=== PATIENT | male | born 1975 | race Hispanic/Latino ===

== ENCOUNTER 2020-04-30 20:20 | Emergency (ER) | payer BC ==
[~2020-04-30] VITALS: Ht 167.6 cm; Wt 72.6 kg
--- NOTE | 2020-04-30 20:44 | Emergency Department Note ---
History of Present Illnes History of Present Illness Chief Complaint: Genitourinary History of Present Illness This is a 44 year old male presents to ED with intermittent hematuria/right lower back x1 week; pt reports hematuria tonight x30 minutes following sexual intercourse with spouse; pt also reports burning with urination last week, denies any at this time. Historian: Patient Arrival Mode: Car Onset (how long ago): day(s) (7) Location: RIGHT BACK Quality: OCCASIONAL PAIN, BLOOD IN URINE Radiation: Reports non-radiation Severity: mild Onset quality: sudden Duration (how long): day(s) (7) Timing of current episode: intermittent Progression: waxing and waning Chronicity: recurrent Context: Denies recent illness, Denies recent surgery, Denies trauma/injury Relieving factors: none Exacerbating factors: none Associated symptoms: Reports denies other symptoms Past Medical/Family History Physician Review I have reviewed the patient's past medical and family history. Any updates have been documented here. Past Medical History Recent Fever: No Clinical Suspicion of Infectio: No New/Unexplained Change in Ment: No Past Medical History: Kidney Stones Other Medical History: ACID REFLUX Other Surgery: lithotripsy Social History Smoking Cessation: Current every day smoker Counseling Performed: No Alcohol Use: Occasional Any Illegal Drug Use: No Family History Family history of heart diseas: No Other Last Tetanus: Up to date Any Pre-Existing Lines (PICC,: No Review of Systems Review of Systems Constitutional: Reports no symptoms EENTM: Reports no symptoms Cardiovascular: Reports no symptoms Respiratory: Reports no symptoms Gastrointestinal: Reports no symptoms Genitourinary: Reports as per HPI Musculoskeletal: Reports no symptoms Integumentary: Reports no symptoms Neurological: Reports no symptoms Psychological: Reports no symptoms Endocrine: Reports no symptoms Hematological/Lymphatic: Reports no symptoms Physical Exam Related Data Allergies: Coded Allergies: No Known Allergies (Unverified , 06/13/16) Triage Vital Signs Vital Signs Date Time Temp Pulse Resp B/P (MAP) Pulse Ox O2 Delivery O2 Flow Rate FiO2 04/30/20 20:27 97.9 82 16 136/94 98 Room Air Vital signs reviewed: Yes Physical Exam CONSTITUTIONAL Constitutional: Present well-developed, Present well-nourished; Absent distressed HENT HENT: Present normocephalic, Present atraumatic, Present oropharynx clear/moist, Present nose normal HENT L/R: Present left ext ear normal, Present right ext ear normal EYES Eyes: Reports PERRL, Reports conjunctivae normal NECK Neck: Present ROM normal PULMONARY Pulmonary: Present effort normal, Present breath sounds normal CARDIOVASCULAR Cardiovascular: Present regular rhythm, Present heart sounds normal, Present capillary refill normal, Present normal rate GASTROINTESTINAL Abdominal: Present soft, Present nontender, Present bowel sounds normal, Present right CVA tenderness (MILD RIGHT); Absent tender, Absent guarding, Absent mass, Absent rebound GENITOURINARY Genitourinary: Present exam deferred SKIN Skin: Present warm, Present dry MUSCULOSKELETAL Musculoskeletal: Present ROM normal NEUROLOGICAL Neurological: Present alert, Present oriented x 3, Present no gross motor or sensory deficits PSYCHOLOGICAL Psychological: Present mood/affect normal, Present judgement normal Results Laboratory Laboratory Laboratory Tests Test 04/30/20 20:30 White Blood Count 5.81 x10e3/uL (4.8-10.8) Red Blood Count 4.54 x10e6/uL (4.3-5.7) Hemoglobin 13.6 g/dL (14.0-18.0) Hematocrit 40.5 % (38.2-49.6) Mean Corpuscular Volume 89.2 fL (81-99) Mean Corpuscular Hemoglobin 30.0 pg (28-32) Mean Corpuscular Hemoglobin Concent 33.6 g/dL (31-35) Red Cell Distribution Width 12.7 % (11.7-14.4) Platelet Count 210 x10e3/uL (140-360) Neutrophils (%) (Auto) 57.8 % (38.7-80.0) Lymphocytes (%) (Auto) 29.3 % (18.0-39.1) Monocytes (%) (Auto) 6.4 % (4.4-11.3) Eosinophils (%) (Auto) 5.3 % (0.0-6.0) Basophils (%) (Auto) 0.5 % (0.0-1.0) Neutrophils # (Auto) 3.4 (2.1-6.9) Lymphocytes # (Auto) 1.7 (1.0-3.2) Monocytes # (Auto) 0.4 (0.2-0.8) Eosinophils # (Auto) 0.3 (0.0-0.4) Basophils # (Auto) 0.0 (0.0-0.1) Absolute Immature Granulocyte (auto 0.04 x10e3/uL (0-0.1) Prothrombin Time 11.6 seconds (11.9-14.5) Prothromb Time International Ratio 0.81 Activated Partial Thromboplast Time 32.6 seconds (23.8-35.5) Urine Color Straw (YELLOW) Urine Clarity Cloudy (CLEAR) Urine pH 5.5 (5 - 7) Urine Specific [place] 1.015 (1.010-1.025) Urine Protein 2+ (NEGATIVE) Urine Glucose (UA) Negative (NEGATIVE) Urine Ketones Negative (NEGATIVE) Urine Blood 4+ (NEGATIVE) Urine Nitrite Negative (NEGATIVE) Urine Bilirubin Negative (NEGATIVE) Urine Urobilinogen 0.2 mg/dL (0.2 - 1) Urine Leukocyte Esterase Negative (NEGATIVE) Urine RBC >50 /HPF (0-5) Urine WBC 11-20 /HPF (0-5) Urine Epithelial Cells Few /LPF (NONE) Urine Bacteria Moderate /HPF (NONE) Sodium Level 136 mmol/L (136-145) Potassium Level 4.0 mmol/L (3.5-5.1) Chloride Level 105 mmol/L (98-107) Carbon Dioxide Level 18 mmol/L (22-29) Anion Gap 17.0 mmol/L (8-16) Blood Urea Nitrogen 16 mg/dL (7-26) Creatinine 0.89 mg/dL (0.72-1.25) Estimat Glomerular Filtration Rate > 60 ML/MIN (60-) BUN/Creatinine Ratio 18 (6-25) Glucose Level 101 mg/dL (74-118) Calcium Level 8.6 mg/dL (8.4-10.2) Total Bilirubin 0.2 mg/dL (0.2-1.2) Aspartate Amino Transf (AST/SGOT) 27 IU/L (5-34) Alanine Aminotransferase (ALT/SGPT) 27 IU/L (0-55) Alkaline Phosphatase 78 IU/L (40-150) Creatine Kinase 331 IU/L (30-200) Total Protein 7.0 g/dL (6.5-8.1) Albumin 4.6 g/dL (3.5-5.0) Globulin 2.4 g/dL (2.3-3.5) Albumin/Globulin Ratio 1.9 (0.8-2.0) Lab results reviewed: Yes Imaging Imaging results reviewed: Yes Impressions Procedure: [id number] CT/CT ABDOMEN/PELVIS WO Exam Date: 04/30/20 Exam Time: 2119 REPORT STATUS: Signed EXAM: CT Abdomen and Pelvis WITHOUT contrast INDICATION: ^HEMATURIA ^[id number] ^2119 ^Y COMPARISON: None available. TECHNIQUE: Abdomen and pelvis were scanned utilizing a multidetector helical scanner from the lung base to the pubic symphysis without administration of IV contrast. Absence of intravenous contrast decreases sensitivity for detection of focal lesions and vascular pathology. Coronal and sagittal reformations were obtained. Routine protocol was performed. IV CONTRAST: None ORAL CONTRAST: None COMPLICATIONS: None RADIATION DOSE: Total DLP: 304.99 mGy*cm Estimated effective dose: (DLP x 0.015 x size factor) mSv CTDIvol has been reviewed. It is below the limits set by the Radiation Protocol Committee (RPC). FINDINGS: LINES and TUBES: None. LOWER THORAX: Unremarkable HEPATOBILIARY: Unenhanced liver is unremarkable. No biliary ductal dilation. GALLBLADDER: Contracted. No radio-opaque stones or sludge. No wall thickening. SPLEEN: No splenomegaly. PANCREAS: No focal masses or ductal dilatation. ADRENALS: No adrenal nodules KIDNEYS/URETERS: 6 mm left ureteropelvic junction calculus without or with minimal left hydronephrosis. No right renal stones. No right hydronephrosis. Limited for evaluation of renal parenchyma without intravenous contrast. 5 mm left inferior pole calculus. GI TRACT: No abnormal distention, wall thickening, or evidence of bowel obstruction. Appendix is normal. PELVIC ORGANS/BLADDER: Unremarkable. LYMPH NODES: No lymphadenopathy. VESSELS: Unremarkable. PERITONEUM / RETROPERITONEUM: No free air or fluid. BONES: Unremarkable. SOFT TISSUES: Bilateral fat-containing hernia, right greater than left. IMPRESSION: 6 mm left ureteropelvic junction calculus without or with minimal left hydronephrosis. Additional subcentimeter left renal inferior pole nonobstructing calculus. Signed by: Dr. Yang Perry MD on 04/30/2020 9:50 PM Dictated By: YANG PERRY MD 49 Transcribed By: EUSEBIA on 04/30/202149 COPY TO: TREY DIANA MD~ Assessment & Plan Medical Decision Making MDM PT WITH INTERMITTENT RIGHT BACK PAIN AND HEMATURIA FOR 7 DAYS, H/O KIDNEY STONES CBC, BMP, UA, CT ABD/PELVIS ORDERED TO EVAL FOR UTI, HEMATURIA, KIDNEY STONE, ELECTROLYTE ABNORMALITY pt with uti and 6 mm stone in left upj without significant hydronephrosis, i offered pt admission with urology consult and he states he has a urologist and would prefer to be discharged and follow up with his own urologist discharged with prescriptions for omnicef 300 mg po bid for 10 days #20, Assessment & Plan Final Impression: (1) UTI (urinary tract infection) (2) Ureterolithiasis Depart Disposition: HOME, SELF-CARE Last Vital Signs Date Time Temp Pulse Resp B/P (MAP) Pulse Ox O2 Delivery O2 Flow Rate FiO2 04/30/20 20:27 97.9 82 16 136/94 98 Room Air TREY DIANA MD Apr 30, 2020 20:44
[2020-04-30 20:45] LABS: BASOPHILS % 0.5 % (0.0-1.0); EOSINOPHILS # (AUTO) 0.3 (0.0-0.4); EOSINOPHILS % 5.3 % (0.0-6.0); HEMATOCRIT 40.5 % (38.2-49.6); HEMOGLOBIN 13.6 g/dL (14.0-18.0); LYMPHOCYTES # (AUTO) 1.7 (1.0-3.2); LYMPHOCYTES % 29.3 % (18.0-39.1); MEAN CORPUSCULAR HGB CONC 33.6 g/dL (31-35); MEAN CORPUSCULAR VOLUME 89.2 fL (81-99); MONOCYTES # (AUTO) 0.4 (0.2-0.8); MONOCYTES % 6.4 % (4.4-11.3); NEUTROPHILS # (AUTO) 3.4 (2.1-6.9); NEUTROPHILS % 57.8 % (38.7-80.0); PLATELET COUNT 210 x10e3/uL (140-360); RED BLOOD COUNT 4.54 x10e6/uL (4.3-5.7); RED CELL DISTRIBUTION WIDTH 12.7 % (11.7-14.4)
[2020-04-30 20:49] LABS: CLARITY,URINE CLOUDY (CLEAR); COLOR,URINE STRAW (YELLOW)
[2020-04-30 20:50] LABS: BILIRUBIN,URINE NEGATIVE (NEGATIVE); KETONES,URINE NEGATIVE (NEGATIVE); LEUKOCYTE ESTERASE ,URINE NEGATIVE (NEGATIVE); NITRITE,URINE NEGATIVE (NEGATIVE); PROTEIN,URINE DIPSTICK 2+ (NEGATIVE); URINE UROBILINOGEN 0.2 mg/dL (0.2 - 1)
[2020-04-30 20:54] LABS: INR 0.81; PARTIAL THROMBOPLASTIN TIME 32.6 seconds (23.8-35.5); PROTHROMBIN TIME 11.6 seconds (11.9-14.5)
[2020-04-30 20:55] LABS: BACTERIA,URINE MODERATE /HPF; EPITHELIAL CELLS,URINE FEW /LPF; RBC,URINE >50 /HPF (0-5)
[2020-04-30 21:03] LABS: ALANINE AMINOTRANSFERASE 27 IU/L (0-55); ALBUMIN 4.6 g/dL (3.5-5.0); ALBUMIN/GLOBULIN RATIO 1.9 (0.8-2.0); ALKALINE PHOSPHATASE 78 IU/L (40-150); BLOOD UREA NITROGEN 16 mg/dL (7-26); BUN/CREATININE RATIO 18 (6-25); CALCIUM 8.6 mg/dL (8.4-10.2); CARBON DIOXIDE 18 mmol/L (22-29); CHLORIDE 105 mmol/L (98-107); CREATININE, SERUM 0.89 mg/dL (0.72-1.25); EST GLOMERULAR FILTRATION RATE > 60 ML/MIN (60-); GLUCOSE 101 mg/dL (74-118); SODIUM 136 mmol/L (136-145)
--- NOTE | 2020-04-30 21:53 | Diagnostic Imaging Report ---
EXAM: CT Abdomen and Pelvis WITHOUT contrast INDICATION: ^HEMATURIA ^[id number] ^2119 ^Y COMPARISON: None available. TECHNIQUE: Abdomen and pelvis were scanned utilizing a multidetector helical scanner from the lung base to the pubic symphysis without administration of IV contrast. Absence of intravenous contrast decreases sensitivity for detection of focal lesions and vascular pathology. Coronal and sagittal reformations were obtained. Routine protocol was performed. IV CONTRAST: None ORAL CONTRAST: None COMPLICATIONS: None RADIATION DOSE: Total DLP: 304.99 mGy*cm Estimated effective dose: (DLP x 0.015 x size factor) mSv CTDIvol has been reviewed. It is below the limits set by the Radiation Protocol Committee (RPC). FINDINGS: LINES and TUBES: None. LOWER THORAX: Unremarkable HEPATOBILIARY: Unenhanced liver is unremarkable. No biliary ductal dilation. GALLBLADDER: Contracted. No radio-opaque stones or sludge. No wall thickening. SPLEEN: No splenomegaly. PANCREAS: No focal masses or ductal dilatation. ADRENALS: No adrenal nodules KIDNEYS/URETERS: 6 mm left ureteropelvic junction calculus without or with minimal left hydronephrosis. No right renal stones. No right hydronephrosis. Limited for evaluation of renal parenchyma without intravenous contrast. 5 mm left inferior pole calculus. GI TRACT: No abnormal distention, wall thickening, or evidence of bowel obstruction. Appendix is normal. PELVIC ORGANS/BLADDER: Unremarkable. LYMPH NODES: No lymphadenopathy. VESSELS: Unremarkable. PERITONEUM / RETROPERITONEUM: No free air or fluid. BONES: Unremarkable. SOFT TISSUES: Bilateral fat-containing hernia, right greater than left. IMPRESSION: 6 mm left ureteropelvic junction calculus without or with minimal left hydronephrosis. Additional subcentimeter left renal inferior pole nonobstructing calculus. Signed by: Dr. Yang Perry MD on 04/30/2020 9:50 PM
--- NOTE | 2020-04-30 22:02 | NUR ---
ED MD AT BEDSIDE EDUCATING PT ON POC AND INTENT TO ADMIT FOR PROPER CARE, BUT PT STATES WOULD RATHER F/U WITH UROLOGIST, PT EDUCATED AND ADVISED OF RISKS/BENEFITS, SO PT WILL BE D/C AT THIS TIME, ADVISED TO RETURN TO ED FOR ANY ACUTE CHANGES.
[2020-04-30 22:13] VITALS: BP 115/73
--- OUTSIDE RECORDS SUMMARY | 2020-04-30 22:15 | XMS REPORT | Continuity of Care Document ---
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 Role Phone [facility] Information Exchange Unavailable Un available Problems Problem Status Onset Date Classification Date Reported Comments Source UNK Active 0 03/03/2017 [facility] STAGHORN CALCULUS Active 11/14/2016 [facility] Discharge Diagnosis: Renal colic 11/28/2014 11/30/2014 [facility] KIDNEY STONES Active 11/28/2014 [facility] PAIN/KIDNEY STONE Active 11/24/2014 [facility] Discharge Diagnosis: Ureterolithiasis 11/24/2014 11/27/2014 [facility] Hyperuricemia (disorder) Active 08/03/2014 Problem 11/25/2019 Data migrated from GE Lin[employer] on 01/21. [facility] Liver function tests abnormal (finding) Active 08/03/2014 Problem 11/25/2019 Data migrated from [employer] Centricity on 01/21/15. [facility] Pancytopenia (disorder) Active 08/03/2014 Problem 11/25/2019 Data migrated from [employer] on 01/21. [facility] Discharge Diagnosis: UTI (lower urinary tract infection) 06/23/2014 06/26/2014 [facility] Discharge Diagnosis: Kidney stone 06/23/2014 06/26/2014 [facility] Lower urinary tract infectious disease (disorder) Resolved 06/23/2014 Problem 11/25/2019 [facility] ABDOMINAL PAIN Active 06/23/2014 [facility] Acute cystitis (disorder) Reso lved 11/02/2013 Problem 11/25/2019 Data migrated from [employer] on 03/11. Data migrated from [employer] on 03/10/15. [facility] Backache (finding) Resolved 11/02/2013 Problem 11/25/2019 Data migrated from [employer] on 03/11. Data migrated from [employer] on 03/10/15. [facility] Kidney stone (disorder) Active 11/02/2013 Problem 11/25/2019 Data migrated from [employer] on 01/21. [facility] Epididymitis (disorder) Resolv ed 04/29/2013 Problem 11/25/2019 Data migrated from [employer] on 03/11. Data migrated from [employer] on 03/10/15. [facility] Fever (finding) Resolved 04/29/2013 Problem 11/25/2019 Data migrated from [employer] on 03/10. [facility] Gastroesophageal reflux disease (disorder) Active 04/29/2013 Problem 11/25/2019 Data migrated from [employer] on 01/21/15. [facility] History of - gastrointestinal disease (c ontext-dependent category) Resolved 04/29/2013 Problem 11/25/2019 Data migrated from [employer] on 03/11/15. Data migrated from [employer] on 03/10/15. [facility] LEUKOPENIA, RHABDOMYOLYSIS, MYAGLIAS Active 04/04/2013 [facility] ALLERGIC REACTION Active 04/04/2013 [facility] Constipation (disorder) Active Problem 11/25/2019 [facility] Decreased testosterone level (finding) Active Problem 09/2019 [facility] Eruption of skin (disorder) Ac tive Problem 09/2019 [facility] Follow-up status (finding) Act ramiro Problem 09/2019 [facility] Impaired fasting glycaemia (disorder) Active Problem 09/2019 [facility] Iron deficiency anemia (disorder) Active Problem 09/2019 [facility] Mixed hyperlipidemia (disorder) Active Problem 09/2019 [facility] Oral lesion (finding) Active Problem 11/25/2019 [facility] Impotence of organic origin (disorder) Active Problem 09/2019 [facility] Sore throat symptom (finding) Active Problem 09/2019 [facility] Decreased vitamin D (finding) Active Problem 09/2019 [facility] Patient encounter status (finding) Active Problem 09/2019 [facility] Screening status (finding) Act ramiro Problem 09/2019 [facility] Staghorn calculus (disorder) A ctive Problem 09/2019 [facility] Streptococcal sore throat (disorder) Active Problem 09/2019 [facility] Urine finding (finding) Active Problem 11/25/2019 [facility] Visual impairment (disorder) A ctive Problem 09/2019 [facility] DECREASED WBC COUNT NEC Active [facility] RHABDOMYOLYSIS Active [facility] CALCULUS OF KIDNEY Active [facility] Medications Medication Details Route Status Patient Instructions Ordering Provider Order Date Source ibuprofen 800 mg oral tablet 8 00 mg = 1 tab, PO, Q8H, PRN Pain, Take with food, X 10 day, # 30 tab, 0 Refill(s), Pharmacy: [id number] No Longer Active 09/30/2018 [facility] amoxicillin 500 mg oral capsule 500 mg = 1 cap, PO, TID, X 7 day, # 21 cap, 0 Refill(s), Pharmacy: [id number] No Longer Active 09/30/2018 [facility] potassium citrate 15 MEQ Extended Releas e Tablet [Urocit-K] 15 mEq = 1 tab, PO, TID, # 270 tab, 3 Re fill(s), Pharmacy: [id number] Active 09/22/2018 [facility] potassium citrate PO, Daily, 0 Refill(s) Active 09/22/2018 [facility] naproxen 500 mg oral enteric coated elijah yed-release tablet 500 mg = 1 tab, PO, BID, X 10 day, # 20 tab, 0 Refill(s), Pharmacy: [facility] No Longer Active 10/10/2017 [facility] tadalafil 5 MG Oral Tablet [Cialis] 5 mg = 1 tab, PO, Daily, PRN for erectile dysfunction, X 30 day, # 30 tab, 1 Refill(s), Pharmacy: [id number] No Longer Active 03/04/2017 [facility] ketOROLAC 15 mg/mL injectable solution 4 days. No Longer Active 12/06/2016 [facility] Acetaminophen 325 MG / Hydrocodone Jojo trate 5 MG Oral Tablet [[place]lede 5/325] Notes: (Same as: [place] 325/5) Do not ex ceed 4gm/day of acetaminophen. No Longer Activ e 12/05/2016 [facility] Dilaudid 0.5 mg, 0.5 mL, Route : IVP, Drug form: INJ, Q4H, Dosing Weight 77.636, kg, PRN Pain Score 7-10, Start date: 12/05/16 15:50:00 CDT, Duration: 30 day, Stop date: 01/04/17 15:49:00 CDT No Longer Active 12/05/2016 [facility] senna 8.6 mg oral tablet 1 tab , Route: PO, Drug Form: TAB, Dosing Weight 77.636, kg, Daily, Start date: 12/05/16 9:00:00 CDT, Duration: 30 day, Stop date: 01/03/17 9:00:00 CDT No Longer Active 12/05/2016 [facility] Docusate Sodium 100 MG Oral Capsule 100 mg = 1 cap, PO, BID, # 40 cap, 0 Refill(s) Active 12/05/2016 [facility] ciprofloxacin 500 mg oral tablet 500 mg = 1 tab, PO, [id number], # 12 tab, 0 Refill(s) No Longer Active 12/05/2016 [facility] Acetaminophen 325 MG / Hydrocodone Jojo trate 5 MG Oral Tablet [[place] 5/325] 1 tab, PO, Q4H, PRN Pain Score 4-6, # 30 tab, 0 Refill(s), given to patient Active 12/05/2016 [facility] tamsulosin 0.4 mg oral capsule 0.4 mg = 1 cap, PO, Q24H, # 40 cap, 0 Refill(s) Active 12/05/2016 [facility] Fleet Enema 12 years, Pediatr ic Dosing No Longer Active 12/05/2016 [facility] Dulcolax Laxative Notes: (Same As: Dulcolax, Bisco-Lax) No Longer Active 12/05/2016 [facility] Docusate Sodium 100 MG Oral Capsule [Colace] 100 mg, 1 cap, Route: PO, BID, Dosing Weight 77.636, kg, Start date: 12/04/16 17:00:00 CDT, Duration: 30 day, Stop date: 01/03/17 9:00:00 CDT Inactive 12/04/2016 [facility] docosanol 100 MG/ML Topical Cream [Abreva] Notes: Same as Abreva No Longer Active 12/04/2016 [facility] Flomax Notes: (Same As: Flomax ) "Do Not Crush" No Longer Active 12/04/2016 [facility] Miralax Notes: Dissolve in 8 o z of water or juice. (Same as: Miralax) Inactive 12/04/2016 [facility] Acetaminophen 325 MG / Hydrocodone Jojo trate 5 MG Oral Tablet [[place] 5/325] Notes: (Same as: [place] 325/5) Do not ex ceed 4gm/day of acetaminophen. No Longer Activ e 12/04/2016 [facility] Orabase Gel-B 20% mucous membrane gel Notes: (Same As: Maximum Strength PM Orajel ) N o Longer Active 12/04/2016 [facility] Tylenol Notes: Do not exceed 4 gm/day. (Same as: Tylenol) No Longer Active 12/03/2016 [facility] Ketorolac 4 days. Inactive 12/03/2016 [facility] tramadol hydrochloride 50 MG Oral Tablet Notes: Not to exceed 400mg/day. (Same As: Ultram) No Longer Active 12/03/2016 [facility] sennosides, RETIREMENT Notes: (Same a s: Senokot) No Longer Active 12/03/2016 [facility] Cipro Notes: May interfere w/e nteral feedings - Take 1 hr before or 2 hrs after antacids, dairy pdt & minerals. On empty stomach. No Longer Active 12/03/2016 [facility] Docusate Notes: (Same as: Cola ce) (Do Not Crush) No Longer Active 12/02/2016 [facility] Acetaminophen 10 MG/ML Injectable Solution Notes: Infuse over 15 minutes Do not exceed 4gm/day of acetaminophen MEDICATION WASTE Product Size: 1000 mg Product Wasted: ___ mg No Longer Active 12/02/2016 [facility] Ondansetron 4 mg, Route: IVP, ONCE, Dosing Weight 72.727, kg, PRN Nausea & Vomiting, Start date: 12/02/16 13:47:00 CDT Inactive 12/02/2016 [facility] Promethazine 6.25 mg, Route: I VPB, ONCE, Dosing Weight 72.727, kg, PRN Nausea & Vomiting, Start date: 12/02/16 13:47:00 CDT Inactive 12/02/2016 [facility] Meperidine 12.5 mg, Route: IVP , Q30Min, Dosing Weight 72.727, kg, PRN Other -See Comment, For shivering, Start date: 12/02/16 13:47:00 CDT, Duration: 2 doses or times, Stop date: Limited # of times Inactive 12/02/2016 [facility] Naloxone 0.4 mg, Route: IVP, Q 2MIN, Dosing Weight 72.727, kg, PRN Narcotic Reversal, Start date: 12/02/16 13:47:00 CDT, Duration: 8 doses or times, Stop date: Limited # of times Inactive 12/02/2016 [facility] Flumazenil 0.2 mg, Route: IVP, PRN, Dosing Weight 72.727, kg, PRN Benzodiazepine Reversal, Initial dose, Start date: 12/02/16 13:47:00 CDT, Duration: 30 day, Stop date: 01/01/17 13:46:00 CDT Inactive 12/02/2016 [facility] Labetalol 10 mg, Route: IVP, Q 5Min, Dosing Weight 72.727, kg, PRN Elevated BP, Start date: 12/02/16 13:47:00 CDT, Duration: 5 doses or times, Stop date: Limited # of times Inactive 12/02/2016 [facility] Hydralazine 10 mg, Route: IVP, Q20Min, Dosing Weight 72.727, kg, PRN Elevated BP, Start date: 12/02/16 13:47:00 CDT, Duration: 2 doses or times, Stop date: Limited # of times Inactive 12/02/2016 [facility] Fentanyl 25 microgram, Route: IVP, Q5Min, Dosing Weight 72.727, kg, PRN Pain Score 4-6, Priority: Routine, Start date: 12/02/16 13:47:00 CDT, Duration: 4 doses or times, Stop date: Limited # of times Inactive 12/02/2016 [facility] Oxycodone 2.5 mg, Route: PO, D rug form: LIQ, Q4H, Dosing Weight 72.727, kg, PRN Pain Score 4-6, Start date: 12/02/16 13:47:00 CDT, Duration: 30 day, Stop date: 01/01/17 13:46:00 CDT Inactive 12/02/2016 [facility] Hydromorphone 0.5 mg, Route: I [employer], Q5Min, Dosing Weight 72.727, kg, PRN Pain Score 7-10, Start date: 12/02/16 13:47:00 CDT, Duration: 4 doses or times, Stop date: Limited # of times Inactive 12/02/2016 [facility] Dilaudid 0.5 mg, 0.5 mL, Route : IVP, Drug form: INJ, Q4H, Dosing Weight 72.727, kg, PRN Pain Score 7-10, Start date: 12/02/16 13:33:00 CDT, Duration: 30 day, Stop date: 01/01/17 13:32:00 CDT No Longer Active 12/02/2016 [facility] tramadol hydrochloride 50 MG Oral Tablet Notes: Not to exceed 400mg/day. (Same As: Ultram) No Longer Active 12/02/2016 [facility] D5NS 1,000 mL 1,000 mL, Rate: 75 ml/hr, Infuse over: 13.3 hr, Route: IV, Dosing Weight 72.727 kg, Total Volume: 1,000, Start date: 12/02/16 13:33:00 CDT, Duration: 30 day, Stop date: 01/01/17 13:32:00 CDT Inactive 12/02/2016 [facility] Hydralazine Notes: (Same as: A presoline) Push over 5 minutes No Longer Active 12/02/2016 [facility] Ondansetron Notes: (Same as: Daisy cruz) MEDICATION WASTE Product Size: 4 mg Product Wasted: ___ mg No Longer Active 12/02/2016 [facility] ondansetron (ANES) Route: IV, Drug form: INJ, ONCE, Stop date: 12/02/16 13:27:00 CDT Inactive 12/02/2016 [facility] famotidine (ANES) Route: IV, D rug form: INJ, ONCE, Stop date: 12/02/16 12:27:00 CDT Inactive 12/02/2016 [facility] lidocaine (ANES) Route: IV, Dr ug form: INJ, ONCE, Stop date: 12/02/16 12:22:00 CDT Inactive 12/02/2016 [facility] propofol (ANES) Route: IV, Rell g form: INJ, ONCE, Stop date: 12/02/16 12:22:00 CDT Inactive 12/02/2016 [facility] rocuronium (ANES) Route: IV, D rug form: INJ, ONCE, Stop date: 12/02/16 12:22:00 CDT Inactive 12/02/2016 [facility] ciprofloxacin (ANES) Route: IV , Drug form: INJ, ONCE, Stop date: 12/02/16 11:57:00 CDT Inactive 12/02/2016 [facility] midazolam (ANES) Route: IV, Dr ug form: SOLN, ONCE, Stop date: 12/02/16 11:57:00 CDT Inactive 12/02/2016 [facility] fentaNYL (ANES) Route: IV, Rell g form: INJ, ONCE, Stop date: 12/02/16 11:57:00 CDT Inactive 12/02/2016 [facility] LR 1000 mL INJ (ANES) Route: I V, Total Volume: 1,000, Start date: 12/02/16 11:07:00 CDT, Stop date: 12/02/16 12:07:00 CDT Inactive 12/02/2016 [facility] gentamicin (ANES) (ANES) Route : IV, Drug form: INJ, Start date: 12/02/16 11:07:00 CDT, Stop date: 12/02/16 12:07:00 CDT Inactive 12/02/2016 [facility] Calcium Chloride 0.0014 MEQ/ML / Potassi um Chloride 0.004 MEQ/ML / Sodium Chloride 0.103 MEQ/ML / Sodium Lactate 0.028 MEQ/ML Injectable Solution 1,000 mL, Rate: 25 ml/hr, Infuse over: 4 0 hr, Route: IV, Dosing Weight 72.727 kg, Total Volume: 1,000, Start date: 12/02/16 9:42:00 CDT, Duration: 30 day, Stop date: 01/01/17 9:41:00 CDT Inactive 12/02/2016 [facility] diclofenac sodium 25 mg oral enteric [place], delayed-release tablet 25 mg = 1 tab, PO, QID, PRN Pain Score 1 -5, # 20 tab, 0 Refill(s) Active 11/29/2014 [facility] Acetaminophen 325 MG / Hydrocodone Jojo trate 10 MG Oral Tablet 1 tab, PO, Q4H, PRN Pain, # 12 tab, 0 Refill(s) Active 11/29/2014 [facility] ketOROLAC 30 mg/mL injectable solution 30 mg, Route: IVP, Drug form: INJ, ONCE, Dosing Weight 75, kg, Priority: STAT, Start date: 11/28/14 20:37:00, Stop date: 11/28/14 20:37:00 Inactive 11/29/2014 [facility] Dilaudid 1 mg, Route: IVP, ONC E, Dosing Weight 75, kg, Priority: STAT, Start date: 11/28/14 18:32:00, Stop date: 11/28/14 18:32:00 Inactive 11/28/2014 [facility] normal saline 0.9% IV 1,000 mL 1,000 mL, Rate: 1,000 ml/hr, Infuse over: 1 hr, Route: IV, Dosing Weight 75 kg, Total Volume: 1,000, Start date: 11/28/14 18:14:00, Duration: 30 day, Stop date: 12/28/14 18:13:00 No Longer Active 11/28/2014 [facility] Saline Flush 0.9% Notes: (Same as: BD Posiflush) No Longer Active 11/28/2014 [facility] Ondansetron 4 mg, Route: IVP, ONCE, Dosing Weight 75, kg, Priority: STAT, Start date: 11/28/14 18:05:00, Stop date: 11/28/14 18:05:00 Inactive 11/28/2014 [facility] Morphine 4 mg, Route: IVP, ONC E, Dosing Weight 75, kg, Priority: STAT, Start date: 11/28/14 18:05:00, Stop date: 11/28/14 18:05:00 Inactive 11/28/2014 [facility] Tamsulosin hydrochloride 0.4 MG Oral Capsule [Flomax] 0.4 mg = 1 cap, PO, Daily, # 14 cap, 0 Refill(s) Active 11/25/2014 [facility] promethazine 25 mg oral tablet 25 mg, PO, Q4H, PRN Nausea, # 15 tab, 0 Refill(s) Active 11/25/2014 [facility] Acetaminophen 325 MG / Hydrocodone Jojo trate 7.5 MG Oral Tablet [[place] 7.5/325] 1 tab, PO, Q6H, PRN for pain, # 20 tab, 0 Refill(s) Active 11/25/2014 [facility] Morphine 4 mg, Route: IVP, Rell g form: INJ, ONCE, Dosing Weight 72.727, kg, Priority: STAT, Start date: 11/24/14 23:11:00, Stop date: 11/24/14 23:11:00 Inactive 11/25/2014 [facility] Sodium Chloride 0.154 MEQ/ML Injectable Solution 1,000 mL, 1,000 ml/hr, Infuse Over: 1 Hour, Route: IV, ONCE, Priority: STAT, Dosing Weight 72.727 kg, Start date: 11/24/14 21:51:00, Duration: 1 doses or times, Stop date: 11/24/14 21:51:00 Inactive 11/25/2014 [facility] Phenergan 12.5 mg, Route: IVPB , ONCE, Dosing Weight 72.727, kg, Priority: STAT, Start date: 11/24/14 21:34:00, Stop date: 11/24/14 21:34:00 Inactive 11/25/2014 [facility] Dilaudid 1 mg, Route: IVP, ONC E, Dosing Weight 72.727, kg, Priority: STAT, Start date: 11/24/14 20:34:00, Stop date: 11/24/14 20:34:00 Inactive 11/25/2014 [facility] Morphine 4 mg, Route: IVP, ONC E, Dosing Weight 72.727, kg, Priority: STAT, Start date: 11/24/14 20:18:00, Stop date: 11/24/14 20:18:00 Inactive 11/25/2014 [facility] Ondansetron 4 mg, Route: IVP, ONCE, Dosing Weight 72.727, kg, Priority: STAT, Start date: 11/24/14 20:18:00, Stop date: 11/24/14 20:18:00 Inactive 11/25/2014 [facility] Sodium Chloride 0.154 MEQ/ML Injectable Solution 1,000 mL, Infuse Over: 1 hr, Route: IV, ONCE, Priority: STAT, Dosing Weight 72.727 kg, Start date: 11/24/14 20:18:00, Duration: 1 doses or times, Stop date: 11/24/14 20:18:00 Inactive 11/25/2014 [facility] Saline Flush 0.9% Notes: (Same as: BD Posiflush) No Longer Active 11/25/2014 [facility] Ondansetron 4 MG Oral Tablet [Zofran] 4 mg = 1 tab, PO, BID, # 10 tab, 0 Refill(s) Active 06/23/2014 [facility] Acetaminophen 325 MG / tramadol hydrochl oride 37.5 MG Oral Tablet [Ultracet] 1 tab, PO, Q4H, for pain, # 60 tab, 0 Re fill(s) Active 06/23/2014 [facility] Sulfamethoxazole 800 MG / Trimethoprim 1 60 MG Oral Tablet [Bactrim] 1 tab, PO, BID, # 20 tab, 0 Refill(s) Active 06/23/2014 [facility] Ketorolac 30 mg, Route: IVP, O NCE, Dosing Weight 75, kg, Priority: STAT, Start date: 06/23/14 9:27:00, Stop date: 06/23/14 9:27:00 Inactive 06/23/2014 [facility] Ondansetron 4 mg, Route: IVP, ONCE, Dosing Weight 75, kg, Priority: STAT, Start date: 06/23/14 9:27:00, Stop date: 06/23/14 9:27:00 Inactive 06/23/2014 [facility] Sodium Chloride 0.154 MEQ/ML Injectable Solution 1,000 mL, Infuse Over: 1 hr, Route: IV, ONCE, Priority: STAT, Dosing Weight 75 kg, Start date: 06/23/14 9:27:00, Duration: 1 doses or times, Stop date: 06/23/14 9:27:00 Inactive 06/23/2014 [facility] Saline Flush 0.9% 10 mL, Route : IVP, Drug Form: INJ, Dosing Weight 75, kg, PRN, PRN Line Flush, Start date: 06/23/14 9:27:00, Duration: 30 day, Stop date: 07/23/14 8:26:00 Inactive 06/23/2014 [facility] Nexium 40 mg oral delayed release capsule 40 mg, 1 cap, PO, Daily, 30 cap, Substitution Allowed PO Active [facility] 04/08/2013 [facility] tramadol 50 mg oral tablet 50 mg, 1 tab, PO, Q6H, PRN, 40 tab, Pain, Substitution Allowed, TAB PO Active 04/08/2013 [facility] Levaquin 500 mg oral tablet 50 0 mg, 1 tab, PO, Q24H, 14 tab, Substitution Allowed PO Active 04/08/2013 [facility] Protonix 40 mg, 1 tab, Route: PO, Drug form: ECTAB, Before Dinner, Start date: 04/07/13 16:30:00, Duration: 30 day, Stop date: 05/06/13 16:30:00 PO No Longer Active 04/07/2013 [facility] potassium chloride 40 mEq, 2 t ab, Route: PO, Drug form: ERTAB, Q4H, Dosing Weight 76.42, kg, Priority: NOW, Start date: 04/07/13 12:32:00, Duration: 2 doses or times, Stop date: 04/07/13 17:00:00 PO No Longer Active 04/07/2013 [facility] nystatin-triamcinolone topical cream 1 appl, Route: TOP, BID, Drug form: CRM, Start date: 04/07/13 9:00:00, Duration: 30 day, Stop date: 05/06/13 17:00:00 TOP No Longer Active [place] 04/07/2013 [facility] phenol topical 1.4% spray 1 sp ray, Route: MUCOUS MEM, Q3H, Drug form: SPRY, PRN Sore Throat, Start date: 04/06/13 8:01:00, Duration: 30 day, Stop date: 05/06/13 8:00:00 MUCOUS MEM No Longer Active 04/06/2013 [facility] Cepacol Dual Relief Sore Throat [place] 5% topical spra y Route: TOP, Dosing Weight 76.42, kg, Q3H, PRN Pain Score 1-3, Start date: 04/06/13 7:30:00, Duration: 30 day, Stop date: 05/06/13 7:29:00 TOP No Longer Active 04/06/2013 [facility] Invanz + Sodium Chloride 0.9% IV 100 mL 1 gm, Route: IVPB, [id number], Dosing Weight 76.42, kg, Start date: 04/05/13 20:00:00, Duration: 30 day, Stop date: 05/04/13 20:00:00 IVPB No Longer Active [place] 04/06/2013 [facility] Zithromax + Sodium Chloride 0.9% IV 250 mL 500 mg, Route: IVPB, Daily, Dosing Weight 76.42, kg, Start date: 04/05/13 18:00:00, Duration: 30 day, Stop date: 05/04/13 18:00:00 IVPB No Longer Active [place] 04/05/2013 [facility] Benadryl 25 mg, 1 tab, Route: PO, Drug form: TAB, Q4H, Dosing Weight 76.42, kg, PRN as needed for itching, Start date: 04/05/13 11:03:00, Duration: 30 day, Stop date: 05/05/13 11:02:00 PO No Longer Active [place] 04/05/2013 [facility] potassium chloride 40 mEq, 2 t ab, Route: PO, Drug form: ERTAB, Q4H, Dosing Weight 76.42, kg, Priority: NOW, Start date: 04/05/13 7:50:00, Duration: 2 doses or times, Stop date: 04/05/13 8:00:00 PO No Longer Active [facility] 04/05/2013 [facility] Tylenol 650 mg, 2 tab, Route: PO, Drug form: TAB, Q6H, Dosing Weight 76.42, kg, PRN Pain/Fever, Start date: 04/05/13 5:19:00, Duration: 30 day, Stop date: 05/05/13 5:18:00, PRN for Fever and pain. PO No Longer Active 04/05/2013 [facility] Tylenol 650 mg, 20.3 mL, Route : PO, Drug form: LIQ, Q6H, Dosing Weight 76.42, kg, PRN Pain/Fever, Start date: 04/05/13 5:00:00, Duration: 30 day, Stop date: 05/05/13 4:59:00, PRN for Fever and pain. PO No Longer Active 03/25 [facility] NS 1,000 mL 1,000 mL, Rate: 12 5 ml/hr, Infuse over: 8 hr, Route: IV, Dosing Weight 76.42 kg, Total Volume: 1,000, Start date: 04/05/13 4:59:00, Duration: 30 day, Stop date: 05/05/13 4:58:00 IV No Longer Active [place] 04/05/2013 [facility] ondansetron 4 mg, 2 mL, Route: IVP, Drug form: INJ, Q8H, Dosing Weight 76.364, kg, PRN Nausea & Vomiting, Start date: 04/04/13 21:19:00, Duration: 30 day, Stop date: 05/04/13 21:18:00 IVP No Longer Active [place] 04/05/2013 [facility] morphine Sulfate 2 mg, 1 mL, R oute: IVP, Drug form: INJ, Q3H, Dosing Weight 76.364, kg, PRN Pain Score 4-6, Start date: 04/04/13 21:19:00, Duration: 30 day, Stop date: 05/04/13 21:18:00 IVP No Longer Active [place] 04/05/2013 [facility] Sodium Chloride 0.9% (Bolus) IV 1,000 mL 1,000 mL, Rate: 1,000 ml/hr, Infuse over: 1 hr, Route: IV, Dosing Weight 76.364 kg, Total Volume: 1,000, Priority: STAT, Start date: 04/04/13 20:03:00, Duration: 1 doses or times, Stop date: 04/04/13 21:02:00, Bolus DoseBolus Dose IV No Longer Active [facility] 04/05/2013 [facility] [place] 10/325 oral tablet 1 tab , Route: PO, Drug Form: TAB, Dosing Weight 76.364, kg, ONCE, Start date: 04/04/13 18:05:00, Stop date: 04/04/13 18:05:00 PO No Longer Active [facility] 04/04/2013 [facility] Sodium Chloride 0.9% (Bolus) IV 1,000 mL 1,000 mL, Rate: 1,000 ml/hr, Infuse over: 1 hr, Route: IV, Dosing Weight 76.364 kg, Total Volume: 1,000, Priority: STAT, Start date: 04/04/13 18:04:00, Duration: 1 doses or times, Stop date: 04/04/13 19:03:00, Bolus DoseBolus Dose IV No Longer Active [facility] 04/04/2013 [facility] Allergies, Adverse Reactions, Alerts Substance Category Reaction Severity Reaction type Status Date Reported Comments Source No Known Medication Allergies Assertion Drug aller [facility] Immunizations No Data Provided for This Section Results Order Name Results Value Reference Range Date Interpretation Comments Source ELECTROLYTES AGAP 13.5 10.0 - 20.0 12/05/2016 [facility] ELECTROLYTES eGFR 114 12/05/2016 Result Comment: The eGFR is calculated using the CKD-EPI formula. In most young, healthy individuals the eGFR will be >90 mL/min/1.73m2. The eGFR declines with age. An eGFR of 60-89 may be normal in some populations, particularly the elderly, for whom the CKD-EPI formula has not been extensively validated. Use of the eGFR is not recommended in the following populations:

Individuals with unstable creatinine concentrations, including patients and those with serious co-morbid conditions.

Patients with extremes in muscle mass or diet.

The data above are obtained from the National Kidney Disease Education Program (NKDEP) which additionally recommends that when the eGFR is used in patients with extremes of body mass index for purposes of drug dosing, the eGFR should be multiplied by the estimated BMI. [facility] ELECTROLYTES Calcium Lvl 8.5 8.5 - 10.5 12/05/2016 [facility] ELECTROLYTES CO2 27 24 - 32 12/05/2016 [facility] ELECTROLYTES Chloride Lvl 103 95 - 109 12/05/2016 [facility] ELECTROLYTES Creatinine Lvl 0.7 5 0.50 - 1.40 12/05/2016 [facility] ELECTROLYTES BUN 8 7 - 22 12/05/2016 [facility] ELECTROLYTES Glucose Lvl 99 70 - 99 12/05/2016 [facility] ELECTROLYTES Potassium Lvl 3.5 3.5 - 5.1 12/05/2016 [facility] ELECTROLYTES Sodium Lvl 140 135 - 145 12/05/2016 [facility] HEMATOLOGY RBC 3.83 4.70 - 6.10 12/05/2016 [facility] HEMATOLOGY Hgb 11.3 14.0 - 18.0 12/05/2016 [facility] WBC 5.4 3.7 - 10.4 12/05/2016 [facility] RDW 12.9 11.5 - 14.5 12/05/2016 [facility] MCH 29.5 27.0 - 31.0 12/05/2016 [facility] MCHC 34.2 32.0 - 36.0 12/05/2016 [facility] Hct 33.0 42.0 - 54.0 12/05/2016 [facility] MCV 86.3 80.0 - 94.0 12/05/2016 [facility] Platelet 165 133 - 450 12/05/2016 [facility] MPV 9.2 7.4 - 10.4 12/05/2016 [facility] Monocytes # 0.4 0.0 - 0.8 12/05/2016 [facility] HEMATOLOGY Basophils 0.4 0.0 - 1.0 12/05/2016 [facility] Segs-Bands # 3.4 1.5 - 8.1 12/05/2016 [facility] Lymphocytes # 1.3 1.0 - 5.5 12/05/2016 [facility] Eosinophils # 0.2 0.0 - 0.5 12/05/2016 [facility] Segs 63.3 45.0 - 75.0 12/05/2016 [facility] Monocytes 8.1 2.0 - 12.0 12/05/2016 [facility] Eosinophils 4.0 0.0 - 4.0 12/05/2016 [facility] Lymphocytes 24.2 20.0 - 40.0 12/05/2016 [facility] CHEM PANEL eGFR 108 12/04/2016 Result Comment: The eGFR is calculated using the CKD-EPI formula. In most young, healthy individuals the eGFR will be >90 mL/min/1.73m2. The eGFR declines with age. An eGFR of 60-89 may be normal in some populations, particularly the elderly, for whom the CKD-EPI formula has not been extensively validated. Use of the eGFR is not recommended in the following populations:

Individuals with unstable creatinine concentrations, including patients and those with serious co-morbid conditions.

Patients with extremes in muscle mass or diet.

The data above are obtained from the National Kidney Disease Education Program (NKDEP) which additionally recommends that when the eGFR is used in patients with extremes of body mass index for purposes of drug dosing, the eGFR should be multiplied by the estimated BMI. [facility] CHEM PANEL Calcium Lvl 8.0 8.5 - 10.5 12/04/2016 [facility] CHEM PANEL Glucose Lvl 103 70 - 99 12/04/2016 [facility] CHEM PANEL BUN 10 7 - 22 12/04/2016 [facility] CHEM PANEL Chloride Lvl 99 95 - 109 12/04/2016 [facility] CHEM PANEL CO2 29 24 - 32 12/04/2016 [facility] CHEM PANEL Creatinine Lvl 0.86 0.50 - 1.40 12/04/2016 [facility] CHEM PANEL Sodium Lvl 138 135 - 145 12/04/2016 [facility] CHEM PANEL Potassium Lvl 3.8 3.5 - 5.1 12/04/2016 [facility] CHEM PANEL AGAP 13.8 10.0 - 20.0 12/04/2016 [facility] HEMATOLOGY MPV 9.2 7.4 - 10.4 12/04/2016 [facility] HEMATOLOGY Platelet 158 133 - 450 12/04/2016 [facility] HEMATOLOGY RDW 13.0 11.5 - 14.5 12/04/2016 [facility] HEMATOLOGY MCH 29.7 27.0 - 31.0 12/04/2016 [facility] MCHC 34.7 32.0 - 36.0 12/04/2016 [facility] HEMATOLOGY Hct 34.2 42.0 - 54.0 12/04/2016 [facility] HEMATOLOGY MCV 85.6 80.0 - 94.0 12/04/2016 [facility] HEMATOLOGY Hgb 11.9 14.0 - 18.0 12/04/2016 [facility] HEMATOLOGY WBC 6.5 3.7 - 10.4 12/04/2016 [facility] HEMATOLOGY RBC 4.00 4.70 - 6.10 12/04/2016 [facility] HEMATOLOGY Segs-Bands # 4.6 1.5 - 8.1 12/04/2016 [facility] HEMATOLOGY Eosinophils 3.5 0.0 - 4.0 12/04/2016 [facility] HEMATOLOGY Lymphocytes # 1.2 1.0 - 5.5 12/04/2016 [facility] HEMATOLOGY Basophils 0.3 0.0 - 1.0 12/04/2016 [facility] HEMATOLOGY Monocytes 7.4 2.0 - 12.0 12/04/2016 [facility] HEMATOLOGY Lymphocytes 18.9 20.0 - 40.0 12/04/2016 [facility] HEMATOLOGY Segs 69.9 45.0 - 75.0 12/04/2016 [facility] HEMATOLOGY Eosinophils # 0.2 0.0 - 0.5 12/04/2016 [facility] HEMATOLOGY Monocytes # 0.5 0.0 - 0.8 12/04/2016 [facility] CHEM PANEL eGFR 112 12/03/2016 Result Comment: The eGFR is calculated using the CKD-EPI formula. In most young, healthy individuals the eGFR will be >90 mL/min/1.73m2. The eGFR declines with age. An eGFR of 60-89 may be normal in some populations, particularly the elderly, for whom the CKD-EPI formula has not been extensively validated. Use of the eGFR is not recommended in the following populations:

Individuals with unstable creatinine concentrations, including patients and those with serious co-morbid conditions.

Patients with extremes in muscle mass or diet.

The data above are obtained from the National Kidney Disease Education Program (NKDEP) which additionally recommends that when the eGFR is used in patients with extremes of body mass index for purposes of drug dosing, the eGFR should be multiplied by the estimated BMI. [facility] CHEM PANEL Calcium Lvl 8.3 8.5 - 10.5 12/03/2016 [facility] CHEM PANEL Glucose Lvl 83 70 - 99 12/03/2016 [facility] CHEM PANEL BUN 10 7 - 22 12/03/2016 [facility] CHEM PANEL Sodium Lvl 141 135 - 145 12/03/2016 [facility] CHEM PANEL Creatinine Lvl 0.79 0.50 - 1.40 12/03/2016 [facility] CHEM PANEL Chloride Lvl 104 95 - 109 12/03/2016 [facility] CHEM PANEL Potassium Lvl 3.7 3.5 - 5.1 12/03/2016 [facility] CHEM PANEL AGAP 15.7 10.0 - 20.0 12/03/2016 [facility] CHEM PANEL CO2 25 24 - 32 12/03/2016 [facility] HEMATOLOGY Platelet 189 133 - 450 12/03/2016 [facility] HEMATOLOGY RDW 12.8 11.5 - 14.5 12/03/2016 [facility] HEMATOLOGY MPV 9.2 7.4 - 10.4 12/03/2016 [facility] HEMATOLOGY MCV 86.2 80.0 - 94.0 12/03/2016 [facility] MCH 29.3 27.0 - 31.0 12/03/2016 [facility] MCHC 34.0 32.0 - 36.0 12/03/2016 [facility] WBC 7.6 3.7 - 10.4 12/03/2016 [facility] Hct 37.4 42.0 - 54.0 12/03/2016 [facility] HEMATOLOGY Hgb 12.7 14.0 - 18.0 12/03/2016 [facility] HEMATOLOGY RBC 4.34 4.70 - 6.10 12/03/2016 [facility] HEMATOLOGY Eosinophils 2.1 0.0 - 4.0 12/03/2016 [facility] HEMATOLOGY Monocytes 6.1 2.0 - 12.0 12/03/2016 [facility] HEMATOLOGY Basophils 0.1 0.0 - 1.0 12/03/2016 [facility] HEMATOLOGY Monocytes # 0.5 0.0 - 0.8 12/03/2016 [facility] HEMATOLOGY Eosinophils # 0.2 0.0 - 0.5 12/03/2016 [facility] HEMATOLOGY Segs 72.0 45.0 - 75.0 12/03/2016 [facility] HEMATOLOGY Lymphocytes 19.7 20.0 - 40.0 12/03/2016 [facility] HEMATOLOGY Lymphocytes # 1.5 1.0 - 5.5 12/03/2016 [facility] HEMATOLOGY Segs-Bands # 5.5 1.5 - 8.1 12/03/2016 [facility] HEMATOLOGY PTT 37.1 22.9 - 35.8 11/25/2016 [facility] HEMATOLOGY PT 13.2 12.0 - 14.7 11/25/2016 [facility] HEMATOLOGY INR 0.98 0.85 - 1.17 11/25/2016 [facility] URINE AND STOOL UA Color Colorless 11/25/2016 [facility] URINE AND STOOL UA Urobilinogen <=1.0 mg/dL 0.1 - 1.0 11/25/2016 [facility] URINE AND STOOL UA Ketones Negative mg/dL Negative mg/dL 11/25/2016 [facility] st URINE AND STOOL UA Glucose Negative mg/dL Negative mg/dL 11/25/2016 [facility] st URINE AND STOOL UA pH 6.0 5.0 - 8.0 11/25/2016 [facility] URINE AND STOOL UA Turbidity Clear (11/25/16 4:07 PM) Clear 11/25/2016 [facility] URINE AND STOOL UA Spec Grav 1.002 <=1.030 11/25/2016 [facility] URINE AND STOOL UA Bili Negative *NA* (11/25/16 4:07 PM) Negative 11/25/2016 [facility] URINE AND STOOL UA Sq Epi Occasional /LPF Few /LPF 11/25/2016 [facility] URINE AND STOOL UA Protein Negative mg/dL Negative mg/dL 11/25/[address] [facility] [address] URINE AND STOOL UA Nitrite Negative (11/25/16 4:07 PM) Negative 11/25/2016 [facility] URINE AND STOOL UA Blood Large *ABN* (11/25/16 4:07 PM) Negative 11/25/2016 [facility] URINE AND STOOL UA Bacteria Occasional /HPF None Seen /HPF 11/25/2016 [facility] URINE AND STOOL UA RBC 2 0 - 2 11/25/2016 [facility] URINE AND STOOL UA WBC 2 0 - 5 11/25/2016 [facility] URINE AND STOOL UA Leuk Est Trace *ABN* (11/25/16 4:07 PM) Negative 11/25/2016 [facility] URINE AND STOOL UA RBC 2 0 - 2 11/29/2014 [facility] URINE AND STOOL UA Urobilinogen <=1.0 mg/dL 0.1 - 1.0 11/29/2014 [facility] URINE AND STOOL UA Color Ltyellow 11/29/2014 [facility] URINE AND STOOL UA pH 6.0 5.0 - 8.0 11/29/2014 [facility] URINE AND STOOL UA Spec Grav 1.016 <=1.030 11/29/2014 [facility] URINE AND STOOL UA Turbidity Clear (11/28/14 7:01 PM) Clear 11/29/2014 [facility] URINE AND STOOL UA Glucose Negative mg/dL Negative mg/dL 11/29/2014 [facility] URINE AND STOOL UA Protein Negative mg/dL Negative mg/dL 11/29/2014 [facility] URINE AND STOOL UA Leuk Est Negative (11/28/14 7:01 PM) Negative 11/29/2014 [facility] URINE AND STOOL UA Sq Epi Occasional /LPF Few /LPF 11/29/2014 [facility] URINE AND STOOL UA WBC 1 0 - 5 11/29/2014 [facility] URINE AND STOOL UA Bili Negative *NA* (11/28/14 7:01 PM) Negative 11/29/2014 [facility] URINE AND STOOL UA Ketones Negative mg/dL Negative mg/dL 11/29/2014 [facility] URINE AND STOOL UA Nitrite Negative (11/28/14 7:01 PM) Negative 11/29/2014 [facility] URINE AND STOOL UA Blood Negative (11/28/14 7:01 PM) Negative 11/29/2014 [facility] CHEM PANEL Amylase Lvl 31 25 - 115 11/28/2014 [facility] CHEM PANEL Lipase Lvl 76 73 - 393 11/28/2014 [facility] ELECTROLYTES Chloride Lvl 103 95 - 109 11/28/2014 [facility] ELECTROLYTES Potassium Lvl 3.6 3.5 - 5.1 11/28/2014 [facility] ELECTROLYTES Sodium Lvl 138 135 - 145 11/28/2014 [facility] ELECTROLYTES eGFR 69 11/28/2014 <sup>1</sup>Result Comment: The eGFR is calculated using the CKD-EPI formula. In most young, healthy individuals the eGFR will be >90 mL/min/1.73m2. The eGFR declines with age. An eGFR of 60-89 may be normal in some populations, particularly the elderly, for whom the CKD-EPI formula has not been extensively validated. Use of the eGFR is not recommended in the following populations:& lt;br/>
Individuals with unstable creatinine concentrations, including patients and those with serious co-morbid conditions.

Patients with extremes in muscle mass or diet.

The data above are obtained from the National Kidney Disease Education Program (NKDEP) which additionally recommends that when the eGFR is used in patients with extremes of body mass index for purposes of drug dosing, the eGFR should be multiplied by the estimated BMI. [facility] ELECTROLYTES CO2 25 24 - 32 11/28/2014 [facility] ELECTROLYTES Creatinine Lvl 1.3 0.5 - 1.4 11/28/2014 [facility] ELECTROLYTES Bili Total 0.3 0.2 - 1.3 11/28/2014 [facility] ELECTROLYTES ALT 248 0 - 65 11/28/2014 [facility] ELECTROLYTES Alk Phos 153 39 - 136 11/28/2014 [facility] ELECTROLYTES AST 117 0 - 37 11/28/2014 [facility] ELECTROLYTES Total Protein 7.7 6.4 - 8.4 11/28/2014 [facility] ELECTROLYTES Calcium Lvl 8.9 8.5 - 10.5 11/28/2014 [facility] ELECTROLYTES BUN 19 7 - 22 11/28/2014 [facility] ELECTROLYTES Glucose Lvl 99 70 - 99 11/28/2014 <sup>2</sup>Interpretive Data: Adult ref erence range values reflect the clinical guidelines
of the [place] [employer]. [facility] ELECTROLYTES Albumin Lvl 3.8 3.5 - 5.0 11/28/2014 [facility] ELECTROLYTES Globulin 3.9 2.0 - 4.0 11/28/2014 [facility] ELECTROLYTES A/G Ratio 1.0 0.7 - 1.6 11/28/2014 [facility] ELECTROLYTES B/C Ratio 15 6 - 25 11/28/2014 [facility] ELECTROLYTES AGAP 13.6 10.0 - 20.0 11/28/2014 [facility] HEMATOLOGY MPV 8.6 7.4 - 10.4 11/28/2014 [facility] RDW 13.2 11.5 - 14.5 11/28/2014 [facility] Platelet 236 133 - 450 11/28/2014 [facility] MCHC 33.6 32.0 - 36.0 11/28/2014 [facility] MCH 29.9 27.0 - 31.0 11/28/2014 [facility] Hct 37.7 42.0 - 54.0 11/28/2014 [facility] MCV 89.0 80.0 - 94.0 11/28/2014 [facility] Hgb 12.7 14.0 - 18.0 11/28/2014 [facility] RBC 4.24 4.70 - 6.10 11/28/2014 [facility] WBC 7.8 3.7 - 10.4 11/28/2014 [facility] Eosinophils # 0.2 0.0 - 0.5 11/28/2014 [facility] HEMATOLOGY Lymphocytes # 1.2 1.0 - 5.5 11/28/2014 [facility] Segs-Bands # 5.9 1.5 - 8.1 11/28/2014 [facility] Basophils 0.3 0.0 - 1.0 11/28/2014 [facility] Eosinophils 2.5 0.0 - 4.0 11/28/2014 [facility] Monocytes # 0.6 0.0 - 0.8 11/28/2014 [facility] Monocytes 7.3 2.0 - 12.0 11/28/2014 [facility] Lymphocytes 15.0 20.0 - 40.0 11/28/2014 [facility] Segs 74.9 45.0 - 75.0 11/28/2014 [facility] URINE AND STOOL UA Mucus Few /LPF None Seen /LPF 11/25/2014 [facility] URINE AND STOOL UA Uric Ac Megan Few /HPF None Seen /HPF 11/25/[address] [facility] URINE AND STOOL UA Urobilinogen <=1.0 mg/dL 0.1 - 1.0 11/25/2014 [facility] URINE AND STOOL UA Sq Epi None Seen 11/25/2014 [facility] URINE AND STOOL UA Nitrite Negative (11/24/14 10:46 PM) Negative 11/25/2014 [facility] URINE AND STOOL UA Blood Large *ABN* (11/24/14 10:46 PM) Negative 11/25/2014 [facility] URINE AND STOOL UA Bili Negative *NA* (11/24/14 10:46 PM) Negative 11/25/2014 [facility] URINE AND STOOL UA Glucose Negative mg/dL Negative mg/dL 11/25/[address] [facility] URINE AND STOOL UA Protein Negative mg/dL Negative mg/dL 11/25/[address] [facility] URINE AND STOOL UA Bacteria Occasional /HPF None Seen /HPF 11/25/[address] [facility] URINE AND STOOL UA Ketones Negative mg/dL Negative mg/dL 11/25/[address] [facility] URINE AND STOOL UA WBC 1 0 - 5 11/25/2014 [facility] URINE AND STOOL UA Leuk Est Negative (11/24/14 10:46 PM) Negative 11/25/2014 [facility] URINE AND STOOL UA RBC 142 0 - 2 11/25/2014 [facility] URINE AND STOOL UA pH 5.0 5.0 - 8.0 11/25/2014 [facility] URINE AND STOOL UA Spec Grav 1.020 <=1.030 11/25/2014 [facility] URINE AND STOOL UA Turbidity Marked *ABN* (11/24/14 10:46 PM) Clear 11/25/2014 [facility] URINE AND STOOL UA Color Yellow *NA* (11/24/14 10:46 PM) Yellow 11/25/2014 [facility] CHEM PANEL Lipase Lvl 131 73 - 393 11/25/2014 [facility] CHEM PANEL Amylase Lvl 41 25 - 115 11/25/2014 [facility] CHEM PANEL B/C Ratio 18 6 - 25 11/25/2014 [facility] CHEM PANEL Globulin 3.9 2.0 - 4.0 11/25/2014 [facility] CHEM PANEL A/G Ratio 1.0 0.7 - 1.6 11/25/2014 [facility] CHEM PANEL AGAP 10.7 10.0 - 20.0 11/25/2014 [facility] CHEM PANEL Chloride Lvl 104 95 - 109 11/25/2014 [facility] CHEM PANEL Potassium Lvl 3.7 3.5 - 5.1 11/25/2014 [facility] CHEM PANEL Sodium Lvl 137 135 - 145 11/25/2014 [facility] CHEM PANEL eGFR 76 11/25/2014 <sup>1</sup>Result Comment: The eGFR is calculated using the CKD-EPI formula. In most young, healthy individuals the eGFR will be >90 mL/min/1.73m2. The eGFR declines with age. An eGFR of 60-89 may be normal in some populations, particularly the elderly, for whom the CKD-EPI formula has not been extensively validated. Use of the eGFR is not recommended in the following populations:& lt;br/>
Individuals with unstable creatinine concentrations, including patients and those with serious co-morbid conditions.

Patients with extremes in muscle mass or diet.

The data above are obtained from the National Kidney Disease Education Program (NKDEP) which additionally recommends that when the eGFR is used in patients with extremes of body mass index for purposes of drug dosing, the eGFR should be multiplied by the estimated BMI. [facility] CHEM PANEL Bili Total 0.4 0.2 - 1.3 11/25/2014 [facility] CHEM PANEL Alk Phos 118 39 - 136 11/25/2014 [facility] CHEM PANEL ALT 121 0 - 65 11/25/2014 [facility] CHEM PANEL AST 179 0 - 37 11/25/2014 [facility] CHEM PANEL Total Protein 7.8 6.4 - 8.4 11/25/2014 [facility] CHEM PANEL Creatinine Lvl 1.2 0.5 - 1.4 11/25/2014 [facility] CHEM PANEL Calcium Lvl 8.2 8.5 - 10.5 11/25/2014 [facility] CHEM PANEL BUN 22 7 - 22 11/25/2014 [facility] CHEM PANEL CO2 26 24 - 32 11/25/2014 [facility] CHEM PANEL Albumin Lvl 3.9 3.5 - 5.0 11/25/2014 [facility] CHEM PANEL Glucose Lvl 116 70 - 99 11/25/2014 <sup>2</sup>Interpretive Data: Adult ref erence range values reflect the clinical guidelines
of the [place] [employer]. [facility] HEMATOLOGY Eosinophils # 0.2 0.0 - 0.5 11/25/2014 [facility] HEMATOLOGY Segs-Bands # 3.9 1.5 - 8.1 11/25/2014 [facility] HEMATOLOGY Lymphocytes # 1.9 1.0 - 5.5 11/25/2014 [facility] Monocytes # 0.4 0.0 - 0.8 11/25/2014 [facility] Lymphocytes 29.2 20.0 - 40.0 11/25/2014 [facility] HEMATOLOGY Basophils 0.3 0.0 - 1.0 11/25/2014 [facility] Monocytes 6.2 2.0 - 12.0 11/25/2014 [facility] HEMATOLOGY Eosinophils 2.8 0.0 - 4.0 11/25/2014 [facility] Segs 61.5 45.0 - 75.0 11/25/2014 [facility] RDW 13.2 11.5 - 14.5 11/25/2014 [facility] Platelet 212 133 - 450 11/25/2014 [facility] MPV 8.8 7.4 - 10.4 11/25/2014 [facility] MCHC 34.2 32.0 - 36.0 11/25/2014 [facility] Hct 40.1 42.0 - 54.0 11/25/2014 [facility] WBC 6.4 3.7 - 10.4 11/25/2014 [facility] RBC 4.53 4.70 - 6.10 11/25/2014 [facility] Hgb 13.7 14.0 - 18.0 11/25/2014 [facility] MCV 88.4 80.0 - 94.0 11/25/2014 [facility] MCH 30.2 27.0 - 31.0 11/25/2014 [facility] CHEM PANEL eGFR 108 06/23/2014 <sup>1</sup>Result Comment: The eGFR is calculated using the CKD-EPI formula. In most young, healthy individuals the eGFR will be >90 mL/min/1.73m2. The eGFR declines with age. An eGFR of 60-89 may be normal in some populations, particularly the elderly, for whom the CKD-EPI formula has not been extensively validated. Use of the eGFR is not recommended in the following populations:& lt;br/>
Individuals with unstable creatinine concentrations, including patients and those with serious co-morbid conditions.

Patients with extremes in muscle mass or diet.

The data above are obtained from the National Kidney Disease Education Program (NKDEP) which additionally recommends that when the eGFR is used in patients with extremes of body mass index for purposes of drug dosing, the eGFR should be multiplied by the estimated BMI. [facility] CHEM PANEL Glucose Lvl 113 70 - 99 06/23/2014 <sup>2</sup>Interpretive Data: Adult ref erence range values reflect the clinical guidelines
of the [place] [employer]. [facility] CHEM PANEL Potassium Lvl 4.0 3.5 - 5.1 06/23/2014 [facility] CHEM PANEL Sodium Lvl 141 135 - 145 06/23/2014 [facility] CHEM PANEL BUN 13 7 - 22 06/23/2014 [facility] CHEM PANEL Creatinine Lvl 0.9 0.5 - 1.4 06/23/2014 [facility] CHEM PANEL Chloride Lvl 107 95 - 109 06/23/2014 [facility] CHEM PANEL CO2 25 24 - 32 06/23/2014 [facility] CHEM PANEL Calcium Lvl 8.4 8.5 - 10.5 06/23/2014 [facility] CHEM PANEL AGAP 13.0 10.0 - 20.0 06/23/2014 [facility] HEMATOLOGY Segs 59.5 45.0 - 75.0 06/23/2014 [facility] HEMATOLOGY Basophils 0.6 0.0 - 1.0 06/23/2014 [facility] HEMATOLOGY Eosinophils 5.8 0.0 - 4.0 06/23/2014 [facility] HEMATOLOGY Monocytes 5.2 2.0 - 12.0 06/23/2014 [facility] HEMATOLOGY Eosinophils # 0.4 0.0 - 0.5 06/23/2014 [facility] HEMATOLOGY Monocytes # 0.3 0.0 - 0.8 06/23/2014 [facility] HEMATOLOGY Lymphocytes 28.9 20.0 - 40.0 06/23/2014 [facility] HEMATOLOGY Lymphocytes # 1.9 1.0 - 5.5 06/23/2014 [facility] HEMATOLOGY Segs-Bands # 3.9 1.5 - 8.1 06/23/2014 [facility] HEMATOLOGY MCHC 33.6 32.0 - 36.0 06/23/2014 [facility] HEMATOLOGY Platelet 200 133 - 450 06/23/2014 [facility] HEMATOLOGY RDW 13.4 11.5 - 14.5 06/23/2014 [facility] HEMATOLOGY MPV 8.5 7.4 - 10.4 06/23/2014 [facility] MCH 29.6 27.0 - 31.0 06/23/2014 [facility] HEMATOLOGY MCV 88.2 80.0 - 94.0 06/23/2014 [facility] HEMATOLOGY Hct 42.0 42.0 - 54.0 06/23/2014 [facility] HEMATOLOGY Hgb 14.1 14.0 - 18.0 06/23/2014 [facility] HEMATOLOGY RBC 4.76 4.70 - 6.10 06/23/2014 [facility] HEMATOLOGY WBC 6.5 3.7 - 10.4 06/23/2014 [facility] URINE AND STOOL UA Urobilinogen <=1.0 mg/dL 0.1 - 1.0 06/23/2014 [facility] URINE AND STOOL UA Color Ltyellow 06/23/2014 [facility] URINE AND STOOL UA Mucus Few /LPF None Seen /LPF 06/23/2014 [facility] URINE AND STOOL UA Bacteria Occasional /HPF None Seen /HPF 06/23/2014 [facility] URINE AND STOOL UA Sq Epi Occasional /LPF Few /LPF 06/23/2014 [facility] URINE AND STOOL UA RBC 16 0 - 2 06/23/2014 [facility] URINE AND STOOL UA WBC 8 0 - 5 06/23/2014 [facility] URINE AND STOOL UA Nitrite Negative (06/23/14 8:56 AM) Negative 06/23/2014 [facility] URINE AND STOOL UA Leuk Est Negative (06/23/14 8:56 AM) Negative 06/23/2014 [facility] URINE AND STOOL UA Glucose Negative mg/dL Negative mg/dL 06/23/2014 [facility] URINE AND STOOL UA pH 5.0 5.0 - 8.0 06/23/2014 [facility] URINE AND STOOL UA Protein Negative mg/dL Negative mg/dL 06/23/2014 [facility] URINE AND STOOL UA Blood Moderate *ABN* (06/23/14 8:56 AM) Negative 06/23/2014 [facility] URINE AND STOOL UA Bili Negative *NA* (06/23/14 8:56 AM) Negative 06/23/2014 [facility] URINE AND STOOL UA Ketones Negative mg/dL Negative mg/dL 06/23/2014 [facility] URINE AND STOOL UA Spec Grav 1.019 <=1.030 06/23/2014 [facility] URINE AND STOOL UA Turbidity Marked *ABN* (06/23/14 8:56 AM) Clear 06/23/2014 [facility] CHEMISTRY Total CK 72 12 - 191 04/08/2013 Normal [facility] CHEMISTRY Chloride Lvl 108 95 - 109 04/08/2013 Normal [facility] CHEMISTRY Potassium Lvl 4.2 3.5 - 5.1 04/08/2013 Normal [facility] CHEMISTRY Sodium Lvl 142 135 - 145 04/08/2013 Normal [facility] CHEMISTRY eGFR 121 04/08/2013 NA <sup>6</sup>Result Comment: The eGFR is calculated using the CKD-EPI formula. In most young, healthy individuals the eGFR will be >90 mL/min/1.73m2. The eGFR declines with age. An eGFR of 60-89 may be normal in some populations, particularly the elderly, for whom the CKD-EPI formula has not been extensively validated. Use of the eGFR is not recommended in the following populations:& lt;br/>
Individuals with unstable creatinine concentrations, including patients and those with serious co-morbid conditions.

Patients with extremes in muscle mass or diet.

The data above are obtained from the National Kidney Disease Education Program (NKDEP) which additionally recommends that when the eGFR is used in patients with extremes of body mass index for purposes of drug dosing, the eGFR should be multiplied by the estimated BMI. [facility] CHEMISTRY Bili Total 0.8 0.2 - 1.3 04/08/2013 Normal [facility] CHEMISTRY AST 82 0 - 37 04/08/2013 [facility] CHEMISTRY Glucose Lvl 104 70 - 99 04/08/2013 HI <sup>9</sup>Interpretive Data: Adult ref erence range values reflect the clinical guidelines
of the [place] [employer]. [facility] CHEMISTRY Creatinine Lvl 0.7 0.5 - 1.4 04/08/2013 Normal [facility] CHEMISTRY CO2 22 24 - 32 04/08/2013 LOW [facility] CHEMISTRY BUN 7 7 - 22 04/08/2013 Normal [facility] CHEMISTRY Calcium Lvl 7.9 8.5 - 10.5 04/08/2013 LOW [facility] CHEMISTRY Total Protein 6.2 6.4 - 8.4 04/08/2013 LOW [facility] CHEMISTRY Albumin Lvl 2.8 3.5 - 5.0 04/08/2013 LOW [facility] CHEMISTRY ALT 102 0 - 65 04/08/2013 [facility] CHEMISTRY Alk Phos 262 39 - 136 04/08/2013 [facility] CHEMISTRY A/G Ratio 0.8 0.7 - 1.6 04/08/2013 Normal [facility] CHEMISTRY AGAP 16.2 10.0 - 20.0 04/08/2013 Normal [facility] CHEMISTRY Globulin 3.4 2.0 - 4.0 04/08/2013 Normal [facility] CHEMISTRY B/C Ratio 10 6 - 25 04/08/2013 Normal [facility] HEMATOLOGY Basophils 0.2 0.0 - 1.0 04/08/2013 Normal [facility] HEMATOLOGY Segs-Bands # 3.9 1.5 - 8.1 04/08/2013 Normal [facility] HEMATOLOGY Monocytes 6.3 2.0 - 12.0 04/08/2013 Normal [facility] HEMATOLOGY Eosinophils 3.0 0.0 - 4.0 04/08/2013 Normal [facility] HEMATOLOGY Lymphocytes 27.9 20.0 - 40.0 04/08/2013 Normal [facility] HEMATOLOGY Lymphocytes # 1.7 1.0 - 5.5 04/08/2013 Normal [facility] HEMATOLOGY Segs 62.6 45.0 - 75.0 04/08/2013 Normal [facility] HEMATOLOGY Basophils # 0.0 0.0 - 0.2 04/08/2013 Normal [facility] HEMATOLOGY Monocytes # 0.4 0.0 - 0.8 04/08/2013 Normal [facility] HEMATOLOGY Eosinophils # 0.2 0.0 - 0.5 04/08/2013 Normal [facility] HEMATOLOGY Hgb 9.7 14.0 - 18.0 04/08/2013 LOW [facility] HEMATOLOGY Hct 29.3 42.0 - 54.0 04/08/2013 LOW [facility] HEMATOLOGY MPV 8.1 7.4 - 10.4 04/08/2013 Normal [facility] HEMATOLOGY Platelet 272 133 - 450 04/08/2013 Normal [facility] HEMATOLOGY WBC 6.2 3.7 - 10.4 04/08/2013 Normal [facility] HEMATOLOGY RBC 3.32 4.70 - 6.10 04/08/2013 LOW [facility] HEMATOLOGY MCV 88.2 80.0 - 94.0 04/08/2013 Normal [facility] HEMATOLOGY MCH 29.2 27.0 - 31.0 04/08/2013 Normal [facility] HEMATOLOGY RDW 13.6 11.5 - 14.5 04/08/2013 Normal [facility] HEMATOLOGY MCHC 33.1 32.0 - 36.0 04/08/2013 Normal [facility] STOOL TESTS Occult Bld Stl Nega tive (04/07/2013 20:45:00) Negati ve 04/08/2013 Normal [facility] CHEMISTRY LDH 426 98 - 192 04/07/2013 HI [facility] CHEMISTRY Sodium Lvl 141 135 - 145 04/07/2013 Normal [facility] CHEMISTRY Potassium Lvl 3.5 3.5 - 5.1 04/07/2013 Normal [facility] CHEMISTRY Chloride Lvl 108 95 - 109 04/07/2013 Normal [facility] CHEMISTRY eGFR 114 04/07/2013 NA <sup>7</sup>Result Comment: The eGFR is calculated using the CKD-EPI formula. In most young, healthy individuals the eGFR will be >90 mL/min/1.73m2. The eGFR declines with age. An eGFR of 60-89 may be normal in some populations, particularly the elderly, for whom the CKD-EPI formula has not been extensively validated. Use of the eGFR is not recommended in the following populations:& lt;br/>
Individuals with unstable creatinine concentrations, including patients and those with serious co-morbid conditions.

Patients with extremes in muscle mass or diet.

The data above are obtained from the National Kidney Disease Education Program (NKDEP) which additionally recommends that when the eGFR is used in patients with extremes of body mass index for purposes of drug dosing, the eGFR should be multiplied by the estimated BMI. [facility] CHEMISTRY Calcium Lvl 7.7 8.5 - 10.5 04/07/2013 LOW [facility] CHEMISTRY CO2 23 24 - 32 04/07/2013 LOW [facility] CHEMISTRY BUN 9 7 - 22 04/07/2013 Normal [facility] CHEMISTRY Glucose Lvl 108 70 - 99 04/07/2013 HI <sup>10</sup>Interpretive Data: Adult re ference range values reflect the clinical guidelines
of the [place] [employer]. [facility] CHEMISTRY Creatinine Lvl 0.8 0.5 - 1.4 04/07/2013 Normal [facility] CHEMISTRY AGAP 13.5 10.0 - 20.0 04/07/2013 Normal [facility] HEMATOLOGY Platelet 196 133 - 450 04/07/2013 Normal [facility] HEMATOLOGY MCV 86.9 80.0 - 94.0 04/07/2013 Normal [facility] HEMATOLOGY MCHC 33.6 32.0 - 36.0 04/07/2013 Normal [facility] HEMATOLOGY RDW 13.8 11.5 - 14.5 04/07/2013 Normal [facility] HEMATOLOGY MCH 29.2 27.0 - 31.0 04/07/2013 Normal [facility] HEMATOLOGY Hgb 9.3 14.0 - 18.0 04/07/2013 LOW [facility] HEMATOLOGY Hct 27.5 42.0 - 54.0 04/07/2013 LOW [facility] HEMATOLOGY RBC 3.17 4.70 - 6.10 04/07/2013 LOW [facility] WBC 4.4 3.7 - 10.4 04/07/2013 Normal [facility] HEMATOLOGY MPV 8.1 7.4 - 10.4 04/07/2013 Normal [facility] HEMATOLOGY Eosinophils # 0.1 0.0 - 0.5 04/07/2013 Normal [facility] HEMATOLOGY Basophils # 0.0 0.0 - 0.2 04/07/2013 Normal [facility] HEMATOLOGY Lymphocytes # 1.2 1.0 - 5.5 04/07/2013 Normal [facility] HEMATOLOGY Eosinophils 2.0 0.0 - 4.0 04/07/2013 Normal [facility] Basophils 0.3 0.0 - 1.0 04/07/2013 Normal [facility] Monocytes # 0.3 0.0 - 0.8 04/07/2013 Normal [facility] Monocytes 6.8 2.0 - 12.0 04/07/2013 Normal [facility] Segs-Bands # 2.8 1.5 - 8.1 04/07/2013 Normal [facility] Lymphocytes 27.6 20.0 - 40.0 04/07/2013 Normal [facility] Segs 63.3 45.0 - 75.0 04/07/2013 Normal [facility] Microbiology Culture: Anaerobic 04/06/2013 [facility] Microbiology Culture: AFB w/Smear 04/06/2013 [facility] Microbiology Culture: Fungal w/Smear 04/06/2013 [facility] Microbiology Culture: CMV (Early Ant igen) 04/06/2013 [facility] CHEMISTRY TSH 1.410 0.360 - 3.740 04/06/2013 Normal [facility] CHEMISTRY eGFR 121 04/06/2013 NA <sup>8</sup>Result Comment: The eGFR is calculated using the CKD-EPI formula. In most young, healthy individuals the eGFR will be >90 mL/min/1.73m2. The eGFR declines with age. An eGFR of 60-89 may be normal in some populations, particularly the elderly, for whom the CKD-EPI formula has not been extensively validated. Use of the eGFR is not recommended in the following populations:& lt;br/>
Individuals with unstable creatinine concentrations, including patients and those with serious co-morbid conditions.

Patients with extremes in muscle mass or diet.

The data above are obtained from the National Kidney Disease Education Program (NKDEP) which additionally recommends that when the eGFR is used in patients with extremes of body mass index for purposes of drug dosing, the eGFR should be multiplied by the estimated BMI. [facility] CHEMISTRY Creatinine Lvl 0.7 0.5 - 1.4 04/06/2013 Normal [facility] CHEMISTRY BUN 7 7 - 22 04/06/2013 Normal [facility] CHEMISTRY Glucose Lvl 109 70 - 99 04/06/2013 HI <sup>11</sup>Interpretive Data: Adult re ference range values reflect the clinical guidelines
of the [place] [employer]. [facility] CHEMISTRY AGAP 15.4 10.0 - 20.0 04/06/2013 Normal [facility] CHEMISTRY CO2 22 24 - 32 04/06/2013 LOW [facility] CHEMISTRY Calcium Lvl 7.6 8.5 - 10.5 04/06/2013 LOW [facility] CHEMISTRY Potassium Lvl 3.4 3.5 - 5.1 04/06/2013 LOW [facility] CHEMISTRY Sodium Lvl 141 135 - 145 04/06/2013 Normal [facility] CHEMISTRY Chloride Lvl 107 95 - 109 04/06/2013 Normal [facility] HEMATOLOGY Bands 30.0 0.0 - 11.0 04/06/2013 HI [facility] HEMATOLOGY Monocytes 5.0 2.0 - 12.0 04/06/2013 Normal [facility] HEMATOLOGY Atypical Lymphs 0.0 <=0.0 04/06/2013 Normal [facility] HEMATOLOGY Lymphocytes 22.0 20.0 - 40.0 04/06/2013 Normal [facility] HEMATOLOGY Segs 43.0 45.0 - 75.0 04/06/2013 LOW [facility] HEMATOLOGY Monocytes # 0.2 0.0 - 0.8 04/06/2013 Normal [facility] HEMATOLOGY Segs-Bands # 2.2 1.5 - 8.1 04/06/2013 Normal [facility] HEMATOLOGY Lymphocytes # 0.7 1.0 - 5.5 04/06/2013 LOW [facility] HEMATOLOGY RBC Morph Raquel l (04/06/2013 06:48:00) 04/06/2013 Normal [facility] HEMATOLOGY Plt Morph Raquel l (04/06/2013 06:48:00) 04/06/2013 Normal [facility] HEMATOLOGY MPV 9.1 7.4 - 10.4 04/06/2013 Normal [facility] HEMATOLOGY MCHC 33.9 32.0 - 36.0 04/06/2013 Normal [facility] HEMATOLOGY MCH 29.4 27.0 - 31.0 04/06/2013 Normal [facility] HEMATOLOGY WBC 3.0 3.7 - 10.4 04/06/2013 LOW [facility] HEMATOLOGY RDW 13.5 11.5 - 14.5 04/06/2013 Normal [facility] HEMATOLOGY Platelet 147 133 - 450 04/06/2013 Normal [facility] MCV 86.8 80.0 - 94.0 04/06/2013 Normal [facility] RBC 3.40 4.70 - 6.10 04/06/2013 LOW [facility] Hgb 10.0 14.0 - 18.0 04/06/2013 LOW [facility] Hct 29.5 42.0 - 54.0 04/06/2013 LOW [facility] IMMUNOLOGY EULALIA Negat ramiro (04/06/2013 06:48:00) Negati ve 04/06/2013 Normal [facility] RPR Non R eactive (04/06/2013 06:48:00) Non Re active 04/06/2013 Normal [facility] Toxoplasma IgM 0.210 <=0.800 04/06/2013 Normal <sup>17</sup>Interpretive Data: <0.9 IV ---------Negative
0.9 - 0.99 IV -----Equivocal
>1.0 IV ---------Positive [facility] HIV 1/2 Ab Negat ramiro *NA* (04/06/2013 06:48:00) Negati ve 04/06/2013 NA [facility] CMV IgM 0.2 04/06/2013 NA <sup>13</sup>Interpretive Data: Reference Ranges:
Non-reactive: <0.9 S/CO Ratio
Indeterminate: 0.9 - 1.0 S/CO Ratio
Reactive: >=1.1 S/CO Ratio [facility] EBV VCA IgM <0.2 <=0.8 04/06/2013 Normal <sup>15</sup>Interpretive Data: Antibody Index (AI) Results Interpretation
-------
0.0-0.8 Negative No detectable IgM Antibody.
0.9-1.0 Equivocal Repeat testing suggested in
10-14 days.
>=1.10 Positive Significant level of detectable
IgM Antibody, indicative of
current or recent infection. [facility] EBV NA IgG 0.5 <=0.8 04/06/2013 Normal <sup>16</sup>Interpretive Data: Antibody Index (AI) Results Interpretation
-------
0.0-0.8 Negative No detectable IgG Antibody.
0.9-1.0 Equivocal Repeat testing suggested in
10-14 days.
>=1.10 Positive Indicates presence of detectable
IgG Antibody. [facility] EBV VCA IgG >8.0 <=0.8 04/06/2013 HI <sup>14</sup>Interpretive Data: Antibody Index (AI) Results Interpretation
-------
0.0-0.8 Negative No detectable IgG Antibody.
0.9-1.0 Equivocal Repeat testing suggested in
10-14 days.
>=1.10 Positive Indicates presence of detectable
IgG Antibody. [facility] MISC - SEROLOGY Mycoplasma IgM 43 04/06/2013 NA <sup>2</sup>Result Comment: REFERENCE RA NGE: <770 U/mL

Interpretive criteria:
<770 U/mL Negative
770- 950 U/mL Low positive
>950 U/mL Positive
Test Performed at:
[facility]
[address]
[place] [id number] Virgie Zacarias MD [facility] MICRO MISC - SEROLOGY Mycoplasma IgG < or = 0.90 04/06/2013 NA <sup>1</sup>Result Comment: REFERENCE RA NGE: <=0.90

Interpretive criteria:
<=0.90 Negative
0.91-1.09 Equivocal
>=1.10 Positive

A positive result indicates that the patient has
antibody to Mycoplasma. It does not differentiate
between an active or past infection. The clinical
diagnosis must be interpreted in conjunction with
the clinical signs and symptoms of the patient.
Test Performed at:
[facility]
[address]
[place] [id number] Virgie GRIGSBY [facility] VIRAL - SEROLOGY W Nile Ab IgM 0.08 0.00 - 0.89 04/06/2013 Normal <sup>5</sup>Interpretive Data: IV Value Results Interpretation
---------
<0.90 Negative IgM Antibodies to [place] Virus were
not detected.
0.90-1.10 Equivocal Questionable presence of IgM
antibodies to [place] Virus.
Repeat testing suggested in 10-14 days.
>1.10 Positive Presence of IgM antibodies to [place] Virus detected; suggestive of
current or recent infection with [place]
Nile Virus.
<br/& gt;Note: Performance of this assay has not been established for
specimens other than serum.

According to the building custodial supervisor, this assay may cross- react with
antibodies to other flaviviruses and to enterovirus antibodies in
children. All positive IgM results will be reported to [facility] Epidemiology and further testing may be performed as determined by [facility]." [facility]CRO [facility] U Legion Ag Negative 3 (04/06/2013 05:00:56) Negati ve 04/06/2013 Normal <sup>3</sup>Interpretive Data: This kit tests for Legionella pneumophila Serogroup 1 Antigen. [facility] REFERENCE LAB RESULTS [facility] REPORT 04/06/2013 NA <sup>4</sup>Result Comment:

TEST NAME RESULT FLAG UNITS REF RANGE
========= ====== ==== ===== =========

Dengue Fever IgG 0.11
Dengue Fever IgM 0.53
Interpretation
ANTIBODY NOT DETECTED
REFERENCE RANGE: IgG <0.90
IgM <0.90

These assays detect both IgG and IgM class
antibodies against all four Dengue fever virus
types. Except for very early IgM responses, the
immune response to Dengue fever is not type
specific. Therefore, type specific reactions are
not reported. As with most serological assays,
paired testing of acute and convalescent samples
is preferred. This is especially important when
the acute phase sample is taken within the first
six days following onset. In most patients, Dengue
antibodies are detectable after the sixth day
following the onset of symptoms. Crossreactivity
with other flaviviruses is known to occur. The
extent and degree of crossreaction varies.

This test was developed and its performance
characteristics have been determined by [employer] [facility]. Performance characteristics refer to
the analytical performance of the test.

Test Performed at:
[employer]
[address] [place] [address] Virgie Zacarias MD [facility] CHEMISTRY [id number] 4.1 1.0 - 2.3 04/05/2013 [facility] CHEMISTRY LDH 460 98 - 192 04/05/2013 [facility] CHEMISTRY Uric Acid 4.3 3.8 - 8.0 04/05/2013 Normal [facility] HEMATOLOGY INR 0.99 0.85 - 1.17 04/05/2013 Normal <sup>12</sup>Interpretive Data: RECOMMEN DED RANGES FOR PROTIME INR:
2.0-3.0 for most medical and surgical thromboembolic states.
2.5-3.5 for artificial heart valves and recurrent embolism.

INR SHOULD BE USED ONLY FOR PATIENTS ON STABLE ANTICOAGULANT THERAPY. [facility] HEMATOLOGY PT 13.3 12.0 - 14.7 04/05/2013 Normal [facility] CHEMISTRY Total CK 521 12 - 191 04/05/2013 [facility] CHEMISTRY A/G Ratio 0.8 0.7 - 1.6 04/05/2013 Normal [facility] CHEMISTRY Globulin 3.5 2.0 - 4.0 04/05/2013 Normal [facility] CHEMISTRY B/C Ratio 14 6 - 25 04/05/2013 Normal [facility] CHEMISTRY AST 132 0 - 37 04/05/2013 [facility] CHEMISTRY Bili Total 1.5 0.2 - 1.3 04/05/2013 [facility] CHEMISTRY Alk Phos 219 39 - 136 04/05/2013 [facility] CHEMISTRY ALT 123 0 - 65 04/05/2013 [facility] CHEMISTRY Albumin Lvl 2.9 3.5 - 5.0 04/05/2013 LOW [facility] CHEMISTRY Total Protein 6.4 6.4 - 8.4 04/05/2013 Normal [facility] HEMATOLOGY Bands 55.0 0.0 - 11.0 04/05/2013 [facility] HEMATOLOGY Polychrom Sligh t (04/05/2013 05:30:00) None S een 04/05/2013 Normal [facility] HEMATOLOGY Tot Cell Ct 100 04/05/2013 NA [facility] HEMATOLOGY Plt Morph Raquel l (04/05/2013 05:30:00) 04/05/2013 Normal [facility] HEMATOLOGY Anisocyte 1+ *ABN* (04/05/2013 05:30:00) None S een 04/05/2013 ABN [facility] Atypical Lymphs 1.0 <=0.0 04/05/2013 HI [facility] HEMATOLOGY Metamyelocytes 2.0 0.0 - 1.0 04/05/2013 HI [facility] Eosinophils 1.0 0.0 - 4.0 04/05/2013 Normal [facility] Eosinophils # 0.0 0.0 - 0.5 04/05/2013 Normal [facility] Hep C Ab Negat ramiro *NA* (04/05/2013 05:30:00) Negati ve 04/05/2013 NA [facility] Hep B Core Ab Negat ramiro *NA* (04/05/2013 05:30:00) Negati ve 04/05/2013 NA [facility] Hep Bs Ab <1.0 <=7.4 04/05/2013 Normal <sup>19</sup>Interpretive Data: <=7.4 mI U/mL--------Negative for Anti- HBs. Not immune to HBV infection.

7.5-12.4 mIU/mL--Borderline for Anti- HBs and immune status
should be further assessed by considering other factors such
as clinical status follow-up testing, associated risk factors,
and the use of additional diagnostic information.

>12.4 mIU/mL-------Positive for Anti-HBs. Immune to HBV infection [facility] Hep Bs Ag Negat ramiro *NA* (04/05/2013 05:30:00) Negati ve 04/05/2013 NA [facility] Hep A Tot Negat ramiro *NA* (04/05/2013 05:30:00) Negati ve 04/05/2013 NA [facility] Hep A IgM Negat ramiro *NA* (04/05/2013 05:30:00) Negati ve 04/05/2013 [facility] Vir Ld-HIV1 RNA not d etected 04/05/2013 NA <sup>18</sup>Interpretive Data: Referenc e Interval:
Less than 20 (1.3 log) HIV-1 RNA copies/mL

Analytic Quantification Range:
20-10,000,000 copies/mL (1.3 - 7.0 log)

No target HIV-1 RNA detected will be reported as "Not detected." A negative result does not rule out the possibility of the presence of the HIV-1 virus. The specimen may contain HIV-1 below the detectable limits of the assay.

HIV-1 RNA detected below 20 copies/mL will be resulted as "HIV-1 RNA detected, less than 20 HIV-1 RNA copies/mL".

HIV-1 RNA Quantitative assay is performed using the FDA cleared [employer] AmpliPrep instrument and the [employer] TaqMan HIV-1 Real-time PCR System version 2.0 to detect all major subtypes of HIV-1 group M and HIV-1 group O. The assay detects the gag region and the Long Terminal Repeat (LTR) region of the HIV-1 virus. The assay is intended for use as an aid in the management of HIV-infected individuals undergoing anti-viral therapy and results are not intended to be used as the individual means for clinical diagnosis or patient management.

Performance characteristics have been verified by [facility]. The laboratory is authorized under the Clinical Laboratory Improvement Amendments of 1988 (CLIA- 88) to perform high complexity testing. [facility] IMMUNOLOGY Log10 HIV1 <1.3 04/05/2013 NA [facility] Microbiology Culture: Blood 04/05/2013 [facility] CHEMISTRY Lactic Acid Lvl 1.7 0.5 - 2.2 04/05/2013 Normal [facility] CHEMISTRY Alk Phos 248 39 - 136 04/04/2013 [facility] CHEMISTRY ALT 147 0 - 65 04/04/2013 [facility] CHEMISTRY Albumin Lvl 3.7 3.5 - 5.0 04/04/2013 Normal [facility] CHEMISTRY AST 145 0 - 37 04/04/2013 [facility] CHEMISTRY Total Protein 7.4 6.4 - 8.4 04/04/2013 Normal [facility] CHEMISTRY Bili Total 1.6 0.2 - 1.3 04/04/2013 [facility] CHEMISTRY A/G Ratio 1.0 0.7 - 1.6 04/04/2013 Normal [facility] CHEMISTRY Globulin 3.7 2.0 - 4.0 04/04/2013 Normal [facility] CHEMISTRY B/C Ratio 14 6 - 25 04/04/2013 Normal [facility] CHEMISTRY Total CK 799 12 - 191 04/04/2013 [facility] HEMATOLOGY Bands 12.0 0.0 - 11.0 04/04/2013 [facility] HEMATOLOGY Plt Morph Raquel l (04/04/2013 18:05:00) 04/04/2013 Normal [facility] HEMATOLOGY RBC Morph Raquel l (04/04/2013 18:05:00) 04/04/2013 Normal [facility] HEMATOLOGY Atypical Lymphs 0.0 <=0.0 04/04/2013 Normal [facility] URINALYSIS UA Color [place] 04/04/2013 NA [facility] URINALYSIS UA Sq Epi None Seen 04/04/2013 NA [facility] URINALYSIS UA Nitrite Negat ramiro (04/04/2013 18:05:00) Negati ve 04/04/2013 Normal [facility] URINALYSIS UA Blood Negat ramiro (04/04/2013 18:05:00) Negati ve 04/04/2013 Normal [facility] URINALYSIS UA Urobilinogen 4.0 0.1 - 1.0 04/04/2013 [facility] URINALYSIS UA RBC 2 0 - 2 04/04/2013 Normal [facility] URINALYSIS UA Leuk Est Negat ramiro (04/04/2013 18:05:00) Negati ve 04/04/2013 Normal [facility] URINALYSIS UA WBC 1 0 - 5 04/04/2013 Normal [facility] URINALYSIS UA Glucose Negat ramiro mg/dL *NA* (04/04/2013 18:05:00) Negati ve 04/04/2013 [facility] URINALYSIS UA Protein Negat ramiro mg/dL (04/04/2013 18:05:00) Negati ve 04/04/2013 Normal [facility] URINALYSIS UA pH 5.0 5.0 - 8.0 04/04/2013 Normal [facility] URINALYSIS UA Ketones Negat ramiro mg/dL *NA* (04/04/2013 18:05:00) Negati ve 04/04/2013 [facility] URINALYSIS UA Bili Negat ramiro *NA* (04/04/2013 18:05:00) Negati ve 04/04/2013 NA [facility] URINALYSIS UA Spec Grav 1.015 <=1.030 04/04/2013 Normal [facility] URINALYSIS UA Turbidity Clear (04/04/2013 18:05:00) Clear 04/04/2013 Normal [facility] Microbiology Culture: Blood 04/04/2013 [facility] Pathology Reports No Data Provided for This Section Diagnostic Reports Report Value Date Source Abdomen 1 v for Placement DX P atient Name: MIGUEL LAWTON : 1975; Age: 41 years y/o Male MR: [id number] Study: Abdomen 1 v for Placement DX 12/05/2016 12:34 PM CDT Ordering Physician: MD Rekha Marquez MD Clinical Indication: Stent placement, urinary; Comparison: 12/02/2016 1 view abdomen There is right ureteral stent in place. Right nephrostomy catheter also present. No pathologic calcifications are demonstrated radiographically. Bowel gas pattern normal. SL: [id number] 12/05/2016 [facility] Chest 1view DX EXAM: Chest 1vi ew DX DATE: 12/02/2016 1:35 PM CDT INDICATION: Tube/Catheter Placement COMPARISON: 04/04/2013. IMPRESSION: Stable cardiac silhouette and mediastinum. No focal consolidation, significant pleural effusion or pneumothorax. SL: [id number] 12/02/2016 [facility] Nephrostomy tract dilation VR RIGHT PERCUTANEOUS NEPHROSTOMY AND TRACT DILATATION: HISTORY: Right renal staghorn calculus. Access for percutaneous nephrolithotripsy was planned. PROCEDURE: The procedures were done the Operating Room under general anesthesia using C-arm fluoroscopy and sterile surgical technique. The right collecting system was opacified via the retrograde ureteral catheter placed earlier by Dr. Marquez. Access into a lower pole calyx was then done using a 21-gauge trocar needle. A 0.018 guidewire was then placed and manipulated out of the calyx, however the stiff component of the wire buckled and perforated the calyx of the infundibulum, resulting in some extravasation. The lower pole calyx became obscured and could not be successfully reentered. Access was then done into a middle calyx calyx in the same infundibular group with the 21-gauge trocar needle following which a 0.018 wire was successfully placed into the renal pelvis followed by an AccuStick sheath. A coaxial 4-Vincentian Cobra catheter and Glidewire were then manipulated into the right ureter and subsequently into the bladder. An Amplatz wire was then placed, following which the catheter and AccuStick sheath were removed and a 10-Vincentian sheath placed into the ureter. A 2nd Amplatz wire was then placed into the bladder. The tract was then dilated with a 10 mm angioplasty balloon, following which a 30-Vincentian Amplatz sheath was placed into the right collecting system. There were no immediate complications from the access procedure. The fluoroscopic time was 15.1 minutes. Nephroscopy, lithotripsy and removal of the stone was then done through the sheath by Dr. Marquez followed by ureteral stenting and nephrostomy placement.. See Dr. Marquez's operative note for comments. FARHAD [id number] 12/02/2016 [facility] Abdomen AP DX Addendum: The st udy was reviewed at the request of Dr. Marquez. The patient is planned for percutaneous nephrolithotripsy of a right renal staghorn calculus seen on an outside CT, which is not available at this time. There is a faint branched opacity overlying the right kidney, with each limb measuring at least 3 cm in length, consistent with a staghorn calculus. This was discussed with Dr. Marquez preoperatively. Retrograde ureteral catheter placement will be done prior to the PCNL. [id number] . Patient Name: MIGUEL LAWTON : 1975; Age: 41 years Male MR: [id number] Study: Abdomen AP DX Order Time: 12/02/2016 5:00 AM CDT Clinical Indication: Kidney Stones COMPARISON: 11/28/2014 FINDINGS: 2 views of the abdomen are submitted for evaluation. There is a nonobstructing bowel gas pattern. There are 2-3 small bowel loops in the right mid abdomen that are mildly distended and demonstrates some mild thickening. No pathologic calcifications. No organomegaly. The visualized osseous structures are unremarkable. IMPRESSION: 1. No pathologic calcifications to sugge st renal stones. 2. Nonobstructing bowel gas pattern. The re are a few loops of small bowel that are mildly distended and thickened in the right mid abdomen. This may represent enteritis or may be secondary to a localized inflammatory process. FARHAD: [id number] 12/02/2016 [facility] Renal Stone CT Examination: Re nal stone protocol CT scan. HISTORY: Abdominal pain, acute TECHNIQUE: Multiple axial CT images of the abdomen and pelvis were obtained without the administration of intravenous contrast using the renal stone protocol. Multiplanar reformatted images were performed. COMPARISON: CT of abdomen and pelvis from 11/24/2014 DLP: 673.35 FINDINGS: The lung bases are clear bilaterally. Mild right perinephric stranding is seen. Moderate right hydronephrosis is also noted. There is a 2 mm stone of the right ureteropelvic junction. No left renal or ureteral stones are present. The bladder and prostate gland are unremarkable. The liver, gallbladder, pancreas, spleen, and adrenal glands are within normal limits imposed by the lack of intravenous contrast. The visualized hollow viscera and appendix are unremarkable. No intraperitoneal free air, free fluid, or pathologic adenopathy is seen. Small fat-containing right inguinal hernia is seen. No acute bony abnormality is seen. IMPRESSION: 1. 2 mm stone in the right ureteropelvic junction, resulting in moderate right hydronephrosis. SL: 16 11/28/2014 [facility] Renal Stone CT CT RENAL STONE PROTOCOL: HISTORY: Abdominal pain, acute COMPARISON: 06/23/2014 TECHNIQUE: Multiple contiguous [address] images were obtained from a level just above the kidneys through the pelvis ABDOMEN: The lung bases are clear. The liver and spleen are unremarkable. The pancreas adrenal glands and gallbladder are within normal limits. Use the kidneys reveal some small calcifications in the lower pole the right kidney. No nephrolithiasis is noted on the left. The right renal collecting system is prominent. There is a calculus measuring approximately 4 mm in diameter at the ureteropelvic junction on the right producing obstruction. No other calcifications noted. The bowel is normal in course and caliber. The appendix is within normal limits for ABDOMEN IMPRESSION: A 4 mm calculus at the right UPJ producing obstruction. PELVIS: The bladder contour is smooth. There is no unusual calcification the pelvis. The bowel is normal in course and caliber. The visualized osseous structures are unremarkable. PELVIS IMPRESSION: Negative CT pelvis. SL: 12 11/24/2014 [facility] Abdomen/Pelvis wo IV contrast CT CT Abdomen without Contrast, CT Pelvis without Contrast: TECHNIQUE: Contiguous transaxial images of the abdomen and pelvis were performed from the lung bases to the superior pubic rami without IV or oral contrast. COMPARISON: No priors CLINICAL HX: Right flank pain CT ABDOMEN: Lower Chest: The lung bases are clear. GI Tract: The appendix demonstrates normal morphology. There is no evidence for free fluid or free air in the abdomen. Tract: Faint linear calcification is noted in the region of lower pole calyx of right kidney. Mild dilation of right renal pelvis but no significant right ureteric dilation. No definite radiopaque calculus is visualized in either ureter. Abdominal Viscera: Discounting the limitation of lack of IV contrast, no gross abnormality is visualized in the liver, spleen, pancreas, both adrenals and the gall bladder. Vasculature: The aorta demonstrates normal morphology. Bone and Soft tissues: No significant bony abnormality is noted. CT PELVIS: The bladder, seminal vesicles and the prostate gland demonstrate normal morphology. No free fluid is present in the pelvis. IMPRESSION: Mild dilation of right renal pelvis without any significant dilation of right ureter. No obstructing radiopaque calculus is visualized in either ureter. Faint linear calcification in the region of lower pole calyx of right kidney. No other significant abnormality is noted on the noncontrast CT of the abdomen and pelvis. SL:13 06/23/2014 [facility] Bone Marrow Biopsy or Trocar (VR) Fluoro time - .5 minutes. HISTORY: Leukopenia. Bone marrow aspirate, core bone biopsy. Intravenous conscious sedation provided. The patient received 4 mg of Versed and 200 mcg of fentanyl. Total physician-patient [id number] sedation monitoring was 22 minutes. 11-gauge needle was advanced until left posterior iliac crest. 9 cc of marrow aspirated. 11-gauge core bone biopsy. Total fluoroscopy time 0.5 minutes. Procedure well tolerated clinically. SL: 13 04/06/2013 [facility] Scrotum testicle US HISTORY: P ain and swelling. Right testicle 4.3 x 2.7 x 3.1 cm and left testicle 3.6 x 2.1 x 3.7 cm. There is no testicular mass. Changes of testicular microlithiasis are noted however. No evidence for testicular torsion. Vascular flow is noted within intratesticular arteries and veins on spectral Doppler imaging bilaterally. Right epididymal head is enlarged at 1.2 cm and demonstrates increased vascularity on color flow imaging. Correlate clinically for underlying epididymitis. No abscess or other pathologic fluid however. Left epididymal head appears normal, measuring 1 cm, without obvious hyperemia on color flow imaging. There is small right varicocele and moderate left varicocele. Trace bilateral hydrocele noted. No other pathologic fluid collection. IMPRESSION: Prominence of the right epididymal head with regional hyperemia. Consider underlying epididymitis. No abscess collection is noted. No testicular mass lesion is otherwise noted. Testicular microlithiasis. This may be associated with increased risk for development of testicular neoplasm. Recommend routine surveillance per urologic recommendations. Small right, moderate left varicocele. SL: 04/06/2013 [facility] Abdomen complete US HISTORY: A bdominal pain. Normal gallbladder. Common bile duct 3 mm. Echogenic liver suggesting fatty or fibrofatty infiltration. Pancreas obscured. Right kidney 12 x 4.4 x 5.7 cm and left kidney 12.7 x 6.8 x 5.1 cm. No hydronephrosis. Spleen is enlarged at 15 cm. Abdominal aorta is obscured. IVC visualized is normal. No ascites seen. IMPRESSION: Echogenic liver suggesting fatty or fibrofatty infiltration. No focal hepatic lesion is demonstrated. Normal gallbladder. No bile duct dilatation. Nonspecific splenomegaly. SL: 04/05/2013 [facility] Consultation Notes No Data Provided for This Section Discharge Summaries No Data Provided for This Section History and Physicals No Data Provided for This Section Vital Signs Vital Sign Value Date Comments Source BMI Calculated 27.51 09/30/2018 [facility] Weight 75 0 09/30/2018 [facility] Height 165.1 cm 09/30/2018 [facility] Heart Rate 76 09/30/2018 [facility] Respitory Rate 16 09/30/2018 [facility] Systolic (mm Hg) 107 09/30/2018 [facility] Diastolic (mm Hg) 67 09/30/2018 [facility] Temperature Oral (F) 97.1 F 09/30/2018 [facility] Height 167.64 cm 09/22/2018 [facility] Weight 74.602 09/22/2018 [facility] BMI Calculated 26.55 09/22/2018 [facility] Height 165.1 cm 05/28/2018 [facility] Weight 72.386 05/28/2018 [facility] BMI Calculated 26.56 05/28/2018 [facility] Systolic (mm Hg) 114 05/28/2018 [facility] Diastolic (mm Hg) 69 05/28/2018 [facility] Temperature Oral (F) 98.1 F 05/28/2018 [facility] Heart Rate 57 05/28/2018 [facility] Respitory Rate 14 05/28/2018 [facility] BMI Calculated 27.7 10/10/2017 [facility] Weight 75.511 10/10/2017 [facility] Height 165.1 cm 10/10/2017 [facility] Systolic (mm Hg) 122 10/10/2017 [facility] Diastolic (mm Hg) 74 10/10/2017 [facility] Respitory Rate 14 10/10/2017 [facility] Heart Rate 81 10/10/2017 [facility] Temperature Oral (F) 98.6 F 10/10/2017 [facility] Respitory Rate 16 05/05/2017 [facility] Systolic (mm Hg) 123 05/05/2017 [facility] Diastolic (mm Hg) 83 05/05/2017 [facility] Height 167.64 cm 05/02/2017 [facility] BMI Calculated 26.69 05/02/2017 [facility] Weight 75 0 05/02/2017 [facility] Weight 75 0 04/02/2017 [facility] Height 167.64 cm 04/02/2017 [facility] BMI Calculated 26.69 04/02/2017 [facility] Systolic (mm Hg) 134 12/06/2016 [facility] Diastolic (mm Hg) 79 12/06/2016 [facility] Temperature Oral (F) 98.3 F 12/06/2016 [facility] Heart Rate 63 12/06/2016 [facility] Temperature Oral (F) 98.1 F 12/06/2016 [facility] Systolic (mm Hg) 95 12/06/2016 [facility] Diastolic (mm Hg) 56 12/06/2016 [facility] Heart Rate 78 12/06/2016 [facility] Temperature Oral (F) 98.1 F 12/06/2016 [facility] Heart Rate 64 12/06/2016 [facility] Systolic (mm Hg) 111 12/06/2016 [facility] Diastolic (mm Hg) 67 12/06/2016 [facility] Respitory Rate 16 12/05/2016 [facility] Respitory Rate 16 12/05/2016 [facility] Respitory Rate 16 12/05/2016 [facility] Weight 77.636 12/02/2016 [facility] BMI Calculated 27.63 12/02/2016 [facility] Height 167.64 cm 12/02/2016 [facility] Height 167.64 cm 11/25/2016 [facility] BMI Calculated 25.88 11/25/2016 [facility] Weight 72.727 11/25/2016 [facility] Systolic (mm Hg) 118 11/29/2014 [facility] Diastolic (mm Hg) 76 11/29/2014 [facility] Respitory Rate 18 11/29/2014 [facility] Heart Rate 59 11/29/2014 [facility] Systolic (mm Hg) 129 11/28/2014 [facility] Diastolic (mm Hg) 81 11/28/2014 [facility] Respitory Rate 18 11/28/2014 [facility] Heart Rate 82 11/28/2014 [facility] Temperature Oral (F) 98.2 F 11/28/2014 [facility] Systolic (mm Hg) 125 11/28/2014 [facility] Diastolic (mm Hg) 86 11/28/2014 [facility] Weight 75 0 11/28/2014 [facility] Temperature Oral (F) 97.9 F 11/28/2014 [facility] BMI Calculated 26.69 11/28/2014 [facility] Height 167.64 cm 11/28/2014 [facility] Heart Rate 63 11/28/2014 [facility] Respitory Rate 18 11/28/2014 [facility] Temperature Oral (F) 98.2 F 11/25/2014 [facility] Systolic (mm Hg) 126 11/25/2014 [facility] Diastolic (mm Hg) 81 11/25/2014 [facility] Respitory Rate 16 11/25/2014 [facility] Heart Rate 74 11/25/2014 [facility] Temperature Oral (F) 98.3 F 11/25/2014 [facility] Heart Rate 78 11/25/2014 [facility] Systolic (mm Hg) 123 11/25/2014 [facility] Diastolic (mm Hg) 78 11/25/2014 [facility] Respitory Rate 16 11/25/2014 [facility] BMI Calculated 25.88 11/25/2014 [facility] Height 167.64 cm 11/25/2014 [facility] Weight 72.727 11/25/2014 [facility] Temperature Oral (F) 98.5 F 11/25/2014 [facility] Heart Rate 78 11/25/2014 [facility] Systolic (mm Hg) 130 11/25/2014 [facility] Diastolic (mm Hg) 84 11/25/2014 [facility] Respitory Rate 24 11/25/2014 [facility] Systolic (mm Hg) 121 06/23/2014 [facility] Diastolic (mm Hg) 73 06/23/2014 [facility] Respitory Rate 16 06/23/2014 [facility] Heart Rate 59 06/23/2014 [facility] Temperature Oral (F) 98.1 F 06/23/2014 [facility] Weight 75 1 [facility] Height 172.72 cm 06/23/2014 [facility] BMI Calculated 25.14 06/23/2014 [facility] Diastolic (mm Hg) 75 06/23/2014 [facility] Heart Rate 56 06/23/2014 [facility] Respitory Rate 18 06/23/2014 [facility] Temperature Oral (F) 98.8 F 06/23/2014 [facility] Systolic (mm Hg) 114 06/23/2014 [facility] Systolic (mm Hg) 113 04/08/2013 [facility] Respitory Rate 18 04/08/2013 [facility] Diastolic (mm Hg) 70 04/08/2013 [facility] Heart Rate 92 04/08/2013 [facility] Temperature Oral (F) 97.5 F 04/08/2013 [facility] Diastolic (mm Hg) 70 04/08/2013 [facility] Heart Rate 84 04/08/2013 [facility] Respitory Rate 20 04/08/2013 [facility] Systolic (mm Hg) 112 04/08/2013 [facility] Temperature Oral (F) 98.9 F 04/08/2013 [facility] Diastolic (mm Hg) 62 04/08/2013 [facility] Respitory Rate 20 04/08/2013 [facility] Systolic (mm Hg) 110 04/08/2013 [facility] Heart Rate 83 04/08/2013 [facility] Temperature Oral (F) 98.5 F 04/08/2013 [facility] Height 167.64 cm 04/05/2013 [facility] Weight 76.42 04/05/2013 [facility] Weight 76.364 04/04/2013 [facility] Height 167.64 cm 04/04/2013 [facility] Encounters Location Location Details Encounter Type Encounter Number Reason For Visit Attending Provider ADM Date DC Date Status Source [facility] Inpatient [id number] LEUKOPENIA, RHABD OMYOLYSIS, MYAGLIAS LA RENAE 04/04/2013 04/08/2013 Active [facility] [id number] Joseluis Pike 06/23/2014 06/23/2014 [facility] [id number] Dl Galvan 11/25/2014 11/25/2014 [facility] [id number] Galileo Montanez 11/28/2014 11/29/2014 [facility] Outpatient [id number] ASHLEIGH PATRICIA 11/23/2015 Active [facility] Outpatient [id number] ASHLEIGH PATRICIA 11/27/2015 Active [facility] Outpatient [id number] SAMANTA GILMAN 09/09/2016 Active [facility] Outpatient [id number] SAMANTA GILMAN 09/20/2016 Active [facility] Inpatient [id number] Rekha Marquez 12/04/2016 12/06/2016 [facility] [id number] SAMANTA GILMAN 12/09/[address] [facility] [id number] ZHMARI BELEM 12/19/[address] [facility] [id number] SAMANTA GILMAN 12/19/[address] [facility] Out[facility] [id number] SAMANTA GILMAN 01/16/2017 Active [facility] Outpatient [id number] SAMANTA GILMAN 01/24/[address] [facility] [id number] SAMANTA GILMAN 01/27/[address] [facility] [id number] SAMANTA GILMAN 01/27/2017 Active [facility] Outpatient [id number] Dutch Vazquez 05/05/2017 05/05/2017 [facility] Outpatient [id number] SAMANTA GILMAN 07/24/2017 Active [facility] Ambulatory Pre-Reg [id number] Samanta Motley 07/24/2017 07/24/2017 [facility] Outpatient [id number] SAMANTA GILMAN 10/10/2017 Active [facility] Outpatient [id number] Samanta Gilman Motley 09/2510/11/2017 [facility] Outpatient [id number] SAMANTA GILMAN 05/28/2018 Active [facility] Outpatient [id number] Samanta Gilman Mot[place] 11/201705/29/2018 [facility] Outpatient [id number] REKHA MARQUEZ 09/22/2018 Active [facility] Ambulatory Pre-Reg [id number] Rekha Marquez 09/22/2018 09/23/2018 [facility] Outpatient [id number] SAMANTA GILMAN 09/30/2018 Active [facility] Outpatient [id number] Samanta Gilman Motley 01/201910/01/2018 [facility] Outpatient [id number] SAMANTA GILMAN 12/28/2018 Active [facility] Ambulatory Pre-Reg [id number] Samanta Motley 12/28/2018 12/28/2018 [facility] Outpatient [id number] [facility] 11/23/2019 [id number] [facility]2019 Active [facility] Outpatient [id number] Rekha [facility] 11/23/2019 11/24/2019 Medical [facility] Ambulatory Pre-Reg [id number] Rekha [facility] 11/23/2019 11/23/2019 [facility] Procedures No Data Provided for This Section Assessment and Plan Assessment and Plan Date Source Extracted from:Title: Urology Author: Andi Jurado MD Date: 12/04/16 Impression and Plan The patient was seen and examined by me with the resident/WEEKEND RECEPTIONIST/PA and I agree with the History/Exam documented. POD#2 s/p Right PCNL 1) re-attempt capping PCN, if unable to tolerate pain, uncap the nephrostomy and connect to drainage and will go home with PCN to gravity in that case 2) HLIV 3) Ambulate and OOB 4) orabase for canker kelle Jurado MD 12/06/2016 [facility] Plan of Care No Data Provided for This Section Social History Social History Date Source Social History TypeResponse Alcohol Current, Frequency: 1-2 times per week. Employment/School Status: Employed. 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 Substance Abuse Use: None. Smoking Status Current every day smoker; Type: Cigars; Ready to change: No; Concerns about tobacco use in household: No; Exposure to Tobacco Smoke self; Cigarette Smoking Last 365 Days Yes; Reg Smoking Cessation Counseling Yes; Tobacco use per day: 2; entered on: 09/30/18 05/28/2018 [facility] Social History TypeResponse Substance Abuse Use: None. Alcohol Current, Frequency: 1-2 times per week. Smoking Status Former smoker; Type: Cigars; Tobacco use per day: 5; Ready to change: No; Concerns about tobacco use in household: No; Exposure to Tobacco Smoke None; Cigarette Smoking Last 365 Days Yes; Reg Smoking Cessation Counseling No 11/25/2016 [facility] Family History No Data Provided for This Section Advance Directives No Data Provided for This Section Functional Status No Data Provided for This Section
--- OUTSIDE RECORDS SUMMARY | 2020-04-30 22:16 | XMS REPORT | Continuity of Care Document ---
Author Author [facility] t Organization [facility] Address [address] [place] [address] Phone Unavailable Care Team Providers Care Land Economist Name Role Phone Fantasma DIANA Attphys Unavailable Ahsan Aleman Attphys Ree Cooper Attphys [phone] Gerardo Vazquez Attphys Kirill Montanez Attphys Dl Galvan Attphys Edy Pike Attphys [phone] Ahsan Aleman Admphys Payers Payer Name Policy Type Policy Number Effective Date Expiration Date S ource Problems Condition Name Condition Details Condition Category Status Onset Date Resolution Date Last Treatment Date Treating Clinician Comments Source DEEJAYK DEEJAYK Active 03/03/2017 [facility] Active 2017-03-03 00:00:00 2017-05-05 07:49:00 Hector Rodriguez STAGHORN CALCULUS STAG HORN CALCULUS Active 11/14/2016 [facility] Active 2016-11-14 00:00:00 2016-12-05 11:17:00 Silver Rodriguez KIDNEY STONES KIDN EY STONES Active 11/28/2014 [facility] Diagnosis Active 2014-11-28 00:00:00 2014-11-28 18:22:00 Silver Rodriguez PAIN/KIDNEY STONE PAIN /KIDNEY STONE Active 11/24/2014 [facility] Active 2014-11-24 19:00:00 2014-11-24 22:16:00 [facility] Hyperuricemia (disorder) Hype ruricemia (disorder) Active 08/03/2014 Problem 11/25/2019 [facility] 01/21/15. [facility] Problem Active 2014-08-03 00:00:00 2019-11-25 23:38:22 [facility] Liver function tests abnormal (finding) Liver function tests abnormal (finding) Active 08/03/2014 Problem 11/25/2019 [facility] 01/[facility]. [facility] Problem Activ e 2014-08-03 00:00:00 2019-11-25 23:38:22 [facility] Pancytopenia (disorder) Panc ytopenia (disorder) Active 08/03/2014 Problem 11/25/2019 [facility] 01/[facility]. [facility] Problem Active 2014-08-03 00:00:00 2019-11-25 23:38:22 [facility] ABDOMINAL PAIN ABDO JEANNE PAIN Active 06/23/2014 [facility] Active 2014-06-23 00:00:00 2014-06-23 09:33:00 [facility] Kidney stone (disorder) Kidn ey stone (disorder) Active 11/02/2013 Problem 11/25/2019 [facility] 01/21/15. [facility] Problem Active 2013-11-02 00:00:00 2019-11-25 23:38:22 [facility] Gastroesophageal reflux disease (disorder) Gastroesophageal reflux disease (disorder) Active 04/29/2013 Problem 11/25/2019 [facility] 01/[facility]/15. [facility] Problem Active 2013-04-29 00:00:00 2019-11-25 23:38:22 [facility] LEUKOPENIA, RHABDOMYOLYSIS, MYAGLIAS LEUKOPENIA, RHABDOMYOLYSIS, MYAGLIAS Active 04/04/2013 [facility] tive 2013-04-04 00:00:00 2013-04-19 13:28:00 M emorierwin Rodriguez ALLERGIC REACTION ROSANNE RGIC REACTION Active 04/04/2013 [facility] Active 2013-04-04 00:00:00 2013-04-04 19:48:00 Silver Rodriguez Constipation (disorder) Cons tipation (disorder) Active Problem 11/25/2019 [facility] Problem Active 2019-11-25 23:38:22 Silver Rodriguez Decreased testosterone level (finding) Decreased testosterone level (finding) Active Problem 11/25/2019 [facility] Problem Active 2019-11-25 23:38:22 Matt adam Rodriguez Eruption of skin (disorder) Er uption of skin (disorder) Active Problem 11/25/2019 [facility] Problem Active 2019-11-25 23:38:22 Silver Rodriguez Follow-up status (finding) Fol low-up status (finding) Active Problem 11/25/2019 [facility] Problem Active 2019-11-25 23:38:22 Silver Rodriguez Impaired fasting glycaemia (disorder) Impaired fasting glycaemia (disorder) Active Problem 11/25/2019 [facility] Problem Active 2019-11-25 23:38:22 Silver Rodriguez Iron deficiency anemia (disorder) Iron deficiency anemia (disorder) Active Problem 11/25/2019 [facility] Problem Active 2019-11-25 23:38:22 Silver Rodriguez Mixed hyperlipidemia (disorder) Mixed hyperlipidemia (disorder) Active Problem 11/25/2019 [facility] Problem Active 2019-11-25 23:38:22 Silver Rodriguez Oral lesion (finding) Oral lesion (finding) Active Problem 11/25/2019 [facility] Problem Active 2019-11-25 23:38:22 Silver Rodriguez 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) Active Problem 11/25/2019 [facility] Problem Active 2019-11-25 23:38:22 Silver Rodriguez Sore throat symptom (finding) Sore throat symptom (finding) Active Problem 11/25/2019 [facility] Problem Active 2019-11-25 23:38:22 Silver Rodriguez Decreased vitamin D (finding) Decreased vitamin D (finding) Active Problem 11/25/2019 [facility] Problem Active 2019-11-25 23:38:22 Silver Rodriguez Patient encounter status (finding) Patient encounter status (finding) Active Problem 11/25/2019 [facility] Problem Active 2019-11-25 23:38:22 [facility] Michael Screening status (finding) Scr eening status (finding) Active Problem 11/25/2019 [facility] Problem Active 2019-11-25 23:38:22 Silver Rodriguez Staghorn calculus (disorder) S taghorn calculus (disorder) Active Problem 11/25/2019 [facility] Problem Active 2019-11-25 23:38:22 Silver Rodriguez Streptococcal sore throat (disorder) Streptococcal sore throat (disorder) Active Problem 11/25/2019 [facility] Problem Active 2019-11-25 23:38:22 [facility] Michael Urine finding (finding) Urin e finding (finding) Active Problem 11/25/2019 [facility] Problem Active 2019-11-25 23: 38:22 Silver Rodriguez Visual impairment (disorder) V isual impairment (disorder) Active Problem 11/25/2019 [facility] Group Problem Active 2019-11-25 23:38:22 Sliver Rodriguez DECREASED WBC COUNT NEC DECR EASED WBC COUNT NEC Active [facility] Active 2013-04-19 13:28:00 [facility] Michael RHABDOMYOLYSIS RHAB DOMYOLYSIS Active [facility] Active 2013-04-19 13:28:00 [facility] Michael CALCULUS OF KIDNEY CALC ULUS OF KIDNEY Active [facility] Active 2016-12-05 11:17:00 [facility] Discharge Diagnosis: Renal colic Discharge Diagnosis: Renal colic 11/28/2014 11/30/2014 [facility] 20 07-12-05 05:00:00 2014-11-30 20:54:56 2014-11-30 20:54:56 [facility] Discharge Diagnosis: Ureterolithiasis Discharge Diagnosis: Ureterolithiasis 11/24/2014 11/27/2014 [facility] Problem 2014-11-24 05:00:00 2014-11-27 18:29:44 2014-11-27 18:29:44 [facility] Discharge Diagnosis: UTI (lower urinary tract infectio n) Discharge Diagnosis: UTI (lower urinary tract infection) 06/23/2014 06/26/2014 [facility] Problem 2014-06-23 05:00:00 2014-06-26 00:40:41 2014-06 00:40:41 [facility] Discharge Diagnosis: Kidney stone Discharge Diagnosis: Kidney stone 06/23/2014 06/26/2014 [facility] Problem 2 05:00:00 2014-06-26 00:40:41 2014-06-26 00:40:41 Silver Rodriguez History of Past Illness Condition Name Condition Details Condition Category Status Onset Date Resolution Date Last Treatment Date Treating Clinician Comments Source Lower urinary tract infectious disease (disorder) Lower urinary tract infectious disease (disorder) Resolved 06/23/2014 Problem 11/25/2019 [facility] Problem Resolved 2014-06-23 00:00:0 0 2019-11-25 23:38:22 2019-11-25 23:38:22 Silver treadwell Acute cystitis (disorder) Acut e cystitis (disorder) Resolved 11/02/2013 Problem 11/25/2019 Data migrated from [facility] on 03/11/15.Data migrated from [employer] [facility] on 03/10/15. [facility] Problem Resolved 2013-11-02 00:00:00 2019-11-25 23:38:22 2019-11-25 23:38:22 Silver Rodriguez Backache (finding) Back ache (finding) Resolved 11/02/2013 Problem 11/25/2019 [facility] 03/11/15.[facility] on 03/10/15. [facility] Problem R esolved 2013-11-02 00:00:00 2019-11-25 23:38:22 2019-11-25 23:38:22 Silver Rodriguez Epididymitis (disorder) Epid idymitis (disorder) Resolved 04/29/2013 Problem 11/25/2019 [facility] on 03/11/15.[facility] 03/10/15. [facility] Problem Resolved 2013-04-29 00:00:00 2019-11-25 23:38:22 2019-11-25 23:38:22 [facility] Michael Fever (finding) Feve r (finding) Resolved 04/29/2013 Problem 11/25/2019 [facility] 03/10/15. [facility] Problem Resolved 2013-04-29 00:00:00 2019-11-25 23:38:22 2019-11-25 23:38:22 Silver Rodriguez History of - gastrointestinal disease (context-depende nt category) History of - gastrointestinal disease (context-dependent category) Resolved 04/29/2013 Problem 11/25/2019 Data migrated from [employer] on 03/11/15.Data migrated from [employer] on 03/10/15. [facility] Problem Resolved 2013-04-29 00:00:00 2019-11-25 23:38:22 2019-11-25 23:38:22 [facility] Allergies, Adverse Reactions, Alerts Allergy Name Allergy Type Status Severity Reaction(s) Onset Date Inacti ve Date Treating Clinician Comments Source No Known Allergies DA Active U 2019-06-10 00:00:00 [facility] No Known Allergies DA Active U 2016-11-06 00:00:00 [facility] No Known Medication Allergies No Known Medication Allergies Active [facility] Social History Social Habit Start Date Stop Date Quantity Comments Source Social History 2016-11-25 20:44:15 2016-11-25 20:44:15 [facility] Medications Ordered Medication Name Filled Medication Name Start Date Stop Da te Current Medication? Ordering Clinician Indication Dosage Frequency Signature (SIG) Comments Components Source ibuprofen 800 mg oral tablet 2018-09-30 14:54:00 No 800 mg = 1 tab, PO, Q8H, PRN Pain, Take with food, X 10 day, # 30 tab, 0 Refill(s), Pharmacy: [address] amoxicillin 500 mg oral capsule 2018-09-30 14:54:00 No 500 mg = 1 cap, PO, TID, X 7 day, # 21 cap, 0 Refill(s), Pharmacy: [address] potassium citrate 15 MEQ Extended Release Tablet [Urocit-K] 2018-09-22 23:07:00 Yes 15 mEq = 1 tab, PO, TID, # 270 tab, 3 Refill(s), Pharmacy: [address] potassium citrate 2018-09-22 23:00:00 Yes PO, Daily, 0 Refill(s) [facility] naproxen 500 mg oral enteric coated delayed-release tablet 2017-10-10 15:44:00 No 500 mg = 1 tab, PO, BID, X 10 day, # 20 tab, 0 Refill(s), Pharmacy: [address] tadalafil 5 MG Oral Tablet [Cialis] 2017-03-04 15:04:00 No 5 mg = 1 tab, PO, Daily, PRN for erectile dysfunction, X 30 day, # 30 tab, 1 Refill(s), Pharmacy: [facility] [id number] ketOROLAC 15 mg/mL injectable solution 2016-12-06 02:00:00 No 4 days. Silver Rodriguez Acetaminophen 325 MG / Hydrocodone Bitartrate 5 MG Oral Tabl et [[place] 5/325] 2016-12-05 20:51:00 No Notes: (Same as: [place] 325/5) Do not exceed 4gm/day of acetaminophen. Silver Garcia nn Dilaudid 2016-12-05 20:50:00 No 0.5 mg, 0.5 mL, Route: IVP, Drug form: INJ, Q4H, Dosing Weight 77.636, kg, PRN Pain Score 7-10, Start date: 12/05/16 15:50:00 CDT, Duration: 30 day, Stop date: 01/04/17 15:49:00 CDT [facility] Michael senna 8.6 mg oral tablet 2016-12-05 14:00:00 No 1 tab, Route: PO, Drug Form: TAB, Dosing Weight 77.636, kg, Daily, Start date: 12/05/16 9:00:00 CDT, Duration: 30 day, Stop date: 01/03/17 9:00:00 CDT Silver Rodriguez Docusate Sodium 100 MG Oral Capsule 2016-12-05 11:19:00 Yes 100 mg = 1 cap, PO, BID, # 40 cap, 0 Refill(s) [facility] Michael ciprofloxacin 500 mg oral tablet 2016-12-05 11:19:00 No 500 mg = 1 tab, PO, EECL31V, # 12 tab, 0 Refill(s) Silver Rodriguez Acetaminophen 325 MG / Hydrocodone Bitartrate 5 MG Oral Tabl et [[place] 5/325] 2016-12-05 11:19:00 Yes 1 tab, PO, Q4H, PRN Pain Score 4-6, # 30 tab, 0 Refill(s), given to patient Silver ramirezshahab tamsulosin 0.4 mg oral capsule 2016-12-05 11:19:00 Yes 0.4 mg = 1 cap, PO, Q24H, # 40 cap, 0 Refill(s) [facility] Michael Fleet Enema 2016-12-05 02:24:00 No 12 year s, Pediatric Dosing Silver Reynaann Dulcolax Laxative 2016-12-05 02:24:00 No Notes: (Same As: Dulcolax, Bisco-Lax) Silver Rodriguez Docusate Sodium 100 MG Oral Capsule [Colace] 2016-12-04 22:00:00 No 100 mg, 1 cap, Route: PO, BID, Dosing Weight 77.636, kg, Start date: 12/04/16 17:00:00 CDT, Duration: 30 day, Stop date: 01/03/17 9:00:00 CDT Silver Rodriguez docosanol 100 MG/ML Topical Cream [Abreva] 2016-12-04 19:00:00 No Notes: Same as Abreva Silver Rodriguez Flomax 2016-12-04 18:00:00 No Notes: (Same As: Flomax) "Do Not Crush" Silver Rodriguez Miralax 2016-12-04 17:09:00 No Notes: Dissolve in 8 oz of water or juice. (Same as: Miralax) Silver spaulding Acetaminophen 325 MG / Hydrocodone Bitartrate 5 MG Oral Tabl et [[place] 5/325] 2016-12-04 17:09:00 No Notes: (Same as: [place] 325/5) Do not exceed 4gm/day of acetaminophen. [facility] Orabase Gel-B 20% mucous membrane gel 2016-12-04 14:00:00 N o Notes: (Same As: Maximum Strength PM Orajel ) Hector emorierwin Rodriguez Tylenol 2016-12-03 17:00:00 No Notes: Do not exceed 4 gm/day. (Same as: Tylenol) [facility] Ketorolac 2016-12-03 17:00:00 No 4 days. [facility] tramadol hydrochloride 50 MG Oral Tablet 2016-12-03 17:00:00 No Notes: Not to exceed 400mg/day. (Same As: Ultram) Silver Rodriguez sennosides, SHELTER 2016-12-03 14:00:00 No Notes: (Same as: Senokot) Silver Rodriguez Cipro 2016-12-03 04:00:00 No Notes: May interfere w/enteral feedings - Take 1 hr before or 2 hrs after antacids, dairy pdt & minerals. On empty stomach. Silver Rodriguez Docusate 2016-12-02 22:00:00 No Notes: (Same as: Colace) (Do Not Crush) Silver Rodriguez Acetaminophen 10 MG/ML Injectable Solution 2016-12-02 21:00:00 No Notes: Infuse over 15 minutes Do not exceed 4gm/day of acetaminophen MEDICATION WASTE Product Size: 1000 mg Product Wasted: ___ mg [facility] Ondansetron 2016-12-02 18:47:00 No 4 mg, Route: IVP, ONCE, Dosing Weight 72.727, kg, PRN Nausea & Vomiting, Start date: 12/02/16 13:47:00 CDT [facility] Michael Promethazine 2016-12-02 18:47:00 No 6.25 mg, Route: IVPB, ONCE, Dosing Weight 72.727, kg, PRN Nausea & Vomiting, Start date: 12/02/16 13:47:00 CDT [facility] Meperidine 2016-12-02 18:47:00 No 12.5 mg, Route: IVP, Q30Min, Dosing Weight 72.727, kg, PRN Other -See Comment, For shivering, Start date: 12/02/16 13:47:00 CDT, Duration: 2 doses or times, Stop date: Limited # of times [facility] Naloxone 2016-12-02 18:47:00 No 0.4 mg, Route: IVP, Q2MIN, Dosing Weight 72.727, kg, PRN Narcotic Reversal, Start date: 12/02/16 13:47:00 CDT, Duration: 8 doses or times, Stop date: Limited # of times [facility] Flumazenil 2016-12-02 18:47:00 No 0.2 mg, Route: IVP, PRN, Dosing Weight 72.727, kg, PRN Benzodiazepine Reversal, Initial dose, Start date: 12/02/16 13:47:00 CDT, Duration: 30 day, Stop date: 01/01/17 13:46:00 CDT [facility] Labetalol 2016-12-02 18:47:00 No 10 mg, Route: IVP, Q5Min, Dosing Weight 72.727, kg, PRN Elevated BP, Start date: 12/02/16 13:47:00 CDT, Duration: 5 doses or times, Stop date: Limited # of times [facility] Hydralazine 2016-12-02 18:47:00 No 10 mg, Route: IVP, Q20Min, Dosing Weight 72.727, kg, PRN Elevated BP, Start date: 12/02/16 13:47:00 CDT, Duration: 2 doses or times, Stop date: Limited # of times [facility] Fentanyl 2016-12-02 18:47:00 No 25 microgram, Route: IVP, Q5Min, Dosing Weight 72.727, kg, PRN Pain Score 4-6, Priority: Routine, Start date: 12/02/16 13:47:00 CDT, Duration: 4 doses or times, Stop date: Limited # of times [facility] Oxycodone 2016-12-02 18:47:00 No 2.5 mg, Route: PO, Drug form: LIQ, Q4H, Dosing Weight 72.727, kg, PRN Pain Score 4-6, Start date: 12/02/16 13:47:00 CDT, Duration: 30 day, Stop date: 01/01/17 13:46:00 CDT [facility] Hydromorphone 2016-12-02 18:47:00 No 0.5 mg, Route: IVP, Q5Min, Dosing Weight 72.727, kg, PRN Pain Score 7-10, Start date: 12/02/16 13:47:00 CDT, Duration: 4 doses or times, Stop date: Limited # of times [facility] Dilaudid 2016-12-02 18:33:00 No 0.5 mg, 0.5 mL, Route: IVP, Drug form: INJ, Q4H, Dosing Weight 72.727, kg, PRN Pain Score 7-10, Start date: 12/02/16 13:33:00 CDT, Duration: 30 day, Stop date: 01/01/17 13:32:00 CDT [facility] tramadol hydrochloride 50 MG Oral Tablet 2016-12-02 18:33:00 No Notes: Not to exceed 400mg/day. (Same As: Ultram) Silver Rodriguez D5NS 1,000 mL 2016-12-02 18:33:00 No 1,000 mL, Rate: 75 ml/hr, Infuse over: 13.3 hr, Route: IV, Dosing Weight 72.727 kg, Total Volume: 1,000, Start date: 12/02/16 13:33:00 CDT, Duration: 30 day, Stop date: 01/01/17 13:32:00 CDT Silver Rodriguez Hydralazine 2016-12-02 18:33:00 No Notes: (Same as: Apresoline) Push over 5 minutes Silver Rodriguez Ondansetron 2016-12-02 18:33:00 No Notes: (Same as: Zofran) MEDICATION WASTE Product Size: 4 mg Product Wasted: ___ mg Silver Rodriguez ondansetron (JOSE CS) 2016-12-02 18:27:00 No Route: IV, Drug form: INJ, ONCE, Stop date: 12/02/16 13:27:00 CDT edwardrierwin Rodriguez famotidine (JOSE CS) 2016-12-02 17:27:00 No Route: IV, Drug form: INJ, ONCE, Stop date: 12/02/16 12:27:[facility] lidocaine (ANES) 2016-12-02 17:22:00 No Route: IV, Drug form: INJ, ONCE, Stop date: 12/02/16 12:22:00 [facility] propofol (ANES) 2016-12-02 17:22:00 No Route: IV, Drug form: INJ, ONCE, Stop date: 12/02/16 12:22:00 [facility] rocuronium (ANES) 2016-12-02 17:22:00 No Route: IV, Drug form: INJ, ONCE, Stop date: 12/02/16 12:22:00 [facility] [place] ciprofloxacin (ANES) 2016-12-02 16:57:00 No Route: IV, Drug form: INJ, ONCE, Stop date: 12/02/16 11:57:00 CDT [facility] Michael midazolam (JOSE CS) 2016-12-02 16:57:00 No Route: IV, Drug form: SOLN, ONCE, Stop date: 12/02/16 11:57:00 CDT Hector Rodriguez fentaNYL (ANES) 2016-12-02 16:57:00 No Route: IV, Drug form: INJ, ONCE, Stop date: 12/02/16 11:57:00 CDT Hector Rodriguez LR 1000 mL INJ (ANES) 2016-12-02 16:07:00 No Route: IV, Total Volume: 1,000, Start date: 12/02/16 11:07:00 CDT, Stop date: 12/02/16 12:07:00 CDT Silver Rodriguez gentamicin (ANES) (ANES) 2016-12-02 16:07:00 No Route: IV, Drug form: INJ, Start date: 12/02/16 11:07:00 CDT, Stop date: 12/02/16 12:07:00 CDT [facility] Calcium Chloride 0.0014 MEQ/ML / Potassi um Chloride 0.004 MEQ/ML / Sodium Chloride 0.103 MEQ/ML / Sodium Lactate 0.028 MEQ/ML Injectable Solution 2016-12-02 14:42:00 No 1,000 mL, Rate: 25 ml/hr, Infuse over: 40 hr, Route: IV, Dosing Weight 72.727 kg, Total Volume: 1,000, Start date: 12/02/16 9:42:00 CDT, Duration: 30 day, Stop date: 01/01/17 9:41:00 CDT [facility] diclofenac sodium 25 mg oral enteric coated, delayed-release tablet 2014-11-29 03:08:00 Yes 25 mg = 1 tab, PO, QID, PRN Pain Score 1-5, # 20 tab, 0 Refill(s) [facility] Acetaminophen 325 MG / Hydrocodone Bitartrate 10 MG Oral Tab let 2014-11-29 03:08:00 Yes 1 tab, PO, Q4H, PRN Pain, # 1 2 tab, 0 Refill(s) [facility] ketOROLAC 30 mg/mL injectable solution 2014-11-29 01:37:00 No 30 mg, Route: IVP, Drug form: INJ, ONCE, Dosing Weight 75, kg, Priority: STAT, Start date: 11/28/14 20:37:00, Stop date: 11/28/14 20:37:00 [facility] Dilaudid 2014-11-28 23:32:00 No 1 mg, Route: IVP, ONCE, Dosing Weight 75, kg, Priority: STAT, Start date: 11/28/14 18:32:00, Stop date: 11/28/14 18:32:00 [facility] normal saline 0.9% IV 1,000 mL 2014-11-28 23:14:00 No 1,000 mL, Rate: 1,000 ml/hr, Infuse over: 1 hr, Route: IV, Dosing Weight 75 kg, Total Volume: 1,000, Start date: 11/28/14 18:14:00, Duration: 30 day, Stop date: 12/28/14 18:13:00 [facility] Saline Flush 0.9% 2014-11-28 23:05:00 No Notes: (Same as: BD Posiflush) [facility] Ondansetron 2014-11-28 23:05:00 No 4 mg, Route: IVP, ONCE, Dosing Weight 75, kg, Priority: STAT, Start date: 11/28/14 18:05:00, Stop date: 11/28/14 18:05:00 [facility] Morphine 2014-11-28 23:05:00 No 4 mg, Route: IVP, ONCE, Dosing Weight 75, kg, Priority: STAT, Start date: 11/28/14 18:05:00, Stop date: 11/28/14 18:05:00 [facility] Tamsulosin hydrochloride 0.4 MG Oral Capsule [Flomax] 2014-11-25 04:39:00 Yes 0.4 mg = 1 cap, PO, Daily, # 14 cap, 0 R efill(s) [facility] promethazine 25 mg oral tablet 2014-11-25 04:39:00 Yes 25 mg, PO, Q4H, PRN Nausea, # 15 tab, 0 Refill(s) Hector barney [place] Acetaminophen 325 MG / Hydrocodone Jojo trate 7.5 MG Oral Tablet [[place] 7.5/325] 2014-11-25 04:39:00 Yes 1 tab, PO, Q6H, PRN for pain, # 20 tab, 0 Refill(s) [facility] Morphine 2014-11-25 04:11:00 No 4 mg, Route: IVP, Drug form: INJ, ONCE, Dosing Weight 72.727, kg, Priority: STAT, Start date: 11/24/14 23:11:00, Stop date: 11/24/14 23:11:00 [facility] Sodium Chloride 0.154 MEQ/ML Injectable Solution 2014-11-25 02:5 1:00 No 1,000 mL, 1,000 ml/hr, Infus e Over: 1 Hour, Route: IV, ONCE, Priority: STAT, Dosing Weight 72.727 kg, Start date: 11/24/14 21:51:00, Duration: 1 doses or times, Stop date: 11/24/14 21:51:00 Matt medina [place] Phenergan 2014-11-25 02:34:00 No 12.5 mg, Route: IVPB, ONCE, Dosing Weight 72.727, kg, Priority: STAT, Start date: 11/24/14 21:34:00, Stop date: 11/24/14 21:34:00 [facility] Dilaudid 2014-11-25 01:34:00 No 1 mg, Route: IVP, ONCE, Dosing Weight 72.727, kg, Priority: STAT, Start date: 11/24/14 20:34:00, Stop date: 11/24/14 20:34:00 [facility] Morphine 2014-11-25 01:18:00 No 4 mg, Route: IVP, ONCE, Dosing Weight 72.727, kg, Priority: STAT, Start date: 11/24/14 20:18:00, Stop date: 11/24/14 20:18:00 [facility] Ondansetron 2014-11-25 01:18:00 No 4 mg, Route: IVP, ONCE, Dosing Weight 72.727, kg, Priority: STAT, Start date: 11/24/14 20:18:00, Stop date: 11/24/14 20:18:00 [facility] Sodium Chloride 0.154 MEQ/ML Injectable Solution 2014-11-25 01:1 8:00 No 1,000 mL, Infuse Over: 1 hr, Route: IV, ONCE, Priority: STAT, Dosing Weight 72.727 kg, Start date: 11/24/14 20:18:00, Duration: 1 doses or times, Stop date: 11/24/14 20:18:00 [facility] Saline Flush 0.9% 2014-11-25 01:18:00 No Notes: (Same as: BD Posiflush) [facility] Ondansetron 4 MG Oral Tablet [Zofran] 2014-06-23 15:38:00 Y es 4 mg = 1 tab, PO, BID, # 10 tab, 0 Refill(s) Hector Rodriguez Acetaminophen 325 MG / tramadol hydrochloride 37.5 MG Oral T ablet [Ultracet] 2014-06-23 15:38:00 Yes 1 tab, PO, Q4H, for pain, # 60 tab, 0 Refill(s) [facility] Michael Sulfamethoxazole 800 MG / Trimethoprim 160 MG Oral Tablet [B actrim] 2014-06-23 15:37:00 Yes 1 tab, PO, BID, # 20 tab, 0 Refill(s) [facility] Ketorolac 2014-06-23 14:27:00 No 30 mg, Route: IVP, ONCE, Dosing Weight 75, kg, Priority: STAT, Start date: 06/23/14 9:27:00, Stop date: 06/23/14 9:27:00 [facility] Ondansetron 2014-06-23 14:27:00 No 4 mg, Route: IVP, ONCE, Dosing Weight 75, kg, Priority: STAT, Start date: 06/23/14 9:27:00, Stop date: 06/23/14 9:27:00 [facility] Sodium Chloride 0.154 MEQ/ML Injectable Solution 2014-06-23 14:2 7:00 No 1,000 mL, Infuse Over: 1 hr, Route: IV, ONCE, Priority: STAT, Dosing Weight 75 kg, Start date: 06/23/14 9:27:00, Duration: 1 doses or times, Stop date: 06/23/14 9:27:00 [facility] Saline Flush 0.9% 2014-06-23 14:27:00 No 10 mL, Route: IVP, Drug Form: INJ, Dosing Weight 75, kg, PRN, PRN Line Flush, Start date: 06/23/14 9:27:00, Duration: 30 day, Stop date: 07/23/14 8:26:00 Silver Rodriguez Nexium 40 mg oral delayed release capsule 2013-04-08 16:28 :46 Yes Moris Rodríguez Carrington 40 mg, 1 cap, PO, Daily, 30 cap, Substit ution Allowed Silver Rodriguez tramadol 50 mg oral tablet 2013-04-08 16:28:21 Yes Brett Rodríguez Carrington 50 mg, 1 tab, PO, Q6H, PRN, 40 tab, Pain, Substitution Allowed, TAB [facility] Michael Levaquin 500 mg oral tablet 2013-04-08 16:27:56 Yes Shravan Rodríguez Carrington 500 mg, 1 tab, PO, Q24H, 14 tab, Substitution Allowed Silver Reynaann Protonix 2013-04-07 21:30:00 No Moris Freedtt 40 mg, 1 tab, Route: PO, Drug form: ECTAB, Before Dinner, Start date: 04/07/13 16:30:00, Duration: 30 day, Stop date: 05/06/13 16:30:00 Deena Rodriguez potassium chloride 2013-04-07 17:32:00 No Moris Freed tt 40 mEq, 2 tab, Route: PO, Drug form: ERTAB, Q4H, Dosing Weight 76.42, kg, Priority: NOW, Start date: 04/07/13 12:32:00, Duration: 2 doses or times, Stop date: 04/07/13 17:00:00 Silver Rodriguez nystatin-triamcinolone topical cream 2013-04-07 14:00:00 No Jayson Jonesb 1 appl, Route: TOP, BID, Rell g form: CRM, Start date: 04/07/13 9:00:00, Duration: 30 day, Stop date: 05/06/13 17:00:00 Silver Rodriguez phenol topical 1.4% spray 2013-04-06 13:01:00 No Moris Shultz 1 spray, Route: MUCOUS MEM, Q3H, Drug form: SPRY, PRN Sore Throat, Start date: 04/06/13 8:01:00, Duration: 30 day, Stop date: 05/06/13 8:00:00 Silver Rodriguez Cepacol Dual Relief Sore Throat [place] 5% topical spray 2013-04-06 12:30:00 No Moris D Carrington Route: TOP, Dosing Weight 76.42, kg, Q3H, PRN Pain Score 1-3, Start date: 04/06/13 7:30:00, Duration: 30 day, Stop date: 05/06/13 7:29:00 [facility] Invanz + Sodium Chloride 0.9% IV 100 mL 2013-04-06 01:00:00 No Zaher Shebib 1 gm, Route: IVPB, A BXQ24H, Dosing Weight 76.42, kg, Start date: 04/05/13 20:00:00, Duration: 30 day, Stop date: 05/04/13 20:00:00 [facility] Zithromax + Sodium Chloride 0.9% IV 250 mL 2013-04-05 23:0 0:00 No Zaher Shebib 500 mg, Route: I VPB, Daily, Dosing Weight 76.42, kg, Start date: 04/05/13 18:00:00, Duration: 30 day, Stop date: 05/04/13 18:00:00 [facility] Benadryl 2013-04-05 16:03:00 No Moris Shultz 25 mg, 1 tab, Route: PO, Drug form: TAB, Q4H, Dosing Weight 76.42, kg, PRN as needed for itching, Start date: 04/05/13 11:03:00, Duration: 30 day, Stop date: 05/05/13 11:02:00 [facility] potassium chloride 2013-04-05 12:50:00 No Moris Freed tt 40 mEq, 2 tab, Route: PO, Drug form: ERTAB, Q4H, Dosing Weight 76.42, kg, Priority: NOW, Start date: 04/05/13 7:50:00, Duration: 2 doses or times, Stop date: 04/05/13 8:00:00 [facility] Tylenol 2013-04-05 10:19:00 No Moris Rodríguez Carrington 650 mg, 2 tab, Route: PO, Drug form: TAB, Q6H, Dosing Weight 76.42, kg, PRN Pain/Fever, Start date: 04/05/13 5:19:00, Duration: 30 day, Stop date: 05/05/13 5:18:00, PRN for Fever and pain. [facility] Tylenol 2013-04-05 10:00:00 No Moris Shultz 650 mg, 20.3 mL, Route: PO, Drug form: LIQ, Q6H, Dosing Weight 76.42, kg, PRN Pain/Fever, Start date: 04/05/13 5:00:00, Duration: 30 day, Stop date: 05/05/13 4:59:00, PRN for Fever and pain. [facility] Michael NS 1,000 mL 2013-04-05 09:59:00 No Moris Anne Carrington 1,000 mL, Rate: 125 ml/hr, Infuse over: 8 hr, Route: IV, Dosing Weight 76.42 kg, Total Volume: 1,000, Start date: 04/05/13 4:59:00, Duration: 30 day, Stop date: 05/05/13 4:58:00 Silver Rodriguez ondansetron 2013-04-05 02:19:00 No Moris Shultz 4 mg, 2 mL, Route: IVP, Drug form: INJ, Q8H, Dosing Weight 76.364, kg, PRN Nausea & Vomiting, Start date: 04/04/13 21:19:00, Duration: 30 day, Stop date: 05/04/13 21:18:00 [facility] morphine Sulfate 2013-04-05 02:19:00 No Moris Shultz 2 mg, 1 mL, Route: IVP, Drug form: INJ, Q3H, Dosing Weight 76.364, kg, PRN Pain Score 4-6, Start date: 04/04/13 21:19:00, Duration: 30 day, Stop date: 05/04/13 21:18:00 [facility] Michael Sodium Chloride 0.9% (Bolus) IV 1,000 mL 2013-04-05 01:03: 00 No Safi Butros Madain 1,000 mL, Rate: 1,000 ml/hr, Infuse over: 1 hr, Route: IV, Dosing Weight 76.364 kg, Total Volume: 1,000, Priority: STAT, Start date: 04/04/13 20:03:00, Duration: 1 doses or times, Stop date: 04/04/13 21:02:00, Bolus DoseBolus Dose [facility] [place] 10/325 oral tablet 2013-04-04 23:05:00 No Safi Bu tros Madain 1 tab, Route: PO, Drug Form: TAB, Dosing Weight 76.364, kg, ONCE, Start date: 04/04/13 18:05:00, Stop date: 04/04/13 18:05:00 [facility] Sodium Chloride 0.9% (Bolus) IV 1,000 mL 2013-04-04 23:04: 00 No Safi Butros Madain 1,000 mL, Rate: 1,000 ml/hr, Infuse over: 1 hr, Route: IV, Dosing Weight 76.364 kg, Total Volume: 1,000, Priority: STAT, Start date: 04/04/13 18:04:00, Duration: 1 doses or times, Stop date: 04/04/13 19:03:00, Bolus DoseBolus Dose [facility] Vital Signs Vital Name Observation Time Observation Value Comments Source BMI Calculated 2018-09-30 14:22:00 [facility] Weight 2018-09-30 14:22:00 [facility] Height 2018-09-30 14:22:00 165.1 cm [facility] [place] Heart Rate 2018-09-30 14:22:00 [facility] [place] Respitory Rate 2018-09-30 14:22:00 [facility] Systolic (mm Hg) 2018-09-30 14:22:00 [facility] [place] Diastolic (mm Hg) 2018-09-30 14:22:00 [facility] [place] Temperature Oral (F) 2018-09-30 14:22:00 97.1 F [facility] Height 2018-09-22 22:57:00 167.64 cm [facility] [place] Weight 2018-09-22 22:57:00 [facility] [place] BMI Calculated 2018-09-22 22:57:00 [facility] Height 2018-05-28 13:03:00 165.1 cm [facility] [place] Weight 2018-05-28 13:03:00 [facility] BMI Calculated 2018-05-28 13:03:00 [facility] Systolic (mm Hg) 2018-05-28 13:03:00 [facility] [place] Diastolic (mm Hg) 2018-05-28 13:03:00 [facility] Temperature Oral (F) 2018-05-28 13:03:00 98.1 F [facility] Heart Rate 2018-05-28 13:03:00 [facility] [place] Respitory Rate 2018-05-28 13:03:00 [facility] BMI Calculated 2017-10-10 15:05:00 [facility] [place] Weight 2017-10-10 15:05:00 [facility] Height 2017-10-10 15:05:00 165.1 cm [facility] [place] Systolic (mm Hg) 2017-10-10 15:05:00 Matt [facility] Michael Diastolic (mm Hg) 2017-10-10 15:05:00 [facility] Respitory Rate 2017-10-10 15:05:00 [facility] [place] Heart Rate 2017-10-10 15:05:00 [facility] Temperature Oral (F) 2017-10-10 15:05:00 98.6 F [facility] Respitory Rate 2017-05-05 13:09:00 [facility] [place] Systolic (mm Hg) 2017-05-05 13:09:00 Matt [facility] Diastolic (mm Hg) 2017-05-05 13:09:00 [facility] [place] Height 2017-05-02 16:17:00 167.64 cm [facility] [place] BMI Calculated 2017-05-02 16:17:00 [facility] [place] Weight 2017-05-02 16:17:00 [facility] Weight 2017-04-02 14:18:00 [facility] [place] Height 2017-04-02 14:18:00 167.64 cm [facility] [place] BMI Calculated 2017-04-02 14:18:00 [facility] Systolic (mm Hg) 2016-12-06 13:10:00 [facility] [place] Diastolic (mm Hg) 2016-12-06 13:10:00 [facility] Temperature Oral (F) 2016-12-06 13:10:00 98.3 F [facility] [place] Heart Rate 2016-12-06 13:10:00 [facility] Temperature Oral (F) 2016-12-06 09:00:00 98.1 F [facility] Systolic (mm Hg) 2016-12-06 09:00:00 [facility] [place] Diastolic (mm Hg) 2016-12-06 09:00:00 [facility] Heart Rate 2016-12-06 09:00:00 [facility] [place] Temperature Oral (F) 2016-12-06 05:00:00 98.1 F [facility] [place] Heart Rate 2016-12-06 05:00:00 [facility] Systolic (mm Hg) 2016-12-06 05:00:00 Matt rial Michael Diastolic (mm Hg) 2016-12-06 05:00:00 [facility] Respitory Rate 2016-12-05 20:29:00 [facility] Respitory Rate 2016-12-05 16:40:00 [facility] Respitory Rate 2016-12-05 13:06:00 [facility] [place] Weight 2016-12-02 22:22:00 [facility] BMI Calculated 2016-12-02 22:22:00 [facility] Height 2016-12-02 22:22:00 167.64 cm [facility] Height 2016-11-25 20:33:00 167.64 cm [facility] BMI Calculated 2016-11-25 20:33:00 [facility] [place] Weight 2016-11-25 20:33:00 [facility] Systolic (mm Hg) 2014-11-29 03:46:00 Matt rial [facility] Diastolic (mm Hg) 2014-11-29 03:46:00 [facility] Respitory Rate 2014-11-29 03:46:00 [facility] Heart Rate 2014-11-29 03:46:00 [facility] Systolic (mm Hg) 2014-11-28 23:31:00 Matt [facility] Diastolic (mm Hg) 2014-11-28 23:31:00 [facility] [place] Respitory Rate 2014-11-28 23:31:00 [facility] [place] Heart Rate 2014-11-28 23:31:00 [facility] [place] Temperature Oral (F) 2014-11-28 23:31:00 98.2 F [facility] [place] Systolic (mm Hg) 2014-11-28 20:30:00 [facility] [place] Diastolic (mm Hg) 2014-11-28 20:30:00 [facility] Weight 2014-11-28 20:30:00 [facility] Temperature Oral (F) 2014-11-28 20:30:00 97.9 F [facility] [place] BMI Calculated 2014-11-28 20:30:00 [facility] Height 2014-11-28 20:30:00 167.64 cm [facility] Heart Rate 2014-11-28 20:30:00 [facility] [place] Respitory Rate 2014-11-28 20:30:00 [facility] Temperature Oral (F) 2014-11-25 05:16:00 98.2 F [facility] Systolic (mm Hg) 2014-11-25 05:16:00 [facility] [place] Diastolic (mm Hg) 2014-11-25 05:16:00 [facility] Respitory Rate 2014-11-25 05:16:00 [facility] Heart Rate 2014-11-25 05:16:00 [facility] [place] Temperature Oral (F) 2014-11-25 04:14:00 98.3 F [facility] Heart Rate 2014-11-25 04:14:00 [facility] Systolic (mm Hg) 2014-11-25 04:14:00 Matt [facility] Diastolic (mm Hg) 2014-11-25 04:14:00 [facility] Respitory Rate 2014-11-25 04:14:00 [facility] BMI Calculated 2014-11-25 00:54:00 [facility] [place] Height 2014-11-25 00:54:00 167.64 cm [facility] Weight 2014-11-25 00:54:00 [facility] Temperature Oral (F) 2014-11-25 00:54:00 98.5 F [facility] [place] Heart Rate 2014-11-25 00:54:00 [facility] [place] Systolic (mm Hg) 2014-11-25 00:54:00 [facility] [place] Diastolic (mm Hg) 2014-11-25 00:54:00 [facility] [place] Respitory Rate 2014-11-25 00:54:00 [facility] Systolic (mm Hg) 2014-06-23 16:00:00 [facility] [place] Diastolic (mm Hg) 2014-06-23 16:00:00 [facility] Respitory Rate 2014-06-23 16:00:00 [facility] [place] Heart Rate 2014-06-23 16:00:00 [facility] Temperature Oral (F) 2014-06-23 16:00:00 98.1 F [facility] Weight 2014-06-23 13:40:00 [facility] [place] Height 2014-06-23 13:40:00 172.72 cm [facility] BMI Calculated 2014-06-23 13:40:00 [facility] Diastolic (mm Hg) 2014-06-23 13:40:00 [facility] Heart Rate 2014-06-23 13:40:00 [facility] [place] Respitory Rate 2014-06-23 13:40:00 [facility] [place] Temperature Oral (F) 2014-06-23 13:40:00 98.8 F [facility] [place] Systolic (mm Hg) 2014-06-23 13:40:00 [facility] [place] Systolic (mm Hg) 2013-04-08 13:00:00 [facility] [place] Respitory Rate 2013-04-08 13:00:00 [facility] [place] Diastolic (mm Hg) 2013-04-08 13:00:00 [facility] Heart Rate 2013-04-08 13:00:00 [facility] Temperature Oral (F) 2013-04-08 13:00:00 97.5 F [facility] Diastolic (mm Hg) 2013-04-08 09:18:00 [facility] Heart Rate 2013-04-08 09:18:00 [facility] Respitory Rate 2013-04-08 09:18:00 [facility] Systolic (mm Hg) 2013-04-08 09:18:00 [facility] [place] Temperature Oral (F) 2013-04-08 09:18:00 98.9 F [facility] Diastolic (mm Hg) 2013-04-08 05:42:00 [facility] Respitory Rate 2013-04-08 05:42:00 [facility] Systolic (mm Hg) 2013-04-08 05:42:00 Matt [facility] Heart Rate 2013-04-08 05:42:00 [facility] Temperature Oral (F) 2013-04-08 05:42:00 98.5 F [facility] Height 2013-04-05 02:34:00 167.64 cm [facility] [place] Weight 2013-04-05 02:34:00 [facility] Weight 2013-04-04 22:07:00 [facility] Height 2013-04-04 22:07:00 167.64 cm [facility] Procedures This patient has no known procedures. Encounters Start Date/Time End Date/Time Encounter Type Admission Type [facility] Care Department Encounter ID Source 2019-11-23 16:15:00 2019-11-23 23:59:59 [facility] [id number] 2019-11-23 16:30:00 2019-11-23 16:30:00 Outpatient [facility] [id number] 2018-12-28 15:45:00 2018-12-28 15:45:00 Outpatient R Samanta Marin [facility] [id number] 2018-09-30 08:15:00 2018-09-30 23:59:59 Outpatient R Samanta Marin [facility] [id number] 2018-09-30 08:15:00 2018-09-30 23:59:59 Outpatient R Samanta Marin [facility] [id number] 2018-09-22 15:40:00 2018-09-22 23:59:59 Outpatient [facility] [id number] 2018-05-28 08:00:00 2018-05-28 23:59:59 Outpatient R Samanta Marinessa [facility] [id number] 2017-10-10 08:45:00 2017-10-10 23:59:59 Outpatient R Samanta Marinessa [facility] [id number] 2017-07-24 15:30:00 2017-07-24 15:30:00 Outpatient R Samanta Marinessa [facility] [id number] 2017-05-05 07:49:00 2017-05-05 09:35:00 Outpatient Dutch Vazquez [facility] [id number] 2016-12-04 12:07:00 2016-12-06 10:20:00 Outpatient Abel Aleman [facility] [id number] 2014-11-28 15:20:00 2014-11-28 22:49:00 Outpatient Galileo ElyIE [place] [id number] 2014-11-24 19:46:00 2014-11-25 00:18:00 Outpatient Roe Galvan [facility] [id number] 2014-06-23 08:37:00 2014-06-23 16:30:00 Outpatient Joseluis Rosado [facility] [id number] Results Test Description Test Time Test Comments Results Result Comments Source CT ABDOMEN/PELVIS WO 2020-04-30 21:40:00 [facility] [address] [address] Patient Name: MIGUEL LAWTON MR #: [id number] : 1975 Age/Sex: 44/M Req #: [id number] Adm Physician: Ordered by: TREY DIANA MD Report #: [id number] Location: ER Room/Bed: Procedure: [id number] CT/CT ABDOMEN/PELVIS WO Exam Date: 04/30/20 Exam Time: 2119 REPORT STATUS: Signed EXAM: CT Abdomen and Pelvis WITHOUT contrast INDICATION: HEMATURIA 20200430 COMPARISON: None available. TECHNIQUE: Abdomen and pelvis were scanned utilizing a multidetector helical scanner from the lung base to the pubic symp hysis without administration of IV contrast. Absence of intravenous contrast decreases sensitivity for detection of focal lesions and vascular pathology. Coronal and sagittal reformations were obtained. Routine protocol was performed. IV CONTRAST: None ORAL CONTRAST: None COMPLICATIONS: None RADIATION DOSE: Total DLP: 304.99 mGy*cm Estimated effective dose: (DLP x 0.015 x size factor) mSv CTDIvol has been reviewed. It is below the limits set by the Radiation Protocol Committee (RPC). FINDINGS: LINES and TUBES: None. LOWER THORAX: Unremarkable HEPATOBILIARY: Unenhanced liver is unremarkable. No biliary ductal dilation. GALLBLADDER: Contracted. No radio-opaque stones or sludge. No wall thickening. SPLEEN: No splenomegaly. PANCREAS: No focal masses or ductal dilatation. ADRENALS: No adrenal nodules KIDNEYS/URETERS: 6 mm left ureteropelvic junction calculus without or with m inimal left hydronephrosis. No right renal stones. No right hydronephrosis. Limited for evaluation of renal parenchyma without intravenous contrast. 5 mm left inferior pole calculus. GI TRACT: No abnormal distention, wall thickening, or evidence of bowel obstruction. Appendix is normal. PELVIC ORGANS/BLADDER: Unremarkable. LYMPH NODES: No lymphadenopathy. VESSELS: Unremarkable. PERITONEUM / RETROPERITONEUM: No free air or fluid. BONES: Unremarkable. SOFT TISSUES: Bilateral fat-containing hernia, right greater than left. IMPRESSION: 6 mm left ureteropelvic junction calculus without or with minimal left hydronephrosis. Additional subcentimeter left renal inferior pole nonobstructing calculus. Signed by: Dr. Yang Medina MD on 04/30/2020 9:50 PM Dictated By: YANG MEDINA MD 49 Transcribed By: EUSEBIA on 04/30/202149 COPY TO: TREY DIANA ELECTROLYTES 2016-12-05 10:51:00 13.5 [facility] ELECTROLYTES 2016-12-05 10:51:00 114 [facility] ELECTROLYTES 2016-12-05 10:51:00 8.5 [facility] [place] ELECTROLYTES 2016-12-05 10:51:00 27 [facility] [place] ELECTROLYTES 2016-12-05 10:51:00 103 [facility] [place] ELECTROLYTES 2016-12-05 10:51:00 0.75 [facility] [place] ELECTROLYTES 2016-12-05 10:51:00 8 [facility] [place] ELECTROLYTES 2016-12-05 10:51:00 99 [facility] ELECTROLYTES 2016-12-05 10:51:00 3.5 [facility] ELECTROLYTES 2016-12-05 10:51:00 140 [facility] HEMATOLOGY 2016-12-05 10:51:00 3.83 [facility] HEMATOLOGY 2016-12-05 10:51:00 11.3 [facility] HEMATOLOGY 2016-12-05 10:51:00 5.4 [facility] HEMATOLOGY 2016-12-05 10:51:00 12.9 [facility] [place] HEMATOLOGY 2016-12-05 10:51:00 Test Item MCH (test code = MCH) 29.5 pg 27.0-31.0 [facility] YycejsrCAIMDCGBEX6586-90-95 10:51:0034.2[facility] 2016-12-05 10:51:0033.0[facility] QoknmkuHNLEQFGGJR9104-39-63 10:51:0086.3[facility] IlqdsmzUPMEETXBUE6829-37-00 10:51:78748Dqmvizxm HcldvheKLITVIIUKB0600-31-56 10:51:009.2[facility] LibvltwQWOFJNTDBG6447-79-94 10:51:000.4[facility] JLYJYKMJCT0755-65-92 10:51:000.4[facility] OvhegnpCJOXFVGUVA4963-44-55 10:51:003.4 [facility] QznizjkIAQRDQOAPZ0642-16-58 10:51:001.3[facility]ann[facility]OLOGY 2016-12-05 10:51:000.2[facility] EmhvzozKYBQJDMOTD5644-26-11 10:51:0063.3[facility] BnvrdwkZMZNQSFPOX5756-24-94 10:51:008.1[facility] MdrvzsbHQGUFNSQHX9097-69-34 10:51:004.0[facility] WrmzutjUVJEMVVRFG2209-18-09 10:51:0024.2[facility] HermannCHEM MXYEM4405-79-67 10:30:70476Kjuscmmh HermannCHEM VJECC8626-10-15 10:30:008.0 [facility]annCHEM ZAKGU2552-80-48 10:30:66334Ifcilvqo HermannCHEM PANEL 2016-12-04 10:30:0010[facility] HermannCHEM ICILM7608-09-23 10:30:0099[facility] HermannCHEM APAXO1880-87-09 10:30:0029[facility] HermannCHEM EYNYW4063-43-07 10:30:000.86[facility] HermannCHEM KMZAO4577-62-53 10:30:37636Aefsvmzd HermannCHEM FIWKQ2615-33-09 10:30:003.8[facility] HermannCHEM ZRELZ7685-92-95 10:30:0013.8 [facility] ElmotdoYHAAFXUIEN0825-36-81 10:30:009.2[facility]annHEMATOLOGY 2016-12-04 10:30:77677Qkeuzmnd PdlicllTHNMSIFFCI1930-97-96 10:30:0013.0[facility] SwdclqjKOEICRTXNB0341-44-90 10:30:00* Test Item Value Reference Range Interpretation Comments MCH (test code = MCH) 29.7 pg 27.0-31.0 [facility] GfxurwyTXGWUDFXPT9309-47-92 10:30:0034.7[facility]annHEMATOLOGY 2016-12-04 10:30:0034.2[facility] OwfowzwBTAULKLBEW3562-50-34 10:30:0085.6[facility] TezqebvUKMZFBJXSZ4354-16-39 10:30:0011.9[facility] MzmouekSDCLWELQKE2581-76-52 10:30:006.5[facility] YltxfyvKKGAYEMSOC9349-05-21 10:30:004.00[facility] HWAPNNVAPV4496-54-12 10:30:004.6[facility] YoalnudOUEGYOMRJO7664-20-54 10:30:003.5 [facility] QbsktidJQRNBULXYK4362-67-07 10:30:001.2[facility]annHEMATOLOGY 2016-12-04 10:30:000.3[facility] IapvnxtAWROXLBAGH4343-83-19 10:30:007.4[facility] QtutqffSZFKTFCGCO2612-32-30 10:30:0018.9[facility] JugdkoxAPMVCQOLEI8118-11-83 10:30:0069.9[facility] MpljrzpXGTFLILQIZ4771-07-41 10:30:000.2[facility] [place] CBHHTUTYIX7604-39-90 10:30:000.5[facility] HermannCHEM VDTRJ2629-60-00 10:05:21555 [facility]annCHEM VHGWH1503-88-59 10:05:008.3[facility] HermannCHEM PANEL 2016-12-03 10:05:0083[facility] HermannCHEM BUFWT2562-29-06 10:05:0010[facility] HermannCHEM QWDDW4783-87-11 10:05:66024Mamezrnx HermannCHEM BVWBQ0551-41-60 10:05:000.79[facility]annCHEM VPMOS1638-47-87 10:05:26580Mgbkqmgl HermannCHEM BUMYW9149-40-38 10:05:003.7[facility]annCHEM YPMPD1539-54-12 10:05:0015.7 [facility]annCHEM IFNSP9539-58-36 10:05:0025[facility]annHEMATOLOGY 2016-12-03 10:05:97326Iidcmtga KnegoiuFVOWULWLPQ1956-64-62 10:05:0012.8[facility] KvckfibDPWHJZMSYN8828-67-64 10:05:009.2[facility] AbgvgkkSGYTLKQJQP7897-64-06 10:05:0086.2[facility] EyyozbdCBTONVCHRN4824-26-17 10:05:00* Test Item Value Reference Range Interpretation Comments MCH (test code = MCH) 29.3 pg 27.0-31.0 [facility] RdwcepkLGMIMHWKXO1295-81-11 10:05:0034.0[facility]annHEMATOLOGY 2016-12-03 10:05:007.6[facility] JnqsvjmFXERTYYKIJ9981-09-92 10:05:0037.4[facility] ErasoavFEVEHJRBHJ4353-68-55 10:05:0012.7[facility] AmmhwhyZKHPTODAYM2497-75-97 10:05:004.34[facility] EwlidopFHCHXJLRVT3100-39-69 10:05:002.1[facility] [place] XGHAGYEZGI6009-73-07 10:05:006.1[facility] IvtevldYLMSFFUALQ7351-70-28 10:05:000.1 [facility] DnmdhdyRYCFZPHRJG7520-09-20 10:05:000.5[facility] HermannHEMATOLOGY 2016-12-03 10:05:000.2[facility] BzlxrsdCGCAIQZBZV7282-73-42 10:05:0072.0[facility] ZuemdyxWGDNRUQZQC6443-83-49 10:05:0019.7[facility] MvkzzzqLEKXGVQJEP6252-81-56 10:05:001.5[facility] PefohdbSZBETUIQBE8509-82-46 10:05:005.5[facility] NHCLTCOGGW9313-32-14 21:07:00* Test Item Value Reference Range Interpretation Comments PTT (test code = PTT) 37.1 s 22.9-35.8 [facility] DznykgtRMNUINBVHT0556-10-18 21:07:00* Test Item Value Reference Range Interpretation Comments PT (test code = PT) 13.2 s 12.0-14.7 [facility] AbrirxePXXLPGXFUG3321-05-52 21:07:000.98[facility]annURINE AND STOOL 2016-11-25 21:07:006.0[facility]ann[facility] AND NAXGM1977-68-14 21:07:00Clear (11/25/16 4:07 PM)[facility] GYCTL7593-99-01 21:07:001.002[facility] VLAEB7711-79-41 21:07:00Negative *NA*(11/25/16 4:07 PM)[facility] ALTAX0378-78-49 21:07:00Negative (11/25/16 4:07 PM)[facility] TWIJJ7887-18-24 21:07:00Large *ABN*(11/25/16 4:07 PM)[facility] ENNDD1705-35-35 21:07:002[facility] 2016-11-25 21:07:002[facility] OAPAM2788-50-40 21:07:00Trace *ABN*(11/25/16 4:07 PM)[facility] JYQIL1835-31-94 00:01:002[facility] QRPEE0656-81-51 00:01:006.0[facility] 2014-11-29 00:01:001.016[facility] YQGOC7027-87-83 00:01:00Clear (11/28/14 7:01 PM)[facility] YMZEI6960-31-33 00:01:00Negative (11/28/14 7:01 PM)[facility] VKMMF0488-20-43 00:01:001[facility] NUTLD8897-21-39 00:01:00Negative *NA*(11/28/14 7:01 PM)[facility] IUPYC0785-63-50 00:01:00Negative (11/28/14 7:01 PM)[facility] BJCNM8239-05-52 00:01:00Negative (11/28/14 7:01 PM)[facility] HVEFK2470-65-39 23:25:0031[facility]annCHE[facility] TDHZR9492-43-95 23:25:0076[facility] LrzvqoeTMPTIURZTGXG1529-47-61 23:25:86813Vexvwuug Michael LDBJJXWVWQJB5525-29-96 23:25:003.6[facility] MhygqbyDALIQDVESYUS2050-45-26 23:25:36237Buyoouhh JthygvvDZXCSOXAIZZN6172-83-88 23:25:0069[facility] XWJSULUCQTXD2278-18-36 23:25:0025[facility] LnzdlcqRGWVZIYRVTBF5636-94-64 23:25:00 1.3[facility] KgdsummQAYKIKEXPLVJ1169-66-28 23:25:000.3[facility] IOLQWXWREQDL2633-19-40 23:25:24612Sphvjdfl SnfanwnJOIFDCPSJECD4442-61-64 23:25:48033Lxnosrou TugmhgxENQQFZIWCZWC5677-43-71 23:25:21103Ucxmztnj [place] GNHPKRADIHBB0021-52-61 23:25:007.7[facility] PoqyadeQLMXZSJZXUVU4679-32-56 23:25:008.9[facility] NzsmhuiENZMGIOVCPNF4233-06-32 23:25:0019[facility] [place] HXFENOHPROYS0934-25-47 23:25:0099[facility] IflsguoLUQSLDCVIFSR6230-85-34 23:25:00 3.8[facility] ObzfepoLJFKKHDCAVXU0661-84-90 23:25:003.9[facility] [place] ERZNVLWDKCUJ3899-38-97 23:25:001.0[facility] UlhfvsxIAVDWQVMYRSS2889-66-25 23:25:0015[facility] CwzeqypFTRDPSCQQTLM3650-06-87 23:25:0013.6[facility] [place] AVQZRJCHBH6823-25-25 23:25:008.6[facility] WzemwmjVAPAGMETOL7722-73-17 23:25:00 13.2[facility] RdrafooVPSQGNUAZB6698-62-87 23:25:85389Cphlanbu HermannHEMATOLOGY 2014-11-28 23:25:0033.6[facility] OssyaigOHNGFBWRZH8325-32-21 23:25:00* Test Item Value Reference Range Interpretation Comments MCH (test code = MCH) 29.9 pg 27.0-31.0 [facility] OyagjldLVAXBRJXXU2729-67-39 23:25:0037.7[facility] HermannHEMATOLOGY 2014-11-28 23:25:0089.0[facility] AjabutoPNASEVQFTL9734-47-77 23:25:0012.7[facility] LhcnomcGJCGMOLXVX2509-23-67 23:25:004.24[facility] RiywhzhSQFIVPLBUK3969-28-84 23:25:007.8[facility] SukhefnGKGEBDDULL7168-50-51 23:25:000.2[facility] [place] MRSCDNPRWU8011-89-99 23:25:001.2[facility] KkmqxxfHUTLHYWEGV2860-61-19 23:25:005.9 [facility] XraxyflTLHARITZRO4413-63-68 23:25:000.3[facility] HermannHEMATOLOGY 2014-11-28 23:25:002.5[facility] ZejuamcGAMSRAJMHC2635-30-49 23:25:000.6[facility] HogsgtgOVXSECYRXE8156-19-81 23:25:007.3[facility] ChemmdfMNQCFPFUQF0589-29-47 23:25:0015.0[facility] BkyemgkHTGOAEVMMW6653-64-71 23:25:0074.9[facility] URINE AND XQZTX2093-69-42 03:46:00Negative (11/24/14 10:46 PM)[facility] URINE AND BZQSY1016-07-69 03:46:00Large *ABN*(11/24/14 10:46 PM)[facility] URINE AND VUWEL5115-19-01 03:46:00Negative *NA*(11/24/14 10:46 PM)[facility] URINE AND NADGZ9963-15-25 03:46:001[facility]ann[facility] AND GGJFK6510-80-73 03:46:00Negative (11/24/14 10:46 PM)[facility] AND FQKGW1627-82-20 03:46:50425Sfzmepxh [facility]annURINE AND PWMPW3868-54-71 03:46:005.0[facility] URINE AND NGXOE1327-45-96 03:46:001.020[facility] AND FVAIO9213-60-45 03:46:00Marked *ABN*(11/24/14 10:46 PM)[facility] MAGYU7528-38-09 03:46:00Yellow *NA*(11/24/14 10:46 PM)[facility] HermannCHEM SEVRF3231-53-93 01:21:55774Otwdkkzo HermannCHEM WUSBX6026-36-09 01:21:0041[facility] HermannCHEM ISLMV1290-91-79 01:21:0018[facility] HermannCHEM KLKTV4409-44-00 01:21:003.9 [facility]annCHEM ZXBFF3359-36-78 01:21:001.0[facility] HermannCHEM PANEL 2014-11-25 01:21:0010.7[facility] HermannCHEM NTCIS6061-62-59 01:21:44878Wdjthqph HermannCHEM RXLVI2648-69-07 01:21:003.7[facility] HermannCHEM KSOGW7738-47-41 01:21:00632Kpvdjewn HermannCHEM QVRYF7468-88-41 01:21:0076[facility]annCHEM YIDJJ1683-28-01 01:21:000.4[facility]annCHEM XINQF2268-20-84 01:21:29119 [facility]annCHEM VMEAX7562-72-44 01:21:92924Dkwpwjhf HermannCHEM PANEL 2014-11-25 01:21:13072Amstzkte HermannCHEM OVAVT5846-55-54 01:21:007.8[facility] HermannCHEM GPPUD6528-58-03 01:21:001.2[facility]annCHEM HBKWJ7342-76-67 01:21:008.2[facility] HermannCHEM FOMFK3008-04-46 01:21:0022[facility] HermannCHEM RPYIC7147-29-50 01:21:0026[facility] HermannCHEM HJRDS4702-21-39 01:21:003.9 [facility]annCHEM BTKPX9607-68-74 01:21:75414Bqlvvvjz HermannHEMATOLOGY 2014-11-25 01:21:000.2[facility] TnjmlrjORWUPBCGKV9138-95-07 01:21:003.9[facility] VqqvbudTVBHLCZXSL8737-87-74 01:21:001.9[facility] WvlxgzzLZSSGYSTWR3429-86-91 01:21:000.4[facility] SgzawdjWULEKLSWAA2281-43-26 01:21:0029.2[facility] CJSCJHOAIE4080-23-28 01:21:000.3[facility] ToofirmTQTEGPYKMN3866-53-30 01:21:006.2 [facility] KcuryujZQUCBQXMUD0606-64-86 01:21:002.8[facility] HermannHEMATOLOGY 2014-11-25 01:21:0061.5[facility] MvoqatcNPUXWYELSV2752-40-52 01:21:0013.2[facility] YccftmfMKQIRCFOJK9768-52-99 01:21:64831Pferqvbg TwtjetfBMPZDLNGKX0939-23-83 01:21:008.8[facility] UphtgskTHXEZWFHTD1409-44-21 01:21:0034.2[facility] CODBOEGIET7732-58-60 01:21:0040.1[facility] LjqivnlVOFHMQIVVI8683-96-39 01:21:00 6.4[facility] AjddejbFRUNPDRIEM8431-99-31 01:21:004.53[facility]annHEMATOLOGY 2014-11-25 01:21:0013.7[facility] UtfxkfcKUHOFFZZKV5316-21-78 01:21:0088.4[facility] IepvfbkZQVOLQKGEC5503-93-49 01:21:00* Test Item Value Reference Range Interpretation Comments MCH (test code = MCH) 30.2 pg 27.0-31.0 [facility] HermannCHEM EIULG0606-13-18 14:43:20346Vuegheqt HermannCHEM PANEL 2014-06-23 14:43:79050Wxvpivde HermannCHEM YYTWA2414-56-03 14:43:004.0[facility] HermannCHEM XHLHT8575-88-46 14:43:15449Ngggpnpw HermannCHEM YPKAI5651-60-78 14:43:0013[facility] HermannCHEM AYGRP9176-92-78 14:43:000.9[facility] HermannCHEM UHRUB6920-35-51 14:43:25427Fabnwqei HermannCHEM LZMLY1476-59-47 14:43:0025 [facility]annCHEM DINVK3245-47-21 14:43:008.4[facility] HermannCHEM PANEL 2014-06-23 14:43:0013.0[facility] DgfwslsGTAKNWWVKA0761-21-31 14:43:0059.5[facility] NkgvkusGKBXOBBWUI7511-22-37 14:43:000.6[facility] WstmjxjGORHICHCIZ8172-37-85 14:43:005.8[facility] SpedcwgANKSEWYISI3935-61-59 14:43:005.2[facility] LTJEUWYXVU4095-72-35 14:43:000.4[facility] BowmylzZIXDJMWLGE8162-25-34 14:43:000.3 [facility] KobhfjqPYGLGFJDFT5285-42-42 14:43:0028.9[facility] HermannHEMATOLOGY 2014-06-23 14:43:001.9[facility] FrrvfkbYAJXKNBBKR3687-59-96 14:43:003.9[facility] SuiiwbpLKFUPGFVUA7651-68-50 14:43:0033.6[facility] KskcpndLKCLWYLSUG4337-93-00 14:43:15759Wjehsior UwwoptySQONIMBSUK1701-70-44 14:43:0013.4[facility] BKECJVIMJJ2993-77-24 14:43:008.5[facility] WskdpqqQWPQELLBMK8086-21-58 14:43:00* Test Item Value Reference Range Interpretation Comments MCH (test code = MCH) 29.6 pg 27.0-31.0 [facility] JcnchcxVVBNXOFFIY4106-61-86 14:43:0088.2[facility] HermannHEMATOLOGY 2014-06-23 14:43:0042.0[facility] HcmegsaFARDZQTNGZ0577-69-77 14:43:0014.1[facility] VjpnkzzCVSMWOFPQQ1318-63-52 14:43:004.76[facility] ZvteqyxEFSRRBTOLB3293-92-16 14:43:006.5[facility]annURINE AND ATSEW4202-76-61 13:56:0016[facility]INE AND BCHOL0704-94-13 13:56:008[facility]UR[facility] AND TCZOG3980-56-36 13:56:00Negative (06/23/14 8:56 AM)[facility] WNTHD6156-84-47 13:56:00Negative (06/23/14 8:56 AM)[facility] NCOZM3570-15-13 13:56:005.0[facility] AND AJPGQ0613-22-21 13:56:00Moderate *ABN*(06/23/14 8:56 AM)[facility] TYQLX3568-95-17 13:56:00 Negative *NA*(06/23/14 8:56 AM)[facility] PCSTV1324-11-84 13:56:001.019[facility]UR[facility] AND XVWFV7505-18-03 13:56:00Marked *ABN*(06/23/14 8:56 AM)[facility] ZittrqpLJNFFARBP0906-19-23 11:14:0072[facility] YubvufoQJJQQOBVD0810-46-67 11:14:49877Irevaqkd FawuoysSSAVTVLEU7701-88-42 11:14:004.2[facility] DoxmqqhWSYTQQKKD8932-61-71 11:14:54938Rwhosbrf [place] KNQQOGWYF6014-15-82 11:14:41034Htvcyyfk QussqquLSMJJGLSD8434-21-05 11:14:000.8 [facility] HtbdnusJYBBGLPRA4564-85-52 11:14:0082[facility] HermannCHEMISTRY 2013-04-08 11:14:53364Ozipiqdc WntwwobWOBEUFHEO3705-07-48 11:14:000.7[facility] VrfvixyQAQNDVQUR5855-62-68 11:14:0022[facility] SzcejdlSMYIUTXGY3691-27-26 11:14:007[facility] NhhdfogEXJWNGZDK6783-93-34 11:14:007.9[facility] [place] IYRSYSZSR8123-87-93 11:14:006.2[facility] LuxeduyJXNQGWITH5693-87-13 11:14:002.8 [facility] YjknmpxEEQKQDSOG1400-27-69 11:14:60881Zcclahgz HermannCHEMISTRY 2013-04-08 11:14:87334Ohlgfpbc EqcfyqtDJYHSZJPT2945-92-81 11:14:000.8[facility] AhoxfqeMSEIEPGTX8863-47-74 11:14:0016.2[facility] BhfthnmRHVPWYPDX5570-39-49 11:14:003.4[facility] TnkfnkoPLLAYNMVL2679-29-68 11:14:0010[facility] RMGEUKCSTQ9485-34-97 11:14:000.2[facility] QzoezazRSUQUEKOTH8690-71-54 11:14:003.9 [facility] UowtueiQZDZOUISLI7641-75-07 11:14:006.3[facility] HermannHEMATOLOGY 2013-04-08 11:14:003.0[facility] MqdrbziBODQRWFJNK7519-88-48 11:14:0027.9[facility] KwalltiCWMEHZMCZC9258-31-31 11:14:001.7[facility] LcilnxnIKIYZTJPRK8884-77-68 11:14:0062.6[facility] GbbanapXRJBWSZWYP7416-94-38 11:14:000.0[facility] [place] NYJOSCPKAO2907-29-11 11:14:000.4[facility] AsltmuvVQCGSKROCK6715-21-51 11:14:000.2 [facility] SfgfvecQUOOJCWLFR8673-59-92 11:14:009.7[facility] HermannHEMATOLOGY 2013-04-08 11:14:0029.3[facility] MuidlkoMGEAJMKQAG6699-63-12 11:14:008.1[facility] YwmaofxMEAWSXBEPJ4274-27-60 11:14:94257Dhkirijc TjdccedFUZPJXFDKW0083-83-77 11:14:006.2[facility] UlwjedfPYVQTYBCFB0731-30-10 11:14:003.32[facility] SZUZFWCHGG4777-17-58 11:14:0088.2[facility] JjzmbnaXEKYDIIIWH3445-97-24 11:14:00* Test Item Value Reference Range Interpretation Comments MCH (test code = MCH) 29.2 pg 27.0-31.0 N [facility] NfdeitvBBUNZSSPCN3795-67-22 11:14:0013.6[facility] HermannHEMATOLOGY 2013-04-08 11:14:0033.1[facility] HermannSTOOL HDLQA7124-89-57 01:45:00Negative (04/07/2013 20:45:00) [facility] LetlsslQAWFBGVVF6294-21-76 10:18:13353Mmsaqfku LuwjzxiYYCAGIROU5520-87-58 10:18:21208Nrfjnzea NussypmMPPPPMVST1754-44-80 10:18:003.5[facility] HxsndevYBOXZGZAP8226-44-82 10:18:06740Itxbihxv [place] GPPIDGUVS5552-19-13 10:18:01367Stcbacxe PawyjgtWPKKTGZCG5294-00-21 10:18:007.7 [facility] QsaqcrnSEUCSILEF5276-62-95 10:18:0023[facility] HermannCHEMISTRY 2013-04-07 10:18:009[facility] HnjdjviNHNAQZTCL4351-60-59 10:18:38647Hmxszqgb QvhpapyVQTUTRAMZ9459-22-29 10:18:000.8[facility] HfsdymdHHDRKXPQK5066-31-94 10:18:0013.5[facility] FdzbcooAILWZNBMMR7741-60-67 10:18:67889Jcmgaaox [place] EJJWASODWT9121-80-68 10:18:0086.9[facility] UktokjsVWWSZACMYU4486-55-11 10:18:00 33.6[facility] HwzccphRIPNKIEGXO3432-83-19 10:18:0013.8[facility] HermannHEMATOLOGY 2013-04-07 10:18:00* Test Item Value Reference Range Interpretation Comments MCH (test code = MCH) 29.2 pg 27.0-31.0 N [facility] IrfspeyFCLAQRKBPP3926-68-58 10:18:009.3[facility] HermannHEMATOLOGY 2013-04-07 10:18:0027.5[facility] XwtywbfXISRKWHRAB2636-19-83 10:18:003.17[facility] KrlyanbHYQPOTBJUB1532-97-43 10:18:004.4[facility] LhkzyadSNHSOWGGLK8513-93-71 10:18:008.1[facility] XosbqpgLNCDEZHLUH9640-77-34 10:18:000.1[facility] DARRWDTVGZ2083-48-75 10:18:000.0[facility] YquvilwRQHFPPRGHW2531-19-99 10:18:001.2 [facility] DupwkqfDBZFDTHWHM4521-85-46 10:18:002.0[facility] HermannHEMATOLOGY 2013-04-07 10:18:000.3[facility] EvokhhtRGIAPQVQZT5132-81-99 10:18:000.3[facility] LqziosjDSEABUOHKR9745-97-46 10:18:006.8[facility] IyridqbFGWBFAEMTL2597-96-61 10:18:002.8[facility] BcrziunVIFMREZMBS0477-00-47 10:18:0027.6[facility] HSEUAYTLTG8158-57-74 10:18:0063.3[facility] OseycwvBWLNEVLFJ0999-80-59 11:48:00 1.410[facility] SnhialrDZOPIPXLA8362-35-45 11:48:16039Aqfhcowb HermannCHEMISTRY 2013-04-06 11:48:000.7[facility] EzhlmrxCEVTLAIHN3901-46-70 11:48:007[facility] UrphhsvHRAXYWYOH7065-58-86 11:48:70368Rtmbzyrj GsodakzOUPKHJUPX0200-05-92 11:48:0015.4[facility] QqmqzxoOELOOTUAR0063-48-23 11:48:0022[facility] HFKYQWCUK4882-18-33 11:48:007.6[facility] OvvbhgaHTUJETHJC9711-71-32 11:48:003.4 [facility] MdwymffORYARKPYS6760-54-81 11:48:45546Dlhmsfaw HermannCHEMISTRY 2013-04-06 11:48:06335Qzoyzrof YyjdklyKPYDQWCYWJ1401-23-55 11:48:0030.0[facility] XfyyyfnZLSMCWVGDU0403-41-91 11:48:005.0[facility] CspjcduSPBORGKVNA9825-36-60 11:48:000.0[facility] MlkfzupDAFDKHOURW9907-53-87 11:48:0022.0[facility] [place] CFNWCPLJZA5091-59-92 11:48:0043.0[facility] VrucfbkALGEWQWZYX8957-40-60 11:48:00 0.2[facility] UsbzoxeTHFIQNQPXP9607-84-22 11:48:002.2[facility]annHEMATOLOGY 2013-04-06 11:48:000.7[facility] WubabzbHBYRWVGLWU2914-09-90 11:48:00Normal (04/06/2013 06:48:00) [facility] CielgmoORWLJFGLII9216-05-42 11:48:00Normal (04/06/2013 06:48:00) [facility] KlrwkypFAVYTFNDBL3329-50-29 11:48:009.1[facility] PswsbctDMPDHDXWJI7337-58-67 11:48:0033.9[facility] RpwvoswEOHIPAXBQZ6299-96-88 11:48:00* Test Item Value Reference Range Interpretation Comments MCH (test code = MCH) 29.4 pg 27.0-31.0 N [facility] ReqspoxGJQBLUZVGJ0178-83-48 11:48:003.0[facility] HermannHEMATOLOGY 2013-04-06 11:48:0013.5[facility] FbaduzoBAHPTRYXAH6476-28-13 11:48:79946Kgqbbniq KmsgfegPALNXANLXO0630-53-49 11:48:0086.8[facility] YqlqfjuZAUMEUEAQB4355-38-31 11:48:003.40[facility] CqmoppaNPXZTWWFGK2232-41-65 11:48:0010.0[facility] KCDTKQJFQT7734-02-37 11:48:0029.5[facility] MiupmjiOSRTCPMUEC5961-22-08 11:48:00 Negative (04/06/2013 06:48:00) [facility] GavgbkwGAJXMMCGTT3941-76-41 11:48:00Non Reactive (04/06/2013 06:48:00) [facility] WnvoejgQPKRRCFIYF2258-81-56 11:48:00 0.210[facility] OhnkrwcPCLUJVJVEI5672-49-45 11:48:00Negative *NA*(04/06/2013 06:48:00) [facility] PqcopfnTQEWBRPWKN2450-29-94 11:48:000.2[facility] IAWIARVOAH6041-53-75 11:48:00<0.2[facility] JcxfwvsPZXCGTXTLR5959-41-01 11:48:00 0.5[facility] EixbkwhBQFLTMJCIP3353-22-20 11:48:00>8.0[facility] HermannMICRO MISC - UUYXZLEE0409-02-99 11:48:0043[facility] HermannVIRAL - TMCPPEYN7472-44-85 11:48:000.08[facility] HermannMICRO MISC - ICDKCVFO2695-21-66 10:00:56Negative 3(04/06/2013 05:00:56) [facility] YqbopwmGMMDSIJBV2174-64-07 23:02:004.1[facility] JmehtpuVFDCJADHC3220-14-42 23:02:12864Orpivonc VjtuvltEUMWQPGVP9533-66-84 23:02:004.3[facility] IyhssjxAVPFDFZOZL5745-34-58 23:02:000.99[facility] FDJZCIBJZT2572-91-10 23:02:00* Test Item Value Reference Range Interpretation Comments PT (test code = PT) 13.3 s 12.0-14.7 N [facility] ZsdpkcmOXGQUXXQJ4440-83-34 10:30:68261Okxowqla HermannCHEMISTRY 2013-04-05 10:30:000.8[facility] MfjoareEFCWSZMRW3368-97-64 10:30:003.5[facility] SbeidsgPQKPMEJXI3616-39-40 10:30:0014[facility] EqjxzmkHDGSLXWKQ7830-93-68 10:30:00143Tmlisirq PxwqzmmPLYWYEEVT6952-06-07 10:30:001.5[facility] SWZYQHZTJ1397-40-83 10:30:28169Stpggafw YufaqvpEOKKKGIIF1997-06-75 10:30:31268 [facility] ZlmfdlgVVMVWLYCD8444-73-46 10:30:002.9[facility] HermannCHEMISTRY 2013-04-05 10:30:006.4[facility] BepwamfIWEDLOVDNX0926-85-40 10:30:0055.0[facility] KtgpuqcXOKOAOXFWU7935-81-63 10:30:00Slight (04/05/2013 05:30:00) [facility] SjcqnzcHFXCMJOYCO5669-95-16 10:30:00* Test Item Value Reference Range Interpretation Comments Tot Cell Ct (test code = Tot Cell Ct) 100 1 [facility] PytlrwnFZAXVPGSPH5489-39-83 10:30:00Normal (04/05/2013 05:30:00) [facility] CvyapyvJELMHWWOHF0681-86-05 10:30:001+ *ABN*(04/05/2013 05:30:00) [facility] CocrkmvROFHCGXNPP7073-84-71 10:30:001.0[facility] HermannHEMATOLOGY 2013-04-05 10:30:002.0[facility] TpcmekmBFLAEXAJUW9336-42-48 10:30:001.0[facility] UovwpnlRHRWIDRJGX0499-43-37 10:30:000.0[facility] TkkvaaiBNUOKWSCCN5775-91-29 10:30:00Negative *NA*(04/05/2013 05:30:00) [facility] DjwbcxzHJUQCQPUJX3332-83-20 10:30:00Negative *NA*(04/05/2013 05:30:00) [facility] HermannIMMUNOLOGY 2013-04-05 10:30:00<1.0[facility] FmloomfXDVJBFCZLD5151-00-32 10:30:00Negative *NA*(04/05/2013 05:30:00) [facility] LakkfhbSEDFLTEYWD6062-02-11 10:30:00Negative *NA*(04/05/2013 05:30:00) [facility] ScwdpygDQCMTFQFJH6146-90-96 10:30:00 Negative *NA*(04/05/2013 05:30:00) [facility] RidxbmsMQNWBVQJVL8866-80-11 10:30:00<1.3[facility] JuwqmoyBYFHVADDJ4296-95-95 02:20:001.7[facility] FDQXMXTGB9120-47-60 23:05:97294Ixidfwbo TbukaccZAXBMVTTJ3231-54-67 23:05:19409 [facility] TlbkmnqBNUESTVUA6178-55-59 23:05:003.7[facility] HermannCHEMISTRY 2013-04-04 23:05:18027Cebnbdoq ZhjovkxDLSJHKGRS7884-93-94 23:05:007.4[facility] WeulfboEQRVMOWSS8425-86-89 23:05:001.6[facility] SefxtvsCTCEYIWGD6603-85-86 23:05:001.0[facility] EesgffqWUBAFIMQU9621-28-63 23:05:003.7[facility] KYNJKWZOG6854-70-55 23:05:0014[facility] OvnuvdbWCOURNSSN1490-59-98 23:05:36374 [facility] ZpyxjqiQVQQRBGNPR3675-44-82 23:05:0012.0[facility] HermannHEMATOLOGY 2013-04-04 23:05:00Normal (04/04/2013 18:05:00) [facility]annHEMATOLOGY 2013-04-04 23:05:00Normal (04/04/2013 18:05:00) [facility]annHEMATOLOGY 2013-04-04 23:05:000.0[facility] MicxtxcSQTGKWZGFC0403-27-16 23:05:00Negative (04/04/2013 18:05:00) [facility] LwnaajsMGHKBTCUKP5809-53-04 23:05:00Negative (04/04/2013 18:05:00) [facility] AlczozoRGSFUBPIWJ6359-23-08 23:05:004.0[facility] BpyufxkMAXRTNSNPD0070-62-34 23:05:002[facility] QkvbojnYWWVRVTZNP1481-99-10 23:05:00Negative (04/04/2013 18:05:00) [facility] MelemnmIHKICWIOLU0952-03-07 23:05:001[facility] TvvxspyVTJKXGLAOC3386-55-14 23:05:00Negative mg/dL *NA*(04/04/2013 18:05:00) [facility] BwvonmsNDHOIEHHLP0322-78-29 23:05:00Negative mg/dL (04/04/2013 18:05:00) [facility] NrierixWBHNHHDMPU7081-31-48 23:05:005.0 [facility] OozouqhOIRJGLGHII7270-05-65 23:05:00Negative mg/dL *NA*(04/04/2013 18:05:00) [facility] XnqamzbQKBNZBVQFF0387-90-62 23:05:00Negative *NA*(04/04/2013 18:05:00) [facility] XkgknmeKQSNWKMDXU0918-73-33 23:05:001.015[facility] [place] ZKRLLPICLA5882-73-17 23:05:00Clear (04/04/2013 18:05:00) [facility]
== END 2020-04-30 22:20 | disposition home or self-care (01) ==
LOC: ER 20:24
DX: N39.0 Urinary tract infection, site not specified (principal); R31.9 Hematuria, unspecified; N20.2 Calculus of kidney with calculus of ureter; M54.5 Low back pain; K21.9 Gastro-esophageal reflux disease without esophagitis; F17.210 Nicotine dependence, cigarettes, uncomplicated
CPT/HCPCS: 36415; 74176; 80053; 81001; 82550; 85025; 85610; 85730; 99284

== ENCOUNTER 2020-05-05 08:29 | Emergency (ER) | payer BC ==
[~2020-05-05] VITALS: Ht 167.6 cm; Wt 72.6 kg
--- OUTSIDE RECORDS SUMMARY | 2020-05-05 09:16 | XMS REPORT | Continuity of Care Document ---
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 Role Phone [employer] Unavailable Un available Problems Problem Status Onset Date Classification Date Reported Comments Source UNK Active 0 03/03/2017 [facility] STAGHORN CALCULUS Active 11/14/2016 [facility] Discharge Diagnosis: Renal colic 11/28/2014 11/30/2014 [facility] KIDNEY STONES Active 11/28/2014 [facility] PAIN/KIDNEY STONE Active 11/24/2014 [facility] Discharge Diagnosis: Ureterolithiasis 11/24/2014 11/27/2014 [facility] Hyperuricemia (disorder) Active 08/03/2014 Problem 11/25/2019 Data migrated from [employer] on 01/21. [facility] Liver function tests abnormal (finding) Active 08/03/2014 Problem 11/25/2019 Data migrated from [employer] on 01/21/15. [facility] Pancytopenia (disorder) Active 08/03/2014 Problem 11/25/2019 Data migrated from [employer] on 01/21. [facility] Discharge Diagnosis: UTI (lower urinary tract infection) 06/23/2014 06/26/2014 [facility] Discharge Diagnosis: Kidney stone 06/23/2014 06/26/2014 [facility] Lower urinary tract infectious disease (disorder) Resolved 06/23/2014 Problem 11/25/2019 [facility] ABDOMINAL PAIN Active 06/23/2014 [facility] Acute cystitis (disorder) Reso lved 11/02/2013 Problem 11/25/2019 Data migrated from [employer] on 03/11. Data migrated from [employer] on 03/10/15. [facility] Backache (finding) Resolved 11/02/2013 Problem 11/25/2019 Data migrated from [employer] on 03/11. Data migrated from [employer] on 03/10/15. [facility] Kidney stone (disorder) Active 11/02/2013 Problem 11/25/2019 Data migrated from [employer] on 01/21. [facility] Epididymitis (disorder) Resolv ed 04/29/2013 Problem 11/25/2019 Data migrated from [employer] on 03/11. Data migrated from [employer] on 03/10/15. [facility] Fever (finding) Resolved 04/29/2013 Problem 11/25/2019 Data migrated from [employer] on 03/10. [facility] Gastroesophageal reflux disease (disorder) Active 04/29/2013 Problem 11/25/2019 Data migrated from [employer] on 01/21/15. [facility] History of - gastrointestinal disease (c ontext-dependent category) Resolved 04/29/2013 Problem 11/25/2019 Data migrated from [employer] on 03/11/15. Data migrated from [employer] on 03/10/15. [facility] LEUKOPENIA, RHABDOMYOLYSIS, MYAGLIAS Active 04/04/2013 [facility] ALLERGIC REACTION Active 04/04/2013 [facility] Constipation (disorder) Active Problem 11/25/2019 [facility] Group, [...] calculus (disorder) A ctive Problem 09/2019 [facility] Streptococcal sore throat (disorder) Active Problem 09/2019 [facility] Urine finding (finding) Active Problem 11/25/2019 [facility] Visual impairment (disorder) A ctive Problem 09/2019 [facility] DECREASED WBC COUNT NEC Active [facility] RHABDOMYOLYSIS Active [facility] CALCULUS OF KIDNEY Active [facility] Medications Medication Details Route Status Patient Instructions Ordering Provider Order Date Source ibuprofen 800 mg oral tablet 8 00 mg = 1 tab, PO, Q8H, PRN Pain, Take with food, X 10 day, # 30 tab, 0 Refill(s), Pharmacy: [id number] No Longer Active 09/30/2018 [facility] amoxicillin 500 mg oral capsule 500 mg = 1 cap, PO, TID, X 7 day, # 21 cap, 0 Refill(s), Pharmacy: [id number] No Longer Active 09/30/2018 [facility] potassium citrate 15 MEQ Extended Releas e Tablet [Urocit-K] 15 mEq = 1 tab, PO, TID, # 270 tab, 3 Re fill(s), Pharmacy: [id number] Active 09/22/2018 [facility] potassium citrate PO, Daily, 0 Refill(s) Active 09/22/2018 [facility] naproxen 500 mg oral enteric coated elijah yed-release tablet 500 mg = 1 tab, PO, BID, X 10 day, # 20 tab, 0 Refill(s), Pharmacy: [id number] No Longer Active 10/10/2017 [facility] tadalafil 5 MG Oral Tablet [Cialis] 5 mg = 1 tab, PO, Daily, PRN for erectile dysfunction, X 30 day, # 30 tab, 1 Refill(s), Pharmacy: [id number] No Longer Active 03/04/2017 [facility] ketOROLAC 15 mg/mL injectable solution 4 days. No Longer Active 12/06/2016 [facility] Acetaminophen 325 MG / Hydrocodone Jojo trate 5 MG Oral Tablet [[place] 5/325] Notes: (Same as: [place] 325/5) Do not ex ceed 4gm/day of acetaminophen. No Longer Activ e 12/05/2016 [facility] Dilaudid 0.5 mg, 0.5 mL, Route : IVP, Drug form: INJ, Q4H, Dosing Weight 77.636, kg, PRN Pain Score 7-10, Start date: 12/05/16 15:50:00 CDT, Duration: 30 day, Stop date: 01/04/17 15:49:00 CDT No Longer Active 12/05/2016 [facility] senna 8.6 mg oral tablet 1 tab , Route: PO, Drug Form: TAB, Dosing Weight 77.636, kg, Daily, Start date: 12/05/16 9:00:00 CDT, Duration: 30 day, Stop date: 01/03/17 9:00:00 CDT No Longer Active 12/05/2016 [facility] Docusate Sodium 100 MG Oral Capsule 100 mg = 1 cap, PO, BID, # 40 cap, 0 Refill(s) Active 12/05/2016 [facility] ciprofloxacin 500 mg oral tablet 500 mg = 1 tab, PO, [id number], # 12 tab, 0 Refill(s) No Longer Active 12/05/2016 [facility] Acetaminophen 325 MG / Hydrocodone Jojo trate 5 MG Oral Tablet [[place] 5/325] 1 tab, PO, Q4H, PRN Pain Score 4-6, # 30 tab, 0 Refill(s), given to patient Active 12/05/2016 [facility] tamsulosin 0.4 mg oral capsule 0.4 mg = 1 cap, PO, Q24H, # 40 cap, 0 Refill(s) Active 12/05/2016 [facility] Fleet Enema 12 years, Pediatr ic Dosing No Longer Active 12/05/2016 [facility] Dulcolax Laxative Notes: (Same As: Dulcolax, Bisco-Lax) No Longer Active 12/05/2016 [facility] Docusate Sodium 100 MG Oral Capsule [Colace] 100 mg, 1 cap, Route: PO, BID, Dosing Weight 77.636, kg, Start date: 12/04/16 17:00:00 CDT, Duration: 30 day, Stop date: 01/03/17 9:00:00 CDT Inactive 12/04/2016 [facility] docosanol 100 MG/ML Topical Cream [Abreva] Notes: Same as Abreva No Longer Active 12/04/2016 [facility] Flomax Notes: (Same As: Flomax ) "Do Not Crush" No Longer Active 12/04/2016 [facility] Miralax Notes: Dissolve in 8 o z of water or juice. (Same as: Miralax) Inactive 12/04/2016 [facility] Acetaminophen 325 MG / Hydrocodone Jojo trate 5 MG Oral Tablet [[place] 5/325] Notes: (Same as: [place] 325/5) Do not ex ceed 4gm/day of acetaminophen. No Longer Activ e 12/04/2016 [facility] Orabase Gel-B 20% mucous membrane gel Notes: (Same As: Maximum Strength PM Orajel ) N o Longer Active 12/04/2016 [facility] Tylenol Notes: Do not exceed 4 gm/day. (Same as: Tylenol) No Longer Active 12/03/2016 [facility] Ketorolac 4 days. Inactive 12/03/2016 [facility] tramadol hydrochloride 50 MG Oral Tablet Notes: Not to exceed 400mg/day. (Same As: Ultram) No Longer Active 12/03/2016 [facility] sennosides, LONG-TERM Notes: (Same a s: Senokot) No Longer Active 12/03/2016 [facility] Cipro Notes: May interfere w/e nteral feedings - Take 1 hr before or 2 hrs after antacids, dairy pdt & minerals. On empty stomach. No Longer Active 12/03/2016 [facility] Docusate Notes: (Same as: Cola ce) (Do Not Crush) No Longer Active 12/02/2016 [facility] Acetaminophen 10 MG/ML Injectable Solution Notes: Infuse over 15 minutes Do not exceed 4gm/day of acetaminophen MEDICATION WASTE Product Size: 1000 mg Product Wasted: ___ mg No Longer Active 12/02/2016 [facility] Ondansetron 4 mg, Route: IVP, ONCE, Dosing Weight 72.727, kg, PRN Nausea & Vomiting, Start date: 12/02/16 13:47:00 CDT Inactive 12/02/2016 [facility] Promethazine 6.25 mg, Route: I VPB, ONCE, Dosing Weight 72.727, kg, PRN Nausea & Vomiting, Start date: 12/02/16 13:47:00 CDT Inactive 12/02/2016 [facility] Meperidine 12.5 mg, Route: IVP , Q30Min, Dosing Weight 72.727, kg, PRN Other -See Comment, For shivering, Start date: 12/02/16 13:47:00 CDT, Duration: 2 doses or times, Stop date: Limited # of times Inactive 12/02/2016 [facility] Naloxone 0.4 mg, Route: IVP, Q 2MIN, Dosing Weight 72.727, kg, PRN Narcotic Reversal, Start date: 12/02/16 13:47:00 CDT, Duration: 8 doses or times, Stop date: Limited # of times Inactive 12/02/2016 [facility] Flumazenil 0.2 mg, Route: IVP, PRN, Dosing Weight 72.727, kg, PRN Benzodiazepine Reversal, Initial dose, Start date: 12/02/16 13:47:00 CDT, Duration: 30 day, Stop date: 01/01/17 13:46:00 CDT Inactive 12/02/2016 [facility] Labetalol 10 mg, Route: IVP, Q 5Min, Dosing Weight 72.727, kg, PRN Elevated BP, Start date: 12/02/16 13:47:00 CDT, Duration: 5 doses or times, Stop date: Limited # of times Inactive 12/02/2016 [facility] Hydralazine 10 mg, Route: IVP, Q20Min, Dosing Weight 72.727, kg, PRN Elevated BP, Start date: 12/02/16 13:47:00 CDT, Duration: 2 doses or times, Stop date: Limited # of times Inactive 12/02/2016 [facility] Fentanyl 25 microgram, Route: IVP, Q5Min, Dosing Weight 72.727, kg, PRN Pain Score 4-6, Priority: Routine, Start date: 12/02/16 13:47:00 CDT, Duration: 4 doses or times, Stop date: Limited # of times Inactive 12/02/2016 [facility] Oxycodone 2.5 mg, Route: PO, D rug form: LIQ, Q4H, Dosing Weight 72.727, kg, PRN Pain Score 4-6, Start date: 12/02/16 13:47:00 CDT, Duration: 30 day, Stop date: 01/01/17 13:46:00 CDT Inactive 12/02/2016 [facility] Hydromorphone 0.5 mg, Route: I FIBERLINE SUPERVISOR, Q5Min, Dosing Weight 72.727, kg, PRN Pain Score 7-10, Start date: 12/02/16 13:47:00 CDT, Duration: 4 doses or times, Stop date: Limited # of times Inactive 12/02/2016 [facility] Dilaudid 0.5 mg, 0.5 mL, Route : IVP, Drug form: INJ, Q4H, Dosing Weight 72.727, kg, PRN Pain Score 7-10, Start date: 12/02/16 13:33:00 CDT, Duration: 30 day, Stop date: 01/01/17 13:32:00 CDT No Longer Active 12/02/2016 [facility] tramadol hydrochloride 50 MG Oral Tablet Notes: Not to exceed 400mg/day. (Same As: Ultram) No Longer Active 12/02/2016 [facility] D5NS 1,000 mL 1,000 mL, Rate: 75 ml/hr, Infuse over: 13.3 hr, Route: IV, Dosing Weight 72.727 kg, Total Volume: 1,000, Start date: 12/02/16 13:33:00 CDT, Duration: 30 day, Stop date: 01/01/17 13:32:00 CDT Inactive 12/02/2016 [facility] Hydralazine Notes: (Same as: A presoline) Push over 5 minutes No Longer Active 12/02/2016 [facility] Ondansetron Notes: (Same as: Daisy cruz) MEDICATION WASTE Product Size: 4 mg Product Wasted: ___ mg No Longer Active 12/02/2016 [facility] ondansetron (ANES) Route: IV, Drug form: INJ, ONCE, Stop date: 12/02/16 13:27:00 CDT Inactive 12/02/2016 [facility] famotidine (ANES) Route: IV, D rug form: INJ, ONCE, Stop date: 12/02/16 12:27:00 CDT Inactive 12/02/2016 [facility] lidocaine (ANES) Route: IV, Dr ug form: INJ, ONCE, Stop date: 12/02/16 12:22:00 CDT Inactive 12/02/2016 [facility] propofol (ANES) Route: IV, Rell g form: INJ, ONCE, Stop date: 12/02/16 12:22:00 CDT Inactive 12/02/2016 [facility] rocuronium (ANES) Route: IV, D rug form: INJ, ONCE, Stop date: 12/02/16 12:22:00 CDT Inactive 12/02/2016 [facility] ciprofloxacin (ANES) Route: IV , Drug form: INJ, ONCE, Stop date: 12/02/16 11:57:00 CDT Inactive 12/02/2016 [facility] midazolam (ANES) Route: IV, Dr ug form: SOLN, ONCE, Stop date: 12/02/16 11:57:00 CDT Inactive 12/02/2016 [facility] fentaNYL (ANES) Route: IV, Rell g form: INJ, ONCE, Stop date: 12/02/16 11:57:00 CDT Inactive 12/02/2016 [facility] LR 1000 mL INJ (ANES) Route: I V, Total Volume: 1,000, Start date: 12/02/16 11:07:00 CDT, Stop date: 12/02/16 12:07:00 CDT Inactive 12/02/2016 [facility] gentamicin (ANES) (ANES) Route : IV, Drug form: INJ, Start date: 12/02/16 11:07:00 CDT, Stop date: 12/02/16 12:07:00 CDT Inactive 12/02/2016 [facility] Calcium Chloride 0.0014 MEQ/ML / Potassi um Chloride 0.004 MEQ/ML / Sodium Chloride 0.103 MEQ/ML / Sodium Lactate 0.028 MEQ/ML Injectable Solution 1,000 mL, Rate: 25 ml/hr, Infuse over: 4 0 hr, Route: IV, Dosing Weight 72.727 kg, Total Volume: 1,000, Start date: 12/02/16 9:42:00 CDT, Duration: 30 day, Stop date: 01/01/17 9:41:00 CDT Inactive 12/02/2016 [facility] diclofenac sodium 25 mg oral enteric coa [place], delayed-release tablet 25 mg = 1 tab, PO, QID, PRN Pain Score 1 -5, # 20 tab, 0 Refill(s) Active 11/29/2014 [facility] Acetaminophen 325 MG / Hydrocodone Jojo trate 10 MG Oral Tablet 1 tab, PO, Q4H, PRN Pain, # 12 tab, 0 Refill(s) Active 11/29/2014 [facility] ketOROLAC 30 mg/mL injectable solution 30 mg, Route: IVP, Drug form: INJ, ONCE, Dosing Weight 75, kg, Priority: STAT, Start date: 11/28/14 20:37:00, Stop date: 11/28/14 20:37:00 Inactive 11/29/2014 [facility] Dilaudid 1 mg, Route: IVP, ONC E, Dosing Weight 75, kg, Priority: STAT, Start date: 11/28/14 18:32:00, Stop date: 11/28/14 18:32:00 Inactive 11/28/2014 [facility] normal saline 0.9% IV 1,000 mL 1,000 mL, Rate: 1,000 ml/hr, Infuse over: 1 hr, Route: IV, Dosing Weight 75 kg, Total Volume: 1,000, Start date: 11/28/14 18:14:00, Duration: 30 day, Stop date: 12/28/14 18:13:00 No Longer Active 11/28/2014 [facility] Saline Flush 0.9% Notes: (Same as: BD Posiflush) No Longer Active 11/28/2014 [facility] Ondansetron 4 mg, Route: IVP, ONCE, Dosing Weight 75, kg, Priority: STAT, Start date: 11/28/14 18:05:00, Stop date: 11/28/14 18:05:00 Inactive 11/28/2014 [facility] Morphine 4 mg, Route: IVP, ONC E, Dosing Weight 75, kg, Priority: STAT, Start date: 11/28/14 18:05:00, Stop date: 11/28/14 18:05:00 Inactive 11/28/2014 [facility] Tamsulosin hydrochloride 0.4 MG Oral Capsule [Flomax] 0.4 mg = 1 cap, PO, Daily, # 14 cap, 0 Refill(s) Active 11/25/2014 [facility] promethazine 25 mg oral tablet 25 mg, PO, Q4H, PRN Nausea, # 15 tab, 0 Refill(s) Active 11/25/2014 [facility] Acetaminophen 325 MG / Hydrocodone Jojo trate 7.5 MG Oral Tablet [[place] 7.5/325] 1 tab, PO, Q6H, PRN for pain, # 20 tab, 0 Refill(s) Active 11/25/2014 [facility] Morphine 4 mg, Route: IVP, Rell g form: INJ, ONCE, Dosing Weight 72.727, kg, Priority: STAT, Start date: 11/24/14 23:11:00, Stop date: 11/24/14 23:11:00 Inactive 11/25/2014 [facility] Sodium Chloride 0.154 MEQ/ML Injectable Solution 1,000 mL, 1,000 ml/hr, Infuse Over: 1 Hour, Route: IV, ONCE, Priority: STAT, Dosing Weight 72.727 kg, Start date: 11/24/14 21:51:00, Duration: 1 doses or times, Stop date: 11/24/14 21:51:00 Inactive 11/25/2014 [facility] Phenergan 12.5 mg, Route: IVPB , ONCE, Dosing Weight 72.727, kg, Priority: STAT, Start date: 11/24/14 21:34:00, Stop date: 11/24/14 21:34:00 Inactive 11/25/2014 [facility] Dilaudid 1 mg, Route: IVP, ONC E, Dosing Weight 72.727, kg, Priority: STAT, Start date: 11/24/14 20:34:00, Stop date: 11/24/14 20:34:00 Inactive 11/25/2014 [facility] Morphine 4 mg, Route: IVP, ONC E, Dosing Weight 72.727, kg, Priority: STAT, Start date: 11/24/14 20:18:00, Stop date: 11/24/14 20:18:00 Inactive 11/25/2014 [facility] Ondansetron 4 mg, Route: IVP, ONCE, Dosing Weight 72.727, kg, Priority: STAT, Start date: 11/24/14 20:18:00, Stop date: 11/24/14 20:18:00 Inactive 11/25/2014 [facility] Sodium Chloride 0.154 MEQ/ML Injectable Solution 1,000 mL, Infuse Over: 1 hr, Route: IV, ONCE, Priority: STAT, Dosing Weight 72.727 kg, Start date: 11/24/14 20:18:00, Duration: 1 doses or times, Stop date: 11/24/14 20:18:00 Inactive 11/25/2014 [facility] Saline Flush 0.9% Notes: (Same as: BD Posiflush) No Longer Active 11/25/2014 [facility] Ondansetron 4 MG Oral Tablet [Zofran] 4 mg = 1 tab, PO, BID, # 10 tab, 0 Refill(s) Active 06/23/2014 [facility] Acetaminophen 325 MG / tramadol hydrochl oride 37.5 MG Oral Tablet [Ultracet] 1 tab, PO, Q4H, for pain, # 60 tab, 0 Re fill(s) Active 06/23/2014 [facility] Sulfamethoxazole 800 MG / Trimethoprim 1 60 MG Oral Tablet [Bactrim] 1 tab, PO, BID, # 20 tab, 0 Refill(s) Active 06/23/2014 [facility] Ketorolac 30 mg, Route: IVP, O NCE, Dosing Weight 75, kg, Priority: STAT, Start date: 06/23/14 9:27:00, Stop date: 06/23/14 9:27:00 Inactive 06/23/2014 [facility] Ondansetron 4 mg, Route: IVP, ONCE, Dosing Weight 75, kg, Priority: STAT, Start date: 06/23/14 9:27:00, Stop date: 06/23/14 9:27:00 Inactive 06/23/2014 [facility] Sodium Chloride 0.154 MEQ/ML Injectable Solution 1,000 mL, Infuse Over: 1 hr, Route: IV, ONCE, Priority: STAT, Dosing Weight 75 kg, Start date: 06/23/14 9:27:00, Duration: 1 doses or times, Stop date: 06/23/14 9:27:00 Inactive 06/23/2014 [facility] Saline Flush 0.9% 10 mL, Route : IVP, Drug Form: INJ, Dosing Weight 75, kg, PRN, PRN Line Flush, Start date: 06/23/14 9:27:00, Duration: 30 day, Stop date: 07/23/14 8:26:00 Inactive 06/23/2014 [facility] Nexium 40 mg oral delayed release capsule 40 mg, 1 cap, PO, Daily, 30 cap, Substitution Allowed PO Active [place] 04/08/2013 [facility] tramadol 50 mg oral tablet 50 mg, 1 tab, PO, Q6H, PRN, 40 tab, Pain, Substitution Allowed, TAB PO Active 04/08/2013 [facility] Levaquin 500 mg oral tablet 50 0 mg, 1 tab, PO, Q24H, 14 tab, Substitution Allowed PO Active 04/08/2013 [facility] Protonix 40 mg, 1 tab, Route: PO, Drug form: ECTAB, Before Dinner, Start date: 04/07/13 16:30:00, Duration: 30 day, Stop date: 05/06/13 16:30:00 PO No Longer Active 04/07/2013 [facility] potassium chloride 40 mEq, 2 t ab, Route: PO, Drug form: ERTAB, Q4H, Dosing Weight 76.42, kg, Priority: NOW, Start date: 04/07/13 12:32:00, Duration: 2 doses or times, Stop date: 04/07/13 17:00:00 PO No Longer Active 04/07/2013 [facility] nystatin-triamcinolone topical cream 1 appl, Route: TOP, BID, Drug form: CRM, Start date: 04/07/13 9:00:00, Duration: 30 day, Stop date: 05/06/13 17:00:00 TOP No Longer Active [place] 04/07/2013 [facility] phenol topical 1.4% spray 1 sp ray, Route: MUCOUS MEM, Q3H, Drug form: SPRY, PRN Sore Throat, Start date: 04/06/13 8:01:00, Duration: 30 day, Stop date: 05/06/13 8:00:00 MUCOUS MEM No Longer Active 04/06/2013 [facility] Cepacol Dual Relief Sore Throat [place] 5% topical spra y Route: TOP, Dosing Weight 76.42, kg, Q3H, PRN Pain Score 1-3, Start date: 04/06/13 7:30:00, Duration: 30 day, Stop date: 05/06/13 7:29:00 TOP No Longer Active 04/06/2013 [facility] Invanz + Sodium Chloride 0.9% IV 100 mL 1 gm, Route: IVPB, [id number], Dosing Weight 76.42, kg, Start date: 04/05/13 20:00:00, Duration: 30 day, Stop date: 05/04/13 20:00:00 IVPB No Longer Active [place] 04/06/2013 [facility] Zithromax + Sodium Chloride 0.9% IV 250 mL 500 mg, Route: IVPB, Daily, Dosing Weight 76.42, kg, Start date: 04/05/13 18:00:00, Duration: 30 day, Stop date: 05/04/13 18:00:00 IVPB No Longer Active [place] 04/05/2013 [facility] Benadryl 25 mg, 1 tab, Route: PO, Drug form: TAB, Q4H, Dosing Weight 76.42, kg, PRN as needed for itching, Start date: 04/05/13 11:03:00, Duration: 30 day, Stop date: 05/05/13 11:02:00 PO No Longer Active [place] 04/05/2013 [facility] potassium chloride 40 mEq, 2 t ab, Route: PO, Drug form: ERTAB, Q4H, Dosing Weight 76.42, kg, Priority: NOW, Start date: 04/05/13 7:50:00, Duration: 2 doses or times, Stop date: 04/05/13 8:00:00 PO No Longer Active Renae 04/05/2013 [facility] Tylenol 650 mg, 2 tab, Route: PO, Drug form: TAB, Q6H, Dosing Weight 76.42, kg, PRN Pain/Fever, Start date: 04/05/13 5:19:00, Duration: 30 day, Stop date: 05/05/13 5:18:00, PRN for Fever and pain. PO No Longer Active 04/05/2013 [facility] Tylenol 650 mg, 20.3 mL, Route : PO, Drug form: LIQ, Q6H, Dosing Weight 76.42, kg, PRN Pain/Fever, Start date: 04/05/13 5:00:00, Duration: 30 day, Stop date: 05/05/13 4:59:00, PRN for Fever and pain. PO No Longer Active 03/25 [facility] NS 1,000 mL 1,000 mL, Rate: 12 5 ml/hr, Infuse over: 8 hr, Route: IV, Dosing Weight 76.42 kg, Total Volume: 1,000, Start date: 04/05/13 4:59:00, Duration: 30 day, Stop date: 05/05/13 4:58:00 IV No Longer Active [place] 04/05/2013 [facility] ondansetron 4 mg, 2 mL, Route: IVP, Drug form: INJ, Q8H, Dosing Weight 76.364, kg, PRN Nausea & Vomiting, Start date: 04/04/13 21:19:00, Duration: 30 day, Stop date: 05/04/13 21:18:00 IVP No Longer Active [place] 04/05/2013 [facility] morphine Sulfate 2 mg, 1 mL, R oute: IVP, Drug form: INJ, Q3H, Dosing Weight 76.364, kg, PRN Pain Score 4-6, Start date: 04/04/13 21:19:00, Duration: 30 day, Stop date: 05/04/13 21:18:00 IVP No Longer Active [place] 04/05/2013 [facility] Sodium Chloride 0.9% (Bolus) IV 1,000 mL 1,000 mL, Rate: 1,000 ml/hr, Infuse over: 1 hr, Route: IV, Dosing Weight 76.364 kg, Total Volume: 1,000, Priority: STAT, Start date: 04/04/13 20:03:00, Duration: 1 doses or times, Stop date: 04/04/13 21:02:00, Bolus DoseBolus Dose IV No Longer Active [facility] 04/05/2013 [facility] [place] 10/325 oral tablet 1 tab , Route: PO, Drug Form: TAB, Dosing Weight 76.364, kg, ONCE, Start date: 04/04/13 18:05:00, Stop date: 04/04/13 18:05:00 PO No Longer Active [facility] 04/04/2013 [facility] Sodium Chloride 0.9% (Bolus) IV 1,000 mL 1,000 mL, Rate: 1,000 ml/hr, Infuse over: 1 hr, Route: IV, Dosing Weight 76.364 kg, Total Volume: 1,000, Priority: STAT, Start date: 04/04/13 18:04:00, Duration: 1 doses or times, Stop date: 04/04/13 19:03:00, Bolus DoseBolus Dose IV No Longer Active [facility] 04/04/2013 [facility] Allergies, Adverse Reactions, Alerts Substance Category Reaction Severity Reaction type Status Date Reported Comments Source No Known Medication Allergies Assertion [facility] Immunizations No Data Provided for This Section Results Order Name Results Value Reference Range Date Interpretation Comments Source ELECTROLYTES AGAP 13.5 10.0 - 20.0 12/05/2016 [facility] ELECTROLYTES eGFR 114 12/05/2016 Result Comment: The [...] should be multiplied by the estimated BMI. [facility] ELECTROLYTES Calcium Lvl 8.5 8.5 - 10.5 12/05/2016 [facility] ELECTROLYTES CO2 27 24 - 32 12/05/2016 [facility] ELECTROLYTES Chloride Lvl 103 95 - 109 12/05/2016 [facility] ELECTROLYTES Creatinine Lvl 0.7 5 0.50 - 1.40 12/05/2016 [facility] ELECTROLYTES BUN 8 7 - 22 12/05/2016 [facility] ELECTROLYTES Glucose Lvl 99 70 - 99 12/05/2016 [facility] ELECTROLYTES Potassium Lvl 3.5 3.5 - 5.1 12/05/2016 [facility] ELECTROLYTES Sodium Lvl 140 135 - 145 12/05/2016 [facility] HEMATOLOGY RBC 3.83 4.70 - 6.10 12/05/2016 [facility] HEMATOLOGY Hgb 11.3 14.0 - 18.0 12/05/2016 [facility] WBC 5.4 3.7 - 10.4 12/05/2016 [facility] RDW 12.9 11.5 - 14.5 12/05/2016 [facility] MCH 29.5 27.0 - 31.0 12/05/2016 [facility] MCHC 34.2 32.0 - 36.0 12/05/2016 [facility] Hct 33.0 42.0 - 54.0 12/05/2016 [facility] MCV 86.3 80.0 - 94.0 12/05/2016 [facility] Platelet 165 133 - 450 12/05/2016 [facility] MPV 9.2 7.4 - 10.4 12/05/2016 [facility] Monocytes # 0.4 0.0 - 0.8 12/05/2016 [facility] HEMATOLOGY Basophils 0.4 0.0 - 1.0 12/05/2016 [facility] Segs-Bands # 3.4 1.5 - 8.1 12/05/2016 [facility] Lymphocytes # 1.3 1.0 - 5.5 12/05/2016 [facility] Eosinophils # 0.2 0.0 - 0.5 12/05/2016 [facility] Segs 63.3 45.0 - 75.0 12/05/2016 [facility] Monocytes 8.1 2.0 - 12.0 12/05/2016 [facility] Eosinophils 4.0 0.0 - 4.0 12/05/2016 [facility] Lymphocytes 24.2 20.0 - 40.0 12/05/2016 [facility] CHEM PANEL eGFR 108 12/04/2016 Result Comment: [...] should be multiplied by the estimated BMI. [facility] CHEM PANEL Calcium Lvl 8.0 8.5 - 10.5 12/04/2016 [facility] CHEM PANEL Glucose Lvl 103 70 - 99 12/04/2016 [facility] CHEM PANEL BUN 10 7 - 22 12/04/2016 [facility] CHEM PANEL Chloride Lvl 99 95 - 109 12/04/2016 [facility] CHEM PANEL CO2 29 24 - 32 12/04/2016 [facility] CHEM PANEL Creatinine Lvl 0.86 0.50 - 1.40 12/04/2016 [facility] CHEM PANEL Sodium Lvl 138 135 - 145 12/04/2016 [facility] CHEM PANEL Potassium Lvl 3.8 3.5 - 5.1 12/04/2016 [facility] CHEM PANEL AGAP 13.8 10.0 - 20.0 12/04/2016 [facility] HEMATOLOGY MPV 9.2 7.4 - 10.4 12/04/2016 [facility] HEMATOLOGY Platelet 158 133 - 450 12/04/2016 [facility] HEMATOLOGY RDW 13.0 11.5 - 14.5 12/04/2016 [facility] HEMATOLOGY MCH 29.7 27.0 - 31.0 12/04/2016 [facility] MCHC 34.7 32.0 - 36.0 12/04/2016 [facility] HEMATOLOGY Hct 34.2 42.0 - 54.0 12/04/2016 [facility] HEMATOLOGY MCV 85.6 80.0 - 94.0 12/04/2016 [facility] HEMATOLOGY Hgb 11.9 14.0 - 18.0 12/04/2016 [facility] HEMATOLOGY WBC 6.5 3.7 - 10.4 12/04/2016 [facility] HEMATOLOGY RBC 4.00 4.70 - 6.10 12/04/2016 [facility] HEMATOLOGY Segs-Bands # 4.6 1.5 - 8.1 12/04/2016 [facility] HEMATOLOGY Eosinophils 3.5 0.0 - 4.0 12/04/2016 [facility] HEMATOLOGY Lymphocytes # 1.2 1.0 - 5.5 12/04/2016 [facility] HEMATOLOGY Basophils 0.3 0.0 - 1.0 12/04/2016 [facility] HEMATOLOGY Monocytes 7.4 2.0 - 12.0 12/04/2016 [facility] HEMATOLOGY Lymphocytes 18.9 20.0 - 40.0 12/04/2016 [facility] HEMATOLOGY Segs 69.9 45.0 - 75.0 12/04/2016 [facility] HEMATOLOGY Eosinophils # 0.2 0.0 - 0.5 12/04/2016 [facility] HEMATOLOGY Monocytes # 0.5 0.0 - 0.8 12/04/2016 [facility] CHEM PANEL eGFR 112 12/03/2016 Result Comment: [...] should be multiplied by the estimated BMI. [facility] CHEM PANEL Calcium Lvl 8.3 8.5 - 10.5 12/03/2016 [facility] CHEM PANEL Glucose Lvl 83 70 - 99 12/03/2016 [facility] CHEM PANEL BUN 10 7 - 22 12/03/2016 [facility] CHEM PANEL Sodium Lvl 141 135 - 145 12/03/2016 [facility] CHEM PANEL Creatinine Lvl 0.79 0.50 - 1.40 12/03/2016 [facility] CHEM PANEL Chloride Lvl 104 95 - 109 12/03/2016 [facility] CHEM PANEL Potassium Lvl 3.7 3.5 - 5.1 12/03/2016 [facility] CHEM PANEL AGAP 15.7 10.0 - 20.0 12/03/2016 [facility] CHEM PANEL CO2 25 24 - 32 12/03/2016 [facility] HEMATOLOGY Platelet 189 133 - 450 12/03/2016 [facility] HEMATOLOGY RDW 12.8 11.5 - 14.5 12/03/2016 [facility] HEMATOLOGY MPV 9.2 7.4 - 10.4 12/03/2016 [facility] HEMATOLOGY MCV 86.2 80.0 - 94.0 12/03/2016 [facility] MCH 29.3 27.0 - 31.0 12/03/2016 [facility] MCHC 34.0 32.0 - 36.0 12/03/2016 [facility] WBC 7.6 3.7 - 10.4 12/03/2016 [facility] Hct 37.4 42.0 - 54.0 12/03/2016 [facility] HEMATOLOGY Hgb 12.7 14.0 - 18.0 12/03/2016 [facility] HEMATOLOGY RBC 4.34 4.70 - 6.10 12/03/2016 [facility] HEMATOLOGY Eosinophils 2.1 0.0 - 4.0 12/03/2016 [facility] HEMATOLOGY Monocytes 6.1 2.0 - 12.0 12/03/2016 [facility] HEMATOLOGY Basophils 0.1 0.0 - 1.0 12/03/2016 [facility] HEMATOLOGY Monocytes # 0.5 0.0 - 0.8 12/03/2016 [facility] HEMATOLOGY Eosinophils # 0.2 0.0 - 0.5 12/03/2016 [facility] HEMATOLOGY Segs 72.0 45.0 - 75.0 12/03/2016 [facility] HEMATOLOGY Lymphocytes 19.7 20.0 - 40.0 12/03/2016 [facility] HEMATOLOGY Lymphocytes # 1.5 1.0 - 5.5 12/03/2016 [facility] HEMATOLOGY Segs-Bands # 5.5 1.5 - 8.1 12/03/2016 [facility] HEMATOLOGY PTT 37.1 22.9 - 35.8 11/25/2016 [facility] HEMATOLOGY PT 13.2 12.0 - 14.7 11/25/2016 [facility] HEMATOLOGY INR 0.98 0.85 - 1.17 11/25/2016 [facility] URINE AND STOOL UA Color Colorless 11/25/2016 [facility] URINE AND STOOL UA Urobilinogen <=1.0 mg/dL 0.1 - 1.0 11/25/2016 [facility] URINE AND STOOL UA Ketones Negative mg/dL Negative mg/dL 11/25/2016 [facility] [address] URINE AND STOOL UA Glucose Negative mg/dL Negative mg/dL 11/25/[address] [facility] [address] URINE AND STOOL UA pH 6.0 5.0 - 8.0 11/25/2016 [facility] URINE AND STOOL UA Turbidity Clear (11/25/16 4:07 PM) Clear 11/25/2016 [facility] URINE AND STOOL UA Spec Grav 1.002 <=1.030 11/25/2016 [facility] URINE AND STOOL UA Bili Negative *NA* (11/25/16 4:07 PM) Negative 11/25/2016 [facility] URINE AND STOOL UA Sq Epi Occasional /LPF Few /LPF 11/25/2016 [facility] URINE AND STOOL UA Protein Negative mg/dL Negative mg/dL 11/25/[address] [facility] [address] [address] URINE AND STOOL UA Nitrite Negative (11/25/16 4:07 PM) Negative 11/25/2016 [facility] URINE AND STOOL UA Blood Large *ABN* (11/25/16 4:07 PM) Negative 11/25/2016 [facility] URINE AND STOOL UA Bacteria Occasional /HPF None Seen /HPF 11/25/2016 [facility] URINE AND STOOL UA RBC 2 0 - 2 11/25/2016 [facility] URINE AND STOOL UA WBC 2 0 - 5 11/25/2016 [facility] URINE AND STOOL UA Leuk Est Trace *ABN* (11/25/16 4:07 PM) Negative 11/25/2016 [facility] URINE AND STOOL UA RBC 2 0 - 2 11/29/2014 [facility] URINE AND STOOL UA Urobilinogen <=1.0 mg/dL 0.1 - 1.0 11/29/2014 [facility] URINE AND STOOL UA Color Ltyellow 11/29/2014 [facility] URINE AND STOOL UA pH 6.0 5.0 - 8.0 11/29/2014 [facility] URINE AND STOOL UA Spec Grav 1.016 <=1.030 11/29/2014 [facility] URINE AND STOOL UA Turbidity Clear (11/28/14 7:01 PM) Clear 11/29/2014 [facility] URINE AND STOOL UA Glucose Negative mg/dL Negative mg/dL 11/29/2014 [facility] URINE AND STOOL UA Protein Negative mg/dL Negative mg/dL 11/29/2014 [facility] URINE AND STOOL UA Leuk Est Negative (11/28/14 7:01 PM) Negative 11/29/2014 [facility] URINE AND STOOL UA Sq Epi Occasional /LPF Few /LPF 11/29/2014 [facility] URINE AND STOOL UA WBC 1 0 - 5 11/29/2014 [facility] URINE AND STOOL UA Bili Negative *NA* (11/28/14 7:01 PM) Negative 11/29/2014 [facility] URINE AND STOOL UA Ketones Negative mg/dL Negative mg/dL 11/29/2014 [facility] URINE AND STOOL UA Nitrite Negative (11/28/14 7:01 PM) Negative 11/29/2014 [facility] URINE AND STOOL UA Blood Negative (11/28/14 7:01 PM) Negative 11/29/2014 [facility] CHEM PANEL Amylase Lvl 31 25 - 115 11/28/2014 [facility] CHEM PANEL Lipase Lvl 76 73 - 393 11/28/2014 [facility] ELECTROLYTES Chloride Lvl 103 95 - 109 11/28/2014 [facility] ELECTROLYTES Potassium Lvl 3.6 3.5 - 5.1 11/28/2014 [facility] ELECTROLYTES Sodium Lvl 138 135 - 145 11/28/2014 [facility] ELECTROLYTES eGFR 69 11/28/2014 <sup>1</sup>Result Comment: The [...] should be multiplied by the estimated BMI. [facility] ELECTROLYTES CO2 25 24 - 32 11/28/2014 [facility] ELECTROLYTES Creatinine Lvl 1.3 0.5 - 1.4 11/28/2014 [facility] ELECTROLYTES Bili Total 0.3 0.2 - 1.3 11/28/2014 [facility] ELECTROLYTES ALT 248 0 - 65 11/28/2014 [facility] ELECTROLYTES Alk Phos 153 39 - 136 11/28/2014 [facility] ELECTROLYTES AST 117 0 - 37 11/28/2014 [facility] ELECTROLYTES Total Protein 7.7 6.4 - 8.4 11/28/2014 [facility] ELECTROLYTES Calcium Lvl 8.9 8.5 - 10.5 11/28/2014 [facility] ELECTROLYTES BUN 19 7 - 22 11/28/2014 [facility] ELECTROLYTES Glucose Lvl 99 70 - 99 11/28/2014 <sup>2</sup>Interpretive Data: Adult ref erence range values reflect the clinical guidelines
of the [place] [employer]. [facility] ELECTROLYTES Albumin Lvl 3.8 3.5 - 5.0 11/28/2014 [facility] ELECTROLYTES Globulin 3.9 2.0 - 4.0 11/28/2014 [facility] ELECTROLYTES A/G Ratio 1.0 0.7 - 1.6 11/28/2014 [facility] ELECTROLYTES B/C Ratio 15 6 - 25 11/28/2014 [facility] ELECTROLYTES AGAP 13.6 10.0 - 20.0 11/28/2014 [facility] HEMATOLOGY MPV 8.6 7.4 - 10.4 11/28/2014 [facility] RDW 13.2 11.5 - 14.5 11/28/2014 [facility] Platelet 236 133 - 450 11/28/2014 [facility] MCHC 33.6 32.0 - 36.0 11/28/2014 [facility] MCH 29.9 27.0 - 31.0 11/28/2014 [facility] Hct 37.7 42.0 - 54.0 11/28/2014 [facility] MCV 89.0 80.0 - 94.0 11/28/2014 [facility] Hgb 12.7 14.0 - 18.0 11/28/2014 [facility] RBC 4.24 4.70 - 6.10 11/28/2014 [facility] WBC 7.8 3.7 - 10.4 11/28/2014 [facility] Eosinophils # 0.2 0.0 - 0.5 11/28/2014 [facility] HEMATOLOGY Lymphocytes # 1.2 1.0 - 5.5 11/28/2014 [facility] Segs-Bands # 5.9 1.5 - 8.1 11/28/2014 [facility] Basophils 0.3 0.0 - 1.0 11/28/2014 [facility] Eosinophils 2.5 0.0 - 4.0 11/28/2014 [facility] Monocytes # 0.6 0.0 - 0.8 11/28/2014 [facility] Monocytes 7.3 2.0 - 12.0 11/28/2014 [facility] Lymphocytes 15.0 20.0 - 40.0 11/28/2014 [facility] Segs 74.9 45.0 - 75.0 11/28/2014 [facility] URINE AND STOOL UA Mucus Few /LPF None Seen /LPF 11/25/2014 [facility] URINE AND STOOL UA Uric Ac Megan Few /HPF None Seen /HPF 11/25/[address] [facility] [address] URINE AND STOOL UA Urobilinogen <=1.0 mg/dL 0.1 - 1.0 11/25/[address] [facility] [address] URINE AND STOOL UA Sq Epi None Seen 11/25/2014 [facility] URINE AND STOOL UA Nitrite Negative (11/24/14 10:46 PM) Negative 11/25/2014 [facility] URINE AND STOOL UA Blood Large *ABN* (11/24/14 10:46 PM) Negative 11/25/2014 [facility] URINE AND STOOL UA Bili Negative *NA* (11/24/14 10:46 PM) Negative 11/25/2014 [facility] URINE AND STOOL UA Glucose Negative mg/dL Negative mg/dL 11/25/[address] [facility] URINE AND STOOL UA Protein Negative mg/dL Negative mg/dL 11/25/[address] [facility] [address] URINE AND STOOL UA Bacteria Occasional /HPF None Seen /HPF 11/25/[address] [facility] [address] URINE AND STOOL UA Ketones Negative mg/dL Negative mg/dL 11/25/[address] [facility] [address] URINE AND STOOL UA WBC 1 0 - 5 11/25/2014 [facility] URINE AND STOOL UA Leuk Est Negative (11/24/14 10:46 PM) Negative 11/25/2014 [facility] URINE AND STOOL UA RBC 142 0 - 2 11/25/2014 [facility] URINE AND STOOL UA pH 5.0 5.0 - 8.0 11/25/2014 [facility] URINE AND STOOL UA Spec Grav 1.020 <=1.030 11/25/2014 [facility] URINE AND STOOL UA Turbidity Marked *ABN* (11/24/14 10:46 PM) Clear 11/25/2014 [facility] URINE AND STOOL UA Color Yellow *NA* (11/24/14 10:46 PM) Yellow 11/25/2014 [facility] CHEM PANEL Lipase Lvl 131 73 - 393 11/25/2014 [facility] CHEM PANEL Amylase Lvl 41 25 - 115 11/25/2014 [facility] CHEM PANEL B/C Ratio 18 6 - 25 11/25/2014 [facility] CHEM PANEL Globulin 3.9 2.0 - 4.0 11/25/2014 [facility] CHEM PANEL A/G Ratio 1.0 0.7 - 1.6 11/25/2014 [facility] CHEM PANEL AGAP 10.7 10.0 - 20.0 11/25/2014 [facility] CHEM PANEL Chloride Lvl 104 95 - 109 11/25/2014 [facility] CHEM PANEL Potassium Lvl 3.7 3.5 - 5.1 11/25/2014 [facility] CHEM PANEL Sodium Lvl 137 135 - 145 11/25/2014 [facility] CHEM PANEL eGFR 76 11/25/2014 <sup>1</sup>Result Comment: [...] should be multiplied by the estimated BMI. [facility] CHEM PANEL Bili Total 0.4 0.2 - 1.3 11/25/2014 [facility] CHEM PANEL Alk Phos 118 39 - 136 11/25/2014 [facility] CHEM PANEL ALT 121 0 - 65 11/25/2014 [facility] CHEM PANEL AST 179 0 - 37 11/25/2014 [facility] CHEM PANEL Total Protein 7.8 6.4 - 8.4 11/25/2014 [facility] CHEM PANEL Creatinine Lvl 1.2 0.5 - 1.4 11/25/2014 [facility] CHEM PANEL Calcium Lvl 8.2 8.5 - 10.5 11/25/2014 [facility] CHEM PANEL BUN 22 7 - 22 11/25/2014 [facility] CHEM PANEL CO2 26 24 - 32 11/25/2014 [facility] CHEM PANEL Albumin Lvl 3.9 3.5 - 5.0 11/25/2014 [facility] CHEM PANEL Glucose Lvl 116 70 - 99 11/25/2014 <sup>2</sup>Interpretive Data: Adult ref erence range values reflect the clinical guidelines
of the [place] [employer]. [facility] HEMATOLOGY Eosinophils # 0.2 0.0 - 0.5 11/25/2014 [facility] HEMATOLOGY Segs-Bands # 3.9 1.5 - 8.1 11/25/2014 [facility] HEMATOLOGY Lymphocytes # 1.9 1.0 - 5.5 11/25/2014 [facility] Monocytes # 0.4 0.0 - 0.8 11/25/2014 [facility] Lymphocytes 29.2 20.0 - 40.0 11/25/2014 [facility] HEMATOLOGY Basophils 0.3 0.0 - 1.0 11/25/2014 [facility] Monocytes 6.2 2.0 - 12.0 11/25/2014 [facility] HEMATOLOGY Eosinophils 2.8 0.0 - 4.0 11/25/2014 [facility] Segs 61.5 45.0 - 75.0 11/25/2014 [facility] RDW 13.2 11.5 - 14.5 11/25/2014 [facility] Platelet 212 133 - 450 11/25/2014 [facility] MPV 8.8 7.4 - 10.4 11/25/2014 [facility] MCHC 34.2 32.0 - 36.0 11/25/2014 [facility] Hct 40.1 42.0 - 54.0 11/25/2014 [facility] WBC 6.4 3.7 - 10.4 11/25/2014 [facility] RBC 4.53 4.70 - 6.10 11/25/2014 [facility] Hgb 13.7 14.0 - 18.0 11/25/2014 [facility] MCV 88.4 80.0 - 94.0 11/25/2014 [facility] MCH 30.2 27.0 - 31.0 11/25/2014 [facility] CHEM PANEL eGFR 108 06/23/2014 <sup>1</sup>Result Comment: [...] should be multiplied by the estimated BMI. [facility] CHEM PANEL Glucose Lvl 113 70 - 99 06/23/2014 <sup>2</sup>Interpretive Data: Adult ref erence range values reflect the clinical guidelines
of the [place] [employer]. [facility] CHEM PANEL Potassium Lvl 4.0 3.5 - 5.1 06/23/2014 [facility] CHEM PANEL Sodium Lvl 141 135 - 145 06/23/2014 [facility] CHEM PANEL BUN 13 7 - 22 06/23/2014 [facility] CHEM PANEL Creatinine Lvl 0.9 0.5 - 1.4 06/23/2014 [facility] CHEM PANEL Chloride Lvl 107 95 - 109 06/23/2014 [facility] CHEM PANEL CO2 25 24 - 32 06/23/2014 [facility] CHEM PANEL Calcium Lvl 8.4 8.5 - 10.5 06/23/2014 [facility] CHEM PANEL AGAP 13.0 10.0 - 20.0 06/23/2014 [facility] HEMATOLOGY Segs 59.5 45.0 - 75.0 06/23/2014 [facility] HEMATOLOGY Basophils 0.6 0.0 - 1.0 06/23/2014 [facility] HEMATOLOGY Eosinophils 5.8 0.0 - 4.0 06/23/2014 [facility] HEMATOLOGY Monocytes 5.2 2.0 - 12.0 06/23/2014 [facility] HEMATOLOGY Eosinophils # 0.4 0.0 - 0.5 06/23/2014 [facility] HEMATOLOGY Monocytes # 0.3 0.0 - 0.8 06/23/2014 [facility] HEMATOLOGY Lymphocytes 28.9 20.0 - 40.0 06/23/2014 [facility] HEMATOLOGY Lymphocytes # 1.9 1.0 - 5.5 06/23/2014 [facility] HEMATOLOGY Segs-Bands # 3.9 1.5 - 8.1 06/23/2014 [facility] HEMATOLOGY MCHC 33.6 32.0 - 36.0 06/23/2014 [facility] HEMATOLOGY Platelet 200 133 - 450 06/23/2014 [facility] HEMATOLOGY RDW 13.4 11.5 - 14.5 06/23/2014 [facility] HEMATOLOGY MPV 8.5 7.4 - 10.4 06/23/2014 [facility] MCH 29.6 27.0 - 31.0 06/23/2014 [facility] HEMATOLOGY MCV 88.2 80.0 - 94.0 06/23/2014 [facility] HEMATOLOGY Hct 42.0 42.0 - 54.0 06/23/2014 [facility] HEMATOLOGY Hgb 14.1 14.0 - 18.0 06/23/2014 [facility] HEMATOLOGY RBC 4.76 4.70 - 6.10 06/23/2014 [facility] HEMATOLOGY WBC 6.5 3.7 - 10.4 06/23/2014 [facility] URINE AND STOOL UA Urobilinogen <=1.0 mg/dL 0.1 - 1.0 06/23/2014 [facility] URINE AND STOOL UA Color Ltyellow 06/23/2014 [facility] URINE AND STOOL UA Mucus Few /LPF None Seen /LPF 06/23/2014 [facility] URINE AND STOOL UA Bacteria Occasional /HPF None Seen /HPF 06/23/2014 [facility] URINE AND STOOL UA Sq Epi Occasional /LPF Few /LPF 06/23/2014 [facility] URINE AND STOOL UA RBC 16 0 - 2 06/23/2014 [facility] URINE AND STOOL UA WBC 8 0 - 5 06/23/2014 [facility] URINE AND STOOL UA Nitrite Negative (06/23/14 8:56 AM) Negative 06/23/2014 [facility] URINE AND STOOL UA Leuk Est Negative (06/23/14 8:56 AM) Negative 06/23/2014 [facility] [facility] URINE AND STOOL UA Glucose Negative mg/dL Negative mg/dL 06/23/2014 [facility] URINE AND STOOL UA pH 5.0 5.0 - 8.0 06/23/2014 [facility] URINE AND STOOL UA Protein Negative mg/dL Negative mg/dL 06/23/2014 [facility] URINE AND STOOL UA Blood Moderate *ABN* (06/23/14 8:56 AM) Negative 06/23/2014 [facility] URINE AND STOOL UA Bili Negative *NA* (06/23/14 8:56 AM) Negative 06/23/2014 [facility] URINE AND STOOL UA Ketones Negative mg/dL Negative mg/dL 06/23/2014 [facility] URINE AND STOOL UA Spec Grav 1.019 <=1.030 06/23/2014 [facility] URINE AND STOOL UA Turbidity Marked *ABN* (06/23/14 8:56 AM) Clear 06/23/2014 [facility] CHEMISTRY Total CK 72 12 - 191 04/08/2013 Normal [facility] CHEMISTRY Chloride Lvl 108 95 - 109 04/08/2013 Normal [facility] CHEMISTRY Potassium Lvl 4.2 3.5 - 5.1 04/08/2013 Normal [facility] CHEMISTRY Sodium Lvl 142 135 - 145 04/08/2013 Normal [facility] CHEMISTRY eGFR 121 04/08/2013 NA <sup>6</sup>Result Comment: [...] should be multiplied by the estimated BMI. [facility] CHEMISTRY Bili Total 0.8 0.2 - 1.3 04/08/2013 Normal [facility] CHEMISTRY AST 82 0 - 37 04/08/2013 [facility] CHEMISTRY Glucose Lvl 104 70 - 99 04/08/2013 [place] <sup>9</sup>Interpretive Data: Adult ref erence range values reflect the clinical guidelines
of the [place] [employer]. [facility] CHEMISTRY Creatinine Lvl 0.7 0.5 - 1.4 04/08/2013 Normal [facility] CHEMISTRY CO2 22 24 - 32 04/08/2013 LOW [facility] CHEMISTRY BUN 7 7 - 22 04/08/2013 Normal [facility] CHEMISTRY Calcium Lvl 7.9 8.5 - 10.5 04/08/2013 LOW [facility] CHEMISTRY Total Protein 6.2 6.4 - 8.4 04/08/2013 LOW [facility] CHEMISTRY Albumin Lvl 2.8 3.5 - 5.0 04/08/2013 LOW [facility] CHEMISTRY ALT 102 0 - 65 04/08/2013 [facility] CHEMISTRY Alk Phos 262 39 - 136 04/08/2013 [facility] CHEMISTRY A/G Ratio 0.8 0.7 - 1.6 04/08/2013 Normal [facility] CHEMISTRY AGAP 16.2 10.0 - 20.0 04/08/2013 Normal [facility] CHEMISTRY Globulin 3.4 2.0 - 4.0 04/08/2013 Normal [facility] CHEMISTRY B/C Ratio 10 6 - 25 04/08/2013 Normal [facility] HEMATOLOGY Basophils 0.2 0.0 - 1.0 04/08/2013 Normal [facility] HEMATOLOGY Segs-Bands # 3.9 1.5 - 8.1 04/08/2013 Normal [facility] HEMATOLOGY Monocytes 6.3 2.0 - 12.0 04/08/2013 Normal [facility] HEMATOLOGY Eosinophils 3.0 0.0 - 4.0 04/08/2013 Normal [facility] HEMATOLOGY Lymphocytes 27.9 20.0 - 40.0 04/08/2013 Normal [facility] HEMATOLOGY Lymphocytes # 1.7 1.0 - 5.5 04/08/2013 Normal [facility] HEMATOLOGY Segs 62.6 45.0 - 75.0 04/08/2013 Normal [facility] HEMATOLOGY Basophils # 0.0 0.0 - 0.2 04/08/2013 Normal [facility] HEMATOLOGY Monocytes # 0.4 0.0 - 0.8 04/08/2013 Normal [facility] HEMATOLOGY Eosinophils # 0.2 0.0 - 0.5 04/08/2013 Normal [facility] HEMATOLOGY Hgb 9.7 14.0 - 18.0 04/08/2013 LOW [facility] HEMATOLOGY Hct 29.3 42.0 - 54.0 04/08/2013 LOW [facility] HEMATOLOGY MPV 8.1 7.4 - 10.4 04/08/2013 Normal [facility] HEMATOLOGY Platelet 272 133 - 450 04/08/2013 Normal [facility] HEMATOLOGY WBC 6.2 3.7 - 10.4 04/08/2013 Normal [facility] HEMATOLOGY RBC 3.32 4.70 - 6.10 04/08/2013 LOW [facility] HEMATOLOGY MCV 88.2 80.0 - 94.0 04/08/2013 Normal [facility] HEMATOLOGY MCH 29.2 27.0 - 31.0 04/08/2013 Normal [facility] HEMATOLOGY RDW 13.6 11.5 - 14.5 04/08/2013 Normal [facility] HEMATOLOGY MCHC 33.1 32.0 - 36.0 04/08/2013 Normal [facility] STOOL TESTS Occult Bld Stl Nega tive (04/07/2013 20:45:00) Negati ve 04/08/2013 Normal [facility] CHEMISTRY LDH 426 98 - 192 04/07/2013 HI [facility] CHEMISTRY Sodium Lvl 141 135 - 145 04/07/2013 Normal [facility] CHEMISTRY Potassium Lvl 3.5 3.5 - 5.1 04/07/2013 Normal [facility] CHEMISTRY Chloride Lvl 108 95 - 109 04/07/2013 Normal [facility] CHEMISTRY eGFR 114 04/07/2013 NA <sup>7</sup>Result Comment: [...] should be multiplied by the estimated BMI. [facility] CHEMISTRY Calcium Lvl 7.7 8.5 - 10.5 04/07/2013 LOW [facility] CHEMISTRY CO2 23 24 - 32 04/07/2013 LOW [facility] CHEMISTRY BUN 9 7 - 22 04/07/2013 Normal [facility] CHEMISTRY Glucose Lvl 108 70 - 99 04/07/2013 HI <sup>10</sup>Interpretive Data: Adult re ference range values reflect the clinical guidelines
of the [place] [employer]. [facility] CHEMISTRY Creatinine Lvl 0.8 0.5 - 1.4 04/07/2013 Normal [facility] CHEMISTRY AGAP 13.5 10.0 - 20.0 04/07/2013 Normal [facility] HEMATOLOGY Platelet 196 133 - 450 04/07/2013 Normal [facility] HEMATOLOGY MCV 86.9 80.0 - 94.0 04/07/2013 Normal [facility] HEMATOLOGY MCHC 33.6 32.0 - 36.0 04/07/2013 Normal [facility] HEMATOLOGY RDW 13.8 11.5 - 14.5 04/07/2013 Normal [facility] HEMATOLOGY MCH 29.2 27.0 - 31.0 04/07/2013 Normal [facility] HEMATOLOGY Hgb 9.3 14.0 - 18.0 04/07/2013 LOW [facility] HEMATOLOGY Hct 27.5 42.0 - 54.0 04/07/2013 LOW [facility] HEMATOLOGY RBC 3.17 4.70 - 6.10 04/07/2013 LOW [facility] WBC 4.4 3.7 - 10.4 04/07/2013 Normal [facility] HEMATOLOGY MPV 8.1 7.4 - 10.4 04/07/2013 Normal [facility] HEMATOLOGY Eosinophils # 0.1 0.0 - 0.5 04/07/2013 Normal [facility] HEMATOLOGY Basophils # 0.0 0.0 - 0.2 04/07/2013 Normal [facility] HEMATOLOGY Lymphocytes # 1.2 1.0 - 5.5 04/07/2013 Normal [facility] HEMATOLOGY Eosinophils 2.0 0.0 - 4.0 04/07/2013 Normal [facility] Basophils 0.3 0.0 - 1.0 04/07/2013 Normal [facility] Monocytes # 0.3 0.0 - 0.8 04/07/2013 Normal [facility] Monocytes 6.8 2.0 - 12.0 04/07/2013 Normal [facility] Segs-Bands # 2.8 1.5 - 8.1 04/07/2013 Normal [facility] Lymphocytes 27.6 20.0 - 40.0 04/07/2013 Normal [facility] Segs 63.3 45.0 - 75.0 04/07/2013 Normal [facility] Microbiology Culture: Anaerobic 04/06/2013 [facility] Microbiology Culture: AFB w/Smear 04/06/2013 [facility] Microbiology Culture: Fungal w/Smear 04/06/2013 [facility] Microbiology Culture: CMV (Early Ant igen) 04/06/2013 [facility] CHEMISTRY TSH 1.410 0.360 - 3.740 04/06/2013 Normal [facility] CHEMISTRY eGFR 121 04/06/2013 NA <sup>8</sup>Result Comment: [...] should be multiplied by the estimated BMI. [facility] CHEMISTRY Creatinine Lvl 0.7 0.5 - 1.4 04/06/2013 Normal [facility] CHEMISTRY BUN 7 7 - 22 04/06/2013 Normal [facility] CHEMISTRY Glucose Lvl 109 70 - 99 04/06/2013 [place] <sup>11</sup>Interpretive Data: Adult re ference range values reflect the clinical guidelines
of the [place] [employer]. [facility] CHEMISTRY AGAP 15.4 10.0 - 20.0 04/06/2013 Normal [facility] CHEMISTRY CO2 22 24 - 32 04/06/2013 LOW [facility] CHEMISTRY Calcium Lvl 7.6 8.5 - 10.5 04/06/2013 LOW [facility] CHEMISTRY Potassium Lvl 3.4 3.5 - 5.1 04/06/2013 LOW [facility] CHEMISTRY Sodium Lvl 141 135 - 145 04/06/2013 Normal [facility] CHEMISTRY Chloride Lvl 107 95 - 109 04/06/2013 Normal [facility] HEMATOLOGY Bands 30.0 0.0 - 11.0 04/06/2013 HI [facility] HEMATOLOGY Monocytes 5.0 2.0 - 12.0 04/06/2013 Normal [facility] HEMATOLOGY Atypical Lymphs 0.0 <=0.0 04/06/2013 Normal [facility] HEMATOLOGY Lymphocytes 22.0 20.0 - 40.0 04/06/2013 Normal [facility] HEMATOLOGY Segs 43.0 45.0 - 75.0 04/06/2013 LOW [facility] HEMATOLOGY Monocytes # 0.2 0.0 - 0.8 04/06/2013 Normal [facility] HEMATOLOGY Segs-Bands # 2.2 1.5 - 8.1 04/06/2013 Normal [facility] HEMATOLOGY Lymphocytes # 0.7 1.0 - 5.5 04/06/2013 LOW [facility] HEMATOLOGY RBC Morph Raquel l (04/06/2013 06:48:00) 04/06/2013 Normal [facility] HEMATOLOGY Plt Morph Raquel l (04/06/2013 06:48:00) 04/06/2013 Normal [facility] HEMATOLOGY MPV 9.1 7.4 - 10.4 04/06/2013 Normal [facility] HEMATOLOGY MCHC 33.9 32.0 - 36.0 04/06/2013 Normal [facility] HEMATOLOGY MCH 29.4 27.0 - 31.0 04/06/2013 Normal [facility] HEMATOLOGY WBC 3.0 3.7 - 10.4 04/06/2013 LOW [facility] HEMATOLOGY RDW 13.5 11.5 - 14.5 04/06/2013 Normal [facility] HEMATOLOGY Platelet 147 133 - 450 04/06/2013 Normal [facility] MCV 86.8 80.0 - 94.0 04/06/2013 Normal [facility] RBC 3.40 4.70 - 6.10 04/06/2013 LOW [facility] Hgb 10.0 14.0 - 18.0 04/06/2013 LOW [facility] Hct 29.5 42.0 - 54.0 04/06/2013 LOW [facility] IMMUNOLOGY EULALIA Negat ramiro (04/06/2013 06:48:00) Negati ve 04/06/2013 Normal [facility] RPR Non R eactive (04/06/2013 06:48:00) Non Re active 04/06/2013 Normal [facility] Toxoplasma IgM 0.210 <=0.800 04/06/2013 Normal <sup>17</sup>Interpretive Data: <0.9 IV ---------Negative
0.9 - 0.99 IV -----Equivocal
>1.0 IV ---------Positive [facility] HIV 1/2 Ab Negat ramiro *NA* (04/06/2013 06:48:00) Negati ve 04/06/2013 NA [facility] CMV IgM 0.2 04/06/2013 NA <sup>13</sup>Interpretive Data: Reference Ranges:
Non-reactive: <0.9 S/CO Ratio
Indeterminate: 0.9 - 1.0 S/CO Ratio
Reactive: >=1.1 S/CO Ratio [facility] EBV VCA IgM <0.2 <=0.8 04/06/2013 Normal <sup>15</sup>Interpretive Data: Antibody Index (AI) Results Interpretation
-------
0.0-0.8 Negative No detectable IgM Antibody.
0.9-1.0 Equivocal Repeat testing suggested in
10-14 days.
>=1.10 Positive Significant level of detectable
IgM Antibody, indicative of
current or recent infection. [facility] EBV NA IgG 0.5 <=0.8 04/06/2013 Normal <sup>16</sup>Interpretive Data: Antibody Index (AI) Results Interpretation
-------
0.0-0.8 Negative No detectable IgG Antibody.
0.9-1.0 Equivocal Repeat testing suggested in
10-14 days.
>=1.10 Positive Indicates presence of detectable
IgG Antibody. [facility] EBV VCA IgG >8.0 <=0.8 04/06/2013 HI <sup>14</sup>Interpretive Data: Antibody Index (AI) Results Interpretation
-------
0.0-0.8 Negative No detectable IgG Antibody.
0.9-1.0 Equivocal Repeat testing suggested in
10-14 days.
>=1.10 Positive Indicates presence of detectable
IgG Antibody. [facility] MISC - SEROLOGY Mycoplasma IgM 43 04/06/2013 NA <sup>2</sup>Result Comment: REFERENCE RA NGE: <770 U/mL

Interpretive criteria:
<770 U/mL Negative
770- 950 U/mL Low positive
>950 U/mL Positive
Test Performed at:
[facility]
[address]
[place] [id number] Virgie Zacarias MD [facility] MICRO MISC - SEROLOGY Mycoplasma IgG < [...] symptoms of the patient.
Test Performed at:
[facility]
[address]
[place] [id number] Virgie GRIGSBY [facility] VIRAL - SEROLOGY W Nile Ab IgM [...]
specimens other than serum.

According to the latrine cleaner, this assay may cross- react with
antibodies to other flaviviruses and to enterovirus antibodies in
children. All positive IgM results will be reported to [facility] Epidemiology and further testing may be performed as determined by [facility]." [facility] U Legion Ag Negative 3 (04/06/2013 05:00:56) Negati ve 04/06/2013 Normal <sup>3</sup>Interpretive Data: This kit tests for Legionella pneumophila Serogroup 1 Antigen. [facility] REFERENCE LAB RESULTS [facility] REPORT 04/06/2013 NA <sup>4</sup>Result Comment:

TEST [...] its performance
characteristics have been determined by [facility]. Performance characteristics refer to
the analytical performance of the test.

Test Performed at:
[facility]
[address] [place] [address] Virgie Zacarias MD [facility] CHEMISTRY B-[id number] 4.1 1.0 - 2.3 04/05/2013 [facility] CHEMISTRY LDH 460 98 - 192 04/05/2013 [facility] CHEMISTRY Uric Acid 4.3 3.8 - 8.0 04/05/2013 Normal [facility] HEMATOLOGY INR 0.99 0.85 - 1.17 04/05/2013 Normal <sup>12</sup>Interpretive Data: RECOMMEN DED RANGES FOR PROTIME INR:
2.0-3.0 for most medical and surgical thromboembolic states.
2.5-3.5 for artificial heart valves and recurrent embolism.

INR SHOULD BE USED ONLY FOR PATIENTS ON STABLE ANTICOAGULANT THERAPY. [facility] HEMATOLOGY PT 13.3 12.0 - 14.7 04/05/2013 Normal [facility] CHEMISTRY Total CK 521 12 - 191 04/05/2013 [facility] CHEMISTRY A/G Ratio 0.8 0.7 - 1.6 04/05/2013 Normal [facility] CHEMISTRY Globulin 3.5 2.0 - 4.0 04/05/2013 Normal [facility] CHEMISTRY B/C Ratio 14 6 - 25 04/05/2013 Normal [facility] CHEMISTRY AST 132 0 - 37 04/05/2013 [facility] CHEMISTRY Bili Total 1.5 0.2 - 1.3 04/05/2013 [facility] CHEMISTRY Alk Phos 219 39 - 136 04/05/2013 [facility] CHEMISTRY ALT 123 0 - 65 04/05/2013 [facility] CHEMISTRY Albumin Lvl 2.9 3.5 - 5.0 04/05/2013 LOW [facility] CHEMISTRY Total Protein 6.4 6.4 - 8.4 04/05/2013 Normal [facility] HEMATOLOGY Bands 55.0 0.0 - 11.0 04/05/2013 [facility] HEMATOLOGY Polychrom Sligh t (04/05/2013 05:30:00) None S een 04/05/2013 Normal [facility] HEMATOLOGY Tot Cell Ct 100 04/05/2013 NA [facility] HEMATOLOGY Plt Morph Raquel l (04/05/2013 05:30:00) 04/05/2013 Normal [facility] HEMATOLOGY Anisocyte 1+ *ABN* (04/05/2013 05:30:00) None S een 04/05/2013 ABN [facility] Atypical Lymphs 1.0 <=0.0 04/05/2013 HI [facility] HEMATOLOGY Metamyelocytes 2.0 0.0 - 1.0 04/05/2013 HI [facility] Eosinophils 1.0 0.0 - 4.0 04/05/2013 Normal [facility] Eosinophils # 0.0 0.0 - 0.5 04/05/2013 Normal [facility] Hep C Ab Negat ramiro *NA* (04/05/2013 05:30:00) Negati ve 04/05/2013 NA [facility] Hep B Core Ab Negat ramiro *NA* (04/05/2013 05:30:00) Negati ve 04/05/2013 NA [facility] Hep Bs Ab <1.0 <=7.4 04/05/2013 Normal <sup>19</sup>Interpretive Data: <=7.4 mI U/mL--------Negative for Anti- HBs. Not immune to HBV infection.

7.5-12.4 mIU/mL--Borderline for Anti- HBs and immune status
should be further assessed by considering other factors such
as clinical status follow-up testing, associated risk factors,
and the use of additional diagnostic information.

>12.4 mIU/mL-------Positive for Anti-HBs. Immune to HBV infection [facility] Hep Bs Ag Negat ramiro *NA* (04/05/2013 05:30:00) Negati ve 04/05/2013 NA [facility] Hep A Tot Negat ramiro *NA* (04/05/2013 05:30:00) Negati ve 04/05/2013 NA [facility] Hep A IgM Negat ramiro *NA* (04/05/2013 05:30:00) Negati ve 04/05/2013 [facility] Vir Ld-HIV1 RNA not d etected 04/05/2013 [...] management.

Performance characteristics have been verified by [facility]. The laboratory is authorized under the Clinical Laboratory Improvement Amendments of 1988 (CLIA- 88) to perform high complexity testing. [facility] IMMUNOLOGY Log10 HIV1 <1.3 04/05/2013 NA [facility] Microbiology Culture: Blood 04/05/2013 [facility] CHEMISTRY Lactic Acid Lvl 1.7 0.5 - 2.2 04/05/2013 Normal [facility] CHEMISTRY Alk Phos 248 39 - 136 04/04/2013 [facility] CHEMISTRY ALT 147 0 - 65 04/04/2013 [facility] CHEMISTRY Albumin Lvl 3.7 3.5 - 5.0 04/04/2013 Normal [facility] CHEMISTRY AST 145 0 - 37 04/04/2013 [facility] CHEMISTRY Total Protein 7.4 6.4 - 8.4 04/04/2013 Normal [facility] CHEMISTRY Bili Total 1.6 0.2 - 1.3 04/04/2013 [facility] CHEMISTRY A/G Ratio 1.0 0.7 - 1.6 04/04/2013 Normal [facility] CHEMISTRY Globulin 3.7 2.0 - 4.0 04/04/2013 Normal [facility] CHEMISTRY B/C Ratio 14 6 - 25 04/04/2013 Normal [facility] CHEMISTRY Total CK 799 12 - 191 04/04/2013 [facility] HEMATOLOGY Bands 12.0 0.0 - 11.0 04/04/2013 [facility] HEMATOLOGY Plt Morph Raquel l (04/04/2013 18:05:00) 04/04/2013 Normal [facility] HEMATOLOGY RBC Morph Raquel l (04/04/2013 18:05:00) 04/04/2013 Normal [facility] HEMATOLOGY Atypical Lymphs 0.0 <=0.0 04/04/2013 Normal [facility] URINALYSIS UA Color [place] 04/04/2013 NA [facility] URINALYSIS UA Sq Epi None Seen 04/04/2013 NA [facility] URINALYSIS UA Nitrite Negat ramiro (04/04/2013 18:05:00) Negati ve 04/04/2013 Normal [facility] URINALYSIS UA Blood Negat ramiro (04/04/2013 18:05:00) Negati ve 04/04/2013 Normal [facility] URINALYSIS UA Urobilinogen 4.0 0.1 - 1.0 04/04/2013 [facility] URINALYSIS UA RBC 2 0 - 2 04/04/2013 Normal [facility] URINALYSIS UA Leuk Est Negat ramiro (04/04/2013 18:05:00) Negati ve 04/04/2013 Normal [facility] URINALYSIS UA WBC 1 0 - 5 04/04/2013 Normal [facility] URINALYSIS UA Glucose Negat ramiro mg/dL *NA* (04/04/2013 18:05:00) Negati ve 04/04/2013 [facility] URINALYSIS UA Protein Negat ramiro mg/dL (04/04/2013 18:05:00) Negati ve 04/04/2013 Normal [facility] URINALYSIS UA pH 5.0 5.0 - 8.0 04/04/2013 Normal [facility] URINALYSIS UA Ketones Negat ramiro mg/dL *NA* (04/04/2013 18:05:00) Negati ve 04/04/2013 [facility] URINALYSIS UA Bili Negat ramiro *NA* (04/04/2013 18:05:00) Negati ve 04/04/2013 NA [facility] URINALYSIS UA Spec Grav 1.015 <=1.030 04/04/2013 Normal [facility] URINALYSIS UA Turbidity Clear (04/04/2013 18:05:00) Clear 04/04/2013 Normal [facility] Microbiology Culture: Blood 04/04/2013 [facility] Pathology Reports No Data Provided for This Section Diagnostic Reports Report Value Date Source Abdomen 1 v for Placement DX P atient Name: MIGUEL LAWTON : 1975; Age: 41 years y/o Male MR: [id number] Study: Abdomen 1 v for Placement DX 12/05/2016 12:34 PM CDT Ordering Physician: MD Rekha Marquez MD Clinical Indication: Stent placement, urinary; Comparison: 12/02/2016 1 view abdomen There is right ureteral stent in place. Right nephrostomy catheter also present. No pathologic calcifications are demonstrated radiographically. Bowel gas pattern normal. SL: [id number] 12/05/2016 [facility] Chest 1view DX EXAM: Chest 1vi ew DX DATE: 12/02/2016 1:35 PM CDT INDICATION: Tube/Catheter Placement COMPARISON: 04/04/2013. IMPRESSION: Stable cardiac silhouette and mediastinum. No focal consolidation, significant pleural effusion or pneumothorax. SL: [id number] 12/02/2016 [facility] Nephrostomy tract dilation VR RIGHT PERCUTANEOUS NEPHROSTOMY [...] followed by an AccuStick sheath. A coaxial 4-Estonian Cobra catheter and Glidewire were then manipulated into the right ureter and subsequently into the bladder. An Amplatz wire was then placed, following which the catheter and AccuStick sheath were removed and a 10-Estonian sheath placed into the ureter. A 2nd Amplatz wire was then placed into the bladder. The tract was then dilated with a 10 mm angioplasty balloon, following which a 30-Estonian Amplatz sheath was placed into the right collecting system. There were no immediate complications from the access procedure. The fluoroscopic time was 15.1 minutes. Nephroscopy, lithotripsy and removal of the stone was then done through the sheath by Dr. Marquez followed by ureteral stenting and nephrostomy placement.. See Dr. Marquez's operative note for comments. FARHAD [id number] 12/02/2016 [facility] Abdomen AP DX Addendum: The st udy [...] will be done prior to the PCNL. [id number] . Patient Name: MIGUEL LAWTON : 1975; Age: 41 years Male MR: [id number] Study: Abdomen AP DX Order Time: 12/02/2016 [...] a localized inflammatory process. FARHAD: [id number] 12/02/2016 [facility] Renal Stone CT Examination: Re nal stone [...] in moderate right hydronephrosis. SL: 16 11/28/2014 [facility] Renal Stone CT CT RENAL STONE PROTOCOL: [...] IMPRESSION: Negative CT pelvis. SL: 12 11/24/2014 [facility] Abdomen/Pelvis wo IV contrast CT CT Abdomen [...] of the abdomen and pelvis. SL:13 06/23/2014 [facility] Bone Marrow Biopsy or Trocar (VR) Fluoro time - .5 minutes. HISTORY: Leukopenia. Bone marrow aspirate, core bone biopsy. Intravenous conscious sedation provided. The patient received 4 mg of Versed and 200 mcg of fentanyl. Total physician-patient [id number] sedation monitoring was 22 minutes. 11-gauge needle was advanced until left posterior iliac crest. 9 cc of marrow aspirated. 11-gauge core bone biopsy. Total fluoroscopy time 0.5 minutes. Procedure well tolerated clinically. SL: 13 04/06/2013 [facility] Scrotum testicle US HISTORY: P ain and [...] Small right, moderate left varicocele. SL: 04/06/2013 [facility] Abdomen complete US HISTORY: A bdominal pain. [...] bile duct dilatation. Nonspecific splenomegaly. SL: 04/05/2013 [facility] Consultation Notes No Data Provided for This [...] 12/06/2016 [facility] Diastolic (mm Hg) 79 12/06/2016 [facility] Temperature Oral (F) 98.3 F 12/06/2016 [facility] Heart Rate 63 12/06/2016 [facility] Temperature Oral (F) 98.1 F 12/06/2016 [facility] Systolic (mm Hg) 95 12/06/2016 [facility] Diastolic (mm Hg) 56 12/06/2016 [facility] Heart Rate 78 12/06/2016 [facility] Temperature Oral (F) 98.1 F 12/06/2016 [facility] Heart Rate 64 12/06/2016 [facility] Systolic (mm [...] 81 11/28/2014 [facility] Respitory Rate 18 11/28/2014 [facility] Heart Rate 82 11/28/2014 [facility] Temperature Oral (F) 98.2 F 11/28/2014 [facility] Systolic (mm Hg) 125 11/28/2014 [facility] Diastolic (mm Hg) 86 11/28/2014 [facility] Weight 75 0 11/28/2014 [facility] Temperature Oral (F) 97.9 F 11/28/2014 [facility] BMI Calculated 26.69 11/28/2014 [facility] Height 167.64 cm 11/28/2014 [facility] Heart Rate 63 11/28/2014 [facility] Respitory Rate 18 11/28/2014 [facility] Temperature Oral (F) 98.2 F 11/25/2014 [facility] Systolic (mm Hg) 126 11/25/2014 [facility] Diastolic (mm Hg) 81 11/25/2014 [facility] Respitory Rate 16 11/25/2014 [facility] Heart Rate 74 11/25/2014 [facility] Temperature Oral (F) 98.3 F 11/25/2014 [facility] Heart Rate 78 11/25/2014 [facility] Systolic (mm Hg) 123 11/25/2014 [facility] Diastolic (mm Hg) 78 11/25/2014 [facility] Respitory Rate 16 11/25/2014 [facility] BMI Calculated 25.88 11/25/2014 [facility] Height 167.64 cm 11/25/2014 [facility] Weight 72.727 11/25/2014 [facility] Temperature Oral (F) 98.5 F 11/25/2014 [facility] Heart Rate 78 11/25/2014 [facility] Systolic (mm Hg) 130 11/25/2014 [facility] Diastolic (mm Hg) 84 11/25/2014 [facility] Respitory Rate 24 11/25/2014 [facility] Systolic (mm Hg) 121 06/23/2014 [facility] Diastolic (mm Hg) 73 06/23/2014 [facility] Respitory Rate 16 06/23/2014 [facility] Heart Rate 59 06/23/2014 [facility] Temperature Oral (F) 98.1 F 06/23/2014 [facility] Weight 75 1 [facility] Height 172.72 cm 06/23/2014 [facility] BMI Calculated 25.14 06/23/2014 [facility] Diastolic (mm Hg) 75 06/23/2014 [facility] Heart Rate 56 06/23/2014 [facility] Respitory Rate 18 06/23/2014 [facility] Temperature Oral (F) 98.8 F 06/23/2014 [facility] Systolic (mm Hg) 114 06/23/2014 [facility] Systolic (mm Hg) 113 04/08/2013 [facility] Respitory Rate 18 04/08/2013 [facility] Diastolic (mm Hg) 70 04/08/2013 [facility] Heart Rate 92 04/08/2013 [facility] Temperature Oral (F) 97.5 F 04/08/2013 [facility] Diastolic (mm Hg) 70 04/08/2013 [facility] Heart Rate 84 04/08/2013 [facility] Respitory Rate 20 04/08/2013 [facility] Systolic (mm Hg) 112 04/08/2013 [facility] Temperature Oral (F) 98.9 F 04/08/2013 [facility] Diastolic (mm Hg) 62 04/08/2013 [facility] Respitory Rate 20 04/08/2013 [facility] Systolic (mm Hg) 110 04/08/2013 [facility] Heart Rate 83 04/08/2013 [facility] Temperature Oral (F) 98.5 F 04/08/2013 [facility] Height 167.64 cm 04/05/2013 [facility] Weight 76.42 04/05/2013 [facility] Weight 76.364 04/04/2013 [facility] Height 167.64 cm 04/04/2013 [facility] Encounters Location Location Details Encounter Type Encounter Number Reason For Visit Attending Provider ADM Date DC Date Status Source [facility] Inpatient [id number] LEUKOPENIA, RHABD OMYOLYSIS, MYAGLIAS LA RENAE 04/04/2013 04/08/2013 Active [facility] [id number] Joseluis Pike 06/23/2014 06/23/2014 [facility] [id number] Dl Galvan 11/25/2014 11/25/2014 [facility] [id number] Galileo Montanez 11/28/2014 11/29/2014 [facility] Outpatient [id number] ASHLEIGH PATRICIA 11/23/2015 Active [facility] Outpatient [id number] ASHLEIGH PATRICIA 11/27/2015 Active [facility] Outpatient [id number] SAMANTA GILMAN 09/09/2016 Active [facility] Outpatient [id number] SAMANTA GILMAN 09/20/2016 Active [facility] Inpatient [id number] Rekha Marquez 12/04/2016 12/06/2016 [facility] Outpatient [id number] SAMANTA GILMAN 12/09/2016 Active [facility] Outpatient [id number] ZHMARI BELEM 12/19/2016 Active [facility] Outpatient [id number] SAMANTA GILMAN 12/19/2016 Active [facility] Outpatient [id number] SAMANTA GILMAN 01/16/2017 Active [facility] Outpatient [id number] SAMANTA GILMAN 01/24/2017 Active [facility] Outpatient [id number] SAMANTA GILMAN 01/27/2017 Active [facility] Outpatient [id number] SAMANTA GILMAN 01/27/2017 Active [facility] Bedded Outpatient [id number] Dutch Vazquez 05/05/2017 05/05/2017 [facility] Outpatient [id number] SAMANTA GILMAN 07/24/2017 Active [facility] Ambulatory Pre-Reg [id number] Samanta Motley 07/24/2017 07/24/2017 [facility] Outpatient [id number] SAMANTA GILMAN 10/10/2017 Active [facility] Outpatient [id number] Samanta Gilman Motley 09/2510/11/2017 [facility] Outpatient [id number] SAMANTA GILMAN 05/28/2018 Active [facility] Outpatient [id number] Samanta Gilman Motley 11/201705/29/2018 [facility] Outpatient [id number] REKHA MARQUEZ 09/22/2018 Active [facility] Ambulatory Pre-Reg [id number] Rekha Marquez 09/22/2018 09/23/2018 [facility] Outpatient [id number] SAMANTA GILMAN 09/30/2018 Active [facility] Outpatient [id number] Samanta Gilman Motley 01/201910/01/2018 [facility] Outpatient [id number] SAMANTA GILMAN 12/28/2018 Active [facility] Ambulatory Pre-Reg [id number] Samanta Motley 12/28/2018 12/28/2018 Medical [facility] [id number] [facility] 11/23/2019 Active [id number] [facility]2019 Active [facility] Outpatient [id number] Rekha [facility] 11/23/2019 11/24/2019 Medical [facility] Ambulatory Pre-Reg [id number] Rekha [facility] 11/23/2019 11/23/2019 [facility] Procedures No Data Provided for This Section Assessment and Plan Assessment and Plan Date Source Extracted from:Title: Urology Author: Andi Jurado MD Date: 12/04/16 Impression and Plan The patient was seen and examined by me with the resident/LOCKSTITCHER/PA and I agree with the History/Exam documented. POD#2 s/p Right PCNL 1) re-attempt capping PCN, if unable to tolerate pain, uncap the nephrostomy and connect to drainage and will go home with PCN to gravity in that case 2) HLIV 3) Ambulate and OOB 4) orabase for canker kelle Jurado MD 12/06/2016 [facility] Plan of Care No Data Provided for This Section Social History Social History Date Source Social History TypeResponse Alcohol Current, Frequency: 1-2 times per week. Employment/School Status: Employed. 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 Substance Abuse Use: None. Smoking Status Current every day smoker; Type: Cigars; Ready to change: No; Concerns about tobacco use in household: No; Exposure to Tobacco Smoke self; Cigarette Smoking Last 365 Days Yes; Reg Smoking Cessation Counseling Yes; Tobacco use per day: 2; entered on: 09/30/18 05/28/2018 [facility] Social History TypeResponse Substance Abuse Use: None. Alcohol Current, Frequency: 1-2 times per week. Smoking Status Former smoker; Type: Cigars; Tobacco use per day: 5; Ready to change: No; Concerns about tobacco use in household: No; Exposure to Tobacco Smoke None; Cigarette Smoking Last 365 Days Yes; Reg Smoking Cessation Counseling No 11/25/2016 [facility] Family History No Data Provided for This Section Advance Directives No Data Provided for This Section Functional Status No Data Provided for This Section
--- OUTSIDE RECORDS SUMMARY | 2020-05-05 09:17 | XMS REPORT | Continuity of Care Document ---
Author Author [facility] t Organization [facility] Address [address] [place] [address] Phone Unavailable Care Team Providers Care I[employer] Portal Developer Name Role Phone MARTINA JENNINGS PCP Fantasma DIANA Attphys Unavailable Ahsan Aleman Attphys Ree Cooper Attphys [phone] Gerardo Vazquez Attphys Kirill Montanez Attphys Dl Galvan Attphys Edy Pike Attphys [phone] Ahsan Aleman Admphys Payers Payer Name Policy Type Policy Number Effective Date Expiration Date [id number] 00:00:00 [facility] Problems Condition Name Condition Details Condition Category Status Onset Date Resolution Date Last Treatment Date Treating Clinician Comments Source ANTWON KAPOOR Active 03/03/2017 [facility] Active 2017-03-03 00:00:00 2017-05-05 07:49:00 M ector Rodriguez STAGHORN CALCULUS STAG HORN CALCULUS Active 11/14/2016 [facility] Diagnosis Active 2016-11-14 00:00:00 2016-12-05 11:17:00 [facility] K[facility] STONES KIDN EY STONES Active 11/28/2014 [facility] Active 2014-11-28 00:00:00 2014-11-28 18:22:00 [facility] PAIN/KIDNEY STONE PAIN /KIDNEY STONE Active 11/24/2014 [facility] Active 2014-11-24 19:00:00 2014-11-24 22:16:00 [facility] Hyperuricemia (disorder) Hype ruricemia (disorder) Active 08/03/2014 Problem 11/25/2019 Data migrated from [employer] Network on 01/21/15. [facility] Problem Active 2014-08-03 00:00:00 2019-11-25 23:38:22 [facility] Liver function tests abnormal (finding) Liver function tests abnormal (finding) Active 08/03/2014 Problem 11/25/2019 Data migrated from [employer] on 01/21/15. Medical [facility] Problem Activ e 2014-08-03 00:00:00 2019-11-25 23:38:22 [facility] Pancytopenia (disorder) Panc ytopenia (disorder) Active 08/03/2014 Problem 11/25/2019 Data migrated from [employer] Network on 01/21/15. [facility] Problem Active 2014-08-03 00:00:00 2019-11-25 23:38:22 [facility] ABDOMINAL PAIN ABDO JEANNE PAIN Active 06/23/2014 [facility] Active 2014-06-23 00:00:00 2014-06-23 09:33:00 [facility] Gastroesophageal reflux disease (disorder) Gastroesophageal reflux disease (disorder) Active 04/29/2013 Problem 11/25/2019 Data migrated from [employer] on 01/21/15. [facility] Problem Active 2013-04-29 00:00:00 2019-11-25 23:38:22 [facility] LEUKOPENIA, RHABDOMYOLYSIS, MYAGLIAS LEUKOPENIA, RHABDOMYOLYSIS, MYAGLIAS Active 04/04/2013 [facility] Ac tive 2013-04-04 00:00:00 2013-04-19 13:28:00 [facility] ALLERGIC REACTION ROSANNE RGIC REACTION Active 04/04/2013 [facility] Active 2013-04-04 00:00:00 2013-04-04 19:48:00 [facility] Calculus of kidney Problem Active [facility] Calculus of ureter Problem Active [facility] Urinary tract infection Problem Active [facility] Constipation (disorder) Cons tipation (disorder) Active Problem 11/25/2019 [facility] Problem Active 2019-11-25 23:38:22 Silver Rodriguez Decreased testosterone level (finding) Decreased testosterone level (finding) Active Problem 11/25/2019 [facility] Problem Active 2019-11-25 23:38:22 Matt adam Rodriguez Eruption of skin (disorder) Er uption of skin (disorder) Active Problem 11/25/2019 [facility] Problem Active 2019-11-25 23:38:22 Silver Rodriguez Follow-up status (finding) Fol low-up status (finding) Active Problem 11/25/2019 [facility] Active 2019-11-25 23:38:22 Silver Rodriguez Impaired fasting glycaemia (disorder) Impaired fasting glycaemia (disorder) Active Problem 11/25/2019 [facility] Problem Active 2019-11-25 23:38:22 [facility] Michael Iron deficiency anemia (disorder) Iron deficiency anemia (disorder) Active Problem 11/25/2019 Medical [facility] Problem Active 2019-11-25 23:38:22 Silver Rodriguez Mixed hyperlipidemia (disorder) Mixed hyperlipidemia (disorder) Active Problem 11/25/2019 [facility] Problem Active 2019-11-25 23:38:22 Silver Rodriguez Oral lesion (finding) Oral lesion (finding) Active Problem 11/25/2019 [facility] Problem Active 2019-11-25 23:38:22 Silver Rodriguez 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) Active Problem 11/25/2019 [facility] Problem Active 2019-11-25 23:38:22 Silver Rodriguez [...] Group Problem Active 2019-11-25 23:38:22 Silver Rodriguez Screening status (finding) Scr eening status (finding) Active Problem 11/25/2019 [facility] Group Problem Active 2019-11-25 23:38:22 Silver Rodriguez Staghorn calculus (disorder) S taghorn calculus (disorder) Active Problem 11/25/2019 Medical Group Problem Active 2019-11-25 23:38:22 [facility] Michael Streptococcal sore throat (disorder) Streptococcal sore throat (disorder) Active Problem 11/25/2019 [facility] Group Problem Active 2019-11-25 23:38:22 Silver Rodriguez Urine finding (finding) Urin e finding (finding) Active Problem 11/25/2019 [facility] Group Problem Active 2019-11-25 23: 38:22 Silver Rodriguez Visual impairment (disorder) V isual impairment (disorder) Active Problem 11/25/2019 Medical Group Problem Active 2019-11-25 23:38:22 Silver Rodriguez DECREASED WBC COUNT NEC DECR EASED WBC COUNT NEC Active [facility] Active 2013-04-19 13:28:00 [facility] RHABDOMYOLYSIS RHAB DOMYOLYSIS Active [facility] Active 2013-04-19 13:28:00 [facility] Michael CALCULUS OF KIDNEY CALC ULUS OF KIDNEY Active [facility] Active 2016-12-05 11:17:00 [facility] Discharge Diagnosis: Renal colic Discharge Diagnosis: Renal colic 11/28/2014 11/30/2014 [facility] Problem 20 07-12-05 05:00:00 2014-11-30 20:54:56 2014-11-30 20:54:56 [facility] Discharge Diagnosis: Ureterolithiasis Discharge Diagnosis: Ureterolithiasis 11/24/2014 11/27/2014 [facility] Problem 2014-11-24 05:00:00 2014-11-27 18:29:44 2014-11-27 18:29:44 [facility] Discharge Diagnosis: UTI (lower urinary tract infectio n) Discharge Diagnosis: UTI (lower urinary tract infection) 06/23/2014 06/26/2014 [facility] Problem 2014-06-23 05:00:00 2014-06-26 00:40:41 2014-06 00:40:41 [facility] Discharge Diagnosis: Kidney stone Discharge Diagnosis: Kidney stone 06/23/2014 06/26/2014 [facility] Problem 2 05:00:00 2014-06-26 00:40:41 2014-06-26 00:40:41 Silver Rodriguez History of Past Illness Condition Name Condition Details Condition Category Status Onset Date Resolution Date Last Treatment Date Treating Clinician Comments Source Lower urinary tract infectious disease (disorder) Lower urinary tract infectious disease (disorder) Resolved 06/23/2014 Problem 11/25/2019 [facility] Problem Resolved 2014-06-23 00:00:0 0 2019-11-25 23:38:22 2019-11-25 23:38:22 [facility] mile Acute cystitis (disorder) Acut e cystitis (disorder) Resolved 11/02/2013 Problem 11/25/2019 Data migrated from [employer] Network on 03/11/15.Data migrated from [employer] on 03/10/15. [facility] Problem Resolved 2013-11-02 00:00:00 2019-11-25 23:38:22 2019-11-25 23:38:22 Silver Rodriguez Backache (finding) Back ache (finding) Resolved 11/02/2013 Problem 11/25/2019 Data migrated from [employer] on 03/11/15.Data migrated from [employer] on 03/10/15. [facility] Problem R esolved 2013-11-02 00:00:00 2019-11-25 23:38:22 2019-11-25 23:38:22 [facility] Michael Epididymitis (disorder) Epid idymitis (disorder) Resolved 04/29/2013 Problem 11/25/2019 Data migrated from [employer] on 03/11/15.Data migrated from [employer] on 03/10/15. [facility] Problem Resolved 2013-04-29 00:00:00 2019-11-25 23:38:22 2019-11-25 23:38:22 Silver Rodriguez Fever (finding) Feve r (finding) Resolved 04/29/2013 Problem 11/25/2019 Data migrated from [employer] on 03/10/15. [facility] Problem Resolved 2013-04-29 00:00:00 2019-11-25 23:38:22 2019-11-25 23:38:22 [facility] History of - gastrointestinal disease (context-depende nt category) History of - gastrointestinal disease (context-dependent category) Resolved 04/29/2013 Problem 11/25/2019 Data migrated from [employer]™ Network on 03/11/15.Data migrated from [employer] Network on 03/10/15. [facility] Problem Resolved 2013-04-29 00:00:00 2019-11-25 23:38:22 2019-11-25 23:38:22 [facility] Allergies, Adverse Reactions, Alerts Allergy Name Allergy Type Status Severity Reaction(s) Onset Date Inacti ve Date Treating Clinician Comments Source No Known Allergies DA Active U 2019-06-10 00:00:[address] [facility] No Known Allergies DA Active U 2016-11-06 00:00:[address] [facility] No Known Medication Allergies No Known Medication Allergies Active [facility] Social History Social Habit Start Date Stop Date Quantity Comments Source Social History 2016-11-25 20:44:15 2016-11-25 20:44:15 Silver Michael Sex Assigned At 1975 00:00:00 1975 00[birth year]00:00 Male [facility] Medications Ordered Medication Name Filled Medication Name Start Date Stop Da te Current Medication? Ordering Clinician Indication Dosage Frequency Signature (SIG) Comments Components Source ibuprofen 800 mg oral tablet 2018-09-30 14:54:00 No 800 mg = 1 tab, PO, Q8H, PRN Pain, Take with food, X 10 day, # 30 tab, 0 Refill(s), Pharmacy: [facility] [address] [place] [address] amoxicillin 500 mg oral capsule 2018-09-30 14:54:00 No 500 mg = 1 cap, PO, TID, X 7 day, # 21 cap, 0 Refill(s), Pharmacy: [facility] [address] [place] [address] potassium citrate 15 MEQ Extended Release Tablet [Urocit-K] 2018-09-22 23:07:00 Yes 15 mEq = 1 tab, PO, TID, # 270 tab, 3 Refill(s), Pharmacy: [facility] [address] [place] [address] potassium citrate 2018-09-22 23:00:00 Yes PO, Daily, 0 Refill(s) [facility] naproxen 500 mg oral enteric coated delayed-release tablet 2017-10-10 15:44:00 No 500 mg = 1 tab, PO, BID, X 10 day, # 20 tab, 0 Refill(s), Pharmacy: [facility] [id number] [facility] Michael tadalafil 5 MG Oral Tablet [Cialis] 2017-03-04 15:04:00 No 5 mg = 1 tab, PO, Daily, PRN for erectile dysfunction, X 30 day, # 30 tab, 1 Refill(s), Pharmacy: [facility] [id number] ketOROLAC 15 mg/mL injectable solution 2016-12-06 02:00:00 No 4 days. [facility] Michael Acetaminophen 325 MG / Hydrocodone Bitartrate 5 MG Oral Tabl et [[place] 5/325] 2016-12-05 20:51:00 No Notes: (Same as: [place] 325/5) Do not exceed 4gm/day of acetaminophen. Silver Garcia nn Dilaudid 2016-12-05 20:50:00 No 0.5 mg, 0.5 mL, Route: IVP, Drug form: INJ, Q4H, Dosing Weight 77.636, kg, PRN Pain Score 7-10, Start date: 12/05/16 15:50:00 CDT, Duration: 30 day, Stop date: 01/04/17 15:49:00 CDT [facility] Michael senna 8.6 mg oral tablet 2016-12-05 14:00:00 No 1 tab, Route: PO, Drug Form: TAB, Dosing Weight 77.636, kg, Daily, Start date: 12/05/16 9:00:00 CDT, Duration: 30 day, Stop date: 01/03/17 9:00:00 CDT [facility] Michael Docusate Sodium 100 MG Oral Capsule 2016-12-05 11:19:00 Yes 100 mg = 1 cap, PO, BID, # 40 cap, 0 [facility]) [facility] 500 mg oral tablet 2016-12-05 11:19:00 No 500 mg = 1 tab, PO, TEMZ24A, # 12 tab, 0 Refill(s) [facility] [place] Acetaminophen 325 MG / Hydrocodone Bitartrate 5 MG Oral Tabl et [[place] 5/325] 2016-12-05 11:19:00 Yes 1 tab, PO, Q4H, PRN Pain Score 4-6, # 30 tab, 0 Refill(s), given to patient Silver astorga tamsulosin 0.4 mg oral capsule 2016-12-05 11:19:00 Yes 0.4 mg = 1 cap, PO, Q24H, # 40 cap, 0 Refill(s) Ayah espinozaerwin Rodriguez Fleet Enema 2016-12-05 02:24:00 No 12 year s, Pediatric Dosing Silver Reynaann Dulcolax Laxative 2016-12-05 02:24:00 No Notes: (Same As: Dulcolax, Bisco-Lax) Silver Reynaann Docusate Sodium 100 MG Oral Capsule [Colace] 2016-12-04 22:00:00 No 100 mg, 1 cap, Route: PO, BID, Dosing Weight 77.636, kg, Start date: 12/04/16 17:00:00 CDT, Duration: 30 day, Stop date: 01/03/17 9:00:00 CDT Silver Reynaann docosanol 100 MG/ML Topical Cream [Abreva] 2016-12-04 19:00:00 No Notes: Same as Abreva [facility] [place] Flomax 2016-12-04 18:00:00 No Notes: (Same As: Flomax) "Do Not Crush" Silver Reynaann Miralax 2016-12-04 17:09:00 No Notes: Dissolve in 8 oz of water or juice. (Same as: Miralax) Silver spaulding Acetaminophen 325 MG / Hydrocodone Bitartrate 5 MG Oral Tabl et [[place] 5/325] 2016-12-04 17:09:00 No Notes: (Same as: [place] 325/5) Do not exceed 4gm/day of acetaminophen. Silver Radha nn Orabase Gel-B 20% mucous membrane gel 2016-12-04 14:00:00 N o Notes: (Same As: Maximum Strength PM Orajel ) Hector emoadam Rodriguez Tylenol 2016-12-03 17:00:00 No Notes: Do not exceed 4 gm/day. (Same as: Tylenol) Silver Rodriguez Ketorolac 2016-12-03 17:00:00 No 4 days. Silver Rodriguez tramadol hydrochloride 50 MG Oral Tablet 2016-12-03 17:00:00 No Notes: Not to exceed 400mg/day. (Same As: Ultram) Silver Rodriguez sennosides, RETIREMENT 2016-12-03 14:00:00 No Notes: (Same as: Senokot) [...] Size: 1000 mg Product Wasted: ___ mg Silver Rodriguez Ondansetron 2016-12-02 18:47:00 No 4 mg, Route: IVP, ONCE, Dosing Weight 72.727, kg, PRN Nausea & Vomiting, Start date: 12/02/16 13:47:00 CDT Silver Rodriguez Promethazine 2016-12-02 18:47:00 No 6.25 mg, Route: IVPB, ONCE, Dosing Weight 72.727, kg, PRN Nausea & Vomiting, Start date: 12/02/16 13:47:00 CDT Silver Rodriguez Meperidine 2016-12-02 18:47:00 No 12.5 mg, Route: IVP, Q30Min, Dosing Weight 72.727, kg, PRN Other -See Comment, For shivering, Start date: 12/02/16 13:47:00 CDT, Duration: 2 doses or times, Stop date: Limited # of times Silver Rodriguez Naloxone 2016-12-02 18:47:00 No 0.4 mg, Route: IVP, Q2MIN, Dosing Weight 72.727, kg, PRN Narcotic Reversal, Start date: 12/02/16 13:47:00 CDT, Duration: 8 doses or times, Stop date: Limited # of times Silver Rodriguez Flumazenil 2016-12-02 18:47:00 No 0.2 mg, Route: IVP, PRN, Dosing Weight 72.727, kg, PRN Benzodiazepine Reversal, Initial dose, Start date: 12/02/16 13:47:00 CDT, Duration: 30 day, Stop date: 01/01/17 13:46:00 CDT [facility] Labetalol 2016-12-02 18:47:00 No 10 mg, Route: IVP, Q5Min, Dosing Weight 72.727, kg, PRN Elevated BP, Start date: 12/02/16 13:47:00 CDT, Duration: 5 doses or times, Stop date: Limited # of times [facility] Hydralazine 2016-12-02 18:47:00 No 10 mg, Route: IVP, Q20Min, Dosing Weight 72.727, kg, PRN Elevated BP, Start date: 12/02/16 13:47:00 CDT, Duration: 2 doses or times, Stop date: Limited # of times [facility] Fentanyl 2016-12-02 18:47:00 No 25 microgram, Route: IVP, Q5Min, Dosing Weight 72.727, kg, PRN Pain Score 4-6, Priority: Routine, Start date: 12/02/16 13:47:00 CDT, Duration: 4 doses or times, Stop date: Limited # of times [facility] Oxycodone 2016-12-02 18:47:00 No 2.5 mg, Route: PO, Drug form: LIQ, Q4H, Dosing Weight 72.727, kg, PRN Pain Score 4-6, Start date: 12/02/16 13:47:00 CDT, Duration: 30 day, Stop date: 01/01/17 13:46:00 CDT [facility] Hydromorphone 2016-12-02 18:47:00 No 0.5 mg, Route: IVP, Q5Min, Dosing Weight 72.727, kg, PRN Pain Score 7-10, Start date: 12/02/16 13:47:00 CDT, Duration: 4 doses or times, Stop date: Limited # of times [facility] Dilaudid 2016-12-02 18:33:00 No 0.5 mg, 0.5 mL, Route: IVP, Drug form: INJ, Q4H, Dosing Weight 72.727, kg, PRN Pain Score 7-10, Start date: 12/02/16 13:33:00 CDT, Duration: 30 day, Stop date: 01/01/17 13:32:00 CDT Silver Rodriguez tramadol hydrochloride 50 MG Oral Tablet 2016-12-02 [...] Product Wasted: ___ mg Silver Rodriguez ondansetron (MITCH) 2016-12-02 18:27:00 No Route: IV, Drug form: INJ, ONCE, Stop date: 12/02/16 13:27:00 CDT Hector Reynaann famotidine (MITCH) 2016-12-02 17:27:00 No Route: IV, Drug form: INJ, ONCE, Stop date: 12/02/16 12:27:00 CDT Hector lizzyerwin Michael lidocaine (JOSE CS) 2016-12-02 17:22:00 No Route: IV, Drug form: INJ, ONCE, Stop date: 12/02/16 12:22:00 CDT Hector lizzyerwin Michael propofol (JOSE CS) 2016-12-02 17:22:00 No Route: IV, Drug form: INJ, ONCE, Stop date: 12/02/16 12:22:00 CDT Hector lizzyerwin Michael rocuronium (JOSE CS) 2016-12-02 17:22:00 No Route: IV, Drug form: INJ, ONCE, Stop date: 12/02/16 12:22:00 CDT Hector lizzyerwin Michael ciprofloxacin (JOSE CS) 2016-12-02 16:57:00 No Route: IV, Drug form: INJ, ONCE, Stop date: 12/02/16 11:57:00 CDT [facility] midazolam ([facility]) 2016-12-02 16:57:00 No Route: IV, Drug form: SOLN, ONCE, Stop date: 12/02/16 11:57:00 CDT Hector emorierwin Michael fentaNYL ([facility]) 2016-12-02 16:57:00 No Route: IV, Drug form: INJ, ONCE, Stop date: 12/02/16 11:57:00 [facility] mL INJ ([facility]) 2016-12-02 16:07:00 No Route: IV, Total Volume: 1,000, Start date: 12/02/16 11:07:00 CDT, Stop date: 12/02/16 12:07:00 CDT [facility] gentamicin (JOSE CS) ([facility]) 2016-12-02 16:07:00 No Route: IV, Drug form: INJ, Start date: 12/02/16 11:07:00 CDT, Stop date: 12/02/16 12:07:00 CDT [facility] Calcium Chloride 0.0014 MEQ/ML / Potassi um Chloride 0.004 MEQ/ML / Sodium Chloride 0.103 MEQ/ML / Sodium Lactate 0.028 MEQ/ML Injectable Solution 2016-12-02 14:42:00 No 1,000 mL, Rate: 25 ml/hr, Infuse over: 40 hr, Route: IV, Dosing Weight 72.727 kg, Total Volume: 1,000, Start date: 12/02/16 9:42:00 CDT, Duration: 30 day, Stop date: 01/01/17 9:41:00 CDT [facility] Michael diclofenac sodium 25 mg oral enteric coated, delayed-release tablet 2014-11-29 03:08:00 Yes 25 mg = 1 tab, PO, QID, PRN Pain Score 1-5, # 20 tab, 0 Refill(s) Silver Rodriguez Acetaminophen 325 MG / Hydrocodone Bitartrate 10 MG Oral Tab let 2014-11-29 03:08:00 Yes 1 tab, PO, Q4H, PRN Pain, # 1 2 tab, 0 Refill(s) [facility] ketOROLAC 30 mg/mL injectable solution 2014-11-29 01:37:00 No 30 mg, Route: IVP, Drug form: INJ, ONCE, Dosing Weight 75, kg, Priority: STAT, Start date: 11/28/14 20:37:00, Stop date: 11/28/14 20:37:00 [facility] Dilaudid 2014-11-28 23:32:00 No 1 mg, Route: IVP, ONCE, Dosing Weight 75, kg, Priority: STAT, Start date: 11/28/14 18:32:00, Stop date: 11/28/14 18:32:00 [facility] normal saline 0.9% IV 1,000 mL 2014-11-28 23:14:00 No 1,000 mL, Rate: 1,000 ml/hr, Infuse over: 1 hr, Route: IV, Dosing Weight 75 kg, Total Volume: 1,000, Start date: 11/28/14 18:14:00, Duration: 30 day, Stop date: 12/28/14 18:13:00 [facility] Saline Flush 0.9% 2014-11-28 23:05:00 No Notes: (Same as: BD Posiflush) [facility] Ondansetron 2014-11-28 23:05:00 No 4 mg, Route: IVP, ONCE, Dosing Weight 75, kg, Priority: STAT, Start date: 11/28/14 18:05:00, Stop date: 11/28/14 18:05:00 [facility] Morphine 2014-11-28 23:05:00 No 4 mg, Route: IVP, ONCE, Dosing Weight 75, kg, Priority: STAT, Start date: 11/28/14 18:05:00, Stop date: 11/28/14 18:05:00 [facility] Tamsulosin hydrochloride 0.4 MG Oral Capsule [Flomax] 2014-11-25 04:39:00 Yes 0.4 mg = 1 cap, PO, Daily, # 14 cap, 0 R efill(s) [facility] promethazine 25 mg oral tablet 2014-11-25 04:39:00 Yes 25 mg, PO, Q4H, PRN Nausea, # 15 tab, 0 Refill(s) Hector barney Michael Acetaminophen 325 MG / Hydrocodone Jojo trate 7.5 MG Oral Tablet [[place] 7.5/325] 2014-11-25 04:39:00 Yes 1 tab, PO, Q6H, PRN for pain, # 20 tab, 0 Refill(s) [facility] Morphine 2014-11-25 04:11:00 No 4 mg, Route: IVP, Drug form: INJ, ONCE, Dosing Weight 72.727, kg, Priority: STAT, Start date: 11/24/14 23:11:00, Stop date: 11/24/14 23:11:00 [facility] Sodium Chloride 0.154 MEQ/ML Injectable Solution 2014-11-25 02:5 1:00 No 1,000 mL, 1,000 ml/hr, Infus e Over: 1 Hour, Route: IV, ONCE, Priority: STAT, Dosing Weight 72.727 kg, Start date: 11/24/14 21:51:00, Duration: 1 doses or times, Stop date: 11/24/14 21:51:00 Matt median [place] Phenergan 2014-11-25 02:34:00 No 12.5 mg, Route: IVPB, ONCE, Dosing Weight 72.727, kg, Priority: STAT, Start date: 11/24/14 21:34:00, Stop date: 11/24/14 21:34:00 [facility] Dilaudid 2014-11-25 01:34:00 No 1 mg, Route: IVP, ONCE, Dosing Weight 72.727, kg, Priority: STAT, Start date: 11/24/14 20:34:00, Stop date: 11/24/14 20:34:00 [facility] Morphine 2014-11-25 01:18:00 No 4 mg, Route: IVP, ONCE, Dosing Weight 72.727, kg, Priority: STAT, Start date: 11/24/14 20:18:00, Stop date: 11/24/14 20:18:00 [facility] Ondansetron 2014-11-25 01:18:00 No 4 mg, Route: IVP, ONCE, Dosing Weight 72.727, kg, Priority: STAT, Start date: 11/24/14 20:18:00, Stop date: 11/24/14 20:18:00 [facility] Sodium Chloride 0.154 MEQ/ML Injectable Solution 2014-11-25 01:1 8:00 No 1,000 mL, Infuse Over: 1 hr, Route: IV, ONCE, Priority: STAT, Dosing Weight 72.727 kg, Start date: 11/24/14 20:18:00, Duration: 1 doses or times, Stop date: 11/24/14 20:18:00 [facility] Saline Flush 0.9% 2014-11-25 01:18:00 No Notes: (Same as: BD Posiflush) [facility] Ondansetron 4 MG Oral Tablet [Zofran] 2014-06-23 15:38:00 Y es 4 mg = 1 tab, PO, BID, # 10 tab, 0 Refill(s) Hector Rodriguez Acetaminophen 325 MG / tramadol hydrochloride 37.5 MG Oral T ablet [Ultracet] 2014-06-23 15:38:00 Yes 1 tab, PO, Q4H, for pain, # 60 tab, 0 Refill(s) [facility] Sulf[facility]oxazole 800 MG / Trimethoprim 160 MG Oral Tablet [B actrim] 2014-06-23 15:37:00 Yes 1 tab, PO, BID, # 20 tab, 0 Refill(s) [facility] Ketorolac 2014-06-23 14:27:00 No 30 mg, Route: IVP, ONCE, Dosing Weight 75, kg, Priority: STAT, Start date: 06/23/14 9:27:00, Stop date: 06/23/14 9:27:00 [facility] Ondansetron 2014-06-23 14:27:00 No 4 mg, Route: IVP, ONCE, Dosing Weight 75, kg, Priority: STAT, Start date: 06/23/14 9:27:00, Stop date: 06/23/14 9:27:00 [facility] Sodium Chloride 0.154 MEQ/ML Injectable Solution 2014-06-23 14:2 7:00 No 1,000 mL, Infuse Over: 1 hr, Route: IV, ONCE, Priority: STAT, Dosing Weight 75 kg, Start date: 06/23/14 9:27:00, Duration: 1 doses or times, Stop date: 06/23/14 9:27:00 [facility] Saline Flush 0.9% 2014-06-23 14:27:00 No 10 [...] PRN, 40 tab, Pain, Substitution Allowed, TAB Silver Michael Levaquin 500 mg oral tablet 2013-04-08 16:27:56 Yes Shravan Rodríguez Carrington 500 mg, 1 tab, PO, Q24H, 14 tab, Substitution Allowed Silver Rodriguez Protonix 2013-04-07 21:30:00 No Moris Rodríguez Carrington 40 mg, 1 tab, Route: PO, Drug form: ECTAB, Before Dinner, Start date: 04/07/13 16:30:00, Duration: 30 day, Stop date: 05/06/13 16:30:00 Memor gabriel Rodriguez potassium chloride 2013-04-07 17:32:00 No Moris Freed tt 40 mEq, 2 tab, Route: PO, Drug form: ERTAB, Q4H, Dosing Weight 76.42, kg, Priority: NOW, Start date: 04/07/13 12:32:00, Duration: 2 doses or times, Stop date: 04/07/13 17:00:00 Silver Rodriguez nystatin-triamcinolone topical cream 2013-04-07 14:00:00 No Zaher Shebib 1 appl, Route: TOP, BID, Rell g form: CRM, Start date: 04/07/13 9:00:00, Duration: 30 day, Stop date: 05/06/13 17:00:00 Silver Rodriguez phenol topical 1.4% spray 2013-04-06 13:01:00 No Moris Shultz 1 spray, Route: MUCOUS MEM, Q3H, Drug form: SPRY, PRN Sore Throat, Start date: 04/06/13 8:01:00, Duration: 30 day, Stop date: 05/06/13 8:00:00 [facility] Cepacol Dual Relief Sore Throat [place] 5% topical spray 2013-04-06 12:30:00 No Moris Shultz Route: TOP, Dosing Weight 76.42, kg, Q3H, PRN Pain Score 1-3, Start date: 04/06/13 7:30:00, Duration: 30 day, Stop date: 05/06/13 7:29:00 [facility] Invanz + Sodium Chloride 0.9% IV 100 mL 2013-04-06 01:00:00 No Zaher Shebib 1 gm, Route: IVPB, A [id number], Dosing Weight 76.42, kg, Start date: 04/05/13 20:00:00, Duration: 30 day, Stop date: 05/04/13 20:00:00 [facility] Zithromax + Sodium Chloride 0.9% IV 250 mL 2013-04-05 23:0 0:00 No Zaher Shebib 500 mg, Route: I VPB, Daily, Dosing Weight 76.42, kg, Start date: 04/05/13 18:00:00, Duration: 30 day, Stop date: 05/04/13 18:00:00 [facility] Benadryl 2013-04-05 16:03:00 No Moris Shultz 25 mg, 1 tab, Route: PO, Drug form: TAB, Q4H, Dosing Weight 76.42, kg, PRN as needed for itching, Start date: 04/05/13 11:03:00, Duration: 30 day, Stop date: 05/05/13 11:02:00 [facility] potassium chloride 2013-04-05 12:50:00 No Moris Freed tt 40 mEq, 2 tab, Route: PO, Drug form: ERTAB, Q4H, Dosing Weight 76.42, kg, Priority: NOW, Start date: 04/05/13 7:50:00, Duration: 2 doses or times, Stop date: 04/05/13 8:00:00 [facility] Tylenol 2013-04-05 10:19:00 No Moris Shultz 650 mg, 2 tab, Route: PO, Drug form: TAB, Q6H, Dosing Weight 76.42, kg, PRN Pain/Fever, Start date: 04/05/13 5:19:00, Duration: 30 day, Stop date: 05/05/13 5:18:00, PRN for Fever and pain. [facility] Tylenol 2013-04-05 10:00:00 No Moris D Carrington 650 mg, 20.3 mL, Route: PO, Drug form: LIQ, Q6H, Dosing Weight 76.42, kg, PRN Pain/Fever, Start date: 04/05/13 5:00:00, Duration: 30 day, Stop date: 05/05/13 4:59:00, PRN for Fever and pain. [facility] NS 1,000 mL 2013-04-05 09:59:00 No Moris D Carrington 1,000 mL, Rate: 125 ml/hr, Infuse over: 8 hr, Route: IV, Dosing Weight 76.42 kg, Total Volume: 1,000, Start date: 04/05/13 4:59:00, Duration: 30 day, Stop date: 05/05/13 4:58:00 [facility] ondansetron 2013-04-05 02:19:00 No Moris D Carrington 4 mg, 2 mL, Route: IVP, Drug form: INJ, Q8H, Dosing Weight 76.364, kg, PRN Nausea & Vomiting, Start date: 04/04/13 21:19:00, Duration: 30 day, Stop date: 05/04/13 21:18:00 [facility] morphine Sulfate 2013-04-05 02:19:00 No Moris D Carrington 2 mg, 1 mL, Route: IVP, Drug form: INJ, Q3H, Dosing Weight 76.364, kg, PRN Pain Score 4-6, Start date: 04/04/13 21:19:00, Duration: 30 day, Stop date: 05/04/13 21:18:00 [facility] Sodium Chloride 0.9% (Bolus) IV 1,000 mL 2013-04-05 01:03: 00 No Safi Butros Madain 1,000 mL, Rate: 1,000 ml/hr, Infuse over: 1 hr, Route: IV, Dosing Weight 76.364 kg, Total Volume: 1,000, Priority: STAT, Start date: 04/04/13 20:03:00, Duration: 1 doses or times, Stop date: 04/04/13 21:02:00, [facility] Dose[facility] Dose [facility] [place] [facility] tablet 2013-04-04 23:05:00 No Safi Jamie tros Madain 1 tab, Route: PO, Drug Form: TAB, Dosing Weight 76.364, kg, ONCE, Start date: 04/04/13 18:05:00, Stop date: 04/04/13 18:05:00 [facility] Sodium Chloride 0.9% (Bolus) IV 1,000 mL 2013-04-04 23:04: 00 No Safi Butros Madain 1,000 mL, Rate: 1,000 ml/hr, Infuse over: 1 hr, Route: IV, Dosing Weight 76.364 kg, Total Volume: 1,000, Priority: STAT, Start date: 04/04/13 18:04:00, Duration: 1 doses or times, Stop date: 04/04/13 19:03:00, Bolus DoseBolus Dose [facility] Vital Signs Vital Name Observation Time Observation Value Comments Source Body Temperature 2020-04-30 22:13:00 98.1 [degF] [facility] Weight 2020-04-30 20:27:00 160 [lb_av] [facility] BMI (Body Mass Index) 2020-04-30 20:27:00 25.8 kg/m2 [facility] BMI Calculated 2018-09-30 14:22:00 Ayahori al Michael Weight 2018-09-30 14:22:00 [facility] Michael Height 2018-09-30 14:22:00 165.1 cm [facility] Heart Rate 2018-09-30 14:22:00 [facility] Michael Respitory Rate 2018-09-30 14:22:00 Ayahori al Michael Systolic (mm Hg) 2018-09-30 14:22:00 Matt rial Michael Diastolic (mm Hg) 2018-09-30 14:22:00 [facility] orial [place] Temperature Oral (F) 2018-09-30 14:22:00 97.1 F [facility] Michael Height 2018-09-22 22:57:00 167.64 [facility] Weight 2018-09-22 22:57:00 [facility] BMI Calculated 2018-09-22 22:57:00 [facility] [place] Height 2018-05-28 13:03:00 165.1 cm [facility] [place] Weight 2018-05-28 13:03:00 [facility] BMI Calculated 2018-05-28 13:03:00 [facility] Systolic (mm Hg) 2018-05-28 13:03:00 Matt rial Michael Diastolic (mm Hg) 2018-05-28 13:03:00 Mem [facility] [place] Temperature Oral (F) 2018-05-28 13:03:00 98.1 F [facility] Heart Rate 2018-05-28 13:03:00 [facility] [place] Respitory Rate 2018-05-28 13:03:00 [facility] [place] BMI Calculated 2017-10-10 15:05:00 [facility] Weight 2017-10-10 15:05:00 [facility] Height 2017-10-10 15:05:00 165.1 cm [facility] [place] Systolic (mm Hg) 2017-10-10 15:05:00 Matt rial Michael Diastolic (mm Hg) 2017-10-10 15:05:00 [facility] [place] Respitory Rate 2017-10-10 15:05:00 [facility] Heart Rate 2017-10-10 15:05:00 [facility] Temperature Oral (F) 2017-10-10 15:05:00 98.6 F [facility] [place] Respitory Rate 2017-05-05 13:09:00 [facility] [place] Systolic (mm Hg) 2017-05-05 13:09:00 Matt rial [place] Diastolic (mm Hg) 2017-05-05 13:09:00 [facility] [place] Height 2017-05-02 16:17:00 167.64 cm [facility] [place] BMI Calculated 2017-05-02 16:17:00 [facility] Weight 2017-05-02 16:17:00 [facility] [place] Weight 2017-04-02 14:18:00 [facility] [place] Height 2017-04-02 14:18:00 167.64 cm [facility] [place] BMI Calculated 2017-04-02 14:18:00 [facility] [place] Systolic (mm Hg) 2016-12-06 13:10:00 Matt rial Michael Diastolic (mm Hg) 2016-12-06 13:10:00 [facility] [place] Temperature Oral (F) 2016-12-06 13:10:00 98.3 F [facility] [place] Heart Rate 2016-12-06 13:10:00 [facility] [place] Temperature Oral (F) 2016-12-06 09:00:00 98.1 F [facility] Systolic (mm Hg) 2016-12-06 09:00:00 Matt rial [place] Diastolic (mm Hg) 2016-12-06 09:00:00 Mem o[facility] Heart Rate 2016-12-06 09:00:00 [facility] Temperature Oral (F) 2016-12-06 05:00:00 98.1 F [facility] [place] Heart Rate 2016-12-06 05:00:00 [facility] Systolic (mm Hg) 2016-12-06 05:00:00 Matt rial Michael Diastolic (mm Hg) 2016-12-06 05:00:00 Mem orial [facility] Respitory Rate 2016-12-05 20:29:00 [facility] [place] Respitory Rate 2016-12-05 16:40:00 [facility] Respitory Rate 2016-12-05 13:06:00 [facility] Weight 2016-12-02 22:22:00 [facility] BMI Calculated 2016-12-02 22:22:00 [facility] Height 2016-12-02 22:22:00 167.64 cm [facility] [place] Height 2016-11-25 20:33:00 167.64 cm [facility] [place] BMI Calculated 2016-11-25 20:33:00 [facility] [place] Weight 2016-11-25 20:33:00 [facility] [place] Systolic (mm Hg) 2014-11-29 03:46:00 Matt rial [place] Diastolic (mm Hg) 2014-11-29 03:46:00 Mem orial [facility] Respitory Rate 2014-11-29 03:46:00 [facility] [place] Heart Rate 2014-11-29 03:46:00 [facility] Systolic (mm Hg) 2014-11-28 23:31:00 Matt rial [place] Diastolic (mm Hg) 2014-11-28 23:31:00 Mem orial [facility] Respitory Rate 2014-11-28 23:31:00 [facility] [place] Heart Rate 2014-11-28 23:31:00 [facility] [place] Temperature Oral (F) 2014-11-28 23:31:00 98.2 F [facility] Systolic (mm Hg) 2014-11-28 20:30:00 Matt rial Michael Diastolic (mm Hg) 2014-11-28 20:30:00 Mem orial [facility] Weight 2014-11-28 20:30:00 [facility] [place] Temperature Oral (F) 2014-11-28 20:30:00 97.9 F [facility] BMI Calculated 2014-11-28 20:30:00 [facility] Height 2014-11-28 20:30:00 167.64 cm [facility] Heart Rate 2014-11-28 20:30:00 [facility] Respitory Rate 2014-11-28 20:30:00 [facility] [place] Temperature Oral (F) 2014-11-25 05:16:00 98.2 F [facility] Systolic (mm Hg) 2014-11-25 05:16:00 Matt rial [place] Diastolic (mm Hg) 2014-11-25 05:16:00 Mem orial [facility] Respitory Rate 2014-11-25 05:16:00 [facility] [place] Heart Rate 2014-11-25 05:16:00 [facility] [place] Temperature Oral (F) 2014-11-25 04:14:00 98.3 F [facility] Heart Rate 2014-11-25 04:14:00 [facility] Systolic (mm Hg) 2014-11-25 04:14:00 Matt rial [facility] Diastolic (mm Hg) 2014-11-25 04:14:00 Mem orial [facility] Respitory Rate 2014-11-25 04:14:00 [facility] BMI Calculated 2014-11-25 00:54:00 [facility] [place] Height 2014-11-25 00:54:00 167.64 cm [facility] [place] Weight 2014-11-25 00:54:00 [facility] Temperature Oral (F) 2014-11-25 00:54:00 98.5 F [facility] Heart Rate 2014-11-25 00:54:00 [facility] Systolic (mm Hg) 2014-11-25 00:54:00 Matt rial [facility] Diastolic (mm Hg) 2014-11-25 00:54:00 Mem [facility] [place] Respitory Rate 2014-11-25 00:54:00 [facility] [place] Systolic (mm Hg) 2014-06-23 16:00:00 Matt rial [place] Diastolic (mm Hg) 2014-06-23 16:00:00 Mem o[facility] [place] Respitory Rate 2014-06-23 16:00:00 [facility] Heart Rate 2014-06-23 16:00:00 [facility] [place] Temperature Oral (F) 2014-06-23 16:00:00 98.1 F [facility] Weight 2014-06-23 13:40:00 [facility] Height 2014-06-23 13:40:00 172.72 cm [facility] [place] BMI Calculated 2014-06-23 13:40:00 [facility] Diastolic (mm Hg) 2014-06-23 13:40:00 Mem o[facility] [place] Heart Rate 2014-06-23 13:40:00 [facility] Respitory Rate 2014-06-23 13:40:00 [facility] Temperature Oral (F) 2014-06-23 13:40:00 98.8 F [facility] Systolic (mm Hg) 2014-06-23 13:40:00 Matt rial [place] Systolic (mm Hg) 2013-04-08 13:00:00 Matt rial [facility] Respitory Rate 2013-04-08 13:00:00 [facility] [place] Diastolic (mm Hg) 2013-04-08 13:00:00 Mem orial [facility] Heart Rate 2013-04-08 13:00:00 [facility] Temperature Oral (F) 2013-04-08 13:00:00 97.5 F [facility] Diastolic (mm Hg) 2013-04-08 09:18:00 Mem orial [facility] Heart Rate 2013-04-08 09:18:00 [facility] [place] Respitory Rate 2013-04-08 09:18:00 [facility] [place] Systolic (mm Hg) 2013-04-08 09:18:00 Matt rial [facility] Temperature Oral (F) 2013-04-08 09:18:00 98.9 F [facility] Diastolic (mm Hg) 2013-04-08 05:42:00 Mem [facility]rial [facility] Respitory Rate 2013-04-08 05:42:00 [facility] Systolic (mm Hg) 2013-04-08 05:42:00 Matt rial [facility] Heart Rate 2013-04-08 05:42:00 [facility] [place] Temperature Oral (F) 2013-04-08 05:42:00 98.5 F [facility] Height 2013-04-05 02:34:00 167.64 cm [facility] Weight 2013-04-05 02:34:00 [facility] [place] Weight 2013-04-04 22:07:00 [facility] Height 2013-04-04 22:07:00 167.64 cm [facility] [place] Procedures Procedure Date / Time Performed Performing Clinician [facility] of abdomen and pelvis without contrast 2020-04-30 00:00:00 [facility] Plan of Care Planned Activity Planned Date Details Comments Source Instructions Kidney Stones [facility] Instructions Urinary Tract Infection - Men [facility] Encounters Start Date/Time End Date/Time En[facility] Source 2020-04-30 20:24:00 2020-04-30 22:20:00 Departed Emergency Room TREY DIANA [facility] [id number] I [facility] 2019-11-23 16:15:00 2019-11-23 23:59:59 Outpatient Abel Aleman [facility] [id number] 2019-11-23 16:30:00 2019-11-23 16:30:00 Outpatient Abel Aleman [facility] [id number] 2018-12-28 15:45:00 2018-12-28 15:45:00 Outpatient R Samanta Marin [facility] [id number] 2018-09-30 08:15:00 2018-09-30 23:59:59 Outpatient R Samanta aMrin [facility] [id number] 2018-09-30 08:15:00 2018-09-30 23:59:59 Outpatient R Samanta Marin [facility] [id number] 2018-09-22 15:40:00 2018-09-22 23:59:59 Outpatient Abel Aleman [facility] [id number] 2018-05-28 08:00:00 2018-05-28 23:59:59 Outpatient Samanta Luna [facility] [id number] 2017-10-10 08:45:00 2017-10-10 23:59:59 Outpatient R Samanta Marin [facility] [id number] 2017-07-24 15:30:00 2017-07-24 15:30:00 Outpatient R Samanta Marin [facility] [id number] 2017-05-05 07:49:00 2017-05-05 09:35:00 [facility] [id number] 2016-12-04 12:07:00 2016-12-06 10:20:00 [facility] [id number] 2014-11-28 15:20:00 2014-11-28 22:49:00 [facility] [id number] 2014-11-24 19:46:00 2014-11-25 00:18:00 Out[facility] Roe Galvan [facility] [id number] 2014-06-23 08:37:00 2014-06-23 16:30:00 Outpatient MalenaandrewJoseluis riggins [facility] [id number] Results Test Description Test Time Test Comments Results Result Comments Source CT ABDOMEN/PELVIS 2020-04-30 21:40:00 [place] [address] Patient Name: MIGUEL LAWTON MR #: [id number] : 1975 Age/Sex: 44/M Req #: [id number] Adm Physician: Ordered by: TREY DIANA MD Report #: [id number] Location: ER Room/Bed: Procedure: [id number] CT/CT ABDOMEN/PELVIS WO Exam Date: 04/30/20 Exam [...] [place]SE[place] on 04/30/202149 COPY TO: TREY DIANA Blood leukocytes automated count (number/volume) 2020-04-30 20:30:00 Test Item White Blood Count (test code = 6690-2) 5.81 4.8-10.8 [facility] count (number/volume)2020-04-30 20:30:00* Test Item Value Reference Range Interpretation Comments Red Blood Count (test code = 789-8) 4.54 4.3-5.7 [facility] hemoglobin measurement (moles/volume)2020-04-30 20:30:00* Test Item Value Reference Range Interpretation Comments Hemoglobin (test code = 81104-8) 13.6 14.0-18.0 [facility] CenterAutomated blood hematocrit (volume fraction)2020-04-30 20:30:00* Test Item Value Reference Range Interpretation Comments Hematocrit (test code = 4544-3) 40.5 38.2-49.6 [facility] CenterAutomated erythrocyte mean corpuscular [id number] 20:30:00* Test Item Value Reference Range Interpretation Comments Mean Corpuscular Volume (test code = 787-2) 89.2 81-99 [facility] Center[facility] erythrocyte mean corpuscular hemoglobin (mass per erythrocyte)2020-04-30 20:30:00* Test Item Value Reference Range Interpretation Comments Mean Corpuscular Hemoglobin (test code = 785-6) 30.0 28-32 [facility] CenterAutom[facility] erythrocyte mean corpuscular hemoglobin concentration measurement (mass/volume)2020-04-30 20:30:00* Test Item Value Reference Range Interpretation Comments Mean Corpuscular Hemoglobin Concent (test code = 786-4) 33.6 31-35 [facility] CenterRDW [id number]-[id number] 20:30:00* Test Item Value Reference Range Interpretation Comments Red Cell Distribution Width (test code = 05750-7) 12.7 11.7 -14.4 [facility] CenterAutomated blood platelet count (count/volume)2020-04-30 20:30:00* Test Item Value Reference Range Interpretation Comments Platelet Count (test code = 777-3) 210 140-360 [facility] CenterAutomated blood segmented neutrophil count as percentage of total tgiwkguszr4734-72-87 20:30:00* Test Item Value Reference Range Interpretation Comments Neutrophils (%) (Auto) (test code = 04914-2) 57.8 38.7-80.0 [facility] CenterAutomated blood lymphocyte count as percentage ot total adcueerxoe8153-53-02 20:30:00* Test Item Value Reference Range Interpretation Comments Lymphocytes (%) (Auto) (test code = 736-9) 29.3 18.0-39.1 [facility] CenterAutomated blood monocyte count as percentage of total xwobmmanjq4962-38-87 20:30:00* Test Item Value Reference Range Interpretation Comments Monocytes (%) (Auto) (test code = 5905-5) 6.4 4.4-11.3 [facility] CenterAutomated blood eosinophil count as percentage of total kzxwxiruth5939-66-81 20:30:00* Test Item Value Reference Range Interpretation Comments Eosinophils (%) (Auto) (test code = 713-8) 5.3 0.0-6.0 [facility] CenterAutomated blood basophil count as percentage of total qcsffyoyph7208-97-03 20:30:00* Test Item Value Reference Range Interpretation Comments Basophils (%) (Auto) (test code = 706-2) 0.5 0.0-1.0 [facility] CenterFluoroscopic procedure less than one hour [id number] 20:30:00* Test Item Value Reference Range Interpretation Comments IM GRANULOCYTES % (test code = IM GRANULOCYTES %) 0.7 0.0- 1.0 [facility] CenterAutomated blood neutrophil count 2020-04-30 20:30:00* Test Item Value Reference Range Interpretation Comments Neutrophils # (Auto) (test code = 751-8) 3.4 2.1-6.9 [facility] CenterBlood lymphocytes count (number/volume) 2020-04-30 20:30:00* Test Item Value Reference Range Interpretation Comments Lymphocytes # (Auto) (test code = 90168-6) 1.7 1.0-3.2 [facility] CenterBlood monocytes automated count (number/volume)2020-04-30 20:30:00* Test Item Value Reference Range Interpretation Comments Monocytes # (Auto) (test code = 742-7) 0.4 0.2-0.8 [facility] CenterAutomated blood eosinophil count 2020-04-30 20:30:00* Test Item Value Reference Range Interpretation Comments Eosinophils # (Auto) (test code = 711-2) 0.3 0.0-0.4 [facility] CenterAutomated blood basophil count (count/volume)2020-04-30 20:30:00* Test Item Value Reference Range Interpretation Comments Basophils # (Auto) (test code = 704-7) 0.0 0.0-0.1 [facility] CenterFluoroscopic procedure less than one hour [id number] 20:30:00* Test Item Value Reference Range Interpretation Comments Absolute Immature Granulocyte (auto (ina t code = Absolute Immature Granulocyte (auto) 0.04 0-0.1 [facility] CenterProthrombin time (PT) in platelet poor plasma by coagulation [id number] 20:30:00* Test Item Value Reference Range Interpretation Comments Prothrombin Time (test code = 5902-2) 11.6 11.9-14.5 [facility] CenterINR in Platelet poor plasma by Coagulation [id number] 20:30:00* Test Item Value Reference Range Interpretation Comments Prothromb Time International Ratio (test code = 6301-6) 0.81 Oral Anticoagulant Therapy INR Values:1. Low Intensity Therapy 1.5 - 2.02 . Moderate Intensity Therapy 2.0 - 3.03. High Intensity Therapy(1) 2.5 - 3. 54. High Intensity Therapy(2) 3.0 - 4.05. Panic Value INR > 5.0 [facility] CenterActivated partial thromboplastin time (aPTT) in platelet poor plasma by coagulation [id number] 20:30:00* Test Item Value Reference Range Interpretation Comments Activated Partial Thromboplast Time (test code = 74130-1) 32.6 23.8-35.5 [facility] CenterUrine color fabxpxcldzvic1514-73-88 20:30:00* Test Item Value Reference Range Interpretation Comments Urine Color (test code = 5778-6) STRAW YELLOW [facility] CenterUrine [id number] 20:30:00* Test Item Value Reference Range Interpretation Comments Urine Clarity (test code = 73961-5) CLOUDY CLEAR [facility] gravity of Urine by Test strip 2020-04-30 20:30:00* Test Item Value Reference Range Interpretation Comments Urine Specific [place] (test code = 5811-5) 1.015 1.010-1.02 5 [facility] CenterUrine pH measurement by automated test [id number] 20:30:00* Test Item Value Reference Range Interpretation Comments Urine pH (test code = 64838-5) 5.5 5-7 [facility] CenterUrine leukocyte esterase detection by alxrnunw4573-78-98 20:30:00* Test Item Value Reference Range Interpretation Comments Urine Leukocyte Esterase (test code = 5799-2) NEGATIVE NEGATIVE [facility] CenterUrine nitrite [id number] 20:30:00* Test Item Value Reference Range Interpretation Comments Urine Nitrite (test code = 38898-5) NEGATIVE NEGATIVE [facility] CenterUrine protein measurement by test strip (mass/volume)2020-04-30 20:30:00* Test Item Value Reference Range Interpretation Comments Urine Protein (test code = 5804-0) 2+ NEGATIVE [facility] CenterUrine glucose opoowxmzh3037-42-92 20:30:00* Test Item Value Reference Range Interpretation Comments Urine Glucose (UA) (test code = 2349-9) NEGATIVE NEGATIVE [facility] CenterUrine ketones detection by automated test [id number] 20:30:00* Test Item Value Reference Range Interpretation Comments Urine Ketones (test code = 57303-2) NEGATIVE NEGATIVE [facility] CenterUrine urobilinogen measurement by test strip (mass/volume)2020-04-30 20:30:00* Test Item Value Reference Range Interpretation Comments Urine Urobilinogen (test code = 06557-4) 0.2 0.2-1 [facility] CenterUrine total bilirubin measurement (mass/volume)2020-04-30 20:30:00* Test Item Value Reference Range Interpretation Comments Urine Bilirubin (test code = 1978-6) NEGATIVE NEGATIVE [facility] CenterUrine erythrocytes cbfcpgkzy0349-94-51 20:30:00* Test Item Value Reference Range Interpretation Comments Urine Blood (test code = 63530-8) 4+ NEGATIVE [facility] CenterAutomated urine sediment leukocyte count by microscopy (number/high power field)2020-04-30 20:30:00* Test Item Value Reference Range Interpretation Comments Urine WBC (test code = 5821-4) 11-20 0-5 [facility] CenterErythrocytes detection in urine sediment by light ixdwywgdqz4134-85-41 20:30:00* Test Item Value Reference Range Interpretation Comments Urine RBC (test code = 27524-2) >50 0-5 [facility] CenterBacteria detection in urine sediment by light [id number] 20:30:00* Test Item Value Reference Range Interpretation Comments Urine Bacteria (test code = 05480-6) MODERATE NONE [facility] CenterEpithelial cells detection in urine sediment by light [id number] 20:30:00* Test Item Value Reference Range Interpretation Comments Urine Epithelial Cells (test code = 58633-6) FEW NONE [facility]um or plasma sodium measurement (moles/volume)2020-04-30 20:30:00* Test Item Value Reference Range Interpretation Comments Sodium Level (test code = 2951-2) 136 136-145 [facility] Campuserum or plasma potassium measurement (moles/volume)2020-04-30 20:30:00* Test Item Value Reference Range Interpretation Comments Potassium Level (test code = 2823-3) 4.0 3.5-5.1 [facility]um or plasma chloride measurement (moles/volume)2020-04-30 20:30:00* Test Item Value Reference Range Interpretation Comments Chloride Level (test code = 2075-0) 105 98-107 [facility]userum or plasma carbon dioxide, total measurement (moles/volume)2020-04-30 20:30:00* Test Item Value Reference Range Interpretation Comments Carbon Dioxide Level (test code = 2028-9) 18 22-29 [facility]userum or plasma anion [id number] 20:30:00* Test Item Value Reference Range Interpretation Comments Anion Gap (test code = 10783-4) 17.0 8-16 [facility]um or plasma urea nitrogen measurement (mass/volume)2020-04-30 20:30:00* Test Item Value Reference Range Interpretation Comments Blood Urea Nitrogen (test code = 3094-0) 16 7-26 [facility] creatinine measurement (mass/volume)2020-04-30 20:30:00* Test Item Value Reference Range Interpretation Comments Creatinine (test code = 2160-0) 0.89 0.72-1.25 [facility] plasma urea nitrogen/creatinine mass ardck8375-70-27 20:30:00* Test Item Value Reference Range Interpretation Comments BUN/Creatinine Ratio (test code = 3097-3) 18 6-25 [facility] CenterEstimated glomerular filtration rate (GFR) iilgawgzyafzk1864-26-55 20:30:00* Test Item Value Reference Range Interpretation Comments Estimat Glomerular Filtration Rate (test code = 993726497) > 60 >60 Ranges were taken from the National Kidney Disease Education Program and the [facility] Kidney Foundation literature.Reference ranges:60 or greater: Lteoen85-45 ( for 3 consecutive months): Chronic kidney disease 15 or less: Kidney failureCarl [facility]. [facility]arn[facility] CenterGlucose gkbfkajdbho0073-92-44 20:30:00* Test Item Value Reference Range Interpretation Comments Glucose Level (test code = NHW4716) 101 74-118 [facility] plasma calcium measurement (mass/volume)2020-04-30 20:30:00* Test Item Value Reference Range Interpretation Comments Calcium Level (test code = 84721-0) 8.6 8.4-10.2 [facility] or plasma total bilirubin measurement (mass/volume)2020-04-30 20:30:00* Test Item Value Reference Range Interpretation Comments Total Bilirubin (test code = 1975-2) 0.2 0.2-1.2 [facility] CenterFluoroscopic procedure less than one hour fpzgznjr1404-60-39 20:30:00* Test Item Value Reference Range Interpretation Comments Aspartate Amino Transf (AST/SGOT) (test code = Aspartate Amino Transf (AST/SGOT)) 27 5-34 [facility] or plasma alanine aminotransferase measurement (enzymatic activity/volume)2020-04-30 20:30:00* Test Item Value Reference Range Interpretation Comments Alanine Aminotransferase (ALT/SGPT) (test code = 1742-6) 27 0-55 [facility] or plasma protein measurement (mass/volume)2020-04-30 20:30:00* Test Item Value Reference Range Interpretation Comments Total Protein (test code = 2885-2) 7.0 6.5-8.1 [facility] or plasma albumin measurement (mass/volume)2020-04-30 20:30:00* Test Item Value Reference Range Interpretation Comments Albumin (test code = 1751-7) 4.6 3.5-5.0 [facility] CenterPlasma globulin measurement (mass/volume) 2020-04-30 20:30:00* Test Item Value Reference Range Interpretation Comments Globulin (test code = 96808-4) 2.4 2.3-3.5 [facility] plasma albumin/globulin mass urqru9053-19-02 20:30:00* Test Item Value Reference Range Interpretation Comments Albumin/Globulin Ratio (test code = 1759-0) 1.9 0.8-2.0 [facility] or plasma alkaline phosphatase measurement (enzymatic activity/volume)2020-04-30 20:30:00* Test Item Value Reference Range Interpretation Comments Alkaline Phosphatase (test code = 6768-6) 78 40-150 [facility] or plasma creatine kinase measurement (enzymatic activity/volume)2020-04-30 20:30:00* Test Item Value Reference Range Interpretation Comments Creatine Kinase (test code = 2157-6) 331 30-200 [facility]2017-04-13 10:51:0013.5 [facility] PctpwyuBCJWLNWGFILV1244-22-48 10:51:75876Thnvkbfd HermannELECTROLYTES 2016-12-05 10:51:008.5[facility] GojmjmsEUQHPFWGXNKX6911-02-26 10:51:0027[facility] SouixieJELNJVWGPIXW7917-49-24 10:51:07326Ncepyndx NrfysayWZOVOKIVIGHA4823-82-22 10:51:000.75[facility] EnzzhjlVSBAJITFQHCO0960-82-49 10:51:008[facility] [place] BKDIDYMQUVHZ8753-32-10 10:51:0099[facility] UibnnutAXCPJFGGGQQI2873-71-65 10:51:00 3.5[facility] OszyqiiIGIZYDDNOONX2222-20-00 10:51:65492Nwlnjexl HermannHEMATOLOGY 2016-12-05 10:51:003.83[facility] ZhvpneqUCAOFKTKQL7705-03-99 10:51:0011.3[facility] RparrjfFQKRLPEJQX4782-12-95 10:51:005.4[facility] VsbydadWEANBLBGUD9012-45-65 10:51:0012.9[facility] PlrbndoIXHGMIPVLP5890-62-18 10:51:00* Test Item Value Reference Range Interpretation Comments MCH (test code = MCH) 29.5 pg 27.0-31.0 [facility] KollrffZOHYMTPXLE5120-70-30 10:51:0034.2[facility] HermannHEMATOLOGY 2016-12-05 10:51:0033.0[facility] JwqzxjkAHBXDMNPEP4400-10-58 10:51:0086.3[facility] UdfidooEJCQWOFUVC9759-74-73 10:51:51176Oyxoztmk HhuclyvHIHLCOVUHC4830-98-60 10:51:009.2[facility] FtscayoWOAOHLEXUU3507-34-87 10:51:000.4[facility] YZDFTCZWAQ3023-50-37 10:51:000.4[facility] IeqzxiaQUZHTEGEJD0277-33-07 10:51:003.4 [facility] HhhgzcsROTPBIDLUR8982-87-20 10:51:001.3[facility] HermannHEMATOLOGY 2016-12-05 10:51:000.2[facility] VpnylrpARKVXTEQKG3243-82-62 10:51:0063.3[facility] IfomiqpOJYKCXEVIA2870-36-38 10:51:008.1[facility] VzyxnmlMTAINMLPGZ5905-60-53 10:51:004.0[facility] OdfawnoZGLBUFLMVA2881-85-60 10:51:0024.2[facility] HermannCHEM MGWES8245-32-96 10:30:81224Hangtyos HermannCHEM UIULG9561-23-59 10:30:008.0 [facility] HermannCHEM HIWLM1414-92-45 10:30:87855Rwlszajo HermannCHEM PANEL 2016-12-04 10:30:0010[facility] HermannCHEM GBXOF2630-92-43 10:30:0099[facility] HermannCHEM FBETF5727-14-93 10:30:0029[facility] HermannCHEM RKWQW6471-44-84 10:30:000.86[facility] HermannCHEM ABYND6366-87-31 10:30:36576Miintvdr HermannCHEM HRGWK1915-62-65 10:30:003.8[facility] HermannCHEM GMFQF3347-86-91 10:30:0013.8 [facility] OzslapfGZFNVQZMGF1179-43-94 10:30:009.2[facility] HermannHEMATOLOGY 2016-12-04 10:30:77681Reccwsoe EmqwyzfFAWDXYINQA5129-22-65 10:30:0013.0[facility] LhmzyfyTMDKMCYSKD7089-23-32 10:30:00* Test Item Value Reference Range Interpretation Comments MCH (test code = MCH) 29.7 pg 27.0-31.0 [facility] CtepffvBAOFVNXVLH0065-79-80 10:30:0034.7[facility] HermannHEMATOLOGY 2016-12-04 10:30:0034.2[facility] GurlehlHBCJVAKSSZ6389-75-55 10:30:0085.6[facility] RixcsjoWSPABTDICS4149-96-21 10:30:0011.9[facility] YcowrhoOFYZXLWNAI0334-42-11 10:30:006.5[facility] SqdyiiwOFOBMTTRCM8295-56-96 10:30:004.00[facility] [place] EEGXFXDDBN7737-16-01 10:30:004.6[facility] PdsafmwMSBZHXXTLJ9182-20-51 10:30:003.5 [facility] UlhfvqsWUMEKPAYRX9411-57-85 10:30:001.2[facility] HermannHEMATOLOGY 2016-12-04 10:30:000.3[facility] LdocwwcWJQRZWQXSF2733-36-76 10:30:007.4[facility] EvivlcmDLOXRNQLLM5595-96-80 10:30:0018.9[facility] EsanxwgQPFGONUSYK8678-49-62 10:30:0069.9[facility] ZaznmfdJDEGSIAMZE4754-00-90 10:30:000.2[facility] [place] JUBHKYSDEW3418-64-46 10:30:000.5[facility] HermannCHEM OQCED5748-12-26 10:05:43772 [facility] HermannCHEM QVTDA2709-20-09 10:05:008.3[facility] HermannCHEM PANEL 2016-12-03 10:05:0083[facility] HermannCHEM NRSFY2955-37-21 10:05:0010[facility] HermannCHEM IDRKT2220-96-89 10:05:67360Uafdjfqj HermannCHEM QWBST4169-57-01 10:05:000.79[facility] HermannCHEM UCPGQ9700-38-35 10:05:48276Rwvyhosc HermannCHEM AFKFM4469-54-63 10:05:003.7[facility] HermannCHEM TOCRE6837-43-52 10:05:0015.7 [facility] HermannCHEM EDYUL2344-83-27 10:05:0025[facility] HermannHEMATOLOGY 2016-12-03 10:05:21388Uwsfdjeq DdqusnrKHIEZPXMMN1276-24-99 10:05:0012.8[facility] KutechaSOASZNEIJK1663-22-66 10:05:009.2[facility] KognprjWIKXUQDDUO7767-39-36 10:05:0086.2[facility] GmndrtvUYLPDYHQRR8509-19-85 10:05:00* Test Item Value Reference Range Interpretation Comments MCH (test code = MCH) 29.3 pg 27.0-31.0 [facility] TbguziwMDFMLIUYHM2319-71-66 10:05:0034.0[facility] HermannHEMATOLOGY 2016-12-03 10:05:007.6[facility] TybsegcYTHBMSLXGS2023-17-10 10:05:0037.4[facility] EkvafouDQFJMZHDGH9860-22-65 10:05:0012.7[facility] JzfvasyOLYHUFSTUQ4294-68-13 10:05:004.34[facility] IujetecTRWQQYSSSK3366-59-29 10:05:002.1[facility] LAMSWYLCBO2658-69-16 10:05:006.1[facility] FcslqtjWAQWGAZWJA3699-62-58 10:05:000.1 [facility] WuoiaguCTJFIMRKTV6761-28-54 10:05:000.5[facility] HermannHEMATOLOGY 2016-12-03 10:05:000.2[facility] TrthtqwJAXDUKMXJU3448-57-20 10:05:0072.0[facility] KtfoyjeQDAZVBNQRA4936-57-40 10:05:0019.7[facility] HsdjmgsNGEXDSOULC5541-93-64 10:05:001.5[facility] RrsjvnjDHKKDJBADI2867-99-08 10:05:005.5[facility] [place] QHIUMPAWFL1168-12-93 21:07:00* Test Item Value Reference Range Interpretation Comments PTT (test code = PTT) 37.1 s 22.9-35.8 [facility] JicnmaiWNUSRKOHSH8223-46-77 21:07:00* Test Item Value Reference Range Interpretation Comments PT (test code = PT) 13.2 s 12.0-14.7 [facility] RegnljoLVSIXXLBNL1778-23-41 21:07:000.98[facility]annURINE AND STOOL 2016-11-25 21:07:006.0[facility]annUR[facility] AND VGKFY9719-86-66 21:07:00Clear (11/25/16 4:07 PM)[facility] ITCKJ4653-83-47 21:07:001.002[facility]UR[facility] AND AIHVZ9161-24-68 21:07:00Negative *NA*(11/25/16 4:07 PM)[facility] WERQK1611-19-11 21:07:00Negative (11/25/16 4:07 PM)[facility] CCGPK6430-53-78 21:07:00Large *ABN*(11/25/16 4:07 PM)[facility] EAEEP7686-08-19 21:07:002[facility]UR[facility] AND STOOL 2016-11-25 21:07:002[facility]UR[facility] AND TESPN4867-41-28 21:07:00Trace *ABN*(11/25/16 4:07 PM)[facility] QVYCQ2120-60-86 00:01:002[facility]UR[facility] AND FZUKJ2023-91-56 00:01:006.0[facility]UR[facility] AND STOOL 2014-11-29 00:01:001.016[facility]UR[facility] EDAST8885-74-29 00:01:00Clear (11/28/14 7:01 PM)[facility] ZKKFX9580-32-08 00:01:00Negative (11/28/14 7:01 PM)[facility] RFUCI4920-00-66 00:01:001[facility] AEZRA6049-51-04 00:01:00Negative *NA*(11/28/14 7:01 PM)[facility] UGISN2544-67-17 00:01:00Negative (11/28/14 7:01 PM)[facility] TKWGD5114-33-38 00:01:00Negative (11/28/14 7:01 PM)[facility] HermannCHEM UPVQH1705-78-77 23:25:0031[facility] HermannCHEM LSBNU4730-00-83 23:25:0076[facility] IvxytxpPIBLCIFIKQLE1895-40-63 23:25:09046Yiigjpky [place] HARQZGNCSNGW8789-95-09 23:25:003.6[facility] QyfrygkHPLDZMLJZREL2198-96-06 23:25:32751Pnbulzje IhlwmenKUBDEUDYDOZI8441-55-89 23:25:0069[facility] [place] DIYHOCSBXYWQ4053-89-66 23:25:0025[facility] YwkcubvOXIAOIIIVHWY8759-23-07 23:25:00 1.3[facility] UdnoebpTNTJZLDAXNHB0294-71-24 23:25:000.3[facility] [place] GLAJSTDQOOLK8300-08-08 23:25:44073Jreqcbha KxnzqciDKLAJURHPCVU2250-21-43 23:25:14639Zcrasfhj GsieblfOLQIOJLORFFZ9581-74-73 23:25:97652Ayvlvtin Michael JXJRRJQRBGAS4863-58-38 23:25:007.7[facility] WxjouvlGJUWGQIFADCD4838-62-62 23:25:008.9[facility] TxylajaPOKXIIUMZNZI1036-41-12 23:25:0019[facility] VWYQJJMLZMIS0265-32-17 23:25:0099[facility] SjzydvfCJNDESQROTXB4845-08-27 23:25:00 3.8[facility] UrhzajyAFHKYWQDGKWY6094-80-53 23:25:003.9[facility] [place] NBWFVPLETLMT5845-87-70 23:25:001.0[facility] ZzqqhilWKFBIWJYFXDK8161-08-85 23:25:0015[facility] XrtdmvwKFADRODBEXIM4209-90-07 23:25:0013.6[facility] ZCREZKBMNG2632-22-87 23:25:008.6[facility] OibugldQBYTTAEWYW3527-15-47 23:25:00 13.2[facility] AixhccaWTHYVLSFNA7373-29-66 23:25:47411Jvqwdokd HermannHEMATOLOGY 2014-11-28 23:25:0033.6[facility] YmyezyoRTELHFUJWU6142-40-69 23:25:00* Test Item Value Reference Range Interpretation Comments MCH (test code = MCH) 29.9 pg 27.0-31.0 [facility] EajjbzcYBGBJEQMUX7089-81-02 23:25:0037.7[facility] HermannHEMATOLOGY 2014-11-28 23:25:0089.0[facility] SphosrpLYKRDIIPXO5624-97-10 23:25:0012.7[facility] KtiupskMSTNKKPDAA5965-00-02 23:25:004.24[facility] NvcddznKRUBBSNDSE7171-37-93 23:25:007.8[facility] SmiwjvdUQWGYPWDBF5670-51-94 23:25:000.2[facility] YBKIQISLXX6393-67-25 23:25:001.2[facility] ZibonfgATTJVUKGWI2565-98-58 23:25:005.9 [facility] UpaghjmBNSBYQNPHQ7992-38-46 23:25:000.3[facility] HermannHEMATOLOGY 2014-11-28 23:25:002.5[facility] QtksqkuQUXBESPYYM3971-29-31 23:25:000.6[facility] AhxcccvTRYUWCJCLU7307-57-44 23:25:007.3[facility] MaqjbdcGDYOXGLPBE1956-47-98 23:25:0015.0[facility] OozulhpYEKCFDMUPR1065-20-03 23:25:0074.9[facility] [place] URINE AND ZLVKQ1329-17-95 03:46:00Negative (11/24/14 10:46 PM)[facility]INE AND XDFPL7900-50-56 03:46:00Large *ABN*(11/24/14 10:46 PM)[facility] [place] URINE AND SRAHG6061-44-07 03:46:00Negative *NA*(11/24/14 10:46 PM)[facility] URINE AND OOVQW5387-89-81 03:46:001[facility]annUR[facility] AND VPHRW4262-86-80 03:46:00Negative (11/24/14 10:46 PM)[facility] WSEYA0277-12-49 03:46:01009Xbbvgbbo HermannURINE AND CMEFF2176-54-03 03:46:005.0[facility] [place] URINE AND PEUZR0262-44-91 03:46:001.020[facility]annUR[facility] AND HXRCJ3039-87-29 03:46:00Marked *ABN*(11/24/14 10:46 PM)[facility] AND CQVVQ9626-81-28 03:46:00Yellow *NA*(11/24/14 10:46 PM)[facility] HermannCHEM LFYAJ4912-67-33 01:21:44747Cwaaztmo HermannCHEM HZSBR6831-51-83 01:21:0041[facility] HermannCHEM KVJKZ7628-85-02 01:21:0018[facility] HermannCHEM PGYVS5356-17-37 01:21:003.9 [facility]annCHEM QTCDW0540-28-70 01:21:001.0[facility] HermannCHEM PANEL 2014-11-25 01:21:0010.7[facility] HermannCHEM WWSYI9136-02-10 01:21:65579Ssnzzauq HermannCHEM GTKVL9538-42-02 01:21:003.7[facility] HermannCHEM UIUBD5813-38-09 01:21:95094Gdmwvima HermannCHEM WFKKQ6692-91-02 01:21:0076[facility] HermannCHEM EFEOG5771-32-47 01:21:000.4[facility] HermannCHEM RXNLV9166-54-32 01:21:17073 [facility]annCHEM YXGEM9936-17-18 01:21:05606Rwlqkxbx HermannCHEM PANEL 2014-11-25 01:21:00101Mkqxqklk HermannCHEM MSFZV0619-07-69 01:21:007.8[facility] HermannCHEM XQSXW4330-57-01 01:21:001.2[facility] HermannCHEM SFJRM3346-31-52 01:21:008.2[facility] HermannCHEM RAECJ0499-44-24 01:21:0022[facility] HermannCHEM SLXKW0722-26-46 01:21:0026[facility] HermannCHEM XODXF1989-81-81 01:21:003.9 [facility]annCHEM SCSHV9788-69-54 01:21:30723Jdcwpeww HermannHEMATOLOGY 2014-11-25 01:21:000.2[facility] YjplejbJUAHNMSRRP4759-10-92 01:21:003.9[facility] HwcxaemVNPUQLOKUC8021-13-94 01:21:001.9[facility] EihmgunFPRFRAHYJC8078-49-48 01:21:000.4[facility] RzljqpxPADCBPJNER7889-72-97 01:21:0029.2[facility] [place] AQWOFTEAIP4147-24-60 01:21:000.3[facility] NvteimmCJGGAXOPZF7892-24-56 01:21:006.2 [facility] DyvdnagUZBGPBYQSZ5901-99-63 01:21:002.8[facility] HermannHEMATOLOGY 2014-11-25 01:21:0061.5[facility] PyccvtzJILYFWMWBC0812-94-75 01:21:0013.2[facility] LhkadikMZVDIWMFTB2527-38-52 01:21:68114Nnryvxcu NqysshgALKHZOQUIN9625-42-86 01:21:008.8[facility] XpngyvrOKXSGKOMIX9575-93-31 01:21:0034.2[facility] ZUVTHDHQOF4940-13-08 01:21:0040.1[facility] LsqziapDQIEGMJKUV4189-11-75 01:21:00 6.4[facility] QeqdhzaNEMKFUHMSV2566-48-16 01:21:004.53[facility] HermannHEMATOLOGY 2014-11-25 01:21:0013.7[facility] LmwomzpPUAZDZHRBG8513-54-83 01:21:0088.4[facility] CuaohseNAEJZFZBPG6522-37-28 01:21:00* Test Item Value Reference Range Interpretation Comments MCH (test code = MCH) 30.2 pg 27.0-31.0 [facility] HermannCHEM CTPVT6892-48-77 14:43:50110Kxgcywic HermannCHEM PANEL 2014-06-23 14:43:06425Rclbfwav HermannCHEM AFQLD4732-68-77 14:43:004.0[facility] HermannCHEM MBZQS9038-26-38 14:43:86804Aappofnq HermannCHEM FKWFU8174-03-43 14:43:0013[facility] HermannCHEM APRLO9624-46-06 14:43:000.9[facility] HermannCHEM EXRCK5437-34-61 14:43:64046Bsyqxrsk HermannCHEM XQGKF4524-82-64 14:43:0025 [facility]annCHEM KLLAP4232-97-13 14:43:008.4[facility] HermannCHEM PANEL 2014-06-23 14:43:0013.0[facility] TrkxmhbTUZKMWDVQF3286-59-49 14:43:0059.5[facility] HhmhlpvYVZZTXLBVK9956-20-86 14:43:000.6[facility] FtffoyzGTXRPEWYNA8637-87-04 14:43:005.8[facility] QykzkwxTLLGXNXXPA6957-35-81 14:43:005.2[facility] [place] WICKERURGK0629-89-31 14:43:000.4[facility] AsqwmcqDLAFESHAII2927-46-02 14:43:000.3 [facility] ArgyhrqUUBTARWXLO5310-11-99 14:43:0028.9[facility] HermannHEMATOLOGY 2014-06-23 14:43:001.9[facility] EkzaizkYENRYQKGWW5953-60-00 14:43:003.9[facility] XawryeiNYUHVTADRR1773-09-51 14:43:0033.6[facility] XgueotbDXZRECRCXI1959-16-61 14:43:95165Unlomsrw IhlipypGARVVLBXEH0683-14-69 14:43:0013.4[facility] [place] WETHORBGDO3432-93-48 14:43:008.5[facility] EkftqgvLUWWNXRYGL7816-68-11 14:43:00* Test Item Value Reference Range Interpretation Comments MCH (test code = MCH) 29.6 pg 27.0-31.0 [facility] SeayoxfRBMOZIXOOT0205-48-31 14:43:0088.2[facility] HermannHEMATOLOGY 2014-06-23 14:43:0042.0[facility] LrrdrsrIMKEHUYMQR6503-29-77 14:43:0014.1[facility] OqbvacpMXUFJTVXRH1280-07-62 14:43:004.76[facility] EmlpegtMKTELMBQZO4429-33-24 14:43:006.5[facility]annURINE AND WQQXJ1808-49-24 13:56:0016[facility] [place] URINE AND ILLRE5853-64-14 13:56:008[facility]UR[facility] AND WTXAB1612-11-28 13:56:00Negative (06/23/14 8:56 AM)[facility] BFTYD1306-84-68 13:56:00Negative (06/23/14 8:56 AM)[facility]UR[facility] AND ANDDR4207-58-37 13:56:005.0[facility]UR[facility] AND PYLBQ5307-87-18 13:56:00Moderate *ABN*(06/23/14 8:56 AM)[facility]UR[facility] AND WJPEG3188-27-18 13:56:00 Negative *NA*(06/23/14 8:56 AM)[facility] AND WZMMT7773-51-97 13:56:001.019[facility]annUR[facility] AND THKEU0782-96-48 13:56:00Marked *ABN*(06/23/14 8:56 AM)[facility] MgzvmynPTCFXISHR2910-15-33 11:14:0072[facility] RisifvwGYRGAUNRE8192-15-79 11:14:56943Xxknequu IvkqcugUURGVLUSE8828-71-89 11:14:004.2[facility] WjdmpfwESNJFZEMF7000-01-75 11:14:89913Zdigimvd [place] LKDGRRMSX5154-94-82 11:14:44441Mqpfxesw MukhjjsOXBHWVZHI4611-25-22 11:14:000.8 [facility] XzhfqwvFQIXZCBZQ3988-34-62 11:14:0082[facility] HermannCHEMISTRY 2013-04-08 11:14:38253Rcjwplpm CzfaldhKGBGUMXTF8680-88-58 11:14:000.7[facility] GnklpurJZEWVMJLU9498-63-79 11:14:0022[facility] AgfnhwmDAPJZMLDR2366-31-34 11:14:007[facility] DzfafggKPWTWSTZZ2850-30-82 11:14:007.9[facility] DJCCKKUES8771-86-41 11:14:006.2[facility] OxyduyyNTMLVOCZM3523-43-07 11:14:002.8 [facility] NagjhviOLXSCDVKB9713-79-15 11:14:72549Dmezfsyh HermannCHEMISTRY 2013-04-08 11:14:03009Mcjudzof ZycsrpwHPPIDGTGU2765-97-75 11:14:000.8[facility] ImsyynfPGOIAMPGN8274-07-70 11:14:0016.2[facility] PvaybfqDOGPMHXGD3557-56-49 11:14:003.4[facility] IabocwwWVDLOTXEJ0853-33-16 11:14:0010[facility] OZGYMZIPNZ9714-75-85 11:14:000.2[facility] FayilfxDHNXHKPTWY1277-11-93 11:14:003.9 [facility] ZymedymKPVGBZHPQN4022-85-59 11:14:006.3[facility] HermannHEMATOLOGY 2013-04-08 11:14:003.0[facility] QgzczycTBWONVNYBP4228-87-53 11:14:0027.9[facility] KohzrvbJYUWABUWRZ0645-63-08 11:14:001.7[facility] KezvmafRJGVGNRCNS5201-52-76 11:14:0062.6[facility] UesyehuLPSSLFZBVO0359-08-51 11:14:000.0[facility] ZYBVAWUSHV8969-26-97 11:14:000.4[facility] XzwosjwSZGHRVNKPM2394-72-06 11:14:000.2 [facility] PhkxcvpJPZNMLALEI7452-72-09 11:14:009.7[facility] HermannHEMATOLOGY 2013-04-08 11:14:0029.3[facility] TwqzttbYXQCTWXLIO2363-34-80 11:14:008.1[facility] UkptvfcIMXHMGVGOZ4092-50-54 11:14:33547Sdbsmkum VcpwnbyOHYKETZROQ2841-23-30 11:14:006.2[facility] UkvmnvaWWEQNCCFFG2811-49-25 11:14:003.32[facility] [place] YCWEPMMMMU9124-72-23 11:14:0088.2[facility] MsxnpurRZORZQTGLA7044-89-81 11:14:00* Test Item Value Reference Range Interpretation Comments MCH (test code = MCH) 29.2 pg 27.0-31.0 N [facility] MbfexvxXHXCUCBQAN4500-22-73 11:14:0013.6[facility]annHEMATOLOGY 2013-04-08 11:14:0033.1[facility] HermannSTOOL MPPZJ7471-88-62 01:45:00Negative (04/07/2013 20:45:00) [facility] GpfouxsYCJEUDONY2752-74-75 10:18:66868Nyuabwfz BoizyqvAQIQAEUBB1365-06-17 10:18:80941Laqshthl DrdoxsdPKLQDZVLC2230-62-80 10:18:003.5[facility] PhganrpSMWCOXVAL1433-41-09 10:18:31154Erafrlto Michael HGJDZGHHA3285-79-89 10:18:52945Awlvnxkw UbsljnmIEQUIKHST9574-35-62 10:18:007.7 [facility] LwvipbjOXOCYLEJI6675-05-47 10:18:0023[facility]annCHEMISTRY 2013-04-07 10:18:009[facility] RcjrjqxLTSSXTEUF0105-33-28 10:18:48018Vhuujnvu VdbalygKSPFOICHQ6661-85-90 10:18:000.8[facility] DrguqgtSAOWPYXSP7678-82-35 10:18:0013.5[facility] DmhaqiaANQQZEBZBO9407-43-04 10:18:39831Xbqkhnmh [place] EWWNTZHXVQ3072-73-79 10:18:0086.9[facility] WqhblafQBHJWWNHHL7498-13-36 10:18:00 33.6[facility] IhwpkveLCMLECPSSL8768-71-22 10:18:0013.8[facility]annHEMATOLOGY 2013-04-07 10:18:00* Test Item Value Reference Range Interpretation Comments MCH (test code = MCH) 29.2 pg 27.0-31.0 N [facility] UszknoaZBOAWNCFQK7021-55-63 10:18:009.3[facility]annHEMATOLOGY 2013-04-07 10:18:0027.5[facility] LtavfldMVITCMRKSL1184-35-02 10:18:003.17[facility] ZefxxwsLTUTZENJDX1980-39-81 10:18:004.4[facility] CdpmnwsZTEAXRIGYI4172-64-59 10:18:008.1[facility] YnxlgziTTFFZAWXKV3397-94-14 10:18:000.1[facility] UEZONYUJYX2471-04-04 10:18:000.0[facility] GhcsntvVOTAORUBDL5467-64-82 10:18:001.2 [facility] OhgcuxlLVWUETKPVF4563-67-39 10:18:002.0[facility]annHEMATOLOGY 2013-04-07 10:18:000.3[facility] VrltiwuULTLSASPEU7904-45-33 10:18:000.3[facility] GnksdoqXOSRJVWFVM1792-41-80 10:18:006.8[facility] CnryeikZIPSASBNOY7858-88-59 10:18:002.8[facility] ZqlxlraDCNCYVENYU3394-18-79 10:18:0027.6[facility] FNCHPBZYDY6930-88-07 10:18:0063.3[facility] ViphxhqRFMKCHYPX0116-52-48 11:48:00 1.410[facility] WswhenzQNHVVJECB1510-69-09 11:48:90345Hawxsueq HermannCHEMISTRY 2013-04-06 11:48:000.7[facility] OrvcpgnWUVWPYCTR1616-39-59 11:48:007[facility] JcdmxvmCSKMYDJQZ2615-74-76 11:48:56572Yrtktqjs YzgedwsSULNPMMNV7265-68-28 11:48:0015.4[facility] CfamulrXCOSUDUNB8014-29-94 11:48:0022[facility] KFATPEDBL7140-33-73 11:48:007.6[facility] HklhfrdAOAYALOTF9797-66-26 11:48:003.4 [facility] AhwwypnTKGPNFVSU8901-68-40 11:48:04477Smhfrdrz HermannCHEMISTRY 2013-04-06 11:48:15007Rwteaieo DuxaivhZFVXVDWRSP4895-78-57 11:48:0030.0[facility] KvoqumlLJLRZIIIGN2410-52-26 11:48:005.0[facility] DvcjcclPSAQDYXXEA8182-90-66 11:48:000.0[facility] SqomfjqVLQRUIEXYM5149-41-14 11:48:0022.0[facility] KXVJTZOFHN2609-50-30 11:48:0043.0[facility] VimzijpZUPUTTYHQZ3161-10-69 11:48:00 0.2[facility] UljwfkxZVHXDHUZKS2633-11-59 11:48:002.2[facility]annHEMATOLOGY 2013-04-06 11:48:000.7[facility] UcjvulrMOIHVWDYBO8025-66-70 11:48:00Normal (04/06/2013 06:48:00) [facility] HhyqutdJGOTRVOOZG8329-45-69 11:48:00Normal (04/06/2013 06:48:00) [facility] SjcmnirINBGDPBHCM5289-29-30 11:48:009.1[facility] XgzctaxGBERXIYPQE6734-59-94 11:48:0033.9[facility] MxbonwkUYPUGJTVUL6961-48-43 11:48:00* Test Item Value Reference Range Interpretation Comments MCH (test code = MCH) 29.4 pg 27.0-31.0 N [facility] KsgpzleEJPYGFSXLX3944-55-19 11:48:003.0[facility]annHEMATOLOGY 2013-04-06 11:48:0013.5[facility] NfwbnzvRPWAOQWEPO5829-53-49 11:48:38202Cxcfhfki XzqxeybBARKZQPUBC8097-08-74 11:48:0086.8[facility] AikexshEKOYYEWRLD4013-11-23 11:48:003.40[facility] ZmvohpxCNFIPPCOXY9594-17-66 11:48:0010.0[facility] JNHXQFTVTX8322-51-41 11:48:0029.5[facility] RtzcbvkHQXZXTZYCR9889-44-98 11:48:00 Negative (04/06/2013 06:48:00) [facility] OwgsklzZNDWJRZCXK9813-68-24 11:48:00Non Reactive (04/06/2013 06:48:00) [facility] TrjrlsnBVVSIODHFW0971-72-15 11:48:00 0.210[facility] LtfupzrHYLRMIDGJF1673-43-70 11:48:00Negative *NA*(04/06/2013 06:48:00) [facility] LxgwzxjMKUQAJQYVP7308-35-32 11:48:000.2[facility] WRDRNIGKRJ3094-93-26 11:48:00<0.2[facility] WpmjcgcXZHGEZYVIP3466-78-21 11:48:00 0.5[facility] SgfbyirJUEPLOGNWL5830-94-71 11:48:00>8.0[facility] HermannMICRO MISC - KHPPXRWD1044-02-59 11:48:0043[facility] HermannVIRAL - GZAABCWA8693-46-07 11:48:000.08[facility] HermannMICRO MISC - CLJKVCYG9124-20-76 10:00:56Negative 3(04/06/2013 05:00:56) [facility] OjorgfzSPZOPDXNP0098-48-60 23:02:004.1[facility] FbvbixwPYTCFKGEL7496-02-82 23:02:11192Jrcfojjg BcvfdkwIXCJMDWMZ2127-75-54 23:02:004.3[facility] MolrfjzRHHFYZVSUM8570-54-14 23:02:000.99[facility] EWXHDBSHCF5087-25-57 23:02:00* Test Item Value Reference Range Interpretation Comments PT (test code = PT) 13.3 s 12.0-14.7 N [facility] JjehpgaTSHVDSJWP2782-23-27 10:30:92947Cqgzxedc HermannCHEMISTRY 2013-04-05 10:30:000.8[facility] JvkqdbsTXGVQTBWB3020-95-52 10:30:003.5[facility] AyffidiPEBQFPLLZ6652-73-54 10:30:0014[facility] PzxinmzXGXFPPZRD8203-07-34 10:30:03565Qezctxwe OkvkbdeABQXORWOH2889-76-76 10:30:001.5[facility] UXWWXPHYB2860-76-60 10:30:86013Uztesnop PoqplqxETVUEHKOK3217-74-53 10:30:51659 [facility] NjlvbnsAETYTWTDZ1877-54-66 10:30:002.9[facility] HermannCHEMISTRY 2013-04-05 10:30:006.4[facility] YfmweiyBCCLRDPSBW4546-19-93 10:30:0055.0[facility] VchloogCYJFRVSDFK5907-77-50 10:30:00Slight (04/05/2013 05:30:00) [facility] FayisifPMNIQURARI6312-74-65 10:30:00* Test Item Value Reference Range Interpretation Comments Tot Cell Ct (test code = Tot Cell Ct) 100 1 [facility] CmwufmxGICYFMXLWF4599-45-48 10:30:00Normal (04/05/2013 05:30:00) [facility] IjxqeuoBIWQCHUNOJ7431-21-48 10:30:001+ *ABN*(04/05/2013 05:30:00) [facility] WxyigvoNDOLFWBLUZ5636-27-45 10:30:001.0[facility] HermannHEMATOLOGY 2013-04-05 10:30:002.0[facility] FmwldejAVLZADKZZR1485-24-54 10:30:001.0[facility] McrnrooCBCPFWOSVL3686-20-78 10:30:000.0[facility] DqavlnoLKARGVHWGF8003-61-88 10:30:00Negative *NA*(04/05/2013 05:30:00) [facility] XyxdcviFPRFEFKXNK9810-24-82 10:30:00Negative *NA*(04/05/2013 05:30:00) [facility] 2013-04-05 10:30:00<1.0[facility] WhnhduvMKOGNNMAAU1318-35-84 10:30:00Negative *NA*(04/05/2013 05:30:00) [facility] IivogkrGHKREXSDUO5247-13-57 10:30:00Negative *NA*(04/05/2013 05:30:00) [facility] RdemfjqXEHHBNHHMS0921-26-93 10:30:00 Negative *NA*(04/05/2013 05:30:00) [facility] JerdhqxHNUPNRENZS7535-11-55 10:30:00<1.3[facility] PattxjcKPIVAJIXX4143-30-00 02:20:001.7[facility] SBCGGTKFZ8886-27-63 23:05:88471Lyyezrtt YtxcsbfDZLRDCQBC0356-23-11 23:05:93048 [facility] TnaxjfvDFYLPTJKW6264-07-91 23:05:003.7[facility]annCHEMISTRY 2013-04-04 23:05:98000Agxquvnx DpxqtacGKMUDUKCH8689-57-02 23:05:007.4[facility] FgyqaxmFJWBHIUZA8420-99-43 23:05:001.6[facility] XwvzjkcCIKCGGNOS4912-69-78 23:05:001.0[facility] FdbxzzuCGEHOUPQK3932-08-35 23:05:003.7[facility] MVXSENTZE0994-08-34 23:05:0014[facility] TtzijjjOYVZHJHAY1513-31-31 23:05:85524 [facility] WqytengVYYMHLGPUQ7124-08-85 23:05:0012.0[facility]annHEMATOLOGY 2013-04-04 23:05:00Normal (04/04/2013 18:05:00) [facility] HermannHEMATOLOGY 2013-04-04 23:05:00Normal (04/04/2013 18:05:00) [facility] HermannHEMATOLOGY 2013-04-04 23:05:000.0[facility] HkidcvdNYBHDTWAFG9495-93-16 23:05:00Negative (04/04/2013 18:05:00) [facility] XrkarecTSJNCAILHF1480-52-14 23:05:00Negative (04/04/2013 18:05:00) [facility] OubhostIEPCNJAOZO9518-64-23 23:05:004.0[facility] PdifaulLNSWDWUQWR1416-35-25 23:05:002[facility] UbsjyfaQOMDPOXOCL9693-59-52 23:05:00Negative (04/04/2013 18:05:00) [facility] EnxooxaZTFJDHTVSD6000-18-87 23:05:001[facility] UlabpodDNTUSBLAJP0817-01-43 23:05:00Negative mg/dL *NA*(04/04/2013 18:05:00) [facility] NzfjyjnDZFSECMZFD9203-49-15 23:05:00Negative mg/dL (04/04/2013 18:05:00) [facility] YvdlhuxUATVTQTYQY6000-94-76 23:05:005.0 [facility] LxqbiqcSLKMIPUBKW0527-46-80 23:05:00Negative mg/dL *NA*(04/04/2013 18:05:00) [facility]OVPRMAATX9148-08-09 23:05:00Negative *NA*(04/04/2013 18:05:00) [facility] CenterPpcxorpEIWEZOWUTT2474-61-53 23:05:001.015[facility] BMUARXKZVE4800-35-55 23:05:00Clear (04/04/2013 18:05:00) Silver Rodriguez
--- NOTE | 2020-05-05 09:30 | Emergency Department Note ---
History of Present Illnes History of Present Illness Chief Complaint: General Medicine Complaints History of Present Illness This is a 44 year old male arrives to the ED with complaints of right foot and toe pain AFTER a trauma. Historian: Patient Arrival Mode: Car Onset (how long ago): day(s) Severity: mild Onset quality: sudden Duration (how long): day(s) Timing of current episode: intermittent Progression: unchanged Chronicity: new Past Medical/Family History Physician Review I have reviewed the patient's past medical and family history. Any updates have been documented here. Past Medical History Recent Fever: No Clinical Suspicion of Infectio: No New/Unexplained Change in Ment: No Past Medical History: Kidney Stones Other Medical History: ACID REFLUX Other Surgery: lithotripsy Social History Smoking Cessation: Current some day smoker Physically hurt or threatened: No Other Last Tetanus: Up to date Review of Systems Review of Systems Constitutional: Reports no symptoms EENTM: Reports no symptoms Cardiovascular: Reports no symptoms Respiratory: Reports no symptoms Gastrointestinal: Reports no symptoms Genitourinary: Reports no symptoms Musculoskeletal: Reports as per HPI Integumentary: Reports no symptoms Neurological: Reports no symptoms Psychological: Reports no symptoms Endocrine: Reports no symptoms Hematological/Lymphatic: Reports no symptoms Physical Exam Related Data Allergies: Coded Allergies: No Known Allergies (Unverified , 06/13/16) Triage Vital Signs Vital Signs Date Time Temp Pulse Resp B/P (MAP) Pulse Ox O2 Delivery O2 Flow Rate FiO2 05/05/20 08:37 98.4 81 15 118/85 97 Room Air Vital signs reviewed: Yes Physical Exam CONSTITUTIONAL Constitutional: Present well-developed, Present well-nourished HENT HENT: Present normocephalic, Present atraumatic, Present oropharynx clear/moist, Present nose normal HENT L/R: Present left ext ear normal, Present right ext ear normal EYES Eyes: Reports PERRL, Reports conjunctivae normal NECK Neck: Present ROM normal PULMONARY Pulmonary: Present effort normal, Present breath sounds normal CARDIOVASCULAR Cardiovascular: Present regular rhythm, Present heart sounds normal, Present capillary refill normal, Present normal rate GASTROINTESTINAL Abdominal: Present soft, Present nontender, Present bowel sounds normal GENITOURINARY Genitourinary: Present exam deferred SKIN Skin: Present warm, Present dry MUSCULOSKELETAL Musculoskeletal: Present tenderness, Present swelling (ecchymosis noted over first great toe), Present other (ecchymo) NEUROLOGICAL Neurological: Present alert, Present oriented x 3, Present no gross motor or se nsory deficits PSYCHOLOGICAL Psychological: Present mood/affect normal, Present judgement normal Results Imaging Imaging results reviewed: Yes Assessment & Plan Medical Decision Making MDM 44-year-old ED with complaints of dorsal foot pain after stubbing his foot/toes. Patient with mild ecchymosis on exam but otherwise neurovascular intact. Patient requested crutches which are getting patient was placed in a orthopedic boot. Patient neurovascular intact time discharge outpatient orthopedic referral given. Patient's pain is well controlled and he was stable for discharge home. Given the patient's x-rays were unremarkable I did recommend nonweightbearing until he follows up with an orthopedist. Assessment & Plan Final Impression: (1) Foot sprain Depart Disposition: HOME, SELF-CARE Last Vital Signs Date Time Temp Pulse Resp B/P (MAP) Pulse Ox O2 Delivery O2 Flow Rate FiO2 05/05/20 08:37 98.4 81 15 118/85 97 Room Air Home Meds Active Scripts Tramadol Hcl (ULTRAM) 50 Mg Tablet, 50 MG PO Q6HR PRN for Mild Pain (1-3) or Fever>100.8, #12 TAB Prov:MILKA PADILLA DO 05/05/20 MILKA PADILLA DO May 05, 2020 09:30
--- NOTE | 2020-05-05 09:35 | NUR ---
Pt received x-rays.
--- NOTE | 2020-05-05 09:35 | Diagnostic Imaging Report ---
EXAMINATION: FOOT RIGHT COMPLETE INDICATION: Foot pain COMPARISON: None FINDINGS: No acute fracture or dislocation. Alignment is anatomic. Soft tissues appear unremarkable. No substantial degenerative change. IMPRESSION: No acute osseous injury of the right foot. Signed by: Nieves Stubbs MD on 05/05/2020 9:31 AM
[2020-05-05] MEDS ORDERED: KETOROLAC TROMETHAMINE 60 MG/2 ML VIAL IM ONE (09:45)
[2020-05-05] MEDS ORDERED: HYDROCODONE/APAP 7.5MG-325MG 1 EA TAB PO PRN (09:45)
--- NOTE | 2020-05-05 09:51 | NUR ---
Pt medicated per EMAR
[2020-05-05 10:40] VITALS: BP 136/82
[2020-05-05] MEDS ORDERED: ULTRAM50 MG PO (10:42)
--- NOTE | 2020-05-05 10:58 | NUR ---
Delay in DC d/t awaiting surgical boot and crutches from Medical Oncologist.
== END 2020-05-05 11:18 | disposition home or self-care (01) ==
LOC: ER 08:55
DX: S93.601A Unspecified sprain of right foot, initial encounter (principal); Y93.61 Activity, american tackle football; K21.9 Gastro-esophageal reflux disease without esophagitis; Z87.442 Personal history of urinary calculi
CPT/HCPCS: 73630; 96372; 99283; J1885

== ENCOUNTER 2020-07-14 05:08 | Emergency (ER) | payer BC ==
[~2020-07-14] VITALS: Ht 167.6 cm; Wt 72.6 kg
[~2020-07-14 05:08] MED LIST: ULTRAM50 MG PO
[2020-07-14] MEDS ORDERED: KETOROLAC TROMETHAMINE 30 MG/ML VIAL IV STA (05:31)
--- NOTE | 2020-07-14 05:35 | Emergency Department Note ---
History of Present Illnes History of Present Illness Chief Complaint: Abdominal Complaints History of Present Illness This is a 44 year old male presents to the ed for l flank pain radiating to llq, pain is intermittent in nature, denies nausea or vomiting. per patient, he has a history of kidney stones. . 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 Any updates have been documented here. Past Medical History Recent Fever: No Clinical Suspicion of Infectio: No New/Unexplained Change in Ment: No Past Medical History: Kidney Stones Other Medical History: ACID REFLUX Other Surgery: lithotripsy Social History Smoking Cessation: Never Smoker Counseling Performed: No Alcohol Use: Occasional Any Illegal Drug Use: No Other Last Tetanus: Up to date Review of Systems Review of Systems Constitutional: Reports no symptoms EENTM: Reports no symptoms Cardiovascular: Reports no symptoms Respiratory: Reports no symptoms Gastrointestinal: Reports as per HPI Genitourinary: Reports no symptoms Musculoskeletal: Reports no symptoms Integumentary: Reports no symptoms Neurological: Reports no symptoms Psychological: Reports no symptoms Endocrine: Reports no symptoms Hematological/Lymphatic: Reports no symptoms Physical Exam Related Data Allergies: Coded Allergies: No Known Allergies (Unverified , 06/13/16) Triage Vital Signs Vital Signs Date Time Temp Pulse Resp B/P (MAP) Pulse Ox O2 Delivery O2 Flow Rate FiO2 07/14/20 05:17 97.9 77 20 128/83 97 Room Air Vital signs reviewed: Yes Physical Exam CONSTITUTIONAL Constitutional: Present well-developed, Present well-nourished; Absent distressed HENT HENT: Present normocephalic, Present atraumatic, Present oropharynx clear/moist, Present nose normal HENT L/R: Present left ext ear normal, Present right ext ear normal EYES Eyes: Reports PERRL, Reports conjunctivae normal NECK Neck: Present ROM normal PULMONARY Pulmonary: Present effort normal, Present breath sounds normal CARDIOVASCULAR Cardiovascular: Present regular rhythm, Present heart sounds normal, Present capillary refill normal, Present normal rate GASTROINTESTINAL Abdominal: Present soft, Present nontender, Present bowel sounds normal; Absent left CVA tenderness, Absent right CVA tenderness GENITOURINARY Genitourinary: Present exam deferred SKIN Skin: Present warm, Present dry MUSCULOSKELETAL Musculoskeletal: Present ROM normal NEUROLOGICAL Neurological: Present alert, Present oriented x 3, Present no gross motor or sensory deficits PSYCHOLOGICAL Psychological: Present mood/affect normal, Present judgement normal Assessment & Plan Medical Decision Making MDM PT WITH LEFT FLANK/LLQ PAIN CBC,CMP, CT ABD/PELVIS, UA ORDERED TO EVAL FOR HEMATURIA, UTI, KIDNEY STONE, DIVERTICULITIS, TORADOL 30 MG IV ORDERED [address] hu with labs and ct scan pending Assessment & Plan Final Impression: (1) Left flank pain Last Vital Signs Date Time Temp Pulse Resp B/P (MAP) Pulse Ox O2 Delivery O2 Flow Rate FiO2 07/14/20 05:17 97.9 77 20 128/83 97 Room Air Home Meds Active Scripts Tramadol Hcl (ULTRAM) 50 Mg Tablet, 50 MG PO Q6HR PRN for Mild Pain (1-3) or Fever>100.8, #12 TAB Prov:MILKA PADILLA DO 05/05/20 TREY DIANA MD Jul 14, 2020 05:35
[2020-07-14 05:38] LABS: BASOPHILS % 0.7 % (0.0-1.0); EOSINOPHILS # (AUTO) 0.2 (0.0-0.4); HEMATOCRIT 39.9 % (38.2-49.6); HEMOGLOBIN 13.3 g/dL (14.0-18.0); LYMPHOCYTES # (AUTO) 1.7 (1.0-3.2); MEAN CORPUSCULAR HEMOGLOBIN 29.7 pg (28-32); MEAN CORPUSCULAR HGB CONC 33.3 g/dL (31-35); MEAN CORPUSCULAR VOLUME 89.1 fL (81-99); MONOCYTES # (AUTO) 0.3 (0.2-0.8); MONOCYTES % 7.2 % (4.4-11.3); NEUTROPHILS # (AUTO) 2.2 (2.1-6.9); NEUTROPHILS % 48.8 % (38.7-80.0); PLATELET COUNT 210 x10e3/uL (140-360); RED BLOOD COUNT 4.48 x10e6/uL (4.3-5.7); RED CELL DISTRIBUTION WIDTH 12.7 % (11.7-14.4)
[2020-07-14 05:53] LABS: CLARITY,URINE SL CLOUDY (CLEAR); COLOR,URINE YELLOW (YELLOW)
[2020-07-14 05:54] LABS: BILIRUBIN,URINE NEGATIVE (NEGATIVE); KETONES,URINE TRACE (NEGATIVE); LEUKOCYTE ESTERASE ,URINE NEGATIVE (NEGATIVE); NITRITE,URINE NEGATIVE (NEGATIVE); PROTEIN,URINE DIPSTICK NEGATIVE (NEGATIVE); URINE UROBILINOGEN 0.2 mg/dL (0.2 - 1)
--- NOTE | 2020-07-14 05:55 | NUR ---
ATTEMPTED TO MEDICATE PATIENT ORDERED BY ED MD, REFUSED MEDICAITON, STATES "I'M NOT IN PAIN RIGHT NOW, I DON'T WANT IT"; PRIMARY RN MADE AWARE.
[2020-07-14 05:56] LABS: BLOOD UREA NITROGEN 17 mg/dL (7-26); BUN/CREATININE RATIO 20 (6-25); CALCIUM 8.4 mg/dL (8.4-10.2); CARBON DIOXIDE 26 mmol/L (22-29); CHLORIDE 109 mmol/L (98-107); CREATININE, SERUM 0.84 mg/dL (0.72-1.25); EST GLOMERULAR FILTRATION RATE > 60 ML/MIN (60-); GLUCOSE 117 mg/dL (74-118); SODIUM 143 mmol/L (136-145)
[2020-07-14 06:14] LABS: BACTERIA,URINE RARE /HPF; EPITHELIAL CELLS,URINE FEW /LPF; RBC,URINE 21-50 /HPF (0-5)
--- NOTE | 2020-07-14 06:45 | Diagnostic Imaging Report ---
EXAM: CT Abdomen and Pelvis WITHOUT contrast INDICATION: LEFT FLANK PAIN COMPARISON: CT dated 04/30/2020 TECHNIQUE: Abdomen and pelvis were scanned utilizing a multidetector helical scanner from the lung base to the pubic symphysis without administration of IV contrast. Absence of intravenous contrast decreases sensitivity for detection of focal lesions and vascular pathology. Coronal and sagittal reformations were obtained. Routine protocol was performed. IV CONTRAST: None ORAL CONTRAST: None COMPLICATIONS: None FINDINGS: LINES and TUBES: None. LOWER THORAX: Unremarkable HEPATOBILIARY: No focal hepatic lesions. No biliary ductal dilation. GALLBLADDER: No radio-opaque stones or sludge. No wall thickening. SPLEEN: No splenomegaly. PANCREAS: No focal masses or ductal dilatation. ADRENALS: No adrenal nodules KIDNEYS/URETERS: No hydronephrosis. No cystic or solid mass lesions. 2 nonobstructive left intrarenal calculi measuring to 5 mm. Mild distention of the left renal pelvis, may represent an extrarenal pelvis. No ureteral calculi. No perinephric stranding. It appears that the stone was that was previously at the ureteropelvic junction has migrated proximally into the renal pelvis. GI TRACT: No abnormal distention, wall thickening, or evidence of bowel obstruction. Appendix is normal. PELVIC ORGANS/BLADDER: Unremarkable. LYMPH NODES: No lymphadenopathy. VESSELS: Unremarkable. PERITONEUM / RETROPERITONEUM: No free air or fluid. BONES: Unremarkable. SOFT TISSUES: Bilateral fat-containing inguinal hernias. IMPRESSION: 1. Two nonobstructive left intrarenal calculi without hydronephrosis. No ureteral calculi. 2. Bilateral fat-containing inguinal hernias. Signed by: Og Mcgraw MD on 07/14/2020 6:42 AM
[2020-07-14] MEDS ORDERED: CEFTRIAXONE SOD 1 GM/NS 50 ML 50 ML IV ONE (07:00)
--- NOTE | 2020-07-14 07:20 | NUR ---
20 gauge IV cath removed from left ac, pt tolerated well
--- OUTSIDE RECORDS SUMMARY | 2020-07-15 09:55 | XMS REPORT | Continuity of Care Document ---
Author Author [employer], MIGUEL Hutton Organization [employer] Address Unknown Phone Unavailable Care Team Providers Care Envelope Maker Name Role Phone [employer] Unavailable Un available Problems Problem Status Onset Date Classification Date Reported Comments Source UNK Active 0 03/03/2017 [facility] STAGHORN CALCULUS Active 11/14/2016 [facility] Discharge Diagnosis: Renal colic 11/28/2014 11/30/2014 [facility] KIDNEY STONES Active 11/28/2014 [facility] PAIN/KIDNEY STONE Active 11/24/2014 [facility] Discharge Diagnosis: Ureterolithiasis 11/24/2014 11/27/2014 [facility] Hyperuricemia (disorder) Active 08/03/2014 Problem 11/25/2019 Data migrated from [email or web address] on 01/21. [facility] Liver function tests abnormal (finding) Active 08/03/2014 Problem 11/25/2019 Data migrated from [employer] on 01/21/15. [facility] Pancytopenia (disorder) Active 08/03/2014 Problem 11/25/2019 Data migrated from [employer] on 01/21. [facility] Discharge Diagnosis: UTI (lower urinary tract infection) 06/23/2014 06/26/2014 [facility] Discharge Diagnosis: Kidney stone 06/23/2014 06/26/2014 [facility] Lower urinary tract infectious disease (disorder) Resolved 06/23/2014 Problem 11/25/2019 [facility] ABDOMINAL PAIN Active 06/23/2014 [facility] Acute cystitis (disorder) Reso lved 11/02/2013 Problem 11/25/2019 Data migrated from [employer] on 03/11. Data migrated from [employer] on 03/10/15. [facility] Backache (finding) Resolved 11/02/2013 Problem 11/25/2019 Data migrated from [employer] on 03/11. Data migrated from [employer] on 03/10/15. [facility] Kidney stone (disorder) Active 11/02/2013 Problem 11/25/2019 Data migrated from [employer] on 01/21. [facility] Epididymitis (disorder) Resolv ed 04/29/2013 Problem 11/25/2019 Data migrated from [employer] on 03/11. Data migrated from [employer] on 03/10/15. [facility] Fever (finding) Resolved 04/29/2013 Problem 11/25/2019 Data migrated from [employer] on 03/10. [facility] Gastroesophageal reflux disease (disorder) Active 04/29/2013 Problem 11/25/2019 Data migrated from [employer] on 01/21/15. [facility] History of - gastrointestinal disease (c ontext-dependent category) Resolved 04/29/2013 Problem 11/25/2019 Data migrated from [employer] on 03/11/15. Data migrated from [employer] on 03/10/15. [facility] LEUKOPENIA, RHABDOMYOLYSIS, MYAGLIAS Active 04/04/2013 [facility] ALLERGIC REACTION Active 04/04/2013 [facility] Constipation (disorder) Active Problem 11/25/2019 Medical [...] calculus (disorder) A ctive Problem 09/2019 [facility] Streptococcal sore throat (disorder) Active Problem 09/2019 [facility] Urine finding (finding) Active Problem 11/25/2019 [facility] Visual impairment (disorder) A ctive Problem 09/2019 [facility] DECREASED WBC COUNT NEC Active [facility] RHABDOMYOLYSIS Active [facility] CALCULUS OF KIDNEY Active [facility] Medications Medication Details Route Status Patient Instructions Ordering Provider Order Date Source ibuprofen 800 mg oral tablet 8 00 mg = 1 tab, PO, Q8H, PRN Pain, Take with food, X 10 day, # 30 tab, 0 Refill(s), Pharmacy: [id number] No Longer Active 09/30/2018 [facility] amoxicillin 500 mg oral capsule 500 mg = 1 cap, PO, TID, X 7 day, # 21 cap, 0 Refill(s), Pharmacy: [id number] No Longer Active 09/30/2018 [facility] potassium citrate 15 MEQ Extended Releas e Tablet [Urocit-K] 15 mEq = 1 tab, PO, TID, # 270 tab, 3 Re fill(s), Pharmacy: [id number] Active 09/22/2018 [facility] potassium citrate PO, Daily, 0 Refill(s) Active 09/22/2018 [facility] naproxen 500 mg oral enteric coated elijah yed-release tablet 500 mg = 1 tab, PO, BID, X 10 day, # 20 tab, 0 Refill(s), Pharmacy: [facility] No Longer Active 10/10/2017 [facility] tadalafil 5 MG Oral Tablet [Cialis] 5 mg = 1 tab, PO, Daily, PRN for erectile dysfunction, X 30 day, # 30 tab, 1 Refill(s), Pharmacy: [facility] No Longer Active 03/04/2017 [facility] ketOROLAC 15 mg/mL injectable solution 4 days. No Longer Active 12/06/2016 [facility] Acetaminophen 325 MG / Hydrocodone Jojo trate 5 MG Oral Tablet [[place] 5/325] Notes: (Same as: [place] 325/5) Do not ex ceed 4gm/day of acetaminophen. No Longer Activ e 12/05/2016 [facility] Dilaudid 0.5 mg, 0.5 mL, Route : IVP, Drug form: INJ, Q4H, Dosing Weight 77.636, kg, PRN Pain Score 7-10, Start date: 12/05/16 15:50:00 CDT, Duration: 30 day, Stop date: 01/04/17 15:49:00 CDT No Longer Active 12/05/2016 [facility] senna 8.6 mg oral tablet 1 tab , Route: PO, Drug Form: TAB, Dosing Weight 77.636, kg, Daily, Start date: 12/05/16 9:00:00 CDT, Duration: 30 day, Stop date: 01/03/17 9:00:00 CDT No Longer Active 12/05/2016 [facility] Docusate Sodium 100 MG Oral Capsule 100 mg = 1 cap, PO, BID, # 40 cap, 0 Refill(s) Active 12/05/2016 [facility] ciprofloxacin 500 mg oral tablet 500 mg = 1 tab, PO, [id number], # 12 tab, 0 Refill(s) No Longer Active 12/05/2016 [facility] Acetaminophen 325 MG / Hydrocodone Jojo trate 5 MG Oral Tablet [[place] 5/325] 1 tab, PO, Q4H, PRN Pain Score 4-6, # 30 tab, 0 Refill(s), given to patient Active 12/05/2016 [facility] tamsulosin 0.4 mg oral capsule 0.4 mg = 1 cap, PO, Q24H, # 40 cap, 0 Refill(s) Active 12/05/2016 [facility] Fleet Enema 12 years, Pediatr ic Dosing No Longer Active 12/05/2016 [facility] Dulcolax Laxative Notes: (Same As: Dulcolax, Bisco-Lax) No Longer Active 12/05/2016 [facility] Docusate Sodium 100 MG Oral Capsule [Colace] 100 mg, 1 cap, Route: PO, BID, Dosing Weight 77.636, kg, Start date: 12/04/16 17:00:00 CDT, Duration: 30 day, Stop date: 01/03/17 9:00:00 CDT Inactive 12/04/2016 [facility] docosanol 100 MG/ML Topical Cream [Abreva] Notes: Same as Abreva No Longer Active 12/04/2016 [facility] Flomax Notes: (Same As: Flomax ) "Do Not Crush" No Longer Active 12/04/2016 [facility] Miralax Notes: Dissolve in 8 o z of water or juice. (Same as: Miralax) Inactive 12/04/2016 [facility] Acetaminophen 325 MG / Hydrocodone Jojo trate 5 MG Oral Tablet [[place] 5/325] Notes: (Same as: [place] 325/5) Do not ex ceed 4gm/day of acetaminophen. No Longer Activ e 12/04/2016 [facility] Orabase Gel-B 20% mucous membrane gel Notes: (Same As: Maximum Strength PM Orajel ) N o Longer Active 12/04/2016 [facility] Tylenol Notes: Do not exceed 4 gm/day. (Same as: Tylenol) No Longer Active 12/03/2016 [facility] Ketorolac 4 days. Inactive 12/03/2016 [facility] tramadol hydrochloride 50 MG Oral Tablet Notes: Not to exceed 400mg/day. (Same As: Ultram) No Longer Active 12/03/2016 [facility] sennosides, RETIREMENT Notes: (Same a s: Senokot) No Longer Active 12/03/2016 [facility] Cipro Notes: May interfere w/e nteral feedings - Take 1 hr before or 2 hrs after antacids, dairy pdt & minerals. On empty stomach. No Longer Active 12/03/2016 [facility] Docusate Notes: (Same as: Cola ce) (Do Not Crush) No Longer Active 12/02/2016 [facility] Acetaminophen 10 MG/ML Injectable Solution Notes: Infuse over 15 minutes Do not exceed 4gm/day of acetaminophen MEDICATION WASTE Product Size: 1000 mg Product Wasted: ___ mg No Longer Active 12/02/2016 [facility] Ondansetron 4 mg, Route: IVP, ONCE, Dosing Weight 72.727, kg, PRN Nausea & Vomiting, Start date: 12/02/16 13:47:00 CDT Inactive 12/02/2016 [facility] Promethazine 6.25 mg, Route: I VPB, ONCE, Dosing Weight 72.727, kg, PRN Nausea & Vomiting, Start date: 12/02/16 13:47:00 CDT Inactive 12/02/2016 [facility] Meperidine 12.5 mg, Route: IVP , Q30Min, Dosing Weight 72.727, kg, PRN Other -See Comment, For shivering, Start date: 12/02/16 13:47:00 CDT, Duration: 2 doses or times, Stop date: Limited # of times Inactive 12/02/2016 [facility] Naloxone 0.4 mg, Route: IVP, Q 2MIN, Dosing Weight 72.727, kg, PRN Narcotic Reversal, Start date: 12/02/16 13:47:00 CDT, Duration: 8 doses or times, Stop date: Limited # of times Inactive 12/02/2016 [facility] Flumazenil 0.2 mg, Route: IVP, PRN, Dosing Weight 72.727, kg, PRN Benzodiazepine Reversal, Initial dose, Start date: 12/02/16 13:47:00 CDT, Duration: 30 day, Stop date: 01/01/17 13:46:00 CDT Inactive 12/02/2016 [facility] Labetalol 10 mg, Route: IVP, Q 5Min, Dosing Weight 72.727, kg, PRN Elevated BP, Start date: 12/02/16 13:47:00 CDT, Duration: 5 doses or times, Stop date: Limited # of times Inactive 12/02/2016 [facility] Hydralazine 10 mg, Route: IVP, Q20Min, Dosing Weight 72.727, kg, PRN Elevated BP, Start date: 12/02/16 13:47:00 CDT, Duration: 2 doses or times, Stop date: Limited # of times Inactive 12/02/2016 [facility] Fentanyl 25 microgram, Route: IVP, Q5Min, Dosing Weight 72.727, kg, PRN Pain Score 4-6, Priority: Routine, Start date: 12/02/16 13:47:00 CDT, Duration: 4 doses or times, Stop date: Limited # of times Inactive 12/02/2016 [facility] Oxycodone 2.5 mg, Route: PO, D rug form: LIQ, Q4H, Dosing Weight 72.727, kg, PRN Pain Score 4-6, Start date: 12/02/16 13:47:00 CDT, Duration: 30 day, Stop date: 01/01/17 13:46:00 CDT Inactive 12/02/2016 [facility] Hydromorphone 0.5 mg, Route: I [employer], Q5Min, Dosing Weight 72.727, kg, PRN Pain Score 7-10, Start date: 12/02/16 13:47:00 CDT, Duration: 4 doses or times, Stop date: Limited # of times Inactive 12/02/2016 [facility] Dilaudid 0.5 mg, 0.5 mL, Route : IVP, Drug form: INJ, Q4H, Dosing Weight 72.727, kg, PRN Pain Score 7-10, Start date: 12/02/16 13:33:00 CDT, Duration: 30 day, Stop date: 01/01/17 13:32:00 CDT No Longer Active 12/02/2016 [facility] tramadol hydrochloride 50 MG Oral Tablet Notes: Not to exceed 400mg/day. (Same As: Ultram) No Longer Active 12/02/2016 [facility] D5NS 1,000 mL 1,000 mL, Rate: 75 ml/hr, Infuse over: 13.3 hr, Route: IV, Dosing Weight 72.727 kg, Total Volume: 1,000, Start date: 12/02/16 13:33:00 CDT, Duration: 30 day, Stop date: 01/01/17 13:32:00 CDT Inactive 12/02/2016 [facility] Hydralazine Notes: (Same as: A presoline) Push over 5 minutes No Longer Active 12/02/2016 [facility] Ondansetron Notes: (Same as: Daisy cruz) MEDICATION WASTE Product Size: 4 mg Product Wasted: ___ mg No Longer Active 12/02/2016 [facility] ondansetron (ANES) Route: IV, Drug form: INJ, ONCE, Stop date: 12/02/16 13:27:00 CDT Inactive 12/02/2016 [facility] famotidine (ANES) Route: IV, D rug form: INJ, ONCE, Stop date: 12/02/16 12:27:00 CDT Inactive 12/02/2016 [facility] lidocaine (ANES) Route: IV, Dr ug form: INJ, ONCE, Stop date: 12/02/16 12:22:00 CDT Inactive 12/02/2016 [facility] propofol (ANES) Route: IV, Rell g form: INJ, ONCE, Stop date: 12/02/16 12:22:00 CDT Inactive 12/02/2016 [facility] rocuronium (ANES) Route: IV, D rug form: INJ, ONCE, Stop date: 12/02/16 12:22:00 CDT Inactive 12/02/2016 [facility] ciprofloxacin (ANES) Route: IV , Drug form: INJ, ONCE, Stop date: 12/02/16 11:57:00 CDT Inactive 12/02/2016 [facility] midazolam (ANES) Route: IV, Dr ug form: SOLN, ONCE, Stop date: 12/02/16 11:57:00 CDT Inactive 12/02/2016 [facility] fentaNYL (ANES) Route: IV, Rell g form: INJ, ONCE, Stop date: 12/02/16 11:57:00 CDT Inactive 12/02/2016 [facility] LR 1000 mL INJ (ANES) Route: I V, Total Volume: 1,000, Start date: 12/02/16 11:07:00 CDT, Stop date: 12/02/16 12:07:00 CDT Inactive 12/02/2016 [facility] gentamicin (ANES) (ANES) Route : IV, Drug form: INJ, Start date: 12/02/16 11:07:00 CDT, Stop date: 12/02/16 12:07:00 CDT Inactive 12/02/2016 [facility] Calcium Chloride 0.0014 MEQ/ML / Potassi um Chloride 0.004 MEQ/ML / Sodium Chloride 0.103 MEQ/ML / Sodium Lactate 0.028 MEQ/ML Injectable Solution 1,000 mL, Rate: 25 ml/hr, Infuse over: 4 0 hr, Route: IV, Dosing Weight 72.727 kg, Total Volume: 1,000, Start date: 12/02/16 9:42:00 CDT, Duration: 30 day, Stop date: 01/01/17 9:41:00 CDT Inactive 12/02/2016 [facility] diclofenac sodium 25 mg oral enteric coa cl[place], delayed-release tablet 25 mg = 1 tab, PO, QID, PRN Pain Score 1 -5, # 20 tab, 0 Refill(s) Active 11/29/2014 [facility] Acetaminophen 325 MG / Hydrocodone Jojo trate 10 MG Oral Tablet 1 tab, PO, Q4H, PRN Pain, # 12 tab, 0 Refill(s) Active 11/29/2014 [facility] ketOROLAC 30 mg/mL injectable solution 30 mg, Route: IVP, Drug form: INJ, ONCE, Dosing Weight 75, kg, Priority: STAT, Start date: 11/28/14 20:37:00, Stop date: 11/28/14 20:37:00 Inactive 11/29/2014 [facility] Dilaudid 1 mg, Route: IVP, ONC E, Dosing Weight 75, kg, Priority: STAT, Start date: 11/28/14 18:32:00, Stop date: 11/28/14 18:32:00 Inactive 11/28/2014 [facility] normal saline 0.9% IV 1,000 mL 1,000 mL, Rate: 1,000 ml/hr, Infuse over: 1 hr, Route: IV, Dosing Weight 75 kg, Total Volume: 1,000, Start date: 11/28/14 18:14:00, Duration: 30 day, Stop date: 12/28/14 18:13:00 No Longer Active 11/28/2014 [facility] Saline Flush 0.9% Notes: (Same as: BD Posiflush) No Longer Active 11/28/2014 [facility] Ondansetron 4 mg, Route: IVP, ONCE, Dosing Weight 75, kg, Priority: STAT, Start date: 11/28/14 18:05:00, Stop date: 11/28/14 18:05:00 Inactive 11/28/2014 [facility] Morphine 4 mg, Route: IVP, ONC E, Dosing Weight 75, kg, Priority: STAT, Start date: 11/28/14 18:05:00, Stop date: 11/28/14 18:05:00 Inactive 11/28/2014 [facility] Tamsulosin hydrochloride 0.4 MG Oral Capsule [Flomax] 0.4 mg = 1 cap, PO, Daily, # 14 cap, 0 Refill(s) Active 11/25/2014 [facility] promethazine 25 mg oral tablet 25 mg, PO, Q4H, PRN Nausea, # 15 tab, 0 Refill(s) Active 11/25/2014 [facility] Acetaminophen 325 MG / Hydrocodone Jojo trate 7.5 MG Oral Tablet [[place] 7.5/325] 1 tab, PO, Q6H, PRN for pain, # 20 tab, 0 Refill(s) Active 11/25/2014 [facility] Morphine 4 mg, Route: IVP, Rell g form: INJ, ONCE, Dosing Weight 72.727, kg, Priority: STAT, Start date: 11/24/14 23:11:00, Stop date: 11/24/14 23:11:00 Inactive 11/25/2014 [facility] Sodium Chloride 0.154 MEQ/ML Injectable Solution 1,000 mL, 1,000 ml/hr, Infuse Over: 1 Hour, Route: IV, ONCE, Priority: STAT, Dosing Weight 72.727 kg, Start date: 11/24/14 21:51:00, Duration: 1 doses or times, Stop date: 11/24/14 21:51:00 Inactive 11/25/2014 [facility] Phenergan 12.5 mg, Route: IVPB , ONCE, Dosing Weight 72.727, kg, Priority: STAT, Start date: 11/24/14 21:34:00, Stop date: 11/24/14 21:34:00 Inactive 11/25/2014 [facility] Dilaudid 1 mg, Route: IVP, ONC E, Dosing Weight 72.727, kg, Priority: STAT, Start date: 11/24/14 20:34:00, Stop date: 11/24/14 20:34:00 Inactive 11/25/2014 [facility] Morphine 4 mg, Route: IVP, ONC E, Dosing Weight 72.727, kg, Priority: STAT, Start date: 11/24/14 20:18:00, Stop date: 11/24/14 20:18:00 Inactive 11/25/2014 [facility] Ondansetron 4 mg, Route: IVP, ONCE, Dosing Weight 72.727, kg, Priority: STAT, Start date: 11/24/14 20:18:00, Stop date: 11/24/14 20:18:00 Inactive 11/25/2014 [facility] Sodium Chloride 0.154 MEQ/ML Injectable Solution 1,000 mL, Infuse Over: 1 hr, Route: IV, ONCE, Priority: STAT, Dosing Weight 72.727 kg, Start date: 11/24/14 20:18:00, Duration: 1 doses or times, Stop date: 11/24/14 20:18:00 Inactive 11/25/2014 [facility] Saline Flush 0.9% Notes: (Same as: BD Posiflush) No Longer Active 11/25/2014 [facility] Ondansetron 4 MG Oral Tablet [Zofran] 4 mg = 1 tab, PO, BID, # 10 tab, 0 Refill(s) Active 06/23/2014 [facility] Acetaminophen 325 MG / tramadol hydrochl oride 37.5 MG Oral Tablet [Ultracet] 1 tab, PO, Q4H, for pain, # 60 tab, 0 Re fill(s) Active 06/23/2014 [facility] Sulfamethoxazole 800 MG / Trimethoprim 1 60 MG Oral Tablet [Bactrim] 1 tab, PO, BID, # 20 tab, 0 Refill(s) Active 06/23/2014 [facility] Ketorolac 30 mg, Route: IVP, O NCE, Dosing Weight 75, kg, Priority: STAT, Start date: 06/23/14 9:27:00, Stop date: 06/23/14 9:27:00 Inactive 06/23/2014 [facility] Ondansetron 4 mg, Route: IVP, ONCE, Dosing Weight 75, kg, Priority: STAT, Start date: 06/23/14 9:27:00, Stop date: 06/23/14 9:27:00 Inactive 06/23/2014 [facility] Sodium Chloride 0.154 MEQ/ML Injectable Solution 1,000 mL, Infuse Over: 1 hr, Route: IV, ONCE, Priority: STAT, Dosing Weight 75 kg, Start date: 06/23/14 9:27:00, Duration: 1 doses or times, Stop date: 06/23/14 9:27:00 Inactive 06/23/2014 [facility] Saline Flush 0.9% 10 mL, Route : IVP, Drug Form: INJ, Dosing Weight 75, kg, PRN, PRN Line Flush, Start date: 06/23/14 9:27:00, Duration: 30 day, Stop date: 07/23/14 8:26:00 Inactive 06/23/2014 [facility] Nexium 40 mg oral delayed release capsule 40 mg, 1 cap, PO, Daily, 30 cap, Substitution Allowed PO Active DeWi tt 04/08/2013 [facility] tramadol 50 mg oral tablet 50 mg, 1 tab, PO, Q6H, PRN, 40 tab, Pain, Substitution Allowed, TAB PO Active 04/08/2013 [facility] Levaquin 500 mg oral tablet 50 0 mg, 1 tab, PO, Q24H, 14 tab, Substitution Allowed PO Active 04/08/2013 [facility] Protonix 40 mg, 1 tab, Route: PO, Drug form: ECTAB, Before Dinner, Start date: 04/07/13 16:30:00, Duration: 30 day, Stop date: 05/06/13 16:30:00 PO No Longer Active 04/07/2013 [facility] potassium chloride 40 mEq, 2 t ab, Route: PO, Drug form: ERTAB, Q4H, Dosing Weight 76.42, kg, Priority: NOW, Start date: 04/07/13 12:32:00, Duration: 2 doses or times, Stop date: 04/07/13 17:00:00 PO No Longer Active 04/07/2013 [facility] nystatin-triamcinolone topical cream 1 appl, Route: TOP, BID, Drug form: CRM, Start date: 04/07/13 9:00:00, Duration: 30 day, Stop date: 05/06/13 17:00:00 TOP No Longer Active Shebib 04/07/2013 [facility] phenol topical 1.4% spray 1 sp ray, Route: MUCOUS MEM, Q3H, Drug form: SPRY, PRN Sore Throat, Start date: 04/06/13 8:01:00, Duration: 30 day, Stop date: 05/06/13 8:00:00 MUCOUS MEM No Longer Active 04/06/2013 [facility] Cepacol Dual Relief Sore Throat [place] 5% topical spra y Route: TOP, Dosing Weight 76.42, kg, Q3H, PRN Pain Score 1-3, Start date: 04/06/13 7:30:00, Duration: 30 day, Stop date: 05/06/13 7:29:00 TOP No Longer Active 04/06/2013 [facility] Invanz + Sodium Chloride 0.9% IV 100 mL 1 gm, Route: IVPB, [id number], Dosing Weight 76.42, kg, Start date: 04/05/13 20:00:00, Duration: 30 day, Stop date: 05/04/13 20:00:00 IVPB No Longer Active Shebib 04/06/2013 [facility] Zithromax + Sodium Chloride 0.9% IV 250 mL 500 mg, Route: IVPB, Daily, Dosing Weight 76.42, kg, Start date: 04/05/13 18:00:00, Duration: 30 day, Stop date: 05/04/13 18:00:00 IVPB No Longer Active Shebib 04/05/2013 [facility] Benadryl 25 mg, 1 tab, Route: PO, Drug form: TAB, Q4H, Dosing Weight 76.42, kg, PRN as needed for itching, Start date: 04/05/13 11:03:00, Duration: 30 day, Stop date: 05/05/13 11:02:00 PO No Longer Active Renae 04/05/2013 [facility] potassium chloride 40 mEq, 2 t ab, Route: PO, Drug form: ERTAB, Q4H, Dosing Weight 76.42, kg, Priority: NOW, Start date: 04/05/13 7:50:00, Duration: 2 doses or times, Stop date: 04/05/13 8:00:00 PO No Longer Active Renae 04/05/2013 [facility] Tylenol 650 mg, 2 tab, Route: PO, Drug form: TAB, Q6H, Dosing Weight 76.42, kg, PRN Pain/Fever, Start date: 04/05/13 5:19:00, Duration: 30 day, Stop date: 05/05/13 5:18:00, PRN for Fever and pain. PO No Longer Active 04/05/2013 [facility] Tylenol 650 mg, 20.3 mL, Route : PO, Drug form: LIQ, Q6H, Dosing Weight 76.42, kg, PRN Pain/Fever, Start date: 04/05/13 5:00:00, Duration: 30 day, Stop date: 05/05/13 4:59:00, PRN for Fever and pain. PO No Longer Active 03/25 [facility] NS 1,000 mL 1,000 mL, Rate: 12 5 ml/hr, Infuse over: 8 hr, Route: IV, Dosing Weight 76.42 kg, Total Volume: 1,000, Start date: 04/05/13 4:59:00, Duration: 30 day, Stop date: 05/05/13 4:58:00 IV No Longer Active [place] 04/05/2013 [facility] ondansetron 4 mg, 2 mL, Route: IVP, Drug form: INJ, Q8H, Dosing Weight 76.364, kg, PRN Nausea & Vomiting, Start date: 04/04/13 21:19:00, Duration: 30 day, Stop date: 05/04/13 21:18:00 IVP No Longer Active [place] 04/05/2013 [facility] morphine Sulfate 2 mg, 1 mL, R oute: IVP, Drug form: INJ, Q3H, Dosing Weight 76.364, kg, PRN Pain Score 4-6, Start date: 04/04/13 21:19:00, Duration: 30 day, Stop date: 05/04/13 21:18:00 IVP No Longer Active [place] 04/05/2013 [facility] Sodium Chloride 0.9% (Bolus) IV 1,000 mL 1,000 mL, Rate: 1,000 ml/hr, Infuse over: 1 hr, Route: IV, Dosing Weight 76.364 kg, Total Volume: 1,000, Priority: STAT, Start date: 04/04/13 20:03:00, Duration: 1 doses or times, Stop date: 04/04/13 21:02:00, Bolus DoseBolus Dose IV No Longer Active [facility] 04/05/2013 [facility] [place] 10/325 oral tablet 1 tab , Route: PO, Drug Form: TAB, Dosing Weight 76.364, kg, ONCE, Start date: 04/04/13 18:05:00, Stop date: 04/04/13 18:05:00 PO No Longer Active [facility] 04/04/2013 [facility] Sodium Chloride 0.9% (Bolus) IV 1,000 mL 1,000 mL, Rate: 1,000 ml/hr, Infuse over: 1 hr, Route: IV, Dosing Weight 76.364 kg, Total Volume: 1,000, Priority: STAT, Start date: 04/04/13 18:04:00, Duration: 1 doses or times, Stop date: 04/04/13 19:03:00, Bolus DoseBolus Dose IV No Longer Active [facility] 04/04/2013 [facility] Allergies, Adverse Reactions, Alerts Substance Category Reaction Severity Reaction type Status Date Reported Comments Source No Known Medication Allergies Assertion Drug aller [facility] Immunizations No Data Provided for This Section Results Order Name Results Value Reference Range Date Interpretation Comments Source ELECTROLYTES AGAP 13.5 10.0 - 20.0 12/05/2016 [facility] ELECTROLYTES eGFR 114 12/05/2016 Result Comment: [...] should be multiplied by the estimated BMI. [facility] ELECTROLYTES Calcium Lvl 8.5 8.5 - 10.5 12/05/2016 [facility] ELECTROLYTES CO2 27 24 - 32 12/05/2016 [facility] ELECTROLYTES Chloride Lvl 103 95 - 109 12/05/2016 [facility] ELECTROLYTES Creatinine Lvl 0.7 5 0.50 - 1.40 12/05/2016 [facility] ELECTROLYTES BUN 8 7 - 22 12/05/2016 [facility] ELECTROLYTES Glucose Lvl 99 70 - 99 12/05/2016 [facility] ELECTROLYTES Potassium Lvl 3.5 3.5 - 5.1 12/05/2016 [facility] ELECTROLYTES Sodium Lvl 140 135 - 145 12/05/2016 [facility] HEMATOLOGY RBC 3.83 4.70 - 6.10 12/05/2016 [facility] HEMATOLOGY Hgb 11.3 14.0 - 18.0 12/05/2016 [facility] WBC 5.4 3.7 - 10.4 12/05/2016 [facility] RDW 12.9 11.5 - 14.5 12/05/2016 [facility] MCH 29.5 27.0 - 31.0 12/05/2016 [facility] MCHC 34.2 32.0 - 36.0 12/05/2016 [facility] Hct 33.0 42.0 - 54.0 12/05/2016 [facility] MCV 86.3 80.0 - 94.0 12/05/2016 [facility] Platelet 165 133 - 450 12/05/2016 [facility] MPV 9.2 7.4 - 10.4 12/05/2016 [facility] Monocytes # 0.4 0.0 - 0.8 12/05/2016 [facility] HEMATOLOGY Basophils 0.4 0.0 - 1.0 12/05/2016 [facility] Segs-Bands # 3.4 1.5 - 8.1 12/05/2016 [facility] Lymphocytes # 1.3 1.0 - 5.5 12/05/2016 [facility] Eosinophils # 0.2 0.0 - 0.5 12/05/2016 [facility] Segs 63.3 45.0 - 75.0 12/05/2016 [facility] Monocytes 8.1 2.0 - 12.0 12/05/2016 [facility] Eosinophils 4.0 0.0 - 4.0 12/05/2016 [facility] Lymphocytes 24.2 20.0 - 40.0 12/05/2016 [facility] CHEM PANEL eGFR 108 12/04/2016 Result [...] should be multiplied by the estimated BMI. [facility] CHEM PANEL Calcium Lvl 8.0 8.5 - 10.5 12/04/2016 [facility] CHEM PANEL Glucose Lvl 103 70 - 99 12/04/2016 [facility] CHEM PANEL BUN 10 7 - 22 12/04/2016 [facility] CHEM PANEL Chloride Lvl 99 95 - 109 12/04/2016 [facility] CHEM PANEL CO2 29 24 - 32 12/04/2016 [facility] CHEM PANEL Creatinine Lvl 0.86 0.50 - 1.40 12/04/2016 [facility] CHEM PANEL Sodium Lvl 138 135 - 145 12/04/2016 [facility] CHEM PANEL Potassium Lvl 3.8 3.5 - 5.1 12/04/2016 [facility] CHEM PANEL AGAP 13.8 10.0 - 20.0 12/04/2016 [facility] HEMATOLOGY MPV 9.2 7.4 - 10.4 12/04/2016 [facility] HEMATOLOGY Platelet 158 133 - 450 12/04/2016 [facility] HEMATOLOGY RDW 13.0 11.5 - 14.5 12/04/2016 [facility] HEMATOLOGY MCH 29.7 27.0 - 31.0 12/04/2016 [facility] MCHC 34.7 32.0 - 36.0 12/04/2016 [facility] HEMATOLOGY Hct 34.2 42.0 - 54.0 12/04/2016 [facility] HEMATOLOGY MCV 85.6 80.0 - 94.0 12/04/2016 [facility] HEMATOLOGY Hgb 11.9 14.0 - 18.0 12/04/2016 [facility] HEMATOLOGY WBC 6.5 3.7 - 10.4 12/04/2016 [facility] HEMATOLOGY RBC 4.00 4.70 - 6.10 12/04/2016 [facility] HEMATOLOGY Segs-Bands # 4.6 1.5 - 8.1 12/04/2016 [facility] HEMATOLOGY Eosinophils 3.5 0.0 - 4.0 12/04/2016 [facility] HEMATOLOGY Lymphocytes # 1.2 1.0 - 5.5 12/04/2016 [facility] HEMATOLOGY Basophils 0.3 0.0 - 1.0 12/04/2016 [facility] HEMATOLOGY Monocytes 7.4 2.0 - 12.0 12/04/2016 [facility] HEMATOLOGY Lymphocytes 18.9 20.0 - 40.0 12/04/2016 [facility] HEMATOLOGY Segs 69.9 45.0 - 75.0 12/04/2016 [facility] HEMATOLOGY Eosinophils # 0.2 0.0 - 0.5 12/04/2016 [facility] HEMATOLOGY Monocytes # 0.5 0.0 - 0.8 12/04/2016 [facility] CHEM PANEL eGFR 112 12/03/2016 Result [...] should be multiplied by the estimated BMI. [facility] CHEM PANEL Calcium Lvl 8.3 8.5 - 10.5 12/03/2016 [facility] CHEM PANEL Glucose Lvl 83 70 - 99 12/03/2016 [facility] CHEM PANEL BUN 10 7 - 22 12/03/2016 [facility] CHEM PANEL Sodium Lvl 141 135 - 145 12/03/2016 [facility] CHEM PANEL Creatinine Lvl 0.79 0.50 - 1.40 12/03/2016 [facility] CHEM PANEL Chloride Lvl 104 95 - 109 12/03/2016 [facility] CHEM PANEL Potassium Lvl 3.7 3.5 - 5.1 12/03/2016 [facility] CHEM PANEL AGAP 15.7 10.0 - 20.0 12/03/2016 [facility] CHEM PANEL CO2 25 24 - 32 12/03/2016 [facility] HEMATOLOGY Platelet 189 133 - 450 12/03/2016 [facility] HEMATOLOGY RDW 12.8 11.5 - 14.5 12/03/2016 [facility] HEMATOLOGY MPV 9.2 7.4 - 10.4 12/03/2016 [facility] HEMATOLOGY MCV 86.2 80.0 - 94.0 12/03/2016 [facility] MCH 29.3 27.0 - 31.0 12/03/2016 [facility] MCHC 34.0 32.0 - 36.0 12/03/2016 [facility] WBC 7.6 3.7 - 10.4 12/03/2016 [facility] Hct 37.4 42.0 - 54.0 12/03/2016 [facility] HEMATOLOGY Hgb 12.7 14.0 - 18.0 12/03/2016 [facility] HEMATOLOGY RBC 4.34 4.70 - 6.10 12/03/2016 [facility] HEMATOLOGY Eosinophils 2.1 0.0 - 4.0 12/03/2016 [facility] HEMATOLOGY Monocytes 6.1 2.0 - 12.0 12/03/2016 [facility] HEMATOLOGY Basophils 0.1 0.0 - 1.0 12/03/2016 [facility] HEMATOLOGY Monocytes # 0.5 0.0 - 0.8 12/03/2016 [facility] HEMATOLOGY Eosinophils # 0.2 0.0 - 0.5 12/03/2016 [facility] HEMATOLOGY Segs 72.0 45.0 - 75.0 12/03/2016 [facility] HEMATOLOGY Lymphocytes 19.7 20.0 - 40.0 12/03/2016 [facility] HEMATOLOGY Lymphocytes # 1.5 1.0 - 5.5 12/03/2016 [facility] HEMATOLOGY Segs-Bands # 5.5 1.5 - 8.1 12/03/2016 [facility] HEMATOLOGY PTT 37.1 22.9 - 35.8 11/25/2016 [facility] HEMATOLOGY PT 13.2 12.0 - 14.7 11/25/2016 [facility] HEMATOLOGY INR 0.98 0.85 - 1.17 11/25/2016 [facility] URINE AND STOOL UA Color Colorless 11/25/2016 [facility] URINE AND STOOL UA Urobilinogen <=1.0 mg/dL 0.1 - 1.0 11/25/2016 [facility] URINE AND STOOL UA Ketones Negative mg/dL Negative mg/dL 11/25/2016 [facility] URINE AND STOOL UA Glucose Negative mg/dL Negative mg/dL 11/25/2016 [facility] [address] URINE AND STOOL UA pH 6.0 5.0 - 8.0 11/25/2016 [facility] URINE AND STOOL UA Turbidity Clear (11/25/16 4:07 PM) Clear 11/25/2016 [facility] URINE AND STOOL UA Spec Grav 1.002 <=1.030 11/25/2016 [facility] URINE AND STOOL UA Bili Negative *NA* (11/25/16 4:07 PM) Negative 11/25/2016 [facility] URINE AND STOOL UA Sq Epi Occasional /LPF Few /LPF 11/25/2016 [facility] URINE AND STOOL UA Protein Negative mg/dL Negative mg/dL 11/25/[address] [facility] [address] URINE AND STOOL UA Nitrite Negative (11/25/16 4:07 PM) Negative 11/25/2016 [facility] URINE AND STOOL UA Blood Large *ABN* (11/25/16 4:07 PM) Negative 11/25/2016 [facility] URINE AND STOOL UA Bacteria Occasional /HPF None Seen /HPF 11/25/2016 [facility] URINE AND STOOL UA RBC 2 0 - 2 11/25/2016 [facility] URINE AND STOOL UA WBC 2 0 - 5 11/25/2016 [facility] URINE AND STOOL UA Leuk Est Trace *ABN* (11/25/16 4:07 PM) Negative 11/25/2016 [facility] URINE AND STOOL UA RBC 2 0 - 2 11/29/2014 [facility] URINE AND STOOL UA Urobilinogen <=1.0 mg/dL 0.1 - 1.0 11/29/2014 [facility] URINE AND STOOL UA Color Ltyellow 11/29/2014 [facility] URINE AND STOOL UA pH 6.0 5.0 - 8.0 11/29/2014 [facility] URINE AND STOOL UA Spec Grav 1.016 <=1.030 11/29/2014 [facility] URINE AND STOOL UA Turbidity Clear (11/28/14 7:01 PM) Clear 11/29/2014 [facility] URINE AND STOOL UA Glucose Negative mg/dL Negative mg/dL 11/29/2014 [facility] URINE AND STOOL UA Protein Negative mg/dL Negative mg/dL 11/29/2014 [facility] URINE AND STOOL UA Leuk Est Negative (11/28/14 7:01 PM) Negative 11/29/2014 [facility] URINE AND STOOL UA Sq Epi Occasional /LPF Few /LPF 11/29/2014 [facility] URINE AND STOOL UA WBC 1 0 - 5 11/29/2014 [facility] URINE AND STOOL UA Bili Negative *NA* (11/28/14 7:01 PM) Negative 11/29/2014 [facility] URINE AND STOOL UA Ketones Negative mg/dL Negative mg/dL 11/29/2014 [facility] URINE AND STOOL UA Nitrite Negative (11/28/14 7:01 PM) Negative 11/29/2014 [facility] URINE AND STOOL UA Blood Negative (11/28/14 7:01 PM) Negative 11/29/2014 [facility] CHEM PANEL Amylase Lvl 31 25 - 115 11/28/2014 [facility] CHEM PANEL Lipase Lvl 76 73 - 393 11/28/2014 [facility] ELECTROLYTES Chloride Lvl 103 95 - 109 11/28/2014 [facility] ELECTROLYTES Potassium Lvl 3.6 3.5 - 5.1 11/28/2014 [facility] ELECTROLYTES Sodium Lvl 138 135 - 145 11/28/2014 [facility] ELECTROLYTES eGFR 69 11/28/2014 <sup>1</sup>Result Comment: [...] should be multiplied by the estimated BMI. [facility] ELECTROLYTES CO2 25 24 - 32 11/28/2014 [facility] ELECTROLYTES Creatinine Lvl 1.3 0.5 - 1.4 11/28/2014 [facility] ELECTROLYTES Bili Total 0.3 0.2 - 1.3 11/28/2014 [facility] ELECTROLYTES ALT 248 0 - 65 11/28/2014 [facility] ELECTROLYTES Alk Phos 153 39 - 136 11/28/2014 [facility] ELECTROLYTES AST 117 0 - 37 11/28/2014 [facility] ELECTROLYTES Total Protein 7.7 6.4 - 8.4 11/28/2014 [facility] ELECTROLYTES Calcium Lvl 8.9 8.5 - 10.5 11/28/2014 [facility] ELECTROLYTES BUN 19 7 - 22 11/28/2014 [facility] ELECTROLYTES Glucose Lvl 99 70 - 99 11/28/2014 <sup>2</sup>Interpretive Data: Adult ref erence range values reflect the clinical guidelines
of the [place] [employer]. [facility] ELECTROLYTES Albumin Lvl 3.8 3.5 - 5.0 11/28/2014 [facility] ELECTROLYTES Globulin 3.9 2.0 - 4.0 11/28/2014 [facility] ELECTROLYTES A/G Ratio 1.0 0.7 - 1.6 11/28/2014 [facility] ELECTROLYTES B/C Ratio 15 6 - 25 11/28/2014 [facility] ELECTROLYTES AGAP 13.6 10.0 - 20.0 11/28/2014 [facility] HEMATOLOGY MPV 8.6 7.4 - 10.4 11/28/2014 [facility] RDW 13.2 11.5 - 14.5 11/28/2014 [facility] Platelet 236 133 - 450 11/28/2014 [facility] MCHC 33.6 32.0 - 36.0 11/28/2014 [facility] MCH 29.9 27.0 - 31.0 11/28/2014 [facility] Hct 37.7 42.0 - 54.0 11/28/2014 [facility] MCV 89.0 80.0 - 94.0 11/28/2014 [facility] Hgb 12.7 14.0 - 18.0 11/28/2014 [facility] RBC 4.24 4.70 - 6.10 11/28/2014 [facility] WBC 7.8 3.7 - 10.4 11/28/2014 [facility] Eosinophils # 0.2 0.0 - 0.5 11/28/2014 [facility] HEMATOLOGY Lymphocytes # 1.2 1.0 - 5.5 11/28/2014 [facility] Segs-Bands # 5.9 1.5 - 8.1 11/28/2014 [facility] Basophils 0.3 0.0 - 1.0 11/28/2014 [facility] Eosinophils 2.5 0.0 - 4.0 11/28/2014 [facility] Monocytes # 0.6 0.0 - 0.8 11/28/2014 [facility] Monocytes 7.3 2.0 - 12.0 11/28/2014 [facility] Lymphocytes 15.0 20.0 - 40.0 11/28/2014 [facility] Segs 74.9 45.0 - 75.0 11/28/2014 [facility] URINE AND STOOL UA Mucus Few /LPF None Seen /LPF 11/25/2014 [facility] URINE AND STOOL UA Uric Ac Megan Few /HPF None Seen /HPF 11/25/[address] [facility] URINE AND STOOL UA Urobilinogen <=1.0 mg/dL 0.1 - 1.0 11/25/2014 [facility] [address] URINE AND STOOL UA Sq Epi None Seen 11/25/2014 [facility] URINE AND STOOL UA Nitrite Negative (11/24/14 10:46 PM) Negative 11/25/2014 [facility] URINE AND STOOL UA Blood Large *ABN* (11/24/14 10:46 PM) Negative 11/25/2014 [facility] URINE AND STOOL UA Bili Negative *NA* (11/24/14 10:46 PM) Negative 11/25/2014 [facility] URINE AND STOOL UA Glucose Negative mg/dL Negative mg/dL 11/25/[address] [facility] URINE AND STOOL UA Protein Negative mg/dL Negative mg/dL 11/25/[address] [facility] URINE AND STOOL UA Bacteria Occasional /HPF None Seen /HPF 11/25/[address] [facility] URINE AND STOOL UA Ketones Negative mg/dL Negative mg/dL 11/25/[address] [facility] [address] URINE AND STOOL UA WBC 1 0 - 5 11/25/2014 [facility] URINE AND STOOL UA Leuk Est Negative (11/24/14 10:46 PM) Negative 11/25/2014 [facility] URINE AND STOOL UA RBC 142 0 - 2 11/25/2014 [facility] URINE AND STOOL UA pH 5.0 5.0 - 8.0 11/25/2014 [facility] URINE AND STOOL UA Spec Grav 1.020 <=1.030 11/25/2014 [facility] URINE AND STOOL UA Turbidity Marked *ABN* (11/24/14 10:46 PM) Clear 11/25/2014 [facility] URINE AND STOOL UA Color Yellow *NA* (11/24/14 10:46 PM) Yellow 11/25/2014 [facility] CHEM PANEL Lipase Lvl 131 73 - 393 11/25/2014 [facility] CHEM PANEL Amylase Lvl 41 25 - 115 11/25/2014 [facility] CHEM PANEL B/C Ratio 18 6 - 25 11/25/2014 [facility] CHEM PANEL Globulin 3.9 2.0 - 4.0 11/25/2014 [facility] CHEM PANEL A/G Ratio 1.0 0.7 - 1.6 11/25/2014 [facility] CHEM PANEL AGAP 10.7 10.0 - 20.0 11/25/2014 [facility] CHEM PANEL Chloride Lvl 104 95 - 109 11/25/2014 [facility] CHEM PANEL Potassium Lvl 3.7 3.5 - 5.1 11/25/2014 [facility] CHEM PANEL Sodium Lvl 137 135 - 145 11/25/2014 [facility] CHEM PANEL eGFR 76 11/25/2014 <sup>1</sup>Result [...] should be multiplied by the estimated BMI. [facility] CHEM PANEL Bili Total 0.4 0.2 - 1.3 11/25/2014 [facility] CHEM PANEL Alk Phos 118 39 - 136 11/25/2014 [facility] CHEM PANEL ALT 121 0 - 65 11/25/2014 [facility] CHEM PANEL AST 179 0 - 37 11/25/2014 [facility] CHEM PANEL Total Protein 7.8 6.4 - 8.4 11/25/2014 [facility] CHEM PANEL Creatinine Lvl 1.2 0.5 - 1.4 11/25/2014 [facility] CHEM PANEL Calcium Lvl 8.2 8.5 - 10.5 11/25/2014 [facility] CHEM PANEL BUN 22 7 - 22 11/25/2014 [facility] CHEM PANEL CO2 26 24 - 32 11/25/2014 [facility] CHEM PANEL Albumin Lvl 3.9 3.5 - 5.0 11/25/2014 [facility] CHEM PANEL Glucose Lvl 116 70 - 99 11/25/2014 <sup>2</sup>Interpretive Data: Adult ref erence range values reflect the clinical guidelines
of the [place] [employer]. [facility] HEMATOLOGY Eosinophils # 0.2 0.0 - 0.5 11/25/2014 [facility] HEMATOLOGY Segs-Bands # 3.9 1.5 - 8.1 11/25/2014 [facility] HEMATOLOGY Lymphocytes # 1.9 1.0 - 5.5 11/25/2014 [facility] Monocytes # 0.4 0.0 - 0.8 11/25/2014 [facility] Lymphocytes 29.2 20.0 - 40.0 11/25/2014 [facility] HEMATOLOGY Basophils 0.3 0.0 - 1.0 11/25/2014 [facility] Monocytes 6.2 2.0 - 12.0 11/25/2014 [facility] HEMATOLOGY Eosinophils 2.8 0.0 - 4.0 11/25/2014 [facility] Segs 61.5 45.0 - 75.0 11/25/2014 [facility] RDW 13.2 11.5 - 14.5 11/25/2014 [facility] Platelet 212 133 - 450 11/25/2014 [facility] MPV 8.8 7.4 - 10.4 11/25/2014 [facility] MCHC 34.2 32.0 - 36.0 11/25/2014 [facility] Hct 40.1 42.0 - 54.0 11/25/2014 [facility] WBC 6.4 3.7 - 10.4 11/25/2014 [facility] RBC 4.53 4.70 - 6.10 11/25/2014 [facility] Hgb 13.7 14.0 - 18.0 11/25/2014 [facility] MCV 88.4 80.0 - 94.0 11/25/2014 [facility] MCH 30.2 27.0 - 31.0 11/25/2014 [facility] CHEM PANEL eGFR 108 06/23/2014 <sup>1</sup>Result [...] should be multiplied by the estimated BMI. [facility] CHEM PANEL Glucose Lvl 113 70 - 99 06/23/2014 <sup>2</sup>Interpretive Data: Adult ref erence range values reflect the clinical guidelines
of the [place] [employer]. [facility] CHEM PANEL Potassium Lvl 4.0 3.5 - 5.1 06/23/2014 [facility] CHEM PANEL Sodium Lvl 141 135 - 145 06/23/2014 [facility] CHEM PANEL BUN 13 7 - 22 06/23/2014 [facility] CHEM PANEL Creatinine Lvl 0.9 0.5 - 1.4 06/23/2014 [facility] CHEM PANEL Chloride Lvl 107 95 - 109 06/23/2014 [facility] CHEM PANEL CO2 25 24 - 32 06/23/2014 [facility] CHEM PANEL Calcium Lvl 8.4 8.5 - 10.5 06/23/2014 [facility] CHEM PANEL AGAP 13.0 10.0 - 20.0 06/23/2014 [facility] HEMATOLOGY Segs 59.5 45.0 - 75.0 06/23/2014 [facility] HEMATOLOGY Basophils 0.6 0.0 - 1.0 06/23/2014 [facility] HEMATOLOGY Eosinophils 5.8 0.0 - 4.0 06/23/2014 [facility] HEMATOLOGY Monocytes 5.2 2.0 - 12.0 06/23/2014 [facility] HEMATOLOGY Eosinophils # 0.4 0.0 - 0.5 06/23/2014 [facility] HEMATOLOGY Monocytes # 0.3 0.0 - 0.8 06/23/2014 [facility] HEMATOLOGY Lymphocytes 28.9 20.0 - 40.0 06/23/2014 [facility] HEMATOLOGY Lymphocytes # 1.9 1.0 - 5.5 06/23/2014 [facility] HEMATOLOGY Segs-Bands # 3.9 1.5 - 8.1 06/23/2014 [facility] HEMATOLOGY MCHC 33.6 32.0 - 36.0 06/23/2014 [facility] HEMATOLOGY Platelet 200 133 - 450 06/23/2014 [facility] HEMATOLOGY RDW 13.4 11.5 - 14.5 06/23/2014 [facility] HEMATOLOGY MPV 8.5 7.4 - 10.4 06/23/2014 [facility] MCH 29.6 27.0 - 31.0 06/23/2014 [facility] HEMATOLOGY MCV 88.2 80.0 - 94.0 06/23/2014 [facility] HEMATOLOGY Hct 42.0 42.0 - 54.0 06/23/2014 [facility] HEMATOLOGY Hgb 14.1 14.0 - 18.0 06/23/2014 [facility] HEMATOLOGY RBC 4.76 4.70 - 6.10 06/23/2014 [facility] HEMATOLOGY WBC 6.5 3.7 - 10.4 06/23/2014 [facility] URINE AND STOOL UA Urobilinogen <=1.0 mg/dL 0.1 - 1.0 06/23/2014 [facility] URINE AND STOOL UA Color Ltyellow 06/23/2014 [facility] URINE AND STOOL UA Mucus Few /LPF None Seen /LPF 06/23/2014 [facility] URINE AND STOOL UA Bacteria Occasional /HPF None Seen /HPF 06/23/2014 [facility] URINE AND STOOL UA Sq Epi Occasional /LPF Few /LPF 06/23/2014 [facility] URINE AND STOOL UA RBC 16 0 - 2 06/23/2014 [facility] URINE AND STOOL UA WBC 8 0 - 5 06/23/2014 [facility] URINE AND STOOL UA Nitrite Negative (06/23/14 8:56 AM) Negative 06/23/2014 [facility] URINE AND STOOL UA Leuk Est Negative (06/23/14 8:56 AM) Negative 06/23/2014 [facility] URINE AND STOOL UA Glucose Negative mg/dL Negative mg/dL 06/23/2014 [facility] URINE AND STOOL UA pH 5.0 5.0 - 8.0 06/23/2014 [facility] URINE AND STOOL UA Protein Negative mg/dL Negative mg/dL 06/23/2014 [facility] URINE AND STOOL UA Blood Moderate *ABN* (06/23/14 8:56 AM) Negative 06/23/2014 [facility] URINE AND STOOL UA Bili Negative *NA* (06/23/14 8:56 AM) Negative 06/23/2014 [facility] URINE AND STOOL UA Ketones Negative mg/dL Negative mg/dL 06/23/2014 [facility] URINE AND STOOL UA Spec Grav 1.019 <=1.030 06/23/2014 [facility] URINE AND STOOL UA Turbidity Marked *ABN* (06/23/14 8:56 AM) Clear 06/23/2014 [facility] CHEMISTRY Total CK 72 12 - 191 04/08/2013 Normal [facility] CHEMISTRY Chloride Lvl 108 95 - 109 04/08/2013 Normal [facility] CHEMISTRY Potassium Lvl 4.2 3.5 - 5.1 04/08/2013 Normal [facility] CHEMISTRY Sodium Lvl 142 135 - 145 04/08/2013 Normal [facility] CHEMISTRY eGFR 121 04/08/2013 NA <sup>6</sup>Result [...] should be multiplied by the estimated BMI. [facility] CHEMISTRY Bili Total 0.8 0.2 - 1.3 04/08/2013 Normal [facility] CHEMISTRY AST 82 0 - 37 04/08/2013 [facility] CHEMISTRY Glucose Lvl 104 70 - 99 04/08/2013 [place] <sup>9</sup>Interpretive Data: Adult ref erence range values reflect the clinical guidelines
of the [place] [employer]. [facility] CHEMISTRY Creatinine Lvl 0.7 0.5 - 1.4 04/08/2013 Normal [facility] CHEMISTRY CO2 22 24 - 32 04/08/2013 LOW [facility] CHEMISTRY BUN 7 7 - 22 04/08/2013 Normal [facility] CHEMISTRY Calcium Lvl 7.9 8.5 - 10.5 04/08/2013 LOW [facility] CHEMISTRY Total Protein 6.2 6.4 - 8.4 04/08/2013 LOW [facility] CHEMISTRY Albumin Lvl 2.8 3.5 - 5.0 04/08/2013 LOW [facility] CHEMISTRY ALT 102 0 - 65 04/08/2013 [facility] CHEMISTRY Alk Phos 262 39 - 136 04/08/2013 [facility] CHEMISTRY A/G Ratio 0.8 0.7 - 1.6 04/08/2013 Normal [facility] CHEMISTRY AGAP 16.2 10.0 - 20.0 04/08/2013 Normal [facility] CHEMISTRY Globulin 3.4 2.0 - 4.0 04/08/2013 Normal [facility] CHEMISTRY B/C Ratio 10 6 - 25 04/08/2013 Normal [facility] HEMATOLOGY Basophils 0.2 0.0 - 1.0 04/08/2013 Normal [facility] HEMATOLOGY Segs-Bands # 3.9 1.5 - 8.1 04/08/2013 Normal [facility] HEMATOLOGY Monocytes 6.3 2.0 - 12.0 04/08/2013 Normal [facility] HEMATOLOGY Eosinophils 3.0 0.0 - 4.0 04/08/2013 Normal [facility] HEMATOLOGY Lymphocytes 27.9 20.0 - 40.0 04/08/2013 Normal [facility] HEMATOLOGY Lymphocytes # 1.7 1.0 - 5.5 04/08/2013 Normal [facility] HEMATOLOGY Segs 62.6 45.0 - 75.0 04/08/2013 Normal [facility] HEMATOLOGY Basophils # 0.0 0.0 - 0.2 04/08/2013 Normal [facility] HEMATOLOGY Monocytes # 0.4 0.0 - 0.8 04/08/2013 Normal [facility] HEMATOLOGY Eosinophils # 0.2 0.0 - 0.5 04/08/2013 Normal [facility] HEMATOLOGY Hgb 9.7 14.0 - 18.0 04/08/2013 LOW [facility] HEMATOLOGY Hct 29.3 42.0 - 54.0 04/08/2013 LOW [facility] HEMATOLOGY MPV 8.1 7.4 - 10.4 04/08/2013 Normal [facility] HEMATOLOGY Platelet 272 133 - 450 04/08/2013 Normal [facility] HEMATOLOGY WBC 6.2 3.7 - 10.4 04/08/2013 Normal [facility] HEMATOLOGY RBC 3.32 4.70 - 6.10 04/08/2013 LOW [facility] HEMATOLOGY MCV 88.2 80.0 - 94.0 04/08/2013 Normal [facility] HEMATOLOGY MCH 29.2 27.0 - 31.0 04/08/2013 Normal [facility] HEMATOLOGY RDW 13.6 11.5 - 14.5 04/08/2013 Normal [facility] HEMATOLOGY MCHC 33.1 32.0 - 36.0 04/08/2013 Normal [facility] STOOL TESTS Occult Bld Stl Nega tive (04/07/2013 20:45:00) Negati ve 04/08/2013 Normal [facility] CHEMISTRY LDH 426 98 - 192 04/07/2013 HI [facility] CHEMISTRY Sodium Lvl 141 135 - 145 04/07/2013 Normal [facility] CHEMISTRY Potassium Lvl 3.5 3.5 - 5.1 04/07/2013 Normal [facility] CHEMISTRY Chloride Lvl 108 95 - 109 04/07/2013 Normal [facility] CHEMISTRY eGFR 114 04/07/2013 NA <sup>7</sup>Result [...] should be multiplied by the estimated BMI. [facility] CHEMISTRY Calcium Lvl 7.7 8.5 - 10.5 04/07/2013 LOW [facility] CHEMISTRY CO2 23 24 - 32 04/07/2013 LOW [facility] CHEMISTRY BUN 9 7 - 22 04/07/2013 Normal [facility] CHEMISTRY Glucose Lvl 108 70 - 99 04/07/2013 [facility] <sup>10</sup>Interpretive Data: Adult re ference range values reflect the clinical guidelines
of the [place] [employer]. [facility] CHEMISTRY Creatinine Lvl 0.8 0.5 - 1.4 04/07/2013 Normal [facility] CHEMISTRY AGAP 13.5 10.0 - 20.0 04/07/2013 Normal [facility] HEMATOLOGY Platelet 196 133 - 450 04/07/2013 Normal [facility] HEMATOLOGY MCV 86.9 80.0 - 94.0 04/07/2013 Normal [facility] HEMATOLOGY MCHC 33.6 32.0 - 36.0 04/07/2013 Normal [facility] HEMATOLOGY RDW 13.8 11.5 - 14.5 04/07/2013 Normal [facility] HEMATOLOGY MCH 29.2 27.0 - 31.0 04/07/2013 Normal [facility] HEMATOLOGY Hgb 9.3 14.0 - 18.0 04/07/2013 LOW [facility] HEMATOLOGY Hct 27.5 42.0 - 54.0 04/07/2013 LOW [facility] HEMATOLOGY RBC 3.17 4.70 - 6.10 04/07/2013 LOW [facility] WBC 4.4 3.7 - 10.4 04/07/2013 Normal [facility] HEMATOLOGY MPV 8.1 7.4 - 10.4 04/07/2013 Normal [facility] HEMATOLOGY Eosinophils # 0.1 0.0 - 0.5 04/07/2013 Normal [facility] HEMATOLOGY Basophils # 0.0 0.0 - 0.2 04/07/2013 Normal [facility] HEMATOLOGY Lymphocytes # 1.2 1.0 - 5.5 04/07/2013 Normal [facility] HEMATOLOGY Eosinophils 2.0 0.0 - 4.0 04/07/2013 Normal [facility] Basophils 0.3 0.0 - 1.0 04/07/2013 Normal [facility] Monocytes # 0.3 0.0 - 0.8 04/07/2013 Normal [facility] Monocytes 6.8 2.0 - 12.0 04/07/2013 Normal [facility] Segs-Bands # 2.8 1.5 - 8.1 04/07/2013 Normal [facility] Lymphocytes 27.6 20.0 - 40.0 04/07/2013 Normal [facility] Segs 63.3 45.0 - 75.0 04/07/2013 Normal [facility] Microbiology Culture: Anaerobic 04/06/2013 [facility] Microbiology Culture: AFB w/Smear 04/06/2013 [facility] Microbiology Culture: Fungal w/Smear 04/06/2013 [facility] Microbiology Culture: CMV (Early Ant igen) 04/06/2013 [facility] CHEMISTRY TSH 1.410 0.360 - 3.740 04/06/2013 Normal [facility] CHEMISTRY eGFR 121 04/06/2013 NA <sup>8</sup>Result [...] should be multiplied by the estimated BMI. [facility] CHEMISTRY Creatinine Lvl 0.7 0.5 - 1.4 04/06/2013 Normal [facility] CHEMISTRY BUN 7 7 - 22 04/06/2013 Normal [facility] CHEMISTRY Glucose Lvl 109 70 - 99 04/06/2013 HI <sup>11</sup>Interpretive Data: Adult re ference range values reflect the clinical guidelines
of the [place] [employer]. [facility] CHEMISTRY AGAP 15.4 10.0 - 20.0 04/06/2013 Normal [facility] CHEMISTRY CO2 22 24 - 32 04/06/2013 LOW [facility] CHEMISTRY Calcium Lvl 7.6 8.5 - 10.5 04/06/2013 LOW [facility] CHEMISTRY Potassium Lvl 3.4 3.5 - 5.1 04/06/2013 LOW [facility] CHEMISTRY Sodium Lvl 141 135 - 145 04/06/2013 Normal [facility] CHEMISTRY Chloride Lvl 107 95 - 109 04/06/2013 Normal [facility] HEMATOLOGY Bands 30.0 0.0 - 11.0 04/06/2013 HI [facility] HEMATOLOGY Monocytes 5.0 2.0 - 12.0 04/06/2013 Normal [facility] HEMATOLOGY Atypical Lymphs 0.0 <=0.0 04/06/2013 Normal [facility] HEMATOLOGY Lymphocytes 22.0 20.0 - 40.0 04/06/2013 Normal [facility] HEMATOLOGY Segs 43.0 45.0 - 75.0 04/06/2013 LOW [facility] HEMATOLOGY Monocytes # 0.2 0.0 - 0.8 04/06/2013 Normal [facility] HEMATOLOGY Segs-Bands # 2.2 1.5 - 8.1 04/06/2013 Normal [facility] HEMATOLOGY Lymphocytes # 0.7 1.0 - 5.5 04/06/2013 LOW [facility] HEMATOLOGY RBC Morph Raquel l (04/06/2013 06:48:00) 04/06/2013 Normal [facility] HEMATOLOGY Plt Morph Raquel l (04/06/2013 06:48:00) 04/06/2013 Normal [facility] HEMATOLOGY MPV 9.1 7.4 - 10.4 04/06/2013 Normal [facility] HEMATOLOGY MCHC 33.9 32.0 - 36.0 04/06/2013 Normal [facility] HEMATOLOGY MCH 29.4 27.0 - 31.0 04/06/2013 Normal [facility] HEMATOLOGY WBC 3.0 3.7 - 10.4 04/06/2013 LOW [facility] HEMATOLOGY RDW 13.5 11.5 - 14.5 04/06/2013 Normal [facility] HEMATOLOGY Platelet 147 133 - 450 04/06/2013 Normal [facility] MCV 86.8 80.0 - 94.0 04/06/2013 Normal [facility] RBC 3.40 4.70 - 6.10 04/06/2013 LOW [facility] Hgb 10.0 14.0 - 18.0 04/06/2013 LOW [facility] Hct 29.5 42.0 - 54.0 04/06/2013 LOW [facility] IMMUNOLOGY EULALIA Negat ramiro (04/06/2013 06:48:00) Negati ve 04/06/2013 Normal [facility] RPR Non R eactive (04/06/2013 06:48:00) Non Re active 04/06/2013 Normal [facility] Toxoplasma IgM 0.210 <=0.800 04/06/2013 Normal <sup>17</sup>Interpretive Data: <0.9 IV ---------Negative
0.9 - 0.99 IV -----Equivocal
>1.0 IV ---------Positive [facility] HIV 1/2 Ab Negat ramiro *NA* (04/06/2013 06:48:00) Negati ve 04/06/2013 NA [facility] CMV IgM 0.2 04/06/2013 NA <sup>13</sup>Interpretive Data: Reference Ranges:
Non-reactive: <0.9 S/CO Ratio
Indeterminate: 0.9 - 1.0 S/CO Ratio
Reactive: >=1.1 S/CO Ratio [facility] EBV VCA IgM <0.2 <=0.8 04/06/2013 Normal <sup>15</sup>Interpretive Data: Antibody Index (AI) Results Interpretation
-------
0.0-0.8 Negative No detectable IgM Antibody.
0.9-1.0 Equivocal Repeat testing suggested in
10-14 days.
>=1.10 Positive Significant level of detectable
IgM Antibody, indicative of
current or recent infection. [facility] EBV NA IgG 0.5 <=0.8 04/06/2013 Normal <sup>16</sup>Interpretive Data: Antibody Index (AI) Results Interpretation
-------
0.0-0.8 Negative No detectable IgG Antibody.
0.9-1.0 Equivocal Repeat testing suggested in
10-14 days.
>=1.10 Positive Indicates presence of detectable
IgG Antibody. [facility] EBV VCA IgG >8.0 <=0.8 04/06/2013 HI <sup>14</sup>Interpretive Data: Antibody Index (AI) Results Interpretation
-------
0.0-0.8 Negative No detectable IgG Antibody.
0.9-1.0 Equivocal Repeat testing suggested in
10-14 days.
>=1.10 Positive Indicates presence of detectable
IgG Antibody. [facility] MISC - SEROLOGY Mycoplasma IgM 43 04/06/2013 NA <sup>2</sup>Result Comment: REFERENCE RA NGE: <770 U/mL

Interpretive criteria:
<770 U/mL Negative
770- 950 U/mL Low positive
>950 U/mL Positive
Test Performed at:
[facility]
[address]
[place] [phone] Virgie Zacarias MD [facility] MICRO MISC - SEROLOGY Mycoplasma IgG [...] symptoms of the patient.
Test Performed at:
[facility]
[address]
[place] [id number] Virgie GRIGSBY [facility] VIRAL - SEROLOGY W Nile Ab IgM [...]
specimens other than serum.

According to the morning news producer, this assay may cross- react with
antibodies to other flaviviruses and to enterovirus antibodies in
children. All positive IgM results will be reported to [facility] Epidemiology and further testing may be performed as determined by [facility]." [facility] U Legion Ag Negative 3 (04/06/2013 05:00:56) Negati ve 04/06/2013 Normal <sup>3</sup>Interpretive Data: This kit tests for Legionella pneumophila Serogroup 1 Antigen. [facility] REFERENCE LAB RESULTS [facility] REPORT 04/06/2013 NA <sup>4</sup>Result Comment:

TEST [...] its performance
characteristics have been determined by [facility]. Performance characteristics refer to
the analytical performance of the test.

Test Performed at:
[facility]
[address]
[place] [address] Virgie Zacarias MD [facility] CHEMISTRY S-2-Vjiygfmai 4.1 1.0 - 2.3 04/05/2013 [facility] CHEMISTRY LDH 460 98 - 192 04/05/2013 [facility] CHEMISTRY Uric Acid 4.3 3.8 - 8.0 04/05/2013 Normal [facility] HEMATOLOGY INR 0.99 0.85 - 1.17 04/05/2013 Normal <sup>12</sup>Interpretive Data: RECOMMEN DED RANGES FOR PROTIME INR:
2.0-3.0 for most medical and surgical thromboembolic states.
2.5-3.5 for artificial heart valves and recurrent embolism.

INR SHOULD BE USED ONLY FOR PATIENTS ON STABLE ANTICOAGULANT THERAPY. [facility] HEMATOLOGY PT 13.3 12.0 - 14.7 04/05/2013 Normal [facility] CHEMISTRY Total CK 521 12 - 191 04/05/2013 [facility] CHEMISTRY A/G Ratio 0.8 0.7 - 1.6 04/05/2013 Normal [facility] CHEMISTRY Globulin 3.5 2.0 - 4.0 04/05/2013 Normal [facility] CHEMISTRY B/C Ratio 14 6 - 25 04/05/2013 Normal [facility] CHEMISTRY AST 132 0 - 37 04/05/2013 [facility] CHEMISTRY Bili Total 1.5 0.2 - 1.3 04/05/2013 [facility] CHEMISTRY Alk Phos 219 39 - 136 04/05/2013 [facility] CHEMISTRY ALT 123 0 - 65 04/05/2013 [facility] CHEMISTRY Albumin Lvl 2.9 3.5 - 5.0 04/05/2013 LOW [facility] CHEMISTRY Total Protein 6.4 6.4 - 8.4 04/05/2013 Normal [facility] HEMATOLOGY Bands 55.0 0.0 - 11.0 04/05/2013 [facility] HEMATOLOGY Polychrom Sligh t (04/05/2013 05:30:00) None S een 04/05/2013 Normal [facility] HEMATOLOGY Tot Cell Ct 100 04/05/2013 NA [facility] HEMATOLOGY Plt Morph Raquel l (04/05/2013 05:30:00) 04/05/2013 Normal [facility] HEMATOLOGY Anisocyte 1+ *ABN* (04/05/2013 05:30:00) None S een 04/05/2013 ABN [facility] Atypical Lymphs 1.0 <=0.0 04/05/2013 HI [facility] HEMATOLOGY Metamyelocytes 2.0 0.0 - 1.0 04/05/2013 HI [facility] Eosinophils 1.0 0.0 - 4.0 04/05/2013 Normal [facility] Eosinophils # 0.0 0.0 - 0.5 04/05/2013 Normal [facility] Hep C Ab Negat ramiro *NA* (04/05/2013 05:30:00) Negati ve 04/05/2013 NA [facility] Hep B Core Ab Negat ramiro *NA* (04/05/2013 05:30:00) Negati ve 04/05/2013 NA [facility] Hep Bs Ab <1.0 <=7.4 04/05/2013 Normal <sup>19</sup>Interpretive Data: <=7.4 mI U/mL--------Negative for Anti- HBs. Not immune to HBV infection.

7.5-12.4 mIU/mL--Borderline for Anti- HBs and immune status
should be further assessed by considering other factors such
as clinical status follow-up testing, associated risk factors,
and the use of additional diagnostic information.

>12.4 mIU/mL-------Positive for Anti-HBs. Immune to HBV infection [facility] Hep Bs Ag Negat ramiro *NA* (04/05/2013 05:30:00) Negati ve 04/05/2013 NA [facility] Hep A Tot Negat ramiro *NA* (04/05/2013 05:30:00) Negati ve 04/05/2013 NA [facility] Hep A IgM Negat ramiro *NA* (04/05/2013 05:30:00) Negati ve 04/05/2013 [facility] Vir Ld-HIV1 RNA not d etected 04/05/2013 [...] management.

Performance characteristics have been verified by [facility]. The laboratory is authorized under the Clinical Laboratory Improvement Amendments of 1988 (CLIA- 88) to perform high complexity testing. [facility] IMMUNOLOGY Log10 HIV1 <1.3 04/05/2013 NA [facility] Microbiology Culture: Blood 04/05/2013 [facility] CHEMISTRY Lactic Acid Lvl 1.7 0.5 - 2.2 04/05/2013 Normal [facility] CHEMISTRY Alk Phos 248 39 - 136 04/04/2013 [facility] CHEMISTRY ALT 147 0 - 65 04/04/2013 [facility] CHEMISTRY Albumin Lvl 3.7 3.5 - 5.0 04/04/2013 Normal [facility] CHEMISTRY AST 145 0 - 37 04/04/2013 [facility] CHEMISTRY Total Protein 7.4 6.4 - 8.4 04/04/2013 Normal [facility] CHEMISTRY Bili Total 1.6 0.2 - 1.3 04/04/2013 [facility] CHEMISTRY A/G Ratio 1.0 0.7 - 1.6 04/04/2013 Normal [facility] CHEMISTRY Globulin 3.7 2.0 - 4.0 04/04/2013 Normal [facility] CHEMISTRY B/C Ratio 14 6 - 25 04/04/2013 Normal [facility] CHEMISTRY Total CK 799 12 - 191 04/04/2013 [facility] HEMATOLOGY Bands 12.0 0.0 - 11.0 04/04/2013 [facility] HEMATOLOGY Plt Morph Raquel l (04/04/2013 18:05:00) 04/04/2013 Normal [facility] HEMATOLOGY RBC Morph Raquel l (04/04/2013 18:05:00) 04/04/2013 Normal [facility] HEMATOLOGY Atypical Lymphs 0.0 <=0.0 04/04/2013 Normal [facility] URINALYSIS UA Color [place] 04/04/2013 NA [facility] URINALYSIS UA Sq Epi None Seen 04/04/2013 NA [facility] URINALYSIS UA Nitrite Negat ramiro (04/04/2013 18:05:00) Negati ve 04/04/2013 Normal [facility] URINALYSIS UA Blood Negat ramiro (04/04/2013 18:05:00) Negati ve 04/04/2013 Normal [facility] URINALYSIS UA Urobilinogen 4.0 0.1 - 1.0 04/04/2013 [facility] URINALYSIS UA RBC 2 0 - 2 04/04/2013 Normal [facility] URINALYSIS UA Leuk Est Negat ramiro (04/04/2013 18:05:00) Negati ve 04/04/2013 Normal [facility] URINALYSIS UA WBC 1 0 - 5 04/04/2013 Normal [facility] URINALYSIS UA Glucose Negat ramiro mg/dL *NA* (04/04/2013 18:05:00) Negati ve 04/04/2013 [facility] URINALYSIS UA Protein Negat ramiro mg/dL (04/04/2013 18:05:00) Negati ve 04/04/2013 Normal [facility] URINALYSIS UA pH 5.0 5.0 - 8.0 04/04/2013 Normal [facility] URINALYSIS UA Ketones Negat ramiro mg/dL *NA* (04/04/2013 18:05:00) Negati ve 04/04/2013 [facility] URINALYSIS UA Bili Negat ramiro *NA* (04/04/2013 18:05:00) Negati ve 04/04/2013 NA [facility] URINALYSIS UA Spec Grav 1.015 <=1.030 04/04/2013 Normal [facility] URINALYSIS UA Turbidity Clear (04/04/2013 18:05:00) Clear 04/04/2013 Normal [facility] Microbiology Culture: Blood 04/04/2013 [facility] Pathology Reports No Data Provided for This Section Diagnostic Reports Report Value Date Source Abdomen 1 v for Placement DX P atient Name: MIGUEL LAWTON : 1975; Age: 41 years y/o Male MR: [id number] Study: Abdomen 1 v for Placement DX 12/05/2016 12:34 PM CDT Ordering Physician: MD Rekha Marquez MD Clinical Indication: Stent placement, urinary; Comparison: 12/02/2016 1 view abdomen There is right ureteral stent in place. Right nephrostomy catheter also present. No pathologic calcifications are demonstrated radiographically. Bowel gas pattern normal. SL: [id number] 12/05/2016 [facility] Chest 1view DX EXAM: Chest 1vi ew DX DATE: 12/02/2016 1:35 PM CDT INDICATION: Tube/Catheter Placement COMPARISON: 04/04/2013. IMPRESSION: Stable cardiac silhouette and mediastinum. No focal consolidation, significant pleural effusion or pneumothorax. SL: [id number] 12/02/2016 [facility] Nephrostomy tract dilation VR RIGHT PERCUTANEOUS [...] followed by an AccuStick sheath. A coaxial 4-Azerbaijani Cobra catheter and Glidewire were then manipulated into the right ureter and subsequently into the bladder. An Amplatz wire was then placed, following which the catheter and AccuStick sheath were removed and a 10-Azerbaijani sheath placed into the ureter. A 2nd Amplatz wire was then placed into the bladder. The tract was then dilated with a 10 mm angioplasty balloon, following which a 30-Azerbaijani Amplatz sheath was placed into the right collecting system. There were no immediate complications from the access procedure. The fluoroscopic time was 15.1 minutes. Nephroscopy, lithotripsy and removal of the stone was then done through the sheath by Dr. Marquez followed by ureteral stenting and nephrostomy placement.. See Dr. Marquez's operative note for comments. FARHAD [id number] 12/02/2016 [facility] Abdomen AP DX Addendum: The st [...] will be done prior to the PCNL. [id number] . Patient Name: MIGUEL LAWTON : 1975; Age: 41 years Male MR: [id number] Study: Abdomen AP DX Order Time: 12/02/2016 [...] a localized inflammatory process. FARHAD: [id number]-M 12/02/2016 [facility] Renal Stone CT Examination: Re nal [...] in moderate right hydronephrosis. SL: 16 11/28/2014 [facility] Renal Stone CT CT RENAL STONE [...] IMPRESSION: Negative CT pelvis. SL: 12 11/24/2014 [facility] Abdomen/Pelvis wo IV contrast CT CT [...] of the abdomen and pelvis. SL:13 06/23/2014 [facility] Bone Marrow Biopsy or Trocar (VR) Fluoro time - .5 minutes. HISTORY: Leukopenia. Bone marrow aspirate, core bone biopsy. Intravenous conscious sedation provided. The patient received 4 mg of Versed and 200 mcg of fentanyl. Total physician-patient [id number] sedation monitoring was 22 minutes. 11-gauge needle was advanced until left posterior iliac crest. 9 cc of marrow aspirated. 11-gauge core bone biopsy. Total fluoroscopy time 0.5 minutes. Procedure well tolerated clinically. SL: 13 04/06/2013 [facility] Scrotum testicle US HISTORY: P ain [...] Small right, moderate left varicocele. SL: 04/06/2013 [facility] Abdomen complete US HISTORY: A bdominal [...] bile duct dilatation. Nonspecific splenomegaly. SL: 04/05/2013 [facility] Consultation Notes No Data Provided for [...] 12/06/2016 [facility] Diastolic (mm Hg) 79 12/06/2016 [facility] Temperature Oral (F) 98.3 F 12/06/2016 [facility] Heart Rate 63 12/06/2016 [facility] Temperature Oral (F) 98.1 F 12/06/2016 [facility] Systolic (mm Hg) 95 12/06/2016 [facility] Diastolic (mm Hg) 56 12/06/2016 [facility] Heart Rate 78 12/06/2016 [facility] Temperature Oral (F) 98.1 F 12/06/2016 [facility] Heart Rate 64 12/06/2016 [facility] Systolic [...] 81 11/28/2014 [facility] Respitory Rate 18 11/28/2014 [facility] Heart Rate 82 11/28/2014 [facility] Temperature Oral (F) 98.2 F 11/28/2014 [facility] Systolic (mm Hg) 125 11/28/2014 [facility] Diastolic (mm Hg) 86 11/28/2014 [facility] Weight 75 0 11/28/2014 [facility] Temperature Oral (F) 97.9 F 11/28/2014 [facility] BMI Calculated 26.69 11/28/2014 [facility] Height 167.64 cm 11/28/2014 [facility] Heart Rate 63 11/28/2014 [facility] Respitory Rate 18 11/28/2014 [facility] Temperature Oral (F) 98.2 F 11/25/2014 [facility] Systolic (mm Hg) 126 11/25/2014 [facility] Diastolic (mm Hg) 81 11/25/2014 [facility] Respitory Rate 16 11/25/2014 [facility] Heart Rate 74 11/25/2014 [facility] Temperature Oral (F) 98.3 F 11/25/2014 [facility] Heart Rate 78 11/25/2014 [facility] Systolic (mm Hg) 123 11/25/2014 [facility] Diastolic (mm Hg) 78 11/25/2014 [facility] Respitory Rate 16 11/25/2014 [facility] BMI Calculated 25.88 11/25/2014 [facility] Height 167.64 cm 11/25/2014 [facility] Weight 72.727 11/25/2014 [facility] Temperature Oral (F) 98.5 F 11/25/2014 [facility] Heart Rate 78 11/25/2014 [facility] Systolic (mm Hg) 130 11/25/2014 [facility] Diastolic (mm Hg) 84 11/25/2014 [facility] Respitory Rate 24 11/25/2014 [facility] Systolic (mm Hg) 121 06/23/2014 [facility] Diastolic (mm Hg) 73 06/23/2014 [facility] Respitory Rate 16 06/23/2014 [facility] Heart Rate 59 06/23/2014 [facility] Temperature Oral (F) 98.1 F 06/23/2014 [facility] Weight 75 1 [facility] Height 172.72 cm 06/23/2014 [facility] BMI Calculated 25.14 06/23/2014 [facility] Diastolic (mm Hg) 75 06/23/2014 [facility] Heart Rate 56 06/23/2014 [facility] Respitory Rate 18 06/23/2014 [facility] Temperature Oral (F) 98.8 F 06/23/2014 [facility] Systolic (mm Hg) 114 06/23/2014 [facility] Systolic (mm Hg) 113 04/08/2013 [facility] Respitory Rate 18 04/08/2013 [facility] Diastolic (mm Hg) 70 04/08/2013 [facility] Heart Rate 92 04/08/2013 [facility] Temperature Oral (F) 97.5 F 04/08/2013 [facility] Diastolic (mm Hg) 70 04/08/2013 [facility] Heart Rate 84 04/08/2013 [facility] Respitory Rate 20 04/08/2013 [facility] Systolic (mm Hg) 112 04/08/2013 [facility] Temperature Oral (F) 98.9 F 04/08/2013 [facility] Diastolic (mm Hg) 62 04/08/2013 [facility] Respitory Rate 20 04/08/2013 [facility] Systolic (mm Hg) 110 04/08/2013 [facility] Heart Rate 83 04/08/2013 [facility] Temperature Oral (F) 98.5 F 04/08/2013 [facility] Height 167.64 cm 04/05/2013 [facility] Weight 76.42 04/05/2013 [facility] Weight 76.364 04/04/2013 [facility] Height 167.64 cm 04/04/2013 [facility] Encounters Location Location Details Encounter Type Encounter Number Reason For Visit Attending Provider ADM Date DC Date Status Source [facility] Inpatient [id number] LEUKOPENIA, RHABD OMYOLYSIS, MYAGLIAS LA RENAE 04/04/2013 04/08/2013 Active [facility] [id number] Joseluis Pike 06/23/2014 06/23/2014 [facility] [id number] Dl Galvan 11/25/2014 11/25/2014 [facility] [id number] Galileo Montanez 11/28/2014 11/29/2014 [facility] Outpatient [id number] ASHLEIGH PATRICIA 11/23/2015 Active [facility] Outpatient [id number] ASHLEIGH PATRICIA 11/27/2015 Active [facility] Outpatient [id number] SAMANTA GILMAN 09/09/2016 Active [facility] Outpatient [id number] SAMANTA GILMAN 09/20/2016 Active [facility] Inpatient [id number] Rekha Marquez 12/04/2016 12/06/2016 [facility] [id number] SAMANTA GILMAN 12/09/2016 Active [facility] Out[facility] [id number] ZHMARI BELEM 12/19/2016 Active [facility] Outpatient [id number] SAMANTA GILMAN 12/19/2016 Active [facility] Outpatient [id number] SAMANTA GILMAN 01/16/2017 Active [facility] Outpatient [id number] SAMANTA GILMAN 01/24/2017 Active [facility] Outpatient [id number] SAMANTA GILMAN 01/27/2017 Active [facility] Outpatient [id number] SAMANTA GILMAN 01/27/2017 Active [facility] Outpatient [id number] Dutch Vazquez 05/05/2017 05/05/2017 [facility] Outpatient [id number] SAMANTA GILMAN 07/24/2017 Active [facility] Pre-Reg [id number] Samanta Motley 07/24/2017 07/24/2017 [facility] Outpatient [id number] SAMANTA GILMAN 10/10/2017 Active [facility] Outpatient [id number] Samanta Gilman Motley 09/2510/11/2017 [facility] Outpatient [id number] SAMANTA GILMAN 05/28/2018 Active [facility] Outpatient [id number] Samanta Gilman Motley 11/201705/29/2018 [facility] Outpatient [id number] REKHA MARQUEZ 09/22/2018 Active [facility] Ambulatory Pre-Reg [id number] Rekha Marquez 09/22/2018 09/23/2018 [facility] Outpatient [id number] SAMANTA GILMAN 09/30/2018 Active [facility] Outpatient [id number] Samanta Gilman Motley 01/201910/01/2018 [facility] Outpatient [id number] SAMANTA GILMAN 12/28/2018 Active [facility]ulatory Pre-Reg [id number] Samanta Motley 12/28/2018 12/28/2018 Medical [facility] Outpatient [id number] [facility] 11/23/2019 Active [facility] Outpatient [id number] Rekha [facility] 11/23/2019 Active [facility] Outpatient [id number] Rekha [facility] 11/23/2019 11/24/2019 Medical [facility] Ambulatory Pre-Reg [id number] Rekha [facility] 11/23/2019 11/23/2019 [facility] Procedures No Data Provided for This Section Assessment and Plan Assessment and Plan Date Source Extracted from:Title: Urology Author: Andi Jurado MD Date: 12/04/16 Impression and Plan The patient was seen and examined by me with the resident/FLOORING INSTALLER/PA and I agree with the History/Exam documented. POD#2 s/p Right PCNL 1) re-attempt capping PCN, if unable to tolerate pain, uncap the nephrostomy and connect to drainage and will go home with PCN to gravity in that case 2) HLIV 3) Ambulate and OOB 4) orabase for canker kelle Jurado MD 12/06/2016 [facility] Plan of Care No Data Provided for This Section Social History Social History Date Source Social History TypeResponse Alcohol Current, Frequency: 1-2 times per week. Employment/School Status: Employed. 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 Substance Abuse Use: None. Smoking Status Current every day smoker; Type: Cigars; Ready to change: No; Concerns about tobacco use in household: No; Exposure to Tobacco Smoke self; Cigarette Smoking Last 365 Days Yes; Reg Smoking Cessation Counseling Yes; Tobacco use per day: 2; entered on: 09/30/18 05/28/2018 [facility] Social History TypeResponse Substance Abuse Use: None. Alcohol Current, Frequency: 1-2 times per week. Smoking Status Former smoker; Type: Cigars; Tobacco use per day: 5; Ready to change: No; Concerns about tobacco use in household: No; Exposure to Tobacco Smoke None; Cigarette Smoking Last 365 Days Yes; Reg Smoking Cessation Counseling No 11/25/2016 [facility] Family History No Data Provided for This Section Advance Directives No Data Provided for This Section Functional Status No Data Provided for This Section
--- OUTSIDE RECORDS SUMMARY | 2020-07-15 09:56 | XMS REPORT | Continuity of Care Document ---
Author Author [facility] t Organization [facility] Address [address] [place] [address] Phone Unavailable Care Team Providers Care Certified Dietary Manager Name Role Phone MARTINA JENNINGS PCP Fantasma DIANA Attphys Unavailable Gerardo PADILLA Attphys Unavailable Ahsan Aleman Attphys Ree Cooper Attphys [phone] Gerardo Vazquez Attphys Kirill Montanez Attphys Dl Galvan Attphys Edy Pike Attphys [phone] Ahsan Aleman Admphys Payers Payer Name Policy Type Policy Number Effective Date Expiration Date [facility] [id number] 2019 00:00:00 [facility] Problems Condition Name Condition Details Condition Category Status Onset Date Resolution Date Last Treatment Date Treating Clinician Comments Source ANTWON VILLALBAK Active 03/03/2017 [facility] Diagnosis Active 2017-03-03 00:00:00 2017-05-05 07:49:00 M ector Rodriguez STAGHORN CALCULUS STAG HORN CALCULUS Active 11/14/2016 [facility] Diagnosis Active 2016-11-14 00:00:00 2016-12-05 11:17:00 [facility] KIDNEY STONES KIDN EY STONES Active 11/28/2014 [facility] Active 2014-11-28 00:00:00 2014-11-28 18:22:00 [facility] PAIN/KIDNEY STONE PAIN /KIDNEY STONE Active 11/24/2014 [facility] Active 2014-11-24 19:00:00 2014-11-24 22:16:00 [facility] Hyperuricemia (disorder) Hype ruricemia (disorder) Active 08/03/2014 Problem 11/25/2019 Data migrated from [employer] on 01/21/15. [facility] Problem Active 2014-08-03 00:00:00 2019-11-25 23:38:22 [facility] Liver function tests abnormal (finding) Liver function tests abnormal (finding) Active 08/03/2014 Problem 11/25/2019 Data migrated from [employer] on 01/21/15. [facility] Problem Activ e 2014-08-03 00:00:00 2019-11-25 23:38:22 [facility] Pancytopenia (disorder) Panc ytopenia (disorder) Active 08/03/2014 Problem 11/25/2019 Data migrated from [employer] on 01/21/15. [facility] Problem Active 2014-08-03 00:00:00 2019-11-25 23:38:22 [facility] ABDOMINAL PAIN ABDO JEANNE PAIN Active 06/23/2014 [facility] Active 2014-06-23 00:00:00 2014-06-23 09:33:00 [facility] Gastroesophageal reflux disease (disorder) Gastroesophageal reflux disease (disorder) Active 04/29/2013 Problem 11/25/2019 Data migrated from [employer] on 01/21/15. [facility] Problem Active 2013-04-29 00:00:00 2019-11-25 23:38:22 [facility] LEUKOPENIA, RHABDOMYOLYSIS, MYAGLIAS LEUKOPENIA, RHABDOMYOLYSIS, MYAGLIAS Active 04/04/2013 [facility] Ac tive 2013-04-04 00:00:00 2013-04-19 13:28:00 [facility] ALLERGIC REACTION ROSANNE RGIC REACTION Active 04/04/2013 [facility] Active 2013-04-04 00:00:00 2013-04-04 19:48:00 Silver Rodriguez Calculus of kidney Problem Active [facility] Calculus of ureter Problem Active [facility] Urinary tract infection Problem Active [facility] Constipation (disorder) Cons tipation (disorder) Active Problem 11/25/2019 [facility] Problem Active 2019-11-25 23:38:22 Silver Rodriguez Decreased testosterone level (finding) Decreased testosterone level (finding) Active Problem 11/25/2019 [facility] Problem Active 2019-11-25 23:38:22 Matt adam Rodriguez Eruption of skin (disorder) Er uption of skin (disorder) Active Problem 11/25/2019 [facility] Problem Active 2019-11-25 23:38:22 Silver Rodriguez Follow-up status (finding) Fol low-up status (finding) Active Problem 11/25/2019 Medical [facility] Problem Active 2019-11-25 23:38:22 Silver Rodriguez Impaired fasting glycaemia (disorder) Impaired fasting glycaemia (disorder) Active Problem 11/25/2019 [facility] Problem Active 2019-11-25 23:38:22 Silver Rodriguez Iron deficiency anemia (disorder) Iron deficiency anemia (disorder) Active Problem 11/25/2019 Medical [facility] Problem Active 2019-11-25 23:38:22 Silver Rodriguez Mixed hyperlipidemia (disorder) Mixed hyperlipidemia (disorder) Active Problem 11/25/2019 Medical [facility] Problem Active 2019-11-25 23:38:22 Silver Rodriguez Oral lesion (finding) Oral lesion (finding) Active Problem 11/25/2019 Medical [facility] Problem Active 2019-11-25 23:38:22 Silver Rodriguez 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) Active Problem 11/25/2019 Medical [facility] Problem Active 2019-11-25 23:38:22 Silver Rodriguez Sore throat symptom (finding) Sore throat symptom (finding) Active Problem 11/25/2019 Medical Group Problem Active 2019-11-25 23:38:22 Silver Reynaann Decreased vitamin D (finding) Decreased vitamin D (finding) Active Problem 11/25/2019 [facility] Problem Active 2019-11-25 23:38:22 [facility] Patient encounter status (finding) Patient encounter status (finding) Active Problem 11/25/2019 [facility] Problem Active 2019-11-25 23:38:22 Silver Rodriguez Screening status (finding) Scr eening status (finding) Active Problem 11/25/2019 [facility] Group Problem Active 2019-11-25 23:38:22 Silver Rodriguez Staghorn calculus (disorder) S taghorn calculus (disorder) Active Problem 11/25/2019 [facility] Group Problem Active 2019-11-25 23:38:22 [facility] Michael Streptococcal sore throat (disorder) Streptococcal sore throat (disorder) Active Problem 11/25/2019 [facility] Problem Active 2019-11-25 23:38:22 Silver Rodriguez Urine finding (finding) Urin e finding (finding) Active Problem 11/25/2019 [facility] Problem Active 2019-11-25 23: 38:22 Silver Rodriguez Visual impairment (disorder) V isual impairment (disorder) Active Problem 11/25/2019 [facility] Problem Active 2019-11-25 23:38:22 [facility] Michael DECREASED WBC COUNT NEC DECR EASED WBC COUNT NEC Active [facility] Active 2013-04-19 13:28:00 [facility] RHABDOMYOLYSIS RHAB DOMYOLYSIS Active [facility] Active 2013-04-19 13:28:00 [facility] Michael CALCULUS OF KIDNEY CALC ULUS OF KIDNEY Active [facility] Active 2016-12-05 11:17:00 [facility] Discharge Diagnosis: Renal colic Discharge Diagnosis: [...] Problem 2 05:00:00 2014-06-26 00:40:41 2014-06-26 00:40:41 [facility] History of Past Illness Condition Name Condition Details Condition Category Status Onset Date Resolution Date Last Treatment Date Treating Clinician Comments Source Lower urinary tract infectious disease (disorder) Lower urinary tract infectious disease (disorder) Resolved 06/23/2014 Problem 11/25/2019 [facility] Problem Resolved 2014-06-23 00:00:0 0 2019-11-25 23:38:22 2019-11-25 23:38:22 [facility] Acute cystitis (disorder) Acut e cystitis (disorder) Resolved 11/02/2013 Problem 11/25/2019 Data migrated from [employer] on 03/11/15.Data migrated from [employer] on 03/10/15. [facility] Problem Resolved 2013-11-02 00:00:00 2019-11-25 23:38:22 2019-11-25 23:38:22 [facility] Backache (finding) Back ache (finding) Resolved 11/02/2013 Problem 11/25/2019 Data migrated from [employer] on 03/11/15.Data migrated from [employer] on 03/10/15. [facility] Problem R esolved 2013-11-02 00:00:00 2019-11-25 23:38:22 2019-11-25 23:38:22 [facility] [place] Epididymitis (disorder) Epid idymitis (disorder) Resolved 04/29/2013 Problem 11/25/2019 Data migrated from [employer] on 03/11/15.Data migrated from [employer] on 03/10/15. [facility] Problem Resolved 2013-04-29 00:00:00 2019-11-25 23:38:22 2019-11-25 23:38:22 [facility] Michael Fever (finding) Feve r (finding) Resolved 04/29/2013 Problem 11/25/2019 Data migrated from [employer] on 03/10/15. [facility] Problem Resolved 2013-04-29 00:00:00 2019-11-25 23:38:22 2019-11-25 23:38:22 [facility] History of - gastrointestinal disease (context-depende nt category) History of - gastrointestinal disease (context-dependent category) Resolved 04/29/2013 Problem 11/25/2019 Data migrated from [employer] on 03/11/15.Data migrated from [employer] on 03/10/15. [facility] Problem Resolved 2013-04-29 00:00:00 2019-11-25 23:38:22 2019-11-25 23:38:22 [facility] Allergies, Adverse Reactions, Alerts Allergy Name Allergy Type Status Severity Reaction(s) Onset Date Inacti ve Date Treating Clinician Comments Source No Known Allergies DA Active U 2019-06-10 00:00:00 [facility] No Known Allergies DA Active U 2016-11-06 00:00:00 [facility] No Known Medication Allergies No Known Medication Allergies Active [facility] Social History Social Habit Start Date Stop Date Quantity Comments Source Social History 2016-11-25 20:44:15 2016-11-25 20:44:15 [facility] Sex Assigned At 1975 00:00:00 1975 00:00:00 Male [facility] Medications Ordered Medication Name Filled Medication Name Start Date Stop Da te Current Medication? Ordering Clinician Indication Dosage Frequency Signature (SIG) Comments Components Source Tramadol Hcl (Ultram) 50 Mg TABLET Tramadol Hcl (Ultram) 50 Mg TABLET 2020-05-05 10:42:00 Yes 50 Every 6 Ho urs as needed for Mild Pain (1-3) Or Fever>100.8 [facility] ibuprofen 800 mg oral tablet 2018-09-30 14:54:00 No 800 mg = 1 tab, PO, Q8H, PRN Pain, Take with food, X 10 day, # 30 tab, 0 Refill(s), Pharmacy: [facility] amoxicillin 500 mg oral capsule 2018-09-30 14:54:00 No 500 mg = 1 cap, PO, TID, X 7 day, # 21 cap, 0 Refill(s), Pharmacy: [id number] [facility] potassium citrate 15 MEQ Extended Release Tablet [Urocit-K] 2018-09-22 23:07:00 Yes 15 mEq = 1 tab, PO, TID, # 270 tab, 3 Refill(s), Pharmacy: [id number] Michael potassium citrate 2018-09-22 23:00:00 Yes PO, Daily, 0 Refill(s) Silver Rodriguez naproxen 500 mg oral enteric coated delayed-release tablet 2017-10-10 15:44:00 No 500 mg = 1 tab, PO, BID, X 10 day, # 20 tab, 0 Refill(s), Pharmacy: [facility] [id number] [facility] tadalafil 5 MG Oral Tablet [Cialis] 2017-03-04 15:04:00 No 5 mg = 1 tab, PO, Daily, PRN for erectile dysfunction, X 30 day, # 30 tab, 1 Refill(s), Pharmacy: [id number] Gladys Rodriguze ketOROLAC 15 mg/mL injectable solution 2016-12-06 02:00:00 No 4 days. [facility] Acetaminophen 325 MG / Hydrocodone Bitartrate 5 MG Oral Tabl et [Tor[place] 5/325] 2016-12-05 20:51:00 No Notes: (Same as: [place] 325/5) Do not exceed 4gm/day of acetaminophen. [facility] Radha nn Dilaudid 2016-12-05 20:50:00 No 0.5 mg, 0.5 mL, Route: IVP, Drug form: INJ, Q4H, Dosing Weight 77.636, kg, PRN Pain Score 7-10, Start date: 12/05/16 15:50:00 CDT, Duration: 30 day, Stop date: 01/04/17 15:49:00 CDT [facility] senna 8.6 mg oral tablet 2016-12-05 14:00:00 No 1 tab, Route: PO, Drug Form: TAB, Dosing Weight 77.636, kg, Daily, Start date: 12/05/16 9:00:00 CDT, Duration: 30 day, Stop date: 01/03/17 9:00:00 CDT [facility] Docusate Sodium 100 MG Oral Capsule 2016-12-05 11:19:00 Yes 100 mg = 1 cap, PO, BID, # 40 cap, 0 [facility] mg oral tablet 2016-12-05 11:19:00 No 500 mg = 1 tab, PO, [id number], # 12 tab, 0 Refill(s) [facility] Michael Acetaminophen 325 MG / Hydrocodone Bitartrate 5 MG Oral Tabl et [Tor[place] 5/325] 2016-12-05 11:19:00 Yes 1 tab, PO, Q4H, PRN Pain Score 4-6, # 30 tab, 0 Refill(s), given to patient Silver astorga tamsulosin 0.4 mg oral capsule 2016-12-05 11:19:00 Yes 0.4 mg = 1 cap, PO, Q24H, # 40 cap, 0 Refill(s) [facility] orierwin Rodriguez Fleet Enema 2016-12-05 02:24:00 No 12 year s, Pediatric Dosing Silver Rodriguez Dulcolax Laxative 2016-12-05 02:24:00 No Notes: (Same [...] Hydrocodone Bitartrate 5 MG Oral Tabl et [[place] 5/325] 2016-12-04 17:09:00 No Notes: (Same as: [place] 325/5) Do not exceed 4gm/day of acetaminophen. Silver spaulding Orabase Gel-B 20% mucous membrane gel 2016-12-04 14:00:00 N o Notes: (Same As: Maximum Strength PM Orajel ) M ector Rodriguez Tylenol 2016-12-03 17:00:00 No Notes: Do not exceed 4 gm/day. (Same as: Tylenol) Silver Rodriguez Ketorolac 2016-12-03 17:00:00 No 4 days. Silver Rodriguez tramadol hydrochloride 50 MG Oral Tablet 2016-12-03 17:00:00 No Notes: Not to exceed 400mg/day. (Same As: Ultram) Silver Rodriguez sennosides, [facility] 2016-12-03 14:00:00 No Notes: (Same as: Senokot) [...] & Vomiting, Start date: 12/02/16 13:47:00 CDT [facility] Michael Meperidine 2016-12-02 18:47:00 No 12.5 mg, Route: [...] # of times [facility] Flumazenil 2016-12-02 18:47:00 No 0.2 mg, Route: [...] date: Limited # of times Silver Rodriguez Dilaudid 2016-12-02 18:33:00 No 0.5 mg, 0.5 [...] 4 mg Product Wasted: ___ mg Silver [place] ondansetron (JOSE CS) 2016-12-02 18:27:00 No Route: IV, Drug form: INJ, ONCE, Stop date: 12/02/16 13:27:00 CDT Hector Rodriguez famotidine (JOSE CS) 2016-12-02 17:27:00 No Route: IV, Drug form: INJ, ONCE, Stop date: 12/02/16 12:27:00 CDT ector Rodriguez lidocaine (JOSE CS) 2016-12-02 17:22:00 No Route: IV, Drug form: INJ, ONCE, Stop date: 12/02/16 12:22:00 CDT ector Rodriguez propofol (JOSE CS) 2016-12-02 17:22:00 No Route: IV, Drug form: INJ, ONCE, Stop date: 12/02/16 12:22:00 [facility] ro[facility] (JOSE CS) 2016-12-02 17:22:00 No Route: IV, Drug form: INJ, ONCE, Stop date: 12/02/16 12:22:00 CDT [facility] Michael ciprofloxacin (JOSE CS) 2016-12-02 16:57:00 No Route: IV, Drug form: INJ, ONCE, Stop date: 12/02/16 11:57:00 CDT [facility] midazolam (JOSE CS) 2016-12-02 16:57:00 No Route: IV, Drug form: SOLN, ONCE, Stop date: 12/02/16 11:57:00 CDT [facility] Michael fentaNYL (JOSE CS) 2016-12-02 16:57:00 No Route: IV, Drug form: INJ, ONCE, Stop date: 12/02/16 11:57:00 [facility] mL INJ (JOSE C) 2016-12-02 16:07:00 No Route: IV, Total Volume: 1,000, Start date: 12/02/16 11:07:00 CDT, Stop date: 12/02/16 12:07:00 CDT [facility] gentamicin (JOSE CS) (JOSE C) 2016-12-02 16:07:00 No Route: IV, Drug form: INJ, Start date: 12/02/16 11:07:00 CDT, Stop date: 12/02/16 12:07:00 CDT [facility] Calcium Chloride 0.0014 MEQ/ML / Potassi um Chloride 0.004 MEQ/ML / Sodium Chloride 0.103 MEQ/ML / Sodium Lactate 0.028 MEQ/ML Injectable Solution 2016-12-02 14:42:00 No 1,000 mL, Rate: 25 ml/hr, Infuse over: 40 hr, Route: IV, Dosing Weight 72.727 kg, Total Volume: 1,000, Start date: 12/02/16 9:42:00 CDT, Duration: 30 day, Stop date: 01/01/17 9:41:00 CDT [facility] diclofenac sodium 25 mg oral enteric coated, delayed-release tablet 2014-11-29 03:08:00 Yes 25 mg = 1 tab, PO, QID, PRN Pain Score 1-5, # 20 tab, 0 Refill(s) [facility] Acetaminophen 325 MG / Hydrocodone Bitartrate 10 MG Oral Tab let 2014-11-29 03:08:00 Yes 1 tab, PO, Q4H, PRN Pain, # 1 2 tab, 0 Refill(s) [facility] ketOROLAC 30 mg/mL injectable solution 2014-11-29 01:37:00 No 30 mg, Route: IVP, Drug form: INJ, ONCE, Dosing Weight 75, kg, Priority: STAT, Start date: 11/28/14 20:37:00, Stop date: 11/28/14 20:37:00 [facility] Dilaudid 2014-11-28 23:32:00 No 1 mg, Route: [...] Nausea, # 15 tab, 0 Refill(s) Hector Rodriguez Acetaminophen 325 MG / Hydrocodone Jojo trate 7.5 MG Oral Tablet [[place] 7.5/325] 2014-11-25 04:39:00 Yes 1 tab, PO, Q6H, PRN for pain, # 20 tab, 0 Refill(s) [facility] Morphine 2014-11-25 04:11:00 No 4 mg, Route: IVP, Drug form: INJ, ONCE, Dosing Weight 72.727, kg, Priority: STAT, Start date: 11/24/14 23:11:00, Stop date: 11/24/14 23:11:00 [facility] Sodium Chloride 0.154 MEQ/ML Injectable Solution 2014-11-25 02:5 1:00 No 1,000 mL, 1,000 ml/hr, Infus e Over: 1 Hour, Route: IV, ONCE, Priority: STAT, Dosing Weight 72.727 kg, Start date: 11/24/14 21:51:00, Duration: 1 doses or times, Stop date: 11/24/14 21:51:00 Matt adam [place] Phenergan 2014-11-25 02:34:00 No 12.5 mg, Route: [...] date: 11/24/14 20:18:00, Stop date: 11/24/14 20:18:00 Silver Rodriguez Sodium Chloride 0.154 MEQ/ML Injectable Solution 2014-11-25 01:1 8:00 No 1,000 mL, Infuse Over: 1 hr, Route: IV, ONCE, Priority: STAT, Dosing Weight 72.727 kg, Start date: 11/24/14 20:18:00, Duration: 1 doses or times, Stop date: 11/24/14 20:18:00 Silver Rodriguez Saline Flush 0.9% 2014-11-25 01:18:00 No Notes: (Same as: BD Posiflush) [facility] Ondansetron 4 MG Oral Tablet [Zofran] 2014-06-23 15:38:00 Y es 4 mg = 1 tab, PO, BID, # 10 tab, 0 Refill(s) Hector Rodriguez Acetaminophen 325 MG / tramadol hydrochloride 37.5 MG Oral T ablet [Ultracet] 2014-06-23 15:38:00 Yes 1 tab, PO, Q4H, for pain, # 60 tab, 0 Refill(s) Silver [place] Sulfamethoxazole 800 MG / Trimethoprim 160 MG Oral Tablet [B actrim] 2014-06-23 15:37:00 Yes 1 tab, PO, BID, # 20 tab, 0 Refill(s) [facility] Ketorolac 2014-06-23 14:27:00 No 30 mg, Route: IVP, ONCE, Dosing Weight 75, kg, Priority: STAT, Start date: 06/23/14 9:27:00, Stop date: 06/23/14 9:27:00 [facility] Ondansetron 2014-06-23 14:27:00 No 4 mg, Route: IVP, ONCE, Dosing Weight 75, kg, Priority: STAT, Start date: 06/23/14 9:27:00, Stop date: 06/23/14 9:27:00 [facility] Sodium Chloride 0.154 MEQ/ML Injectable Solution 2014-06-23 14:2 7:00 No 1,000 mL, Infuse Over: 1 hr, Route: IV, ONCE, Priority: STAT, Dosing Weight 75 kg, Start date: 06/23/14 9:27:00, Duration: 1 doses or times, Stop date: 06/23/14 9:27:00 [facility] Michael Saline Flush 0.9% 2014-06-23 14:27:00 No 10 mL, Route: IVP, Drug Form: INJ, Dosing Weight 75, kg, PRN, PRN Line Flush, Start date: 06/23/14 9:27:00, Duration: 30 day, Stop date: 07/23/14 8:26:00 [facility] [place] Nexium 40 mg oral delayed release capsule 2013-04-08 16:28 :46 Yes Moris Anne Carrington 40 mg, 1 cap, PO, Daily, 30 cap, Substit ution Allowed [facility] [place] tramadol 50 mg oral tablet 2013-04-08 16:28:21 Yes Brett mcknight D Carrington 50 mg, 1 tab, PO, Q6H, PRN, 40 tab, Pain, Substitution Allowed, TAB [facility] Levaquin 500 mg oral tablet 2013-04-08 16:27:56 Yes Shravan Rodríguez Carrington 500 mg, 1 tab, PO, Q24H, 14 tab, Substitution Allowed [facility] Protonix 2013-04-07 21:30:00 No Moris Anne Carrington 40 mg, 1 tab, Route: PO, Drug form: ECTAB, Before Dinner, Start date: 04/07/13 16:30:00, Duration: 30 day, Stop date: 05/06/13 16:30:00 Deena rios [place] potassium chloride 2013-04-07 17:32:00 No Moris DeWi tt 40 mEq, 2 tab, Route: PO, Drug form: ERTAB, Q4H, Dosing Weight 76.42, kg, Priority: NOW, Start date: 04/07/13 12:32:00, Duration: 2 doses or times, Stop date: 04/07/13 17:00:00 [facility] nystatin-triamcinolone topical cream 2013-04-07 14:00:00 No Jayson Leyvabib 1 appl, Route: TOP, BID, Rell g form: CRM, Start date: 04/07/13 9:00:00, Duration: 30 day, Stop date: 05/06/13 17:00:00 [facility] phenol topical 1.4% spray 2013-04-06 13:01:00 No Moris Shultz 1 spray, Route: MUCOUS MEM, Q3H, Drug form: SPRY, PRN Sore Throat, Start date: 04/06/13 8:01:00, Duration: 30 day, Stop date: 05/06/13 8:00:00 [facility] Cepacol Dual Relief Sore Throat [place] 5% topical spray 2013-04-06 12:30:00 No Moris Shultz Route: TOP, Dosing Weight 76.42, kg, Q3H, PRN Pain Score 1-3, Start date: 04/06/13 7:30:00, Duration: 30 day, Stop date: 05/06/13 7:29:00 [facility] Invanz + Sodium Chloride 0.9% IV 100 [...] Duration: 30 day, Stop date: 05/04/13 18:00:00 [facility] Benadryl 2013-04-05 16:03:00 No Moris Shultz 25 mg, 1 tab, Route: PO, Drug form: TAB, Q4H, Dosing Weight 76.42, kg, PRN as needed for itching, Start date: 04/05/13 11:03:00, Duration: 30 day, Stop date: 05/05/13 11:02:00 [facility] potassium chloride 2013-04-05 12:50:00 No Moris posey 40 mEq, 2 tab, Route: PO, Drug form: ERTAB, Q4H, Dosing Weight 76.42, kg, Priority: NOW, Start date: 04/05/13 7:50:00, Duration: 2 doses or times, Stop date: 04/05/13 8:00:00 [facility] Michael Tylenol 2013-04-05 10:19:00 No Moris D Carrington 650 mg, 2 tab, Route: PO, Drug form: TAB, Q6H, Dosing Weight 76.42, kg, PRN Pain/Fever, Start date: 04/05/13 5:19:00, Duration: 30 day, Stop date: 05/05/13 5:18:00, PRN for Fever and pain. [facility] Tylenol 2013-04-05 10:00:00 No Moris D Carrington [...] Duration: 30 day, Stop date: 05/05/13 4:58:00 [facility] ondansetron 2013-04-05 02:19:00 No Moris Shultz 4 mg, 2 mL, Route: IVP, Drug form: INJ, Q8H, Dosing Weight 76.364, kg, PRN Nausea & Vomiting, Start date: 04/04/13 21:19:00, Duration: 30 day, Stop date: 05/04/13 21:18:00 [facility] morphine Sulfate 2013-04-05 02:19:00 No Moris Anne Shultz 2 mg, 1 mL, Route: IVP, Drug form: INJ, Q3H, Dosing Weight 76.364, kg, PRN Pain Score 4-6, Start date: 04/04/13 21:19:00, Duration: 30 day, Stop date: 05/04/13 21:18:00 [facility] Sodium Chloride 0.9% (Bolus) IV 1,000 mL 2013-04-05 01:03: 00 No Safi Butros Madain 1,000 mL, Rate: 1,000 ml/hr, Infuse over: 1 hr, Route: IV, Dosing Weight 76.364 kg, Total Volume: 1,000, Priority: STAT, Start date: 04/04/13 20:03:00, Duration: 1 doses or times, Stop date: 04/04/13 21:02:00, Bolus DoseBolus Dose [facility] [place] 10/325 oral tablet 2013-04-04 23:05:00 No Safi Bu tros Madain 1 tab, Route: PO, Drug Form: TAB, Dosing Weight 76.364, kg, ONCE, Start date: 04/04/13 18:05:00, Stop date: 04/04/13 18:05:00 Silver Rodriguez Sodium Chloride 0.9% (Bolus) IV 1,000 mL 2013-04-04 23:04: 00 No Safi Butros Madain 1,000 mL, Rate: 1,000 ml/hr, Infuse over: 1 hr, Route: IV, Dosing Weight 76.364 kg, Total Volume: 1,000, Priority: STAT, Start date: 04/04/13 18:04:00, Duration: 1 doses or times, Stop date: 04/04/13 19:03:00, Bolus DoseBolus Dose [facility] Vital Signs Vital Name Observation Time Observation Value Comments Source Body Temperature 2020-05-05 10:40:00 97.8 [degF] [facility] Weight 2020-05-05 08:37:00 160 [lb_av] [facility] BMI (Body Mass Index) 2020-05-05 08:37:00 25.8 kg/m2 [facility] Body Temperature 2020-04-30 22:13:00 98.1 [degF] [facility] Weight 2020-04-30 20:27:00 160 [lb_av] [facility] BMI (Body Mass Index) 2020-04-30 20:27:00 25.8 kg/m2 [facility] BMI Calculated 2018-09-30 14:22:00 [facility] Weight 2018-09-30 14:22:00 [facility] Height 2018-09-30 14:22:00 165.1 cm [facility] Heart Rate 2018-09-30 14:22:00 [facility] Respitory Rate 2018-09-30 14:22:00 [facility] Systolic (mm Hg) 2018-09-30 14:22:00 [facility] Diastolic (mm Hg) 2018-09-30 14:22:00 [facility] Temperature Oral (F) 2018-09-30 14:22:00 97.1 F [facility] Height 2018-09-22 22:57:00 167.64 cm [facility] Weight 2018-09-22 22:57:00 [facility] BMI Calculated 2018-09-22 22:57:00 [facility] Height 2018-05-28 13:03:00 165.1 cm [facility] Weight 2018-05-28 13:03:00 [facility] BMI Calculated 2018-05-28 13:03:00 [facility] Systolic (mm Hg) 2018-05-28 13:03:00 [facility] Diastolic (mm Hg) 2018-05-28 13:03:00 [facility] Temperature Oral (F) 2018-05-28 13:03:00 98.1 F [facility] Heart Rate 2018-05-28 13:03:00 [facility] Respitory Rate 2018-05-28 13:03:00 [facility] BMI Calculated 2017-10-10 15:05:00 [facility] Weight 2017-10-10 15:05:00 [facility] Height 2017-10-10 15:05:00 165.1 cm [facility] Systolic (mm Hg) 2017-10-10 15:05:00 [facility] Diastolic (mm Hg) 2017-10-10 15:05:00 [facility] Respitory Rate 2017-10-10 15:05:00 [facility] Heart Rate 2017-10-10 15:05:00 [facility] Temperature Oral (F) 2017-10-10 15:05:00 98.6 F [facility] Respitory Rate 2017-05-05 13:09:00 [facility] Systolic (mm Hg) 2017-05-05 13:09:00 [facility] Diastolic (mm Hg) 2017-05-05 13:09:00 [facility] Height 2017-05-02 16:17:00 167.64 cm [facility] BMI Calculated 2017-05-02 16:17:00 [facility] Weight 2017-05-02 16:17:00 [facility] Weight 2017-04-02 14:18:00 [facility] Height 2017-04-02 14:18:00 167.64 cm [facility] BMI Calculated 2017-04-02 14:18:00 [facility] Systolic (mm Hg) 2016-12-06 13:10:00 [facility] Diastolic (mm Hg) 2016-12-06 13:10:00 [facility] Temperature Oral (F) 2016-12-06 13:10:00 98.3 F [facility] Heart Rate 2016-12-06 13:10:00 [facility] Temperature Oral (F) 2016-12-06 09:00:00 98.1 F [facility] Systolic (mm Hg) 2016-12-06 09:00:00 [facility] Diastolic (mm Hg) 2016-12-06 09:00:00 [facility] Heart Rate 2016-12-06 09:00:00 [facility] Temperature Oral (F) 2016-12-06 05:00:00 98.1 F [facility] Heart Rate 2016-12-06 05:00:00 [facility] Systolic (mm Hg) 2016-12-06 05:00:00 [facility] Diastolic (mm Hg) 2016-12-06 05:00:00 [facility] Respitory Rate 2016-12-05 20:29:00 [facility] Respitory Rate 2016-12-05 16:40:00 [facility] Respitory Rate 2016-12-05 13:06:00 [facility] Weight 2016-12-02 22:22:00 [facility] BMI Calculated 2016-12-02 22:22:00 [facility] Height 2016-12-02 22:22:00 167.64 cm [facility] Height 2016-11-25 20:33:00 167.64 cm [facility] BMI Calculated 2016-11-25 20:33:00 [facility] Weight 2016-11-25 20:33:00 [facility] Systolic (mm Hg) 2014-11-29 03:46:00 [facility] Diastolic (mm Hg) 2014-11-29 03:46:00 [facility] Respitory Rate 2014-11-29 03:46:00 [facility] Heart Rate 2014-11-29 03:46:00 [facility] Systolic (mm Hg) 2014-11-28 23:31:00 [facility] Diastolic (mm Hg) 2014-11-28 23:31:00 [facility] Respitory Rate 2014-11-28 23:31:00 [facility] Heart Rate 2014-11-28 23:31:00 [facility] Temperature Oral (F) 2014-11-28 23:31:00 98.2 F [facility] Systolic (mm Hg) 2014-11-28 20:30:00 [facility] Diastolic (mm Hg) 2014-11-28 20:30:00 [facility] Weight 2014-11-28 20:30:00 [facility] Temperature Oral (F) 2014-11-28 20:30:00 97.9 F [facility] BMI Calculated 2014-11-28 20:30:00 [facility] Height 2014-11-28 20:30:00 167.64 cm [facility] Heart Rate 2014-11-28 20:30:00 [facility] Respitory Rate 2014-11-28 20:30:00 [facility] Temperature Oral (F) 2014-11-25 05:16:00 98.2 F [facility] Systolic (mm Hg) 2014-11-25 05:16:00 [facility] Diastolic (mm Hg) 2014-11-25 05:16:00 [facility] Respitory Rate 2014-11-25 05:16:00 [facility] Heart Rate 2014-11-25 05:16:00 [facility] Temperature Oral (F) 2014-11-25 04:14:00 98.3 F [facility] Heart Rate 2014-11-25 04:14:00 [facility] Systolic (mm Hg) 2014-11-25 04:14:00 [facility] Diastolic (mm Hg) 2014-11-25 04:14:00 [facility] Respitory Rate 2014-11-25 04:14:00 [facility] BMI Calculated 2014-11-25 00:54:00 [facility] Height 2014-11-25 00:54:00 167.64 cm [facility] Weight 2014-11-25 00:54:00 [facility] Temperature Oral (F) 2014-11-25 00:54:00 98.5 F [facility] Heart Rate 2014-11-25 00:54:00 [facility] Systolic (mm Hg) 2014-11-25 00:54:00 [facility] Diastolic (mm Hg) 2014-11-25 00:54:00 [facility] Respitory Rate 2014-11-25 00:54:00 [facility] Systolic (mm Hg) 2014-06-23 16:00:00 [facility] Diastolic (mm Hg) 2014-06-23 16:00:00 [facility] Respitory Rate 2014-06-23 16:00:00 [facility] Heart Rate 2014-06-23 16:00:00 [facility] Temperature Oral (F) 2014-06-23 16:00:00 98.1 F [facility] Weight 2014-06-23 13:40:00 [facility] Height 2014-06-23 13:40:00 172.72 cm [facility] BMI Calculated 2014-06-23 13:40:00 [facility] Diastolic (mm Hg) 2014-06-23 13:40:00 [facility] Heart Rate 2014-06-23 13:40:00 [facility] Respitory Rate 2014-06-23 13:40:00 [facility] Temperature Oral (F) 2014-06-23 13:40:00 98.8 F [facility] Systolic (mm Hg) 2014-06-23 13:40:00 [facility] Systolic (mm Hg) 2013-04-08 13:00:00 [facility] Respitory Rate 2013-04-08 13:00:00 [facility] Diastolic (mm Hg) 2013-04-08 13:00:00 [facility] Heart Rate 2013-04-08 13:00:00 [facility] Temperature Oral (F) 2013-04-08 13:00:00 97.5 F [facility] Diastolic (mm Hg) 2013-04-08 09:18:00 [facility] Heart Rate 2013-04-08 09:18:00 [facility] Respitory Rate 2013-04-08 09:18:00 [facility] Systolic (mm Hg) 2013-04-08 09:18:00 [facility] Temperature Oral (F) 2013-04-08 09:18:00 98.9 F [facility] Diastolic (mm Hg) 2013-04-08 05:42:00 [facility] Respitory Rate 2013-04-08 05:42:00 [facility] Systolic (mm Hg) 2013-04-08 05:42:00 [facility] Heart Rate 2013-04-08 05:42:00 [facility] Temperature Oral (F) 2013-04-08 05:42:00 98.5 F [facility] Height 2013-04-05 02:34:00 167.64 cm [facility] Weight 2013-04-05 02:34:00 [facility] Weight 2013-04-04 22:07:00 [facility] Height 2013-04-04 22:07:00 167.64 cm [facility] Procedures Procedure Date / Time Performed Performing Clinician [facility] e CT of abdomen and pelvis without contrast 2020-04-30 00:00:00 [facility] Plan of Care Planned Activity Planned Date Details Comments Source Instructions Sprains [facility] Instructions Foot Care [facility] Encounters Start Date/Time End Date/Time Encounter Type Admission Type Attendi [facility] Facility Care Department Encounter ID Source 2020-05-05 08:55:00 2020-05-05 11:18:00 Departed Emergency Room 1 VALERIE MILKA [facility] [id number] I [facility] 2020-04-30 20:24:00 2020-04-30 22:20:00 Departed Emergency Room TREY DIANA [facility] [id number] I [facility] 2019-11-23 16:15:00 2019-11-23 23:59:59 Outpatient Abel Aleman [facility] [id number] 2019-11-23 16:30:00 2019-11-23 16:30:00 [facility] [id number] 2018-12-28 15:45:00 2018-12-28 15:45:00 Outpatient R Samanta Marin [facility] [id number] 2018-09-30 08:15:00 2018-09-30 23:59:59 [facility] [id number] 2018-09-30 08:15:00 2018-09-30 23:59:59 [facility] [id number] 2018-09-22 15:40:00 2018-09-22 23:59:59 [facility] [id number] 2018-05-28 08:00:00 2018-05-28 23:59:59 Out[facility] R Samanta Marin [facility] [id number] 2017-10-10 08:45:00 2017-10-10 23:59:59 Out[facility] R Sam[facility] Marin [facility] [id number] 2017-07-24 15:30:00 2017-07-24 15:30:00 Out[facility] R [facility] Marinessa [facility] [id number] 2017-05-05 07:49:00 2017-05-05 09:35:00 Outpatient Dutch Vazquez [facility] [id number] 2016-12-04 12:07:00 2016-12-06 10:20:00 Outpatient Abel Aleman SE [facility] [id number] 2014-11-28 15:20:00 2014-11-28 22:49:00 Outpatient Galileo ElyIE [facility] [id number] 2014-11-24 19:46:00 2014-11-25 00:18:00 Outpatient Roe Galvan [facility] [id number] 2014-06-23 08:37:00 2014-06-23 16:30:00 Outpatient Joseluis Rosado DELIO JARED [id number] Results Test Description Test Time Test Comments Results Result Comments Source CT ABDOMEN/PELVIS WO 2020-07-14 06:15:00 [facility] : 1975 Sex: M [place] [address] Patient Name: MIGUEL LAWTON MR #: [id number] : 1975 Age/Sex: 44/M Req #: [id number] [facility] Physician: Ordered by: TREY DIANA MD Report #: [id number] Location: ER Room/Bed: Procedure: [id number] CT/CT ABDOMEN/PELVIS WO Exam Date: 07/14/20 Exam Time: 0545 REPORT STATUS: Signed EXAM: CT Abdomen and Pelvis WITHOUT contrast INDICATION: LEFT FLANK PAIN COMPARISON: CT dated 04/30/2020 TECHNIQUE: Abdomen and pelvis were scanned utilizing a multidetector helical scanner from the lung base to the pubic symphysis without administration of IV contrast. Absence of intravenous contrast decreases sensitivity for detection of focal lesions and vascular pathology. Coronal and sagittal reformations were obtained. Routine protocol was performed. IV CONTRAST: None ORAL CONTRAST: None COMPLICATIONS: None FINDINGS: LINES and TUBES: None. LOWER THORAX: Unremarkable HEPATOBILIARY: No focal hepatic lesions. No biliary ductal dilation. GALLBLADDER: No radio-opaque stones or sludge. No wall thickening. SPLEEN: No splenomegaly. PANCREAS: No focal masses or ductal dilatation. ADRENALS: No adrenal nodules KIDNEYS/URETERS: No hydronephrosis. No cystic or solid mass lesions. 2 nonobstructive left intrarenal calculi measuring to 5 mm. Mild distention of the left renal pelvis, may represent an extrarenal pelvis. No ureteral calculi. No perinephric stranding. It appears that the stone was that was previously at the ureteropelvic junction has migrated proximally into the renal pelvis. GI TRACT: No abnormal distention, wall thickening, or evidence of bowel obstruction. Appendix is normal. PELVIC ORGANS/BLADDER: Unremarkable. LYMPH NODES: No lymphadenopathy. VESSELS: Unremarkable. PERITONEUM / RETROPERITONEUM: No free air or fluid. BONES: Unremarkable. SOFT TISSUES: Bilateral fat -containing inguinal hernias. IMPRESSION: 1. Two nonobstructive left intrarenal calculi without hydronephrosis. No ureteral calculi. 2. Bilateral fat-containing inguinal hernias. Signed by: Tammi Mcgraw MD on 07/14/2020 6:42 AM Dictated By: TAMMI MCGRAW MD 1 Transcribed By: EUSEBIA on 07/14/20641 COPY TO: TREY DIANA MD FOOT RIGHT COMPLETE 2020-05-05 09:30:00 [place] [address] Patient Name: MIGUEL LAWTON MR #: [id number] : 1975 Age/Sex: 44/M Req #: [id number] [facility] Physician: Ordered by: MILKA PADILLA DO Report #: [id number] Location: ER Room/Bed: Procedure: DX/FOOT RIGHT COMPLETE Exam Date: 05/05/20 Exam Time: 902 REPORT STATUS: Signed EXAMINATION: FOOT RIGHT COMPLETE INDICATION: Foot pain COMPARISON: None FINDINGS: No acute fracture or dislocation. Alignment is anatomic. Soft tissues appear unremarkable. No substantial degenerative change. IMPRESSION: No acute osseous injury of the right foot. Signed by: Chandrika Herr MD on 05/05/2020 9:31 AM Dictated By: CHANDRIKA HERR MD 0 Transcribed By: EUSEBIA on 05/05/20930 COPY TO: MILKA PADILLA DO CT ABDOMEN/PELVIS WO 2020-04-30 21:40:00 [place] [address] Patient Name: MIGUEL LAWTON MR #: [id number] : 1975 Age/Sex: 44/M Req #: [id number] [facility] Physician: Ordered by: TREY DIANA MD Report #: [id number] Location: ER Room/Bed: Procedure: CT/CT ABDOMEN/PELVIS WO Exam Date: 04/30/20 Exam [...] Count (test code = 6690-2) 5.81 4.8-10.8 [facility] count (number/volume)2020-04-30 20:30:00* Test Item Value Reference Range Interpretation Comments Red Blood Count (test code = 789-8) 4.54 4.3-5.7 [facility] hemoglobin measurement (moles/volume)2020-04-30 20:30:00* Test Item Value Reference Range Interpretation Comments Hemoglobin (test code = 89012-3) 13.6 14.0-18.0 [facility] blood hematocrit (volume fraction)2020-04-30 20:30:00* Test Item Value Reference Range Interpretation Comments Hematocrit (test code = 4544-3) 40.5 38.2-49.6 [facility] erythrocyte mean corpuscular [id number] 20:30:00* Test Item Value Reference Range Interpretation Comments Mean Corpuscular Volume (test code = 787-2) 89.2 81-99 [facility] erythrocyte mean corpuscular hemoglobin (mass per erythrocyte)2020-04-30 20:30:00* Test Item Value Reference Range Interpretation Comments Mean Corpuscular Hemoglobin (test code = 785-6) 30.0 28-32 [facility] erythrocyte mean corpuscular hemoglobin concentration measurement (mass/volume)2020-04-30 20:30:00* Test Item Value Reference Range Interpretation Comments Mean Corpuscular Hemoglobin Concent (test code = 786-4) 33.6 31-35 [facility]viewRDW [id number]-[id number] 20:30:00* Test Item Value Reference Range Interpretation Comments Red Cell Distribution Width (test code = 75668-2) 12.7 11.7 -14.4 [facility] blood platelet count (count/volume)2020-04-30 20:30:00* Test Item Value Reference Range Interpretation Comments Platelet Count (test code = 777-3) 210 140-360 [facility]view[facility] blood segmented neutrophil count as percentage of total tbfcqowvrm3505-13-15 20:30:00* Test Item Value Reference Range Interpretation Comments Neutrophils (%) (Auto) (test code = 09621-5) 57.8 38.7-80.0 [facility]view[facility] blood lymphocyte count as percentage ot total nfkldchqnw7628-64-31 20:30:00* Test Item Value Reference Range Interpretation Comments Lymphocytes (%) (Auto) (test code = 736-9) 29.3 18.0-39.1 [facility]view[facility] blood monocyte count as percentage of total qgvjzmtkus6286-85-91 20:30:00* Test Item Value Reference Range Interpretation Comments Monocytes (%) (Auto) (test code = 5905-5) 6.4 4.4-11.3 [facility]view[facility] blood eosinophil count as percentage of total yvyikdrfgj7424-38-17 20:30:00* Test Item Value Reference Range Interpretation Comments Eosinophils (%) (Auto) (test code = 713-8) 5.3 0.0-6.0 [facility]Aut[facility]ed [facility] basophil count as percentage of total ezoqaucxoz9833-18-32 20:30:00* Test Item Value Reference Range Interpretation Comments Basophils (%) (Auto) (test code = 706-2) 0.5 0.0-1.0 [facility]viewFluoroscopic procedure less than one hour jzxgxyng8909-88-77 20:30:00* Test Item Value Reference Range Interpretation Comments IM GRANULOCYTES % (test code = IM GRANULOCYTES %) 0.7 0.0- 1.0 [facility]view[facility] blood neutrophil count 2020-04-30 20:30:00* Test Item Value Reference Range Interpretation Comments Neutrophils # (Auto) (test code = 751-8) 3.4 2.1-6.9 [facility] lymphocytes count (number/volume) 2020-04-30 20:30:00* Test Item Value Reference Range Interpretation Comments Lymphocytes # (Auto) (test code = 46316-8) 1.7 1.0-3.2 [facility] monocytes automated count (number/volume)2020-04-30 20:30:00* Test Item Value Reference Range Interpretation Comments Monocytes # (Auto) (test code = 742-7) 0.4 0.2-0.8 [facility]viewAutom[facility] blood eosinophil count 2020-04-30 20:30:00* Test Item Value Reference Range Interpretation Comments Eosinophils # (Auto) (test code = 711-2) 0.3 0.0-0.4 [facility]viewAutomated blood basophil count (count/volume)2020-04-30 20:30:00* Test Item Value Reference Range Interpretation Comments Basophils # (Auto) (test code = 704-7) 0.0 0.0-0.1 [facility]viewFluoroscopic procedure less than one hour [id number] 20:30:00* Test Item Value Reference Range Interpretation Comments Absolute Immature Granulocyte (auto (ina t code = Absolute Immature Granulocyte (auto) 0.04 0-0.1 [facility]viewProthrombin time (PT) in platelet poor plasma by coagulation [id number] 20:30:00* Test Item Value Reference Range Interpretation Comments Prothrombin Time (test code = 5902-2) 11.6 11.9-14.5 [facility]viewINR in Platelet poor plasma by Coagulation [id number] 20:30:00* Test Item Value Reference Range Interpretation Comments Prothromb Time International Ratio (test code = 6301-6) 0.81 Oral Anticoagulant Therapy INR Values:1. Low Intensity Therapy 1.5 - 2.02 . Moderate Intensity Therapy 2.0 - 3.03. High Intensity Therapy(1) 2.5 - 3. 54. High Intensity Therapy(2) 3.0 - 4.05. Panic Value INR > 5.0 [facility]viewActivated partial thromboplastin time (aPTT) in platelet poor plasma by coagulation [id number] 20:30:00* Test Item Value Reference Range Interpretation Comments Activated Partial Thromboplast Time (test code = 07836-9) 32.6 23.8-35.5 [facility]viewUrine color vnztsycjhkoox5092-35-35 20:30:00* Test Item Value Reference Range Interpretation Comments Urine Color (test code = 5778-6) STRAW YELLOW [facility]viewUrine odtnkrq3482-63-67 20:30:00* Test Item Value Reference Range Interpretation Comments Urine Clarity (test code = 40077-4) CLOUDY CLEAR [facility] by Test strip 2020-04-30 20:30:00* Test Item Value Reference Range Interpretation Comments Urine Specific [place] (test code = 5811-5) 1.015 1.010-1.02 5 [facility]viewUrine pH measurement by automated test [id number] 20:30:00* Test Item Value Reference Range Interpretation Comments Urine pH (test code = 64358-2) 5.5 5-7 [facility]viewUrine leukocyte esterase detection by jdfpjtnp9254-33-41 20:30:00* Test Item Value Reference Range Interpretation Comments Urine Leukocyte Esterase (test code = 5799-2) NEGATIVE NEGATIVE [facility]viewUrine nitrite qehgbjcdb1009-31-32 20:30:00* Test Item Value Reference Range Interpretation Comments Urine Nitrite (test code = 13799-7) NEGATIVE NEGATIVE [facility]view[facility]rine protein measurement by test strip (mass/volume)2020-04-30 20:30:00* Test Item Value Reference Range Interpretation Comments Urine Protein (test code = 5804-0) 2+ NEGATIVE [facility]viewUrine glucose vafhiaubt1471-51-32 20:30:00* Test Item Value Reference Range Interpretation Comments Urine Glucose (UA) (test code = 2349-9) NEGATIVE NEGATIVE [facility]viewUrine ketones detection by automated test [id number] 20:30:00* Test Item Value Reference Range Interpretation Comments Urine Ketones (test code = 36503-1) NEGATIVE NEGATIVE [facility]viewUrine urobilinogen measurement by test strip (mass/volume)2020-04-30 20:30:00* Test Item Value Reference Range Interpretation Comments Urine Urobilinogen (test code = 83760-1) 0.2 0.2-1 [facility]view[facility]rine total bilirubin measurement (mass/volume)2020-04-30 20:30:00* Test Item Value Reference Range Interpretation Comments Urine Bilirubin (test code = 1978-6) NEGATIVE NEGATIVE [facility]viewUrine erythrocytes nrdhtolhr3506-65-54 20:30:00* Test Item Value Reference Range Interpretation Comments Urine Blood (test code = 20152-0) 4+ NEGATIVE [facility]viewAutomated urine sediment leukocyte count by microscopy (number/high power field)2020-04-30 20:30:00* Test Item Value Reference Range Interpretation Comments Urine WBC (test code = 5821-4) 11-20 0-5 [facility]viewErythrocytes detection in urine sediment by light [id number] 20:30:00* Test Item Value Reference Range Interpretation Comments Urine RBC (test code = 17130-9) >50 0-5 [facility]viewBacteria detection in urine sediment by light [id number] 20:30:00* Test Item Value Reference Range Interpretation Comments Urine Bacteria (test code = 39068-4) MODERATE NONE [facility]viewEpithelial cells detection in urine sediment by light xnafjlnfhq9585-45-23 20:30:00* Test Item Value Reference Range Interpretation Comments Urine Epithelial Cells (test code = 11213-5) FEW NONE [facility]ererum or plasma sodium measurement (moles/volume)2020-04-30 20:30:00* Test Item Value Reference Range Interpretation Comments Sodium Level (test code = 2951-2) 136 136-145 [facility]ererum or plasma potassium measurement (moles/volume)2020-04-30 20:30:00* Test Item Value Reference Range Interpretation Comments Potassium Level (test code = 2823-3) 4.0 3.5-5.1 [facility]ererum or plasma chloride measurement (moles/volume)2020-04-30 20:30:00* Test Item Value Reference Range Interpretation Comments Chloride Level (test code = 2075-0) 105 98-107 [facility]ererum or plasma carbon dioxide, total measurement (moles/volume)2020-04-30 20:30:00* Test Item Value Reference Range Interpretation Comments Carbon Dioxide Level (test code = 2028-9) 18 22-29 [facility]ererum or plasma anion [id number] 20:30:00* Test Item Value Reference Range Interpretation Comments Anion Gap (test code = 38946-8) 17.0 8-16 [facility]ererum or plasma urea nitrogen measurement (mass/volume)2020-04-30 20:30:00* Test Item Value Reference Range Interpretation Comments Blood Urea Nitrogen (test code = 3094-0) 16 7-26 [facility]ererum or plasma creatinine measurement (mass/volume)2020-04-30 20:30:00* Test Item Value Reference Range Interpretation Comments Creatinine (test code = 2160-0) 0.89 0.72-1.25 [facility]ererum or plasma urea nitrogen/creatinine mass [id number] 20:30:00* Test Item Value Reference Range Interpretation Comments BUN/Creatinine Ratio (test code = 3097-3) 18 6-25 [facility]viewEstimated glomerular filtration rate (GFR) zlopmadfvvlma9383-70-80 20:30:00* Test Item Value Reference Range Interpretation Comments Estimat Glomerular Filtration Rate (test code = 621927159) > 60 >60 Ranges were taken from the National Kidney Disease Education Program and the [facility] Foundation literature.Reference ranges:60 or greater: Gxohhd67-85 ( for 3 consecutive months): Chronic kidney disease 15 or less: Kidney failureCH[facility] LongviewGlucose vkzhdduazzs2122-60-16 20:30:00* Test Item Value Reference Range Interpretation Comments Glucose Level (test code = JVD0665) 101 74-118 [facility] calcium measurement (mass/volume)2020-04-30 20:30:00* Test Item Value Reference Range Interpretation Comments Calcium Level (test code = 09561-6) 8.6 8.4-10.2 [facility] plasma total bilirubin measurement (mass/volume)2020-04-30 20:30:00* Test Item Value Reference Range Interpretation Comments Total Bilirubin (test code = 1975-2) 0.2 0.2-1.2 [facility] LongviewFluoroscopic procedure less than one hour xlrjnles5882-58-15 20:30:00* Test Item Value Reference Range Interpretation Comments Aspartate Amino Transf (AST/SGOT) (test code = Aspartate Amino Transf (AST/SGOT)) 27 5-34 [facility]ererum or plasma alanine aminotransferase measurement (enzymatic activity/volume)2020-04-30 20:30:00* Test Item Value Reference Range Interpretation Comments Alanine Aminotransferase (ALT/SGPT) (test code = 1742-6) 27 0-55 [facility]ere[facility] protein measurement (mass/volume)2020-04-30 20:30:00* Test Item Value Reference Range Interpretation Comments Total Protein (test code = 2885-2) 7.0 6.5-8.1 [facility]ererum or plasma albumin measurement (mass/volume)2020-04-30 20:30:00* Test Item Value Reference Range Interpretation Comments Albumin (test code = 1751-7) 4.6 3.5-5.0 [facility] LongviewPlasma globulin measurement (mass/volume) 2020-04-30 20:30:00* Test Item Value Reference Range Interpretation Comments Globulin (test code = 15882-4) 2.4 2.3-3.5 [facility]ererum or plasma albumin/globulin mass jpcow5433-76-79 20:30:00* Test Item Value Reference Range Interpretation Comments Albumin/Globulin Ratio (test code = 1759-0) 1.9 0.8-2.0 [facility]ererum or plasma alkaline phosphatase measurement (enzymatic activity/volume)2020-04-30 20:30:00* Test Item Value Reference Range Interpretation Comments Alkaline Phosphatase (test code = 6768-6) 78 40-150 [facility]ererum or plasma creatine kinase measurement (enzymatic activity/volume)2020-04-30 20:30:00* Test Item Value Reference Range Interpretation Comments Creatine Kinase (test code = 2157-6) 331 30-200 [facility] LongviewBlood leukocytes automated count (number/volume)2020-04-30 20:30:00* Test Item Value Reference Range Interpretation Comments White Blood Count (test code = 6690-2) 5.81 4.8-10.8 [facility] LongviewBlood erythrocytes automated count (number/volume)2020-04-30 20:30:00* Test Item Value Reference Range Interpretation Comments Red Blood Count (test code = 789-8) 4.54 4.3-5.7 [facility] LongviewBlood hemoglobin measurement (moles/volume)2020-04-30 20:30:00* Test Item Value Reference Range Interpretation Comments Hemoglobin (test code = 92460-9) 13.6 14.0-18.0 [facility] LongviewAutomated blood hematocrit (volume fraction)2020-04-30 20:30:00* Test Item Value Reference Range Interpretation Comments Hematocrit (test code = 4544-3) 40.5 38.2-49.6 [facility] LongviewAutomated erythrocyte mean corpuscular xwkzmu9731-44-12 20:30:00* Test Item Value Reference Range Interpretation Comments Mean Corpuscular Volume (test code = 787-2) 89.2 81-99 [facility] LongviewAutomated erythrocyte mean corpuscular hemoglobin (mass per erythrocyte)2020-04-30 20:30:00* Test Item Value Reference Range Interpretation Comments Mean Corpuscular Hemoglobin (test code = 785-6) 30.0 28-32 [facility] LongviewAutomated erythrocyte mean corpuscular hemoglobin concentration measurement (mass/volume)2020-04-30 20:30:00* Test Item Value Reference Range Interpretation Comments Mean Corpuscular Hemoglobin Concent (test code = 786-4) 33.6 31-35 [facility] LongviewRDW HczCu-Vmp7091-92-06 20:30:00* Test Item Value Reference Range Interpretation Comments Red Cell Distribution Width (test code = 46160-7) 12.7 11.7 -14.4 [facility] LongviewAutomated blood platelet count (count/volume)2020-04-30 20:30:00* Test Item Value Reference Range Interpretation Comments Platelet Count (test code = 777-3) 210 140-360 [facility]ed [facility] segmented neutrophil count as percentage of total rdlwzazakn4204-29-65 20:30:00* Test Item Value Reference Range Interpretation Comments Neutrophils (%) (Auto) (test code = 61964-9) 57.8 38.7-80.0 [facility] LongviewAutomated blood lymphocyte count as percentage ot total wnounbanhy9859-94-88 20:30:00* Test Item Value Reference Range Interpretation Comments Lymphocytes (%) (Auto) (test code = 736-9) 29.3 18.0-39.1 [facility] LongviewAutomated blood monocyte count as percentage of total jebbqxirok2704-72-48 20:30:00* Test Item Value Reference Range Interpretation Comments Monocytes (%) (Auto) (test code = 5905-5) 6.4 4.4-11.3 [facility] LongviewAutomated blood eosinophil count as percentage of total sdnbzqcvfz7890-65-90 20:30:00* Test Item Value Reference Range Interpretation Comments Eosinophils (%) (Auto) (test code = 713-8) 5.3 0.0-6.0 [facility]viewAutatrium [facility] pine[facility] hospitaled blood basophil count as percentage of total crfoyddqxt3372-44-10 20:30:00* Test Item Value Reference Range Interpretation Comments Basophils (%) (Auto) (test code = 706-2) 0.5 0.0-1.0 [facility] LongviewFluoroscopic procedure less than one hour tctyrfyr9790-94-98 20:30:00* Test Item Value Reference Range Interpretation Comments IM GRANULOCYTES % (test code = IM GRANULOCYTES %) 0.7 0.0- 1.0 [facility] LongviewAutomated blood neutrophil count 2020-04-30 20:30:00* Test Item Value Reference Range Interpretation Comments Neutrophils # (Auto) (test code = 751-8) 3.4 2.1-6.9 [facility]viewBlood lymphocytes count (number/volume) 2020-04-30 20:30:00* Test Item Value Reference Range Interpretation Comments Lymphocytes # (Auto) (test code = 42359-3) 1.7 1.0-3.2 [facility] LongviewBlood monocytes automated count (number/volume)2020-04-30 20:30:00* Test Item Value Reference Range Interpretation Comments Monocytes # (Auto) (test code = 742-7) 0.4 0.2-0.8 [facility] LongviewAutomated blood eosinophil count 2020-04-30 20:30:00* Test Item Value Reference Range Interpretation Comments Eosinophils # (Auto) (test code = 711-2) 0.3 0.0-0.4 [facility] LongviewAutomated blood basophil count (count/volume)2020-04-30 20:30:00* Test Item Value Reference Range Interpretation Comments Basophils # (Auto) (test code = 704-7) 0.0 0.0-0.1 [facility] LongviewFluoroscopic procedure less than one hour lvvlrrfv0343-13-80 20:30:00* Test Item Value Reference Range Interpretation Comments Absolute Immature Granulocyte (auto (ina t code = Absolute Immature Granulocyte (auto) 0.04 0-0.1 [facility] LongviewProthrombin time (PT) in platelet poor plasma by coagulation vfxxo9980-59-22 20:30:00* Test Item Value Reference Range Interpretation Comments Prothrombin Time (test code = 5902-2) 11.6 11.9-14.5 [facility] LongviewINR in Platelet poor plasma by Coagulation oxdqp3559-87-92 20:30:00* Test Item Value Reference Range Interpretation Comments Prothromb Time International Ratio (test code = 6301-6) 0.81 Oral Anticoagulant Therapy INR Values:1. Low Intensity Therapy 1.5 - 2.02 . Moderate Intensity Therapy 2.0 - 3.03. High Intensity Therapy(1) 2.5 - 3. 54. High Intensity Therapy(2) 3.0 - 4.05. Panic Value INR > 5.0 [facility] LongviewActivated partial thromboplastin time (aPTT) in platelet poor plasma by coagulation bkely3453-67-85 20:30:00* Test Item Value Reference Range Interpretation Comments Activated Partial Thromboplast Time (test code = 15019-6) 32.6 23.8-35.5 [facility] LongviewUrine color zxsoecmdoqgng1481-38-69 20:30:00* Test Item Value Reference Range Interpretation Comments Urine Color (test code = 5778-6) STRAW YELLOW [facility] LongviewUrine ojsfyjy9271-71-78 20:30:00* Test Item Value Reference Range Interpretation Comments Urine Clarity (test code = 70828-5) CLOUDY CLEAR [facility] Centerpecific gravity of Urine by Test strip 2020-04-30 20:30:00* Test Item Value Reference Range Interpretation Comments Urine Specific [place] (test code = 5811-5) 1.015 1.010-1.02 5 [facility] LongviewUrine pH measurement by automated test vzgdd4048-11-24 20:30:00* Test Item Value Reference Range Interpretation Comments Urine pH (test code = 56136-6) 5.5 5-7 [facility] LongviewUrine leukocyte esterase detection by rfhcwrrs0259-12-07 20:30:00* Test Item Value Reference Range Interpretation Comments Urine Leukocyte Esterase (test code = 5799-2) NEGATIVE NEGATIVE [facility] LongviewUrine nitrite iadmqoocd1006-29-14 20:30:00* Test Item Value Reference Range Interpretation Comments Urine Nitrite (test code = 86533-5) NEGATIVE NEGATIVE [facility] LongviewUrine protein measurement by test strip (mass/volume)2020-04-30 20:30:00* Test Item Value Reference Range Interpretation Comments Urine Protein (test code = 5804-0) 2+ NEGATIVE [facility] LongviewUrine glucose eetmranay5033-59-66 20:30:00* Test Item Value Reference Range Interpretation Comments Urine Glucose (UA) (test code = 2349-9) NEGATIVE NEGATIVE [facility] LongviewUrine ketones detection by automated test jkock7230-81-34 20:30:00* Test Item Value Reference Range Interpretation Comments Urine Ketones (test code = 42718-4) NEGATIVE NEGATIVE [facility] LongviewUrine urobilinogen measurement by test strip (mass/volume)2020-04-30 20:30:00* Test Item Value Reference Range Interpretation Comments Urine Urobilinogen (test code = 21193-0) 0.2 0.2-1 [facility] LongviewUrine total bilirubin measurement (mass/volume)2020-04-30 20:30:00* Test Item Value Reference Range Interpretation Comments Urine Bilirubin (test code = 1978-6) NEGATIVE NEGATIVE [facility] LongviewUrine erythrocytes mvbhliynr7458-90-68 20:30:00* Test Item Value Reference Range Interpretation Comments Urine Blood (test code = 02117-1) 4+ NEGATIVE [facility] LongviewAutomated urine sediment leukocyte count by microscopy (number/high power field)2020-04-30 20:30:00* Test Item Value Reference Range Interpretation Comments Urine WBC (test code = 5821-4) 11-20 0-5 [facility] LongviewErythrocytes detection in urine sediment by light kgewdyrypt1860-77-85 20:30:00* Test Item Value Reference Range Interpretation Comments Urine RBC (test code = 16096-3) >50 0-5 [facility] LongviewBacteria detection in urine sediment by light vcrwanhqvs5667-68-59 20:30:00* Test Item Value Reference Range Interpretation Comments Urine Bacteria (test code = 03180-3) MODERATE NONE [facility] LongviewEpithelial cells detection in urine sediment by light gbqqmbemjb4956-13-60 20:30:00* Test Item Value Reference Range Interpretation Comments Urine Epithelial Cells (test code = 28078-7) FEW NONE [facility]ererum [facility] plasma sodium measurement (moles/volume)2020-04-30 20:30:00* Test Item Value Reference Range Interpretation Comments Sodium Level (test code = 2951-2) 136 136-145 [facility]ererum or plasma potassium measurement (moles/volume)2020-04-30 20:30:00* Test Item Value Reference Range Interpretation Comments Potassium Level (test code = 2823-3) 4.0 3.5-5.1 [facility]ererum or plasma chloride measurement (moles/volume)2020-04-30 20:30:00* Test Item Value Reference Range Interpretation Comments Chloride Level (test code = 2075-0) 105 98-107 [facility]ererum or plasma carbon dioxide, total measurement (moles/volume)2020-04-30 20:30:00* Test Item Value Reference Range Interpretation Comments Carbon Dioxide Level (test code = 2028-9) 18 22-29 [facility]ererum or plasma anion uru4649-44-84 20:30:00* Test Item Value Reference Range Interpretation Comments Anion Gap (test code = 27470-2) 17.0 8-16 [facility]ererum or plasma urea nitrogen measurement (mass/volume)2020-04-30 20:30:00* Test Item Value Reference Range Interpretation Comments Blood Urea Nitrogen (test code = 3094-0) 16 7-26 [facility]ererum or plasma creatinine measurement (mass/volume)2020-04-30 20:30:00* Test Item Value Reference Range Interpretation Comments Creatinine (test code = 2160-0) 0.89 0.72-1.25 [facility]ererum or plasma urea nitrogen/creatinine mass zcmha4535-69-16 20:30:00* Test Item Value Reference Range Interpretation Comments BUN/Creatinine Ratio (test code = 3097-3) 18 6-25 [facility] LongviewEstimated glomerular filtration rate (GFR) lmztpxsckgtsi1167-06-12 20:30:00* Test Item Value Reference Range Interpretation Comments Estimat Glomerular Filtration Rate (test code = 846001814) > 60 >60 Ranges were taken from the National Kidney Disease Education Program and the [facility] Kidney Foundation literature.Reference ranges:60 or greater: Xasekz67-56 ( for 3 consecutive months): Chronic kidney disease 15 or less: Kidney failureCHRIST[facility] – LongviewGlucose urgokwzvvja2473-81-42 20:30:00* Test Item Value Reference Range Interpretation Comments Glucose Level (test code = WGB8924) 101 74-118 [facility]ere[facility] or plasma calcium measurement (mass/volume)2020-04-30 20:30:00* Test Item Value Reference Range Interpretation Comments Calcium Level (test code = 29049-6) 8.6 8.4-10.2 [facility]ererum or plasma total bilirubin measurement (mass/volume)2020-04-30 20:30:00* Test Item Value Reference Range Interpretation Comments Total Bilirubin (test code = 1975-2) 0.2 0.2-1.2 [facility] LongviewFluoroscopic procedure less than one hour yoifpzsx5189-67-98 20:30:00* Test Item Value Reference Range Interpretation Comments Aspartate Amino Transf (AST/SGOT) (test code = Aspartate Amino Transf (AST/SGOT)) 27 5-34 [facility]ererum or plasma alanine aminotransferase measurement (enzymatic activity/volume)2020-04-30 20:30:00* Test Item Value Reference Range Interpretation Comments Alanine Aminotransferase (ALT/SGPT) (test code = 1742-6) 27 0-55 [facility]ererum or plasma protein measurement (mass/volume)2020-04-30 20:30:00* Test Item Value Reference Range Interpretation Comments Total Protein (test code = 2885-2) 7.0 6.5-8.1 [facility]ererum or plasma albumin measurement (mass/volume)2020-04-30 20:30:00* Test Item Value Reference Range Interpretation Comments Albumin (test code = 1751-7) 4.6 3.5-5.0 [facility] LongviewPlasma globulin measurement (mass/volume) 2020-04-30 20:30:00* Test Item Value Reference Range Interpretation Comments Globulin (test code = 59716-4) 2.4 2.3-3.5 [facility] or plasma albumin/globulin mass xydjd0627-59-22 20:30:00* Test Item Value Reference Range Interpretation Comments Albumin/Globulin Ratio (test code = 1759-0) 1.9 0.8-2.0 [facility]ererum or plasma alkaline phosphatase measurement (enzymatic activity/volume)2020-04-30 20:30:00* Test Item Value Reference Range Interpretation Comments Alkaline Phosphatase (test code = 6768-6) 78 40-150 [facility]ererum or plasma creatine kinase measurement (enzymatic activity/volume)2020-04-30 20:30:00* Test Item Value Reference Range Interpretation Comments Creatine Kinase (test code = 2157-6) 331 30-200 [facility] LongviewELECTROLYTES2017-04-13 10:51:0013.5 [facility] KhfmreeSHMECOZRDZGC9319-82-49 10:51:15902Xqoypqhy HermannELECTROLYTES 2016-12-05 10:51:008.5[facility] HxjjplcDIVOBCDDNLEP7914-84-69 10:51:0027[facility] PttxcrzKUZHQXXYNQJJ0214-86-94 10:51:47627Odbdkfgf NzdwwdwPJKLMEZJOXAO1492-47-44 10:51:000.75[facility] JyxrfmiEGCZBLIRMWIS7601-82-41 10:51:008[facility] AWNSWNEWNIWZ5503-98-93 10:51:0099[facility] YjxrvdeIPQPTSJSLZCA2410-66-07 10:51:00 3.5[facility] SlwcjekQBMWGPWSDMWC4381-67-66 10:51:54959Fihnetyv HermannHEMATOLOGY 2016-12-05 10:51:003.83[facility] OnymumrTLFJZQBPLH6564-66-50 10:51:0011.3[facility] AvwdkbdKNGNSTMMJL3281-01-82 10:51:005.4[facility] PcigdwdVZCCBLLQWT4857-55-76 10:51:0012.9[facility] XrstxyqOEEPLZLZCN4199-97-34 10:51:00* Test Item Value Reference Range Interpretation Comments MCH (test code = MCH) 29.5 pg 27.0-31.0 [facility] TuriyxlLIKJYYPEKD4890-51-70 10:51:0034.2[facility] HermannHEMATOLOGY 2016-12-05 10:51:0033.0[facility] TqzjtxdRTNWALEFFY9800-63-55 10:51:0086.3[facility] XdeqvzpXYVZAXSXXT4567-64-77 10:51:87682Wbutbdxg ElqvcsgIUDAFVREWU9028-39-19 10:51:009.2[facility] HqvmzmlMKYHPIHBGU2988-63-75 10:51:000.4[facility] XPEGACLIAX2759-95-92 10:51:000.4[facility] GnamatuBBKMVOIAPU2456-64-43 10:51:003.4 [facility] HmarosxPTAXVPTQHI8717-79-18 10:51:001.3[facility] HermannHEMATOLOGY 2016-12-05 10:51:000.2[facility] RhjuufgKMMOYUJUBL1370-03-40 10:51:0063.3[facility] HckzssvRBCKDLQFED3625-74-11 10:51:008.1[facility] HvikdieSLOMQBTWHY9397-01-67 10:51:004.0[facility] TmelmkyDHVFWPXMCS1235-40-74 10:51:0024.2[facility] HermannCHEM RFILV7866-36-47 10:30:92595Jiddbppd HermannCHEM TNVWM4327-70-87 10:30:008.0 [facility] HermannCHEM WVRXR3861-03-57 10:30:72662Idfonndd HermannCHEM PANEL 2016-12-04 10:30:0010[facility] HermannCHEM ZCGLD1596-01-45 10:30:0099[facility] HermannCHEM ZHKJW7351-73-64 10:30:0029[facility] HermannCHEM TGJPT5295-30-50 10:30:000.86[facility] HermannCHEM IFAVS4141-44-20 10:30:16513Qmoqvhki HermannCHEM UAFGP8352-10-93 10:30:003.8[facility] HermannCHEM GFRBU7298-07-01 10:30:0013.8 [facility] JaaqcneKDXYEUEHRD2082-93-93 10:30:009.2[facility] HermannHEMATOLOGY 2016-12-04 10:30:70600Qfaoudzt IqiguwhZEJFBXVAPU2758-18-33 10:30:0013.0[facility] KqajvzaLWWIYPGOJK6835-03-64 10:30:00* Test Item Value Reference Range Interpretation Comments MCH (test code = MCH) 29.7 pg 27.0-31.0 [facility] PklhcfcEOJTOTUPKD8019-12-01 10:30:0034.7[facility] HermannHEMATOLOGY 2016-12-04 10:30:0034.2[facility] QwlmdwaUGXIXZLUXS8431-75-62 10:30:0085.6[facility] YsuvdnxBGNEQORFCA5587-31-86 10:30:0011.9[facility] ZpslzibDMJJCYEMLA7614-17-09 10:30:006.5[facility] EslddknHBZALZSUMG7916-89-61 10:30:004.00[facility] [place] VNHDAZCLPB4235-80-81 10:30:004.6[facility] GfllttvNNJJBOSQOD3104-78-12 10:30:003.5 [facility] KxrbnztEROKSCRPBS9917-73-35 10:30:001.2[facility] HermannHEMATOLOGY 2016-12-04 10:30:000.3[facility] EfnpusoOCVRDODFNW5805-83-03 10:30:007.4[facility] JaojmgnVYABTJFUBY5388-25-79 10:30:0018.9[facility] XmyqotsGGHNIFRURE6015-36-93 10:30:0069.9[facility] JcxckupYCOXKDWRXE4949-64-66 10:30:000.2[facility] BCZQKMJMLS2697-76-46 10:30:000.5[facility] HermannCHEM XCXPC2071-68-57 10:05:85782 [facility] HermannCHEM FWDYE5717-57-70 10:05:008.3[facility] HermannCHEM PANEL 2016-12-03 10:05:0083[facility] HermannCHEM ZUBNT7968-38-56 10:05:0010[facility] HermannCHEM UKBMA4794-99-91 10:05:62682Zgedqeht HermannCHEM FJPTR7455-96-01 10:05:000.79[facility] HermannCHEM TYUYJ7433-81-48 10:05:08226Lpmlpdva HermannCHEM MYIZF4162-52-29 10:05:003.7[facility] HermannCHEM LYLLA2656-64-44 10:05:0015.7 [facility] HermannCHEM GEERY2053-05-40 10:05:0025[facility] HermannHEMATOLOGY 2016-12-03 10:05:89290Qsccboyg JcyisccNAUXHEBDSV0432-35-67 10:05:0012.8[facility] ZejovzgAUOIWTOWRI6245-37-46 10:05:009.2[facility] AiahyzyCDSHMFHVZO2027-99-92 10:05:0086.2[facility] HfgqymzSXHRCQUPKB2614-11-24 10:05:00* Test Item Value Reference Range Interpretation Comments MCH (test code = MCH) 29.3 pg 27.0-31.0 [facility] WovcszxXVWMQJHTDH3740-92-93 10:05:0034.0[facility] HermannHEMATOLOGY 2016-12-03 10:05:007.6[facility] MouiekhKJFTAEMUNU7960-48-54 10:05:0037.4[facility] YkrnntcKUEXJXDFPU4457-17-80 10:05:0012.7[facility] NbwmrifHXKVJOPCGB0675-84-43 10:05:004.34[facility] DzttgpnCIMHNXGPIP0547-69-81 10:05:002.1[facility] TBMVRBECSA1469-42-20 10:05:006.1[facility] EyzgwzjRPHVVPFYHZ0251-11-19 10:05:000.1 [facility] EhdwbmyFBRHTUOQDB2684-23-20 10:05:000.5[facility] HermannHEMATOLOGY 2016-12-03 10:05:000.2[facility] PyulhcwSGBSYHPWEZ6629-97-55 10:05:0072.0[facility] DzxkwonFZLMJJUTAB3445-10-36 10:05:0019.7[facility] IzuwgwyVQEKOCIEMS4478-68-62 10:05:001.5[facility] VndgotyEHTQXBTJPI6772-05-17 10:05:005.5[facility] WKEQKUHBFP6473-67-65 21:07:00* Test Item Value Reference Range Interpretation Comments PTT (test code = PTT) 37.1 s 22.9-35.8 [facility] HrazghzMJCESNLFGA2437-20-09 21:07:00* Test Item Value Reference Range Interpretation Comments PT (test code = PT) 13.2 s 12.0-14.7 [facility] VfcivmjDBTYRYAJFH9123-55-67 21:07:000.98[facility] HermannURINE AND STOOL 2016-11-25 21:07:006.0[facility]annURINE AND ICNFL5890-38-63 21:07:00Clear (11/25/16 4:07 PM)[facility]annURINE AND LITKU2358-63-90 21:07:001.002[facility]annURINE AND CPRNM8204-08-61 21:07:00Negative *NA*(11/25/16 4:07 PM)[facility]annUR[facility] AND KIOYX2975-15-95 21:07:00Negative (11/25/16 4:07 PM)[facility]annUR[facility] AND LKKNC1821-49-11 21:07:00Large *ABN*(11/25/16 4:07 PM)[facility]annUR[facility] AND ASWGK4333-12-40 21:07:002[facility]annURINE AND STOOL 2016-11-25 21:07:002[facility]annURINE AND BCZXZ5332-04-06 21:07:00Trace *ABN*(11/25/16 4:07 PM)[facility]annUR[facility] AND IBLIE5996-21-83 00:01:002[facility]annUR[facility] AND DOBHH2135-23-28 00:01:006.0[facility]annURINE AND STOOL 2014-11-29 00:01:001.016[facility]annUR[facility] AND FQFVL8418-18-47 00:01:00Clear (11/28/14 7:01 PM)[facility]ann[facility] AND WUBJL2237-95-22 00:01:00Negative (11/28/14 7:01 PM)[facility]annUR[facility] AND GWWIQ5590-10-49 00:01:001[facility]annUR[facility] AND HAZSK9424-97-05 00:01:00Negative *NA*(11/28/14 7:01 PM)[facility]annUR[facility] AND VGMYP6335-52-31 00:01:00Negative (11/28/14 7:01 PM)[facility] AND WKOFJ5388-95-14 00:01:00Negative (11/28/14 7:01 PM)[facility] HermannCHEM TDNBX2385-97-64 23:25:0031[facility] HermannCHEM BJPNA3579-99-15 23:25:0076[facility] SxklslmRPPLGORBIOVO7790-16-38 23:25:20536Emazwwpw [place] VTILHLUQKMOL3993-74-21 23:25:003.6[facility] RnyfsssIRWSLGBGFEGM3203-27-75 23:25:72487Fkjaieis XgkdyvgTBIOAWGNXJDW7811-55-10 23:25:0069[facility] ISXKPZXVMHBW8386-66-14 23:25:0025[facility] PlnnfxaQZRPZYESNJGJ4353-11-99 23:25:00 1.3[facility] XwtcxwfRDTLEIJGJUZO0860-35-70 23:25:000.3[facility] CINXZXPMFNPT3148-86-45 23:25:30621Geicyfhi JgyothsGPYVGQYAKEZA6589-61-90 23:25:90245Cfnqaunm RevpkqtBGGSRDDLJRMQ2787-56-10 23:25:31308Lltgqtoi [place] JKRAGHBUWINR1408-79-79 23:25:007.7[facility] EszjoptQMHYXEMWIAOK8785-69-49 23:25:008.9[facility] DjyfnjbPARNVMEOYSZX0212-54-10 23:25:0019[facility] FAKQPLCDOWZH5988-93-63 23:25:0099[facility] MdbxxuvFGLUJJDPWMYZ5781-25-32 23:25:00 3.8[facility] XkfryqsNZDBDGLXNVSK1630-37-74 23:25:003.9[facility] DFLXVNGVCQVI5119-81-54 23:25:001.0[facility] CsyvkssLINIYHQCLRWU5648-17-57 23:25:0015[facility] LceecvgMHKNCKOEZGKI6241-85-83 23:25:0013.6[facility] KTULEJNBVD4174-72-31 23:25:008.6[facility] EipeqstFYCTYSHVRM4848-11-11 23:25:00 13.2[facility] GwvylpqSPVCLGCEYK4924-19-02 23:25:68055Kowzoyfi HermannHEMATOLOGY 2014-11-28 23:25:0033.6[facility] IqfpjanRCSEDFACUF2352-32-29 23:25:00* Test Item Value Reference Range Interpretation Comments MCH (test code = MCH) 29.9 pg 27.0-31.0 [facility] FplpfkgFOIHSJQFWV7863-41-39 23:25:0037.7[facility]ann[facility]MAT[facility] 2014-11-28 23:25:0089.0[facility] HironvtBDNZXKTKVS9681-03-58 23:25:0012.7[facility] NcxnyfyFRFPUGMEFW2646-15-66 23:25:004.24[facility] VfnmddxAAFSTYZBDE8727-25-77 23:25:007.8[facility] IdiciaoPLPBNKMCYQ8780-07-25 23:25:000.2[facility] PZKCUZQEFE7754-52-17 23:25:001.2[facility] XnbnotrVYHMZKYTTA4325-47-65 23:25:005.9 [facility] PuqamwbKOLJRUJGSK2572-12-68 23:25:000.3[facility]annHEMATOLOGY 2014-11-28 23:25:002.5[facility] IcjujhhWZROQOEOXD4672-40-69 23:25:000.6[facility] AkavcypGXLXNJBPKR4670-65-36 23:25:007.3[facility] WhhwxhlWLXVQFJRSB8479-30-63 23:25:0015.0[facility] DywjhxgVWWBRMHNBO1148-03-60 23:25:0074.9[facility] URINE AND OKTBV8020-40-35 03:46:00Negative (11/24/14 10:46 PM)[facility] URINE AND IQQJH4690-80-33 03:46:00Large *ABN*(11/24/14 10:46 PM)[facility] URINE AND EVEYD4847-75-66 03:46:00Negative *NA*(11/24/14 10:46 PM)[facility] URINE AND EJRAS2580-29-03 03:46:001[facility] VCISO5603-02-28 03:46:00Negative (11/24/14 10:46 PM)[facility] VYODR0715-09-61 03:46:65221Vhtbbkjk [facility] AND YJABF4272-99-79 03:46:005.0[facility] URINE AND YZPJX7688-68-58 03:46:001.020[facility] HNORB1707-61-14 03:46:00Marked *ABN*(11/24/14 10:46 PM)[facility] PFQNU1638-39-06 03:46:00Yellow *NA*(11/24/14 10:46 PM)[facility]annCHEM HXCRK9480-19-07 01:21:16451Aoylpxdh HermannCHEM JFZLW5529-16-31 01:21:0041[facility]annCHEM WOIDQ7380-06-66 01:21:0018[facility]annCHE[facility] OBFTQ1612-70-70 01:21:003.9 [facility]CHE[facility] YOCUI5745-80-50 01:21:001.0[facility]annCHEM PANEL 2014-11-25 01:21:0010.7[facility]annCHEM GIDAO5284-43-42 01:21:13181Gaqnkgar HermannCHEM ZRFZD2037-65-92 01:21:003.7[facility]annCHEM HKGZR2414-24-32 01:21:25427Vcarnfro HermannCHEM QQZRK5278-60-27 01:21:0076[facility]annCHEM AKFAZ5171-69-55 01:21:000.4[facility]annCHEM PDVBU8117-50-99 01:21:99024 [facility]annCHE[facility] VCQWV3741-48-45 01:21:38004Aenpasnw HermannCHEM PANEL 2014-11-25 01:21:73759Oylagzzj HermannCHEM IBUFO0348-70-24 01:21:007.8[facility]annCHEM WMVOF5787-72-99 01:21:001.2[facility]annCHEM NGCDD8310-28-66 01:21:008.2[facility]annCHEM CGZYF2533-12-42 01:21:0022[facility]annCHEM FGQPE5175-33-05 01:21:0026[facility]annCHEM DOAJQ7031-79-83 01:21:003.9 [facility]annCHE[facility] UHKRL1517-72-75 01:21:79993Pykchojw HermannHEMATOLOGY 2014-11-25 01:21:000.2[facility] YnjzlekUGPCMQIRLK8364-07-33 01:21:003.9[facility] EjrpuvfFYWFJPMXTP3221-70-69 01:21:001.9[facility] TnvfjjlCXCFVEKLVB8399-33-56 01:21:000.4[facility] MhrtxeiZXKYLUUNKC3505-68-59 01:21:0029.2[facility] ZSXUHBKKSS0525-98-88 01:21:000.3[facility] CpjjxewUGFKVMZKZW9364-12-76 01:21:006.2 [facility] UhsjsnpBCUANCCFYH4998-91-48 01:21:002.8[facility]annHEMATOLOGY 2014-11-25 01:21:0061.5[facility] QwcommcHQNCCHFQKS5409-99-93 01:21:0013.2[facility] LgbaafzHHCKTXWTTH4601-07-92 01:21:07980Codqmenb MlapdanBXTRRFITMR7975-15-64 01:21:008.8[facility] HcocwbtQPGPVVJWCS5277-05-17 01:21:0034.2[facility] AXJDHAYUXM9877-37-20 01:21:0040.1[facility] NzhnfgkTDMMOJJLGS4269-43-14 01:21:00 6.4[facility] ZlcmgtnHDKEWOMCOQ7872-85-98 01:21:004.53[facility]annHEMATOLOGY 2014-11-25 01:21:0013.7[facility] MgaazvvSIJROOCPWI3376-17-30 01:21:0088.4[facility] WdiglamUDBOXSSQOX7048-15-75 01:21:00* Test Item Value Reference Range Interpretation Comments MCH (test code = MCH) 30.2 pg 27.0-31.0 [facility]annCHEM PIRNM7890-25-66 14:43:99004Onodqeuy HermannCHEM PANEL 2014-06-23 14:43:37442Ldvsjoii [facility]annCHEM YXLBS4348-55-86 14:43:004.0[facility]annCHEM ZSFHP2837-45-14 14:43:05117Myjhupbu [facility]annCHEM SQBVB9384-42-90 14:43:0013[facility]annCHEM TZFFS0295-27-39 14:43:000.9[facility]annCHEM GABLE5806-33-42 14:43:61971Rwjxcmdb HermannCHEM SHRFJ6240-89-73 14:43:0025 [facility]annCHEM EANED4769-99-02 14:43:008.4[facility]annCHEM PANEL 2014-06-23 14:43:0013.0[facility] IzbxzilGVYAFFTHDA5820-32-81 14:43:0059.5[facility] RupjexdCGQKVXXGKU0156-05-24 14:43:000.6[facility] HvmltooQUJTVDWIEP2988-92-75 14:43:005.8[facility] DjjerecILUIXIZVLS7951-44-27 14:43:005.2[facility] ZLBJHEFOCB2392-08-80 14:43:000.4[facility] ZxjntfcFGKIWKOSXG7395-37-40 14:43:000.3 [facility] ItbzmlsNUSRIUQNIN4622-03-74 14:43:0028.9[facility]annHEMATOLOGY 2014-06-23 14:43:001.9[facility] MejwklzDRZQHVLJQZ8403-80-11 14:43:003.9[facility] DqwgwegWAVEFMXHQZ1107-77-21 14:43:0033.6[facility] DhnyiefDXCQENTREC5801-10-96 14:43:45740Jvdbyqbk HcuxcttYQTMJKSFZJ8181-90-04 14:43:0013.4[facility] FTIDGBWSUR6367-84-99 14:43:008.5[facility] IutxffqHLYRGMTHWU7844-44-49 14:43:00* Test Item Value Reference Range Interpretation Comments MCH (test code = MCH) 29.6 pg 27.0-31.0 [facility] RbushbiTSYGGTYTUD2792-94-75 14:43:0088.2[facility]annHEMATOLOGY 2014-06-23 14:43:0042.0[facility] ChubesvDZRRMLENLQ6070-57-53 14:43:0014.1[facility] HuvdqmtWBGJSIDBHH3068-58-67 14:43:004.76[facility] QwjjkzmBSXXPCHPYR9824-19-46 14:43:006.5[facility] AND YGABU4001-04-03 13:56:0016[facility]INE AND ILITQ5369-12-38 13:56:008[facility] RKHXZ7238-83-46 13:56:00Negative (06/23/14 8:56 AM)[facility] EOANX1621-61-66 13:56:00Negative (06/23/14 8:56 AM)[facility] SLOBX8738-20-73 13:56:005.0[facility] GSUVH5507-71-01 13:56:00Moderate *ABN*(06/23/14 8:56 AM)[facility] MIHKJ5024-86-65 13:56:00 Negative *NA*(06/23/14 8:56 AM)[facility] GOTOF0476-87-53 13:56:001.019[facility] AND CJNPE0979-16-26 13:56:00Marked *ABN*(06/23/14 8:56 AM)[facility] BteoemfXQUTYYGKI1657-28-41 11:14:0072[facility] NbtvdkvYNGHWOJMU4794-57-07 11:14:70584Luuudkou VfzberuWUAKNAQVK3703-46-38 11:14:004.2[facility] MmdenlsOWMTRYCAK5825-30-41 11:14:22090Jtablffn [place] THJRWDDUI5715-06-10 11:14:90038Dfospmpg GptxnrqXCYGXXNOI0201-49-83 11:14:000.8 [facility] VtleonyELELUDEDA3718-13-51 11:14:0082[facility]annCHEMISTRY 2013-04-08 11:14:85840Oiswxswh MxngvoyQVDASFLZD5364-79-61 11:14:000.7[facility] IcdozhaVKXMZXSKR3209-41-63 11:14:0022[facility] QunfajtPPVMLNSXD6214-68-30 11:14:007[facility] OubqxklJFXXEKHOU8914-20-50 11:14:007.9[facility] AKOVFNHIM5104-83-30 11:14:006.2[facility] TsuffrgLKYEIQDQU8181-93-41 11:14:002.8 [facility] PxkojotPUXQAZHDE1416-11-93 11:14:40477Ivdzzatl HermannCHEMISTRY 2013-04-08 11:14:59674Akzhyhsi BdkjieoEPQGQQGVS2073-24-00 11:14:000.8[facility] UrcwifdOCGZUJWID5828-97-65 11:14:0016.2[facility] LpqmlfyVRDRLCRJA2289-66-59 11:14:003.4[facility] IhdmmvzEWPFQVXNN4985-74-39 11:14:0010[facility] TRBWOCAGMP2705-43-90 11:14:000.2[facility] BjeucktZIHFEQTQVP5781-74-44 11:14:003.9 [facility] HpsjzukVDADNKWXMK7566-59-28 11:14:006.3[facility]annHEMATOLOGY 2013-04-08 11:14:003.0[facility] VjljvasNINXWFNDPI5127-76-21 11:14:0027.9[facility] EyfbtmlLEGRZYSRGE1237-25-40 11:14:001.7[facility] XorrsjjQRRLJNLIVG1248-08-64 11:14:0062.6[facility] YhogbxlBVNTQUTCCZ4396-40-18 11:14:000.0[facility] VLACRKTYKE3790-30-62 11:14:000.4[facility] QohcgaaYJXVLGTLZJ8767-95-17 11:14:000.2 [facility] JdbmpzfEMCLNMZJDZ7261-94-77 11:14:009.7[facility]annHEMATOLOGY 2013-04-08 11:14:0029.3[facility] QbqktfaPHYOVQYPXZ3592-42-21 11:14:008.1[facility] TfvrsjmBFDHRSVEIM6583-30-85 11:14:49699Zxiausos XwybnzxUHGACCQQLN6876-05-72 11:14:006.2[facility] DekaufkCYNUNXUPYO1651-30-23 11:14:003.32[facility] UJVALYESJM9958-68-15 11:14:0088.2[facility] HrhvphsTZKKQFWIEJ6165-14-72 11:14:00* Test Item Value Reference Range Interpretation Comments MCH (test code = MCH) 29.2 pg 27.0-31.0 N [facility] ZhkwdieXGULNNGLVK1865-27-81 11:14:0013.6[facility]annHEMATOLOGY 2013-04-08 11:14:0033.1[facility] HermannSTOOL MEYPS2315-72-81 01:45:00Negative (04/07/2013 20:45:00) [facility] GwudnsrAIMRSOAWY6280-56-30 10:18:81123Bplqfzjj BenjwkyWUAXWGWSH5309-04-34 10:18:09765Pzztsgwq UxtifjeLGQNLZGBR7280-38-71 10:18:003.5[facility] OityevuZEVRSXNXW0565-32-17 10:18:87380Oxujisxe [place] HAWKFGUGJ2496-67-54 10:18:52919Cinvogbi VudftuiGUXVPYFJU3137-25-98 10:18:007.7 [facility] YnqufscXFVNGUDLN7168-19-73 10:18:0023[facility] HermannCHEMISTRY 2013-04-07 10:18:009[facility] KmsjbdvZVDIWVHAG2049-79-38 10:18:74283Oveelzob AdxmxqiLJFSZJGIU7145-84-38 10:18:000.8[facility] FtlwsluSOYVJNZNE4679-55-13 10:18:0013.5[facility] YfkzjdpWPUKIDWIRL3257-50-38 10:18:10872Akxjblvs [facility] JKCPKVKXNI6677-11-10 10:18:0086.9[facility] NvjlyipRWPZEBVJDA1889-13-90 10:18:00 33.6[facility] KhwizgwRXVUNLCLQX8022-77-81 10:18:0013.8[facility]annHEMATOLOGY 2013-04-07 10:18:00* Test Item Value Reference Range Interpretation Comments MCH (test code = MCH) 29.2 pg 27.0-31.0 N [facility] MyzclpyMERSJDEAAQ5699-76-78 10:18:009.3[facility]annHEMATOLOGY 2013-04-07 10:18:0027.5[facility] BjicptgTCZKXSKEHY1550-06-63 10:18:003.17[facility] HnxyjgtWXBSORDBFW5628-60-20 10:18:004.4[facility] SugtwgfAETNVSMLEC3589-68-11 10:18:008.1[facility] ShwdctqCAGTSOQTFO5609-71-00 10:18:000.1[facility] GJSFQOKFSE1126-98-30 10:18:000.0[facility] QwhvubqKDSAVHPKML0210-49-42 10:18:001.2 [facility] KkbdhftMTKQNDJRQH6374-29-83 10:18:002.0[facility]annHEMATOLOGY 2013-04-07 10:18:000.3[facility] TumojhxWZBJXBZZNA2970-46-99 10:18:000.3[facility] PcltfiyQCEPEMTKST4847-63-74 10:18:006.8[facility] MoqbqcfORKHOOIBAS3367-23-88 10:18:002.8[facility] NaylxkcQEHCYMNIGO4040-23-11 10:18:0027.6[facility] OQFSDFQACB6517-73-77 10:18:0063.3[facility] RkyeokrSUDIXSNAL0193-69-03 11:48:00 1.410[facility] NtaqnrtVSPRIUQHD8743-00-68 11:48:91137Ylyzmkcm HermannCHEMISTRY 2013-04-06 11:48:000.7[facility] YxvutwbYZUGLTHVK5727-71-93 11:48:007[facility] VatfousTDHQQREJI0278-05-92 11:48:62891Azylkcsp FqnfzhmOZASCTRLW1377-72-13 11:48:0015.4[facility] GdpzmwyFLHHVZRYZ2408-28-15 11:48:0022[facility] PWDUNKEHA5682-66-69 11:48:007.6[facility] LfrzrejJWPJRQSBK6864-21-34 11:48:003.4 [facility] ZrfjoanTICHGKSIW9168-34-24 11:48:48685Scsacdht HermannCHEMISTRY 2013-04-06 11:48:34871Wfaldxlo OkkfbxvYKQHHDIRPJ2895-66-41 11:48:0030.0[facility] JmenflnHVWXODTMBY8014-05-91 11:48:005.0[facility] BeeftsvHYNSAWOZSW3276-75-23 11:48:000.0[facility] FwqujmzGXYLQZMVMP3716-96-02 11:48:0022.0[facility] PMTFYZOSTI0379-69-75 11:48:0043.0[facility] ZnkpikxIDQSNGZGXR3251-05-93 11:48:00 0.2[facility] WfqycieYNJCBQSOQT5976-67-36 11:48:002.2[facility]annHEMATOLOGY 2013-04-06 11:48:000.7[facility] CqwiltjSHFEYOJHAR2050-75-78 11:48:00Normal (04/06/2013 06:48:00) [facility] NrphuhxXRNYPFTTBO3055-84-06 11:48:00Normal (04/06/2013 06:48:00) [facility] AswnlphIBKNXDZQBM4924-88-23 11:48:009.1[facility] OeurfukYXCTOJAELI5932-96-53 11:48:0033.9[facility] TvfgzalKJJZDSNFMO6257-32-01 11:48:00* Test Item Value Reference Range Interpretation Comments MCH (test code = MCH) 29.4 pg 27.0-31.0 N [facility] MxmsuvdWIBLWKVMPH2262-68-09 11:48:003.0[facility]annHEMATOLOGY 2013-04-06 11:48:0013.5[facility] OubeatrBOOZVCHLFC9224-18-68 11:48:60238Wnpopeys UyedwijHOPLHQXFZR5294-42-21 11:48:0086.8[facility] DrxkefmPPYPJVOIEE0212-62-53 11:48:003.40[facility] WahvvawGSOYHJKTJX0413-36-67 11:48:0010.0[facility] GPTEAJKQDG9481-84-03 11:48:0029.5[facility] LmghgrfLMGHCAHXXO0676-97-09 11:48:00 Negative (04/06/2013 06:48:00) [facility] BucdwhtOHAFGOSLKW6424-16-04 11:48:00Non Reactive (04/06/2013 06:48:00) [facility] YcmxgtcHXKGAPISNR1475-13-06 11:48:00 0.210[facility] HftdcpwNDEBXJSWKZ1315-58-42 11:48:00Negative *NA*(04/06/2013 06:48:00) [facility] PbwegkpCZTCUISXDL7713-27-51 11:48:000.2[facility] GHVHLWHCRJ4055-59-54 11:48:00<0.2[facility] RqdawenENTHXOQWRG1507-65-69 11:48:00 0.5[facility] LeiulyvIBIUOEZMGX6330-77-77 11:48:00>8.0[facility] HermannMICRO MISC - HUSQBZCY3013-09-50 11:48:0043[facility] HermannVIRAL - WNTKQFEW5555-51-23 11:48:000.08[facility] HermannMICRO MISC - ADXUKTQJ5970-37-25 10:00:56Negative 3(04/06/2013 05:00:56) [facility] OaoisjaKDRRJIXYF6971-95-22 23:02:004.1[facility] EldfwgwIBNKDLFGB6350-88-41 23:02:75500Sztfoorh WubkdzeJIJRXQZEQ7913-17-38 23:02:004.3[facility] SbykwaxURFVYGJEVH3872-90-73 23:02:000.99[facility] ESAQVQXGOY7740-07-05 23:02:00* Test Item Value Reference Range Interpretation Comments PT (test code = PT) 13.3 s 12.0-14.7 N [facility] LrklysmGTNACROLU2601-58-46 10:30:38698Kfrlqsqa HermannCHEMISTRY 2013-04-05 10:30:000.8[facility] UkchctsYJLECPUVV2280-85-88 10:30:003.5[facility] DnlxatkWEUWSCNAQ8356-72-83 10:30:0014[facility] AptaaqoUWMVJUSTV3851-88-54 10:30:87527Uxcmjbee IwuymqfNLYPISKDM3139-76-17 10:30:001.5[facility] YQKDZTUWQ6205-03-26 10:30:48743Aeurrrfh PqtmnazXEPTYPKQD0585-51-82 10:30:01392 [facility] SzturgeDJIJBIKDH9939-70-82 10:30:002.9[facility] HermannCHEMISTRY 2013-04-05 10:30:006.4[facility] HlbqyeqYKTEAGLNES9429-66-66 10:30:0055.0[facility] IrqmyebOPOSVNPIBM7380-76-31 10:30:00Slight (04/05/2013 05:30:00) [facility] ZynjdciPDUQDXRPHV9548-96-29 10:30:00* Test Item Value Reference Range Interpretation Comments Tot Cell Ct (test code = Tot Cell Ct) 100 1 [facility] PgakhbcMGJADPCKHA9652-59-63 10:30:00Normal (04/05/2013 05:30:00) [facility] PahiepoAMJBYDSUYX8777-15-02 10:30:001+ *ABN*(04/05/2013 05:30:00) [facility] LhhfirmQWLQHCLAZJ0013-37-30 10:30:001.0[facility] HermannHEMATOLOGY 2013-04-05 10:30:002.0[facility] MrwudywZFAGYBNIOL0095-85-45 10:30:001.0[facility] YwsdlfsFNWZHPCBKF7770-93-29 10:30:000.0[facility] ThhtsdyKOKAVLHUAJ6107-39-77 10:30:00Negative *NA*(04/05/2013 05:30:00) [facility] BmauayrQCIAZRFFFQ3405-45-15 10:30:00Negative *NA*(04/05/2013 05:30:00) [facility] HermannIMMUNOLOGY 2013-04-05 10:30:00<1.0[facility] AeouklzKEUGUGEBTD2669-50-35 10:30:00Negative *NA*(04/05/2013 05:30:00) [facility] IpqehxfSJHREKZERM1900-47-73 10:30:00Negative *NA*(04/05/2013 05:30:00) [facility] ZzuxobqQQPJMJPTKD6983-61-44 10:30:00 Negative *NA*(04/05/2013 05:30:00) [facility] YncrjkgBEJPFJDTPA3909-78-28 10:30:00<1.3[facility] HzumggaZBOYUZWZQ9838-03-09 02:20:001.7[facility] CXMLQKUBX1706-70-77 23:05:03811Lpcdcdrb SytxiptCSLEMEJQX1164-24-17 23:05:33132 [facility] LwqxvfsJREVHLSQI3764-90-23 23:05:003.7[facility] HermannCHEMISTRY 2013-04-04 23:05:77988Rstvovxk XsnwclhKBBBVVDHU3604-86-31 23:05:007.4[facility] TravxdgPNEETKDHU0075-36-98 23:05:001.6[facility] HxbseceNCJSTXTSZ2580-45-29 23:05:001.0[facility] FirskqeABESGSVTM8730-34-09 23:05:003.7[facility] VNCAICKTG7016-45-80 23:05:0014[facility] QfejsnuRQKOMSQRG8239-42-50 23:05:18818 [facility] AzfljhfEPJLRWQBYV1024-61-19 23:05:0012.0[facility] HermannHEMATOLOGY 2013-04-04 23:05:00Normal (04/04/2013 18:05:00) [facility]annHEMATOLOGY 2013-04-04 23:05:00Normal (04/04/2013 18:05:00) [facility] HermannHEMATOLOGY 2013-04-04 23:05:000.0[facility] SbyzwteKEKNNDQYOX6606-17-01 23:05:00Negative (04/04/2013 18:05:00) [facility] DyusxonXCYUDGSPYR9562-50-91 23:05:00Negative (04/04/2013 18:05:00) [facility] OdjujigSJOHMKFYFH0769-51-57 23:05:004.0[facility] NfaxmuiGMPLFBASAV4552-06-78 23:05:002[facility] GqxshvhRRRVODZJLM1806-64-51 23:05:00Negative (04/04/2013 18:05:00) [facility] ZjwdsleOZDPNRZPGI1394-08-63 23:05:001[facility] FelglbxLCXWXBLQYW0360-27-64 23:05:00Negative mg/dL *NA*(04/04/2013 18:05:00) [facility] IchuvffSOXCTJHQGN5687-90-53 23:05:00Negative mg/dL (04/04/2013 18:05:00) [facility] ParipkhBSVSRQJUOM2259-53-21 23:05:005.0 [facility] ZyboblcUAOTWNEDXL8304-41-30 23:05:00Negative mg/dL *NA*(04/04/2013 18:05:00) [facility] YpdfdocKNNILIMXUZ9909-49-07 23:05:00Negative *NA*(04/04/2013 18:05:00) [facility] CjplipaWRMOOHDYDO2410-85-17 23:05:001.015[facility] WQYZKXLZIN5032-89-91 23:05:00Clear (04/04/2013 18:05:00) [facility]
== END 2020-07-14 07:25 | disposition home or self-care (01) ==
LOC: ER 06:03
DX: R10.32 Left lower quadrant pain (principal); M54.5 Low back pain; K21.9 Gastro-esophageal reflux disease without esophagitis; Z87.442 Personal history of urinary calculi
CPT/HCPCS: 36415; 74176; 80048; 81001; 85025; 99284; J0696; J1885

== ENCOUNTER 2021-04-01 10:59 | Emergency (ER) | payer BC ==
[~2021-04-01] VITALS: Ht 167.6 cm; Wt 72.6 kg
[2021-04-01] MEDS ORDERED: KETOROLAC TROMETHAMINE 30 MG/ML VIAL IV NR (11:22)
[2021-04-01] MEDS ORDERED: SODIUM CHLORIDE 0.9% 1000ML 1,000 ML IV STA (11:22)
[2021-04-01] MEDS ORDERED: KETOROLAC TROMETHAMINE 30 MG/ML VIAL ONE (11:36)
[2021-04-01 11:49] LABS: BASOPHILS % 0.5 % (0.0-1.0); EOSINOPHILS # (AUTO) 0.2 (0.0-0.4); EOSINOPHILS % 2.9 % (0.0-6.0); HEMATOCRIT 41.1 % (38.2-49.6); HEMOGLOBIN 13.5 g/dL (14.0-18.0); LYMPHOCYTES # (AUTO) 1.4 (1.0-3.2); LYMPHOCYTES % 22.5 % (18.0-39.1); MEAN CORPUSCULAR HEMOGLOBIN 28.9 pg (28-32); MEAN CORPUSCULAR HGB CONC 32.8 g/dL (31-35); MONOCYTES # (AUTO) 0.4 (0.2-0.8); MONOCYTES % 6.3 % (4.4-11.3); NEUTROPHILS # (AUTO) 4.1 (2.1-6.9); NEUTROPHILS % 66.3 % (38.7-80.0); PLATELET COUNT 220 x10e3/uL (140-360); RED BLOOD COUNT 4.67 x10e6/uL (4.3-5.7); RED CELL DISTRIBUTION WIDTH 12.8 % (11.7-14.4)
[2021-04-01 12:05] LABS: CLARITY,URINE CLOUDY (CLEAR); COLOR,URINE AMBER (YELLOW); LEUKOCYTE ESTERASE ,URINE NEGATIVE (NEGATIVE); NITRITE,URINE NEGATIVE (NEGATIVE)
[2021-04-01 12:06] LABS: KETONES,URINE NEGATIVE (NEGATIVE); PROTEIN,URINE DIPSTICK 2+ (NEGATIVE); URINE UROBILINOGEN 0.2 mg/dL (0.2 - 1)
[2021-04-01 12:15] LABS: BACTERIA,URINE RARE /HPF; EPITHELIAL CELLS,URINE FEW /LPF; RBC,URINE 21-50 /HPF (0-5); WBC,URINE (MAN) >50 /HPF (0-5)
[2021-04-01 12:21] LABS: ALBUMIN 4.2 g/dL (3.5-5.0); ALBUMIN/GLOBULIN RATIO 1.4 (0.8-2.0); ANION GAP 14.7 mmol/L (8-16); CALCIUM 8.4 mg/dL (8.4-10.2); CREATININE, SERUM 0.85 mg/dL (0.72-1.25); POTASSIUM 3.7 mmol/L (3.5-5.1)
[2021-04-01 12:29] LABS: INR 0.89; PARTIAL THROMBOPLASTIN TIME 34.7 seconds (23.8-35.5); PROTHROMBIN TIME 12.2 seconds (11.9-14.5)
[2021-04-01] MEDS ORDERED: LIDOCAINE HCL 1% 2 ML AMP ONE (12:45)
[2021-04-01] MEDS ORDERED: CEFTRIAXONE 1 GM VIAL ONE (12:45)
[2021-04-01] MEDS ORDERED: CEFTRIAXONE 1 GM VIAL IM ONE (13:00)
[2021-04-01 14:24] VITALS: BP 134/81
== END 2021-04-01 12:40 | disposition home or self-care (01) ==
LOC: ER 11:15
DX: N39.0 Urinary tract infection, site not specified (principal); R31.9 Hematuria, unspecified; Z87.442 Personal history of urinary calculi
CPT/HCPCS: 36415; 74176; 80053; 81001; 85025; 85610; 85730; 87086; 99284; J0696; J1885; J2001; J7030

== ENCOUNTER 2021-07-22 14:55 | Emergency (ER) | payer BC ==
[~2021-07-22] VITALS: Ht 167.6 cm; Wt 72.6 kg
[2021-07-22 15:49] LABS: CLARITY,URINE CLEAR (CLEAR); COLOR,URINE YELLOW (YELLOW)
[2021-07-22 15:50] LABS: BACTERIA,URINE RARE /HPF; KETONES,URINE NEGATIVE (NEGATIVE); LEUKOCYTE ESTERASE ,URINE NEGATIVE (NEGATIVE); NITRITE,URINE NEGATIVE (NEGATIVE); PROTEIN,URINE DIPSTICK NEGATIVE (NEGATIVE); URINE UROBILINOGEN 0.2 mg/dL (0.2 - 1)
[2021-07-22 15:51] LABS: MUCUS,URINE FEW (RARE); URIC ACID CRYSTALS,URINE FEW (FEW)
== END 2021-07-22 17:22 | disposition home or self-care (01) ==
LOC: ER 15:17
DX: M54.50 Low back pain, unspecified (principal); R07.81 Pleurodynia
CPT/HCPCS: 81001; 87086; 99282

== ENCOUNTER 2021-07-23 09:28 | Emergency (ER) | payer BC ==
[~2021-07-23] VITALS: Ht 167.6 cm; Wt 72.6 kg
[2021-07-23] MEDS ORDERED: ONDANSETRON HCL INJ 2MG/ML 2ML 2 MG/ML VIAL IV STA (09:42)
[2021-07-23] MEDS ORDERED: KETOROLAC TROMETHAMINE 30 MG/ML VIAL IV STA (09:42)
[2021-07-23] MEDS ORDERED: SODIUM CHLORIDE 0.9% 1000ML 1,000 ML IV SCH (09:45)
[2021-07-23] MEDS ORDERED: FENTANYL CITRATE/PF 100MCG/2 ML INJ IV ONE (09:45)
[2021-07-23 09:58] LABS: BASOPHILS % 0.6 % (0.0-1.0); EOSINOPHILS # (AUTO) 0.2 (0.0-0.4); EOSINOPHILS % 4.4 % (0.0-6.0); HEMATOCRIT 40.8 % (38.2-49.6); HEMOGLOBIN 13.8 g/dL (14.0-18.0); LYMPHOCYTES # (AUTO) 1.1 (1.0-3.2); LYMPHOCYTES % 21.8 % (18.0-39.1); MEAN CORPUSCULAR HEMOGLOBIN 29.3 pg (28-32); MEAN CORPUSCULAR HGB CONC 33.8 g/dL (31-35); MEAN CORPUSCULAR VOLUME 86.6 fL (81-99); MONOCYTES # (AUTO) 0.3 (0.2-0.8); MONOCYTES % 5.3 % (4.4-11.3); NEUTROPHILS # (AUTO) 3.4 (2.1-6.9); NEUTROPHILS % 66.7 % (38.7-80.0); PLATELET COUNT 213 x10e3/uL (140-360); RED BLOOD COUNT 4.71 x10e6/uL (4.3-5.7); RED CELL DISTRIBUTION WIDTH 12.5 % (11.7-14.4)
[2021-07-23] MEDS ORDERED: IOPAMIDOL 370 MG/ML 200 ML INFUS..BTL INJ ONE (10:04)
[2021-07-23] MEDS ORDERED: SODIUM CHLORIDE 0.9% 50ML 50 ML ONE (10:04)
[2021-07-23] MEDS ORDERED: SODIUM CHLORIDE 0.9% 1000ML 1,000 ML ONE (10:12)
[2021-07-23 10:17] LABS: ALBUMIN 4.1 g/dL (3.5-5.0); ALBUMIN/GLOBULIN RATIO 1.4 (0.8-2.0); CALCIUM 8.5 mg/dL (8.4-10.2); CREATININE, SERUM 0.99 mg/dL (0.72-1.25)
[2021-07-23 13:03] LABS: CLARITY,URINE CLEAR (CLEAR); COLOR,URINE YELLOW (YELLOW); KETONES,URINE NEGATIVE (NEGATIVE); LEUKOCYTE ESTERASE ,URINE NEGATIVE (NEGATIVE); NITRITE,URINE NEGATIVE (NEGATIVE); PROTEIN,URINE DIPSTICK NEGATIVE (NEGATIVE); URINE UROBILINOGEN 0.2 mg/dL (0.2 - 1)
[2021-07-23 13:10] LABS: BACTERIA,URINE FEW /HPF; EPITHELIAL CELLS,URINE FEW /LPF; RBC,URINE >50 /HPF (0-5); WBC,URINE (MAN) 0-5 /HPF (0-5)
[2021-07-24] MEDS ORDERED: MAGNESIUM CITR296 ML PO (00:03)
[2021-07-24] MEDS ORDERED: FLOMAX0.4 MG PO (00:03)
[2021-07-24] MEDS ORDERED: IBUPROFEN600 MG PO (00:03)
== END 2021-07-23 13:41 | disposition home or self-care (01) ==
LOC: ER 09:33
DX: N20.0 Calculus of kidney (principal); B34.9 Viral infection, unspecified
CPT/HCPCS: 36415; 74177; 80053; 81001; 83690; 85025; 99284; J1885; J2405; J3010; J7030; Q9967

== ENCOUNTER 2021-07-23 22:03 | Emergency (ER) | payer BC ==
[~2021-07-23] VITALS: Ht 167.6 cm; Wt 72.6 kg
[2021-07-23] MEDS ORDERED: KETOROLAC TROMETHAMINE 60 MG/2 ML VIAL IM ONE (23:15)
[2021-07-24] MEDS ORDERED: FLOMAX0.4 MG PO (00:03)
[2021-07-24] MEDS ORDERED: MAGNESIUM CITR296 ML PO (00:03)
[2021-07-24] MEDS ORDERED: IBUPROFEN600 MG PO (00:03)
== END 2021-07-24 00:07 | disposition left against medical advice (07) ==
LOC: ER 22:13
DX: K59.00 Constipation, unspecified (principal); N20.0 Calculus of kidney

== ENCOUNTER 2021-10-08 10:41 | Emergency (ER) | payer BC, OTHER ==
[~2021-10-08] VITALS: Ht 167.6 cm; Wt 72.6 kg
[~2021-10-08 10:41] MED LIST changes: +FLOMAX0.4 MG PO; +IBUPROFEN600 MG PO; +MAGNESIUM CITR296 ML PO
[2021-10-08] MEDS ORDERED: KETOROLAC TROMETHAMINE 30 MG/ML VIAL IV STA (11:39)
[2021-10-08 11:48] LABS: BASOPHILS % 0.7 % (0.0-1.0); EOSINOPHILS # (AUTO) 0.3 (0.0-0.4); EOSINOPHILS % 5.5 % (0.0-6.0); HEMOGLOBIN 13.4 g/dL (14.0-18.0); LYMPHOCYTES # (AUTO) 1.3 (1.0-3.2); LYMPHOCYTES % 22.7 % (18.0-39.1); MEAN CORPUSCULAR HEMOGLOBIN 29.3 pg (28-32); MEAN CORPUSCULAR HGB CONC 32.7 g/dL (31-35); MEAN CORPUSCULAR VOLUME 89.5 fL (81-99); MONOCYTES # (AUTO) 0.4 (0.2-0.8); MONOCYTES % 6.9 % (4.4-11.3); NEUTROPHILS # (AUTO) 3.7 (2.1-6.9); NEUTROPHILS % 63.3 % (38.7-80.0); PLATELET COUNT 215 x10e3/uL (140-360); RED BLOOD COUNT 4.58 x10e6/uL (4.3-5.7); RED CELL DISTRIBUTION WIDTH 12.8 % (11.7-14.4)
[2021-10-08 12:03] LABS: ALBUMIN 4.1 g/dL (3.5-5.0); ALBUMIN/GLOBULIN RATIO 1.4 (0.8-2.0); ANION GAP 12.8 mmol/L (8-16); CALCIUM 8.8 mg/dL (8.4-10.2); CREATININE, SERUM 0.97 mg/dL (0.72-1.25); POTASSIUM 3.8 mmol/L (3.5-5.1)
[2021-10-08 12:32] LABS: CLARITY,URINE TURBID (CLEAR); COLOR,URINE RED (YELLOW); KETONES,URINE NEGATIVE (NEGATIVE); LEUKOCYTE ESTERASE ,URINE NEGATIVE (NEGATIVE); NITRITE,URINE NEGATIVE (NEGATIVE); PROTEIN,URINE DIPSTICK 2+ (NEGATIVE); URINE UROBILINOGEN 0.2 mg/dL (0.2 - 1)
[2021-10-08 12:37] LABS: RBC,URINE >50 /HPF (0-5); WBC,URINE (MAN) 0-5 /HPF (0-5)
[2021-10-08 12:38] LABS: BACTERIA,URINE FEW /HPF; EPITHELIAL CELLS,URINE FEW /LPF
== END 2021-10-08 13:56 | disposition home or self-care (01) ==
LOC: ER 10:50
DX: R31.9 Hematuria, unspecified (principal); N20.0 Calculus of kidney; M54.50 Low back pain, unspecified; K42.9 Umbilical hernia without obstruction or gangrene; K40.20 Bilateral inguinal hernia, without obstruction or gangrene, not specified as recurrent; K21.9 Gastro-esophageal reflux disease without esophagitis
CPT/HCPCS: 36415; 74176; 80053; 81001; 85025; 99284; J1885

== ENCOUNTER 2022-01-11 02:20 | Emergency (ER) | payer BC, OTHER ==
[~2022-01-11] VITALS: Ht 167.6 cm; Wt 72.6 kg
[2022-01-11] MEDS ORDERED: FLUORESCEIN SOD(OPTH) 1 MG STRP OP ONE (02:30)
[2022-01-11] MEDS ORDERED: TETRACAINE HCL 0.5% OPTH SOLN 4 ML BTL OP ONE (02:30)
[2022-01-11] MEDS ORDERED: EYE IRRIGATION (OPTH) 120 ML BTL OP ONE (02:30)
[2022-01-11] MEDS ORDERED: TOBRAMYCIN 0.3% OPTH OINT 3.5 GM TUBE OP ONE (02:45)
== END 2022-01-11 02:45 | disposition home or self-care (01) ==
LOC: ER 02:28
DX: H57.9 Unspecified disorder of eye and adnexa (principal); L53.8 Other specified erythematous conditions; K21.9 Gastro-esophageal reflux disease without esophagitis; Z87.442 Personal history of urinary calculi
CPT/HCPCS: 99283

== ENCOUNTER 2022-04-18 07:27 | Emergency (ER) | payer BC, OTHER ==
[~2022-04-18] VITALS: Ht 167.6 cm; Wt 72.6 kg
[~2022-04-18 07:27] MED LIST changes: +SODIUM CHLORIDE 0.9% 1000ML 1,000 ML IV SCH; +SODIUM CHLORIDE FLUSH 10 ML SYR IV PRN
[2022-04-18] MEDS ORDERED: KETOROLAC TROMETHAMINE 30 MG/ML VIAL IV STA (07:41)
[2022-04-18] MEDS ORDERED: ONDANSETRON HCL INJ 2MG/ML 2ML 2 MG/ML VIAL IV STA (07:41)
[2022-04-18 08:08] LABS: INR 0.9
[2022-04-18 08:09] LABS: PARTIAL THROMBOPLASTIN TIME 34.3 seconds (23.8-35.5)
[2022-04-18 08:17] LABS: ALBUMIN/GLOBULIN RATIO 1.3 (0.8-2.0); ANION GAP 16.2 mmol/L (8-16); CALCIUM 8.8 mg/dL (8.4-10.2); CREATININE, SERUM 0.87 mg/dL (0.72-1.25); POTASSIUM 4.2 mmol/L (3.5-5.1)
[2022-04-18 09:14] LABS: CLARITY,URINE CLEAR (CLEAR); COLOR,URINE YELLOW (YELLOW); KETONES,URINE NEGATIVE (NEGATIVE); LEUKOCYTE ESTERASE ,URINE NEGATIVE (NEGATIVE); NITRITE,URINE NEGATIVE (NEGATIVE); PROTEIN,URINE DIPSTICK NEGATIVE (NEGATIVE); URINE UROBILINOGEN 0.2 mg/dL (0.2 - 1)
[2022-04-18 09:35] LABS: BACTERIA,URINE FEW /HPF; EPITHELIAL CELLS,URINE FEW /LPF; RBC,URINE >50 /HPF (0-5); URIC ACID CRYSTALS,URINE MODERATE (FEW)
[2022-04-18 09:36] LABS: CYSTINE CRYSTALS,URINE FEW
[2022-04-18 10:48] LABS: BASOPHILS % 0.6 % (0.0-1.0); EOSINOPHILS # (AUTO) 0.3 (0.0-0.4); HEMATOCRIT 42.2 % (38.2-49.6); HEMOGLOBIN 13.7 g/dL (14.0-18.0); LYMPHOCYTES # (AUTO) 1.4 (1.0-3.2); LYMPHOCYTES % 25.9 % (18.0-39.1); MEAN CORPUSCULAR HEMOGLOBIN 29.2 pg (28-32); MEAN CORPUSCULAR HGB CONC 32.5 g/dL (31-35); MONOCYTES # (AUTO) 0.3 (0.2-0.8); MONOCYTES % 6.2 % (4.4-11.3); NEUTROPHILS # (AUTO) 3.2 (2.1-6.9); NEUTROPHILS % 60.2 % (38.7-80.0); PLATELET COUNT 229 x10e3/uL (140-360); RED BLOOD COUNT 4.69 x10e6/uL (4.3-5.7); RED CELL DISTRIBUTION WIDTH 12.9 % (11.7-14.4)
[2022-04-18] MEDS ORDERED: ONDANSETRON ODT4 MG PO (11:15)
[2022-04-18] MEDS ORDERED: DICYCLOMINE HCL20 MG PO (11:15)
[2022-04-18] MEDS ORDERED: CEFDINIR300 MG PO (11:15)
[2022-04-18 11:36] VITALS: BP 125/80
== END 2022-04-18 11:37 | disposition home or self-care (01) ==
LOC: ER 07:35
DX: R10.84 Generalized abdominal pain (principal); N39.0 Urinary tract infection, site not specified; N20.0 Calculus of kidney; R19.7 Diarrhea, unspecified; R11.0 Nausea; K42.9 Umbilical hernia without obstruction or gangrene; K40.20 Bilateral inguinal hernia, without obstruction or gangrene, not specified as recurrent
CPT/HCPCS: 36415; 74177; 80053; 81001; 83690; 85025; 85610; 85730; 99284; J1885; J2405; J7030

== ENCOUNTER 2022-04-26 14:02 | Emergency (ER) | payer BC ==
[~2022-04-26] VITALS: Ht 167.6 cm; Wt 72.6 kg
[~2022-04-26 14:02] MED LIST changes: +CEFDINIR300 MG PO; +DICYCLOMINE HCL20 MG PO; +ONDANSETRON ODT4 MG PO; -SODIUM CHLORIDE 0.9% 1000ML 1,000 ML IV SCH; -SODIUM CHLORIDE FLUSH 10 ML SYR IV PRN
[2022-04-26 14:40] LABS: CLARITY,URINE TURBID (CLEAR); COLOR,URINE RED (YELLOW); KETONES,URINE TRACE (NEGATIVE); LEUKOCYTE ESTERASE ,URINE NEGATIVE (NEGATIVE); NITRITE,URINE NEGATIVE (NEGATIVE); PROTEIN,URINE DIPSTICK 2+ (NEGATIVE); URINE UROBILINOGEN 0.2 mg/dL (0.2 - 1)
[2022-04-26 14:59] LABS: RBC,URINE >50 /HPF (0-5); URIC ACID CRYSTALS,URINE FEW (FEW)
[2022-04-26 15:01] LABS: BACTERIA,URINE FEW /HPF
== END 2022-04-26 15:37 | disposition home or self-care (01) ==
LOC: ER 14:11
DX: R31.9 Hematuria, unspecified (principal); K21.9 Gastro-esophageal reflux disease without esophagitis; Z87.442 Personal history of urinary calculi
CPT/HCPCS: 81001; 99282

== ENCOUNTER 2022-05-31 19:30 | Emergency (ER) | payer BC ==
[~2022-05-31] VITALS: Ht 167.6 cm; Wt 77.1 kg
[2022-05-31] MEDS ORDERED: KETOROLAC TROMETHAMINE 30 MG/ML VIAL IV STA (19:45)
[2022-05-31] MEDS ORDERED: HYDROCODON-ACE1 EAC9 PO (19:49)
[2022-05-31] MEDS ORDERED: KETOROLAC TROME10 MG PO (19:49)
[2022-05-31] MEDS ORDERED: ONDANSETRON ODT4 MG PO (19:49)
[2022-05-31] MEDS ORDERED: KETOROLAC TROMETHAMINE 30 MG/ML VIAL ONE (20:02)
[2022-05-31 20:47] VITALS: BP 124/79
== END 2022-05-31 20:40 | disposition home or self-care (01) ==
LOC: ER 19:32
DX: N20.0 Calculus of kidney (principal); Z20.822 Contact with and (suspected) exposure to COVID-19
CPT/HCPCS: 96374; 99283; J1885

== ENCOUNTER 2022-06-30 19:22 | Emergency (ER) | payer BC ==
[~2022-06-30] VITALS: Ht 167.6 cm; Wt 77.1 kg
[~2022-06-30 19:22] MED LIST changes: +HYDROCODON-ACE1 EAC9 PO; +KETOROLAC TROME10 MG PO
[2022-06-30] MEDS ORDERED: KETOROLAC TROMETHAMINE 60 MG/2 ML VIAL IM ONE (20:30)
[2022-06-30] MEDS ORDERED: KETOROLAC TROMETHAMINE 60 MG/2 ML VIAL ONE (20:38)
== END 2022-06-30 22:00 | disposition home or self-care (01) ==
LOC: ER 19:26
DX: K59.00 Constipation, unspecified (principal); Z87.442 Personal history of urinary calculi
CPT/HCPCS: 74019; 99283; J1885

== ENCOUNTER 2024-07-19 10:44 | Emergency (ER) | payer OTHER ==
[~2024-07-19] VITALS: Ht 167.6 cm; Wt 77.1 kg
[~2024-07-19 10:44] MED LIST changes: +CYCLOBENZAPRINE10 MG PO
[2024-07-19 11:03] VITALS: RESP 18; TEMP 98.3
[2024-07-19 11:49] LABS: BASOPHILS % 0.3 % (0.0-1.0); EOSINOPHILS # (AUTO) 0.1 (0.0-0.4); EOSINOPHILS % 1.1 % (0.0-6.0); HEMOGLOBIN 12.5 g/dL (14.0-18.0); LYMPHOCYTES # (AUTO) 2.1 (1.0-3.2); LYMPHOCYTES % 23.3 % (18.0-39.1); MEAN CORPUSCULAR HEMOGLOBIN 31.3 pg (28-32); MEAN CORPUSCULAR HGB CONC 32.9 g/dL (31-35); MEAN CORPUSCULAR VOLUME 95.2 fL (81-99); MONOCYTES # (AUTO) 0.5 (0.2-0.8); MONOCYTES % 5.1 % (4.4-11.3); NEUTROPHILS # (AUTO) 6.2 (2.1-6.9); NEUTROPHILS % 67.8 % (38.7-80.0); PLATELET COUNT 174 x10e3/uL (140-360); RED BLOOD COUNT 3.99 x10e6/uL (4.3-5.7); WHITE BLOOD COUNT 9.09 x10e3/uL (4.8-10.8)
[2024-07-19] MEDS: KETOROLAC TROMETHAMINE 30 MG/ML VIAL IV STA (12:06)
[2024-07-19 12:09] LABS: ALBUMIN 3.5 g/dL (3.5-5.0); ALBUMIN/GLOBULIN RATIO 1.3 (0.8-2.0); ANION GAP 17.6 mmol/L (8-16); BILIRUBIN,TOTAL 0.8 mg/dL (0.2-1.2); CREATININE, SERUM 0.81 mg/dL (0.72-1.25); POTASSIUM 3.6 mmol/L (3.5-5.1); TOTAL PROTEIN 6.2 g/dL (6.5-8.1)
[2024-07-19 12:30] VITALS: PULSE 83
[2024-07-19] MEDS ORDERED: NAPROXEN250 MG PO (12:55)
[2024-07-19] MEDS ORDERED: DOXYCYCLINE HY100 MG PO (12:55)
[2024-07-19] MEDS ORDERED: CEFDINIR300 MG PO (12:55)
[2024-07-19 13:24] VITALS: BP 159/93; PULSE 83; RESP 16; O2SAT 97
== END 2024-07-19 13:25 | disposition home or self-care (01) ==
LOC: ER 11:06
DX: L03.115 Cellulitis of right lower limb (principal); M25.422 Effusion, left elbow; M25.521 Pain in right elbow; W18.39XA Other fall on same level, initial encounter; Y92.89 Other specified places as the place of occurrence of the external cause; K21.9 Gastro-esophageal reflux disease without esophagitis; Z87.442 Personal history of urinary calculi
CPT/HCPCS: 36415; 73080; 73562; 80053; 85025; 99283; J0696; J1885

== ENCOUNTER 2024-09-01 15:43 | Emergency (ER) | payer SELFPAY ==
[~2024-09-01 15:43] MED LIST changes: +DOXYCYCLINE HY100 MG PO; +NAPROXEN250 MG PO
== END 2024-09-01 16:45 | disposition short-term general hospital (02) ==
LOC: ER 15:52
DX: R10.30 Lower abdominal pain, unspecified (principal)

== ENCOUNTER 2025-03-11 11:30 | Emergency (ER) | payer OTHER ==
[~2025-03-11] VITALS: Ht 167.6 cm; Wt 77.1 kg
[2025-03-11 12:33] VITALS: PULSE 80; RESP 16; TEMP 97.9
[2025-03-11 12:53] LABS: BASOPHILS % 0.5 % (0.0-1.0); EOSINOPHILS % 1.4 % (0.0-6.0); LYMPHOCYTES % 14.2 % (18.0-39.1); MONOCYTES % 4.8 % (4.4-11.3); NEUTROPHILS % 78.4 % (38.7-80.0); RED CELL DISTRIBUTION WIDTH 12.7 % (11.7-14.4)
[2025-03-11 13:10] LABS: INR 0.86
[2025-03-11 13:22] LABS: EST GLOMERULAR FILTRATION RATE 106.0 ML/MIN (>=60)
[2025-03-11] MEDS: KETOROLAC TROMETHAMINE 30 MG/ML VIAL IV STA (13:25)
[2025-03-11] MEDS: SODIUM CHLORIDE 0.9% 1000ML 1,000 ML IV STA (13:25)
[2025-03-11] MEDS: ONDANSETRON HCL INJ 2MG/ML 2ML 2 MG/ML VIAL IV STA (13:25)
[2025-03-11] MEDS ORDERED: IOPAMIDOL 370 MG/ML 100 ML INFUS..BTL INJ ONE (13:55)
[2025-03-11 15:36] VITALS: BP 138/83; PULSE 78; RESP 16; TEMP 98.7; O2SAT 100
== END 2025-03-11 15:37 | disposition home or self-care (01) ==
LOC: ER 12:05
DX: K59.00 Constipation, unspecified (principal); R10.9 Unspecified abdominal pain; K21.9 Gastro-esophageal reflux disease without esophagitis; N20.0 Calculus of kidney
CPT/HCPCS: 36415; 74019; 80053; 83690; 83735; 85025; 85610; 85730; 93005; 99284; J1885; J2405; J2470; J7030; Q9967

== ENCOUNTER 2025-03-20 14:32 | Emergency (ER) | payer OTHER ==
[~2025-03-20] VITALS: Ht 167.6 cm; Wt 77.1 kg
[2025-03-20 14:37] VITALS: PULSE 77; RESP 17; TEMP 99.2
[2025-03-20 15:01] LABS: BASOPHILS % 0.4 % (0.0-1.0); EOSINOPHILS % 3.0 % (0.0-6.0); LYMPHOCYTES % 23.8 % (18.0-39.1); MONOCYTES % 7.7 % (4.4-11.3); NEUTROPHILS % 64.2 % (38.7-80.0); RED CELL DISTRIBUTION WIDTH 12.8 % (11.7-14.4)
[2025-03-20 15:15] LABS: INR 0.93
[2025-03-20 15:25] LABS: EST GLOMERULAR FILTRATION RATE 96.0 ML/MIN (>=60)
[2025-03-20 15:31] LABS: LEUKOCYTE ESTERASE ,URINE NEGATIVE (NEGATIVE); PROTEIN,URINE DIPSTICK NEGATIVE (NEGATIVE); URINE UROBILINOGEN 0.2 mg/dL (0.2 - 1)
[2025-03-20 15:37] LABS: AMPHETAMINES SCREEN,URINE NEGATIVE (NEGATIVE); COCAINE SCREEN,URINE POSITIVE (NEGATIVE); OPIATES SCREEN,URINE NEGATIVE (NEGATIVE)
[2025-03-20 15:38] LABS: CANNABINOIDS SCREEN,URINE NEGATIVE (NEGATIVE); METHADONE SCREEN, URINE NEGATIVE (NEGATIVE)
[2025-03-20] MEDS: SODIUM CHLORIDE 0.9% 1000ML 1,000 ML IV STA (15:48)
[2025-03-20] MEDS ORDERED: IOPAMIDOL 370 MG/ML 100 ML INFUS..BTL INJ ONE (15:48)
[2025-03-20 15:53] LABS: EPITHELIAL CELLS,URINE RARE /LPF
[2025-03-20 15:54] LABS: WBC,URINE (MAN) 0-5 /HPF (0-5)
[2025-03-20] MEDS: Morphine 4mg INJECTION 4 MG/ML INJ IV STA (17:36)
[2025-03-20] MEDS: ONDANSETRON HCL INJ 2MG/ML 2ML 2 MG/ML VIAL IV STA (17:37)
[2025-03-20] MEDS: KETOROLAC TROMETHAMINE 30 MG/ML VIAL IV STA (17:40)
[2025-03-20] MEDS ORDERED: HYDROCODON-ACE1 EA12 PO (17:53)
[2025-03-20] MEDS ORDERED: FLOMAX0.4 MG PO (17:53)
[2025-03-20] MEDS ORDERED: ONDANSETRON ODT4 MG PO (17:53)
[2025-03-20] MEDS ORDERED: PANTOPRAZOLE SO40 MG PO (17:53)
[2025-03-20 19:22] VITALS: BP 120/87; PULSE 85; RESP 18; TEMP 98.6; O2SAT 100
== END 2025-03-20 19:27 | disposition home or self-care (01) ==
LOC: ER 14:38
DX: R10.31 Right lower quadrant pain (principal); N13.2 Hydronephrosis with renal and ureteral calculous obstruction; R11.0 Nausea; K40.90 Unilateral inguinal hernia, without obstruction or gangrene, not specified as recurrent; K21.9 Gastro-esophageal reflux disease without esophagitis
CPT/HCPCS: 36415; 71045; 74177; 80053; 80307; 81001; 83690; 83735; 85025; 85610; 85730; 99284; J1885; J2270; J2405; Q9967

== ENCOUNTER 2025-06-19 15:26 | Emergency (ER) | payer OTHER ==
[~2025-06-19] VITALS: Ht 167.6 cm; Wt 77.1 kg
[~2025-06-19 15:26] MED LIST changes: +HYDROCODON-ACE1 EA12 PO; +PANTOPRAZOLE SO40 MG PO
[2025-06-19 16:31] VITALS: TEMP 98.3
[2025-06-19 17:42] VITALS: PULSE 65; RESP 16; O2SAT 98
== END 2025-06-19 17:44 | disposition home or self-care (01) ==
LOC: ER 15:32
DX: R42 Dizziness and giddiness (principal); F41.9 Anxiety disorder, unspecified; K21.9 Gastro-esophageal reflux disease without esophagitis; R94.31 Abnormal electrocardiogram [ECG] [EKG]; Z87.442 Personal history of urinary calculi
CPT/HCPCS: 93005; 99283